=== PATIENT | female | born 1980 | race Caucasian/White ===

== ENCOUNTER 2018-08-03 17:54 | Emergency (ER) | payer MEDICARE, SELFPAY ==
[2018-08-03 17:56] VITALS: BP 149/80; PULSE 107; TEMP 36.8; O2SAT 98; BMI 19.5
[2018-08-03 18:11] LABS: Bedside Glucose 77 mg/dL (70-110)
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
[2018-08-03 20:05] LABS: Absolute Lymphocyte Count 3.09 X10^3/ul (0.83-4.51); Absolute Neutrophil Count 4.1 X10^3/uL (2.0-7.7); Basophil# 0.04 X10^3/uL; Basophil% 0.5 % (0-1); Eosinophil# 0.14 X10^3/uL; Eosinophils% 1.7 % (0-5); Hematocrit 45.9 % (37-47); Hemoglobin 15.7 g/dl (12.0-15.0); Lymphocyte # 3.09 X10^3/ul (4.0); Lymphocyte % 38.3 % (19-41); Mean Corp Hgb Conc 34.2 g/gl (32-36); Mean Corpuscular Hgb 32.8 pg (27.0-32.0); Mean Corpuscular Volume 95.8 fL (81-99); Mean Platelet Vol. 9.2 fl (6.2-12.0); Monocyte# 0.73 X10^3/uL; Monocyte% 9.1 % (0-10); Neutrophil # 4.06 X10^3/uL (2.7-7.7); Neutrophil % 50.4 % (47-70); Platelet Count 282 K/mm3 (150-450); RBC Distribution Width CV 12.5 % (11.6-14.6); RBC Distribution Width SD 43.6 fl (35.1-43.9); Red Blood Count 4.79 M/mm3 (4.2-5.4); White Blood Count 8.1 K/mm3 (4.4-11.0)
[2018-08-03 20:06] LABS: POSITIVE COUNT NO; POSITIVE DIFFERENTIAL NO; POSITIVE MORPHOLOGY NO
[2018-08-03 20:23] LABS: BUN 12 mg/dL (7-18); Creatinine, Serum 1.16 mg/dL (0.55-1.02); Estimated Creatinine Clearance 54.83 ml/min; Glucose 70 mg/dL (74-106)
[2018-08-03 20:24] LABS: ALB/GLOB Ratio 1.1 RATIO (0.9-2.4); AST(SGOT) 25 U/L (15-37); Alanine Aminotransfer ALT/SGPT 26 U/L (13-56); Albumin, Serum 4.6 g/dL (3.2-5.0); Alkaline Phosphatase 111 U/L (45-117); Anion Gap 7 (5-15); BUN/Creat Ratio 10.3 RATIO (10-20); Calcium,Total 9.6 mg/dL (8.5-10.1); Chloride 102 mmol/L (98-107); EST Glomerular Filtration Rate 56 mL/min (>60); Est Glom Filt Rate - Afr Amer 68 mL/min (>60); Globulin 4.2 g/dL (2.2-4.2); Potassium 3.9 mmol/L (3.5-5.1); Protein, Total 8.8 g/dL (6.4-8.2); Sodium Level 138 mmol/L (136-145)
[2018-08-03 20:33] VITALS: PULSE 78; RESP 16; O2SAT 98
--- NOTE | 2018-08-03 20:46 | ED.RN ---
FROM BEGINNING OF INTERACTION PATIENT WAS REFUSING CARE AND BEING VERY ARGUMENTATIVE. PATIENT MADE AWARE MULTIPLE TIMES THAT SHE HAS THE CHOICE TO BE TREATED OR NOT. PATIENT SENT FROM [facility] TO GET MEDICALLY CLEARED. CONFIRMED THIS WITH ACCOUNT COLLECTOR FROM [facility]. PATIENT WILL NOT SIGN OUT AMA DUE TO HAVING NO PLACE TO GO. PATIENT CONTINUES TO BE VERY ARGUMENTATIVE USING PROFANITIES. BUT AGREED TO GET LABS AND SCAN DONE. WHEN PATIENT RETURNED CONTINUED TO ARGUE. WHILE GIVING DISCHARGE INSTRUCTIONS PATIENT RIPPED IV OUT, BLOOD PRESSURE CUFF, AND HEART MONITOR. PATIENT YELLING PROFANITIES SHE LEFT.
== END 2018-08-03 21:07 | disposition home or self-care (01) ==
PROVIDERS: Emergency Provider Emergency Medicine
DX: G40.909 Epilepsy, unspecified, not intractable, without status epilepticus (principal); F31.9 Bipolar disorder, unspecified
CPT/HCPCS: 70450; 80053; 82962; 85025; 99285

== ENCOUNTER 2018-08-06 18:50 | Emergency (ER) | payer MEDICARE, SELFPAY ==
[2018-08-06 18:51] VITALS: PULSE 106; RESP 20; TEMP 36.4; O2SAT 98; BMI 17.4
[2018-08-06 19:11] LABS: Bedside Glucose 88 mg/dL (70-110)
--- NOTE | 2018-08-06 19:26 | ED.VISSUMM ---
- ER Visit Summary Date of Service: 08/06/18 Chief Complaint: Agitation History of Present Illness: The patient is a 38 F who presents with agitation that began today. Patient was seen here 3 days ago with similar complaints. Patient had lab work drawn at that time which was all normal. Patient was brought in by police because patient was not eating or drinking for the past 9 days. Patient denies any suicidal or homicidal ideations. Patient states she has been having seizures which are normal for her. Patient is currently on Lamictal for her seizures. Patient states she tries to eat but every time she tries to eat she has nausea and vomiting. Physical Examination: Vital signs are stable. Patient is afebrile. Patient is in no acute distress. Patient is agitated on exam. Patient denies any suicidal or homicidal ideations. Patient does not want to be seen here in the emergency department or treated. Patient was agreeable to physical exam. Oral mucosa was pink and moist. Neck was supple. There is no JVD noted. Heart was regular rate and rhythm. Lungs are clear and equal bilaterally. Abdomen is soft and nontender. Cranial nerves II through XII are intact. There are no focal motor or sensory deficits noted. The remaining physical exam is within normal limits. Test Results: BG T was obtained and was normal. Emergency Department Course and Treatment: Patient was refusing any further treatment here in the emergency department. Patient states she wants to be discharged and wants to go home. Since the patient is not suicidal or homicidal. Patient is alert and oriented to person place and time. Patient is able to refuse treatment. Patient was allowed to be discharged. Patient was instructed to follow-up with her primary care physician or return to the emergency department if worse in any way. Patient understood and was agreeable with the plan. All questions were answered. Disposition: Discharge home Impression: 1. Agitation 2. Seizure disorder This note was generated with [employer] dictation software. It may contain incorrect words, spelling, and punctuation that were not noted in review of the chart prior to signing ED Disposition - Plan for ED Patient: Disposition: Home or Assisted Living Chief Complaint: Mental Health Diagnosis: Agitation, Seizure disorder Instructions: ED Seizure Recurrent Referrals: Care Physician,No Primary [Primary Care Provider] -
--- NOTE | 2018-08-06 19:31 | ED.DCSUM_ITS ---
- ER Visit Summary Date of Service: 08/06/18 Chief Complaint: Agitation History of Present Illness: The patient is a 38 F who presents with agitation that began today. Patient was seen here 3 days ago with similar complaints. Patient had lab work drawn at that time which was all normal. Patient was broug ht in by police because patient was not eating or drinking for the past 9 days. Patient denies any suicidal or homicidal ideations. Patient states she has been having seizures which are normal for her. Patient is currently on Lamictal for her seizures. Patient states she tries to eat but every time she tries to eat she has nausea and vomiting. Physical Examination: Vital signs are stable. Patient is afebrile. Patient is in no acute distress. Patient is agitated on exam. Patient denies any suicidal or homicidal ideations. Patient does not want to be seen here in the emergency department or treated. Patient was agreeable to physical exam. Oral mucosa was pink and moist. Neck was supple. There is no JVD noted. Heart was regular rate and rhythm. Lungs are clear and equal bilaterally. Abdomen is soft and nontender. Cranial nerves II through XII are intact. There are no focal motor or sensory deficits noted. The remaining physical exam is within normal limits. Test Results: BG T was obtained and was normal. Emergency Department Course and Treatment: Patient was refusing any further t reatment here in the emergency department. Patient states she wants to be discharged and wants to go home. Since the patient is not suicidal or homicidal. Patient is alert and oriented to person place and time. Patient is able to refuse treatment. Patient was allowed to be discharged. Patient was instructed to follow-up with her primary care physician or return to the emergency department if worse in any way. Patient understood and was agreeable with the plan. All questions were answered. Disposition: Discharge home Impression: 1. Agitation 2. Seizure disorder This note was generated with [employer] dictation software. It may contain incorrect words, spelling, and punctuation that were not noted in review of the chart prior to signing ED Disposition - Plan for ED Patient: Disposition: Home or Assisted Living Chief Complaint: Mental Health Diagnosis: Agitation, Seizure disorder Instructions: ED Seizure Recurrent Referrals: Care Physician,No Primary [Primary Care Provider] -
== END 2018-08-06 19:38 | disposition home or self-care (01) ==
PROVIDERS: Emergency Provider Emergency Medicine
DX: R45.1 Restlessness and agitation (principal); G40.909 Epilepsy, unspecified, not intractable, without status epilepticus; R11.2 Nausea with vomiting, unspecified; F41.9 Anxiety disorder, unspecified; Z72.0 Tobacco use
CPT/HCPCS: 82962; 99284

== ENCOUNTER 2019-02-21 19:35 | Emergency (ER) | payer MEDICARE, SELFPAY ==
[2019-02-21 19:35] VITALS: BP 135/76; PULSE 103; RESP 14; TEMP 36.7; O2SAT 99; BMI 17.2
--- NOTE | 2019-02-21 19:51 | RAD_ITS ---
STUDY: X-RAY CHEST REASON FOR EXAM: Female, 38 years old. Left chest pain TECHNIQUE: AP portable COMPARISON: None. FINDINGS: The lungs are clear and expanded. Tiny nodular opacity in the left upper lobe possibly representing granulomatous process. There is no demonstrated pleural abnormality. Normal size heart. Normal mediastinum and kailyn. Normal visualized pulmonary arteries. Normal visualized aortic arch and descending thoracic aorta. Normal visualized thoracic spine. Normal visualized ribs, clavicles, and shoulders. There is no demonstrated abnormality of the visualized soft tissue structures of the upper abdomen. RAD/Chest 1 View (Portable) IMPRESSION: No acute cardiopulmonary pathology. Tiny nodular density in left upper lobe possibly granulomatous process. Would recommend correlation with prior studies or follow-up imaging for further evaluation. Electronically Signed: Keagan Anne MD at 20:15 EDT , Service support ,
[2019-02-21] MEDS: proMETHazine 25 MG/ML Syringe 6.25 MG IV (20:03)
[2019-02-21] MEDS: LORazepam 2 MG/ML Syringe 1 MG IV (20:03)
[2019-02-21] MEDS: 0.9% Normal Saline 1,000 ML 1000 ML IV (20:04)
--- NOTE | 2019-02-21 20:18 | ED.RN ---
PT STATED SHE HAS A SEIZURE DISORDER AND SHE HAD A SEIZURE LAST NIGHT. AWARE AND DID NOT ORDER SEIZURE PRECAUTIONS AT THIS TIME. PT HAS NO FURTHER NEEDS, WILL CONTINUE TO MONITOR.
[2019-02-21 20:52] LABS: Absolute Lymphocyte Count 2.24 X10^3/ul (0.83-4.51); Absolute Neutrophil Count 3.9 X10^3/uL (2.0-7.7); Basophil# 0.04 X10^3/uL; Basophil% 0.6 % (0-1); Eosinophil# 0.11 X10^3/uL; Eosinophils% 1.6 % (0-5); Hematocrit 39.9 % (37-47); Hemoglobin 13.8 g/dl (12.0-15.0); Lymphocyte # 2.24 X10^3/ul (4.0); Lymphocyte % 32.7 % (19-41); Mean Corp Hgb Conc 34.6 g/gl (32-36); Mean Corpuscular Hgb 32.3 pg (27.0-32.0); Mean Corpuscular Volume 93.4 fL (81-99); Mean Platelet Vol. 9.1 fl (6.2-12.0); Monocyte# 0.57 X10^3/uL; Monocyte% 8.3 % (0-10); Neutrophil # 3.87 X10^3/uL (2.7-7.7); Neutrophil % 56.7 % (47-70); Platelet Count 311 K/mm3 (150-450); RBC Distribution Width CV 12.7 % (11.6-14.6); RBC Distribution Width SD 42.6 fl (35.1-43.9); Red Blood Count 4.27 M/mm3 (4.2-5.4); White Blood Count 6.8 K/mm3 (4.4-11.0)
[2019-02-21 20:58] LABS: POSITIVE COUNT NO; POSITIVE DIFFERENTIAL NO; POSITIVE MORPHOLOGY NO
[2019-02-21 21:03] LABS: Anion Gap 7 (5-15); BUN 6 mg/dL (7-18); BUN/Creat Ratio 7.9 RATIO (10-20); Calcium,Total 8.9 mg/dL (8.5-10.1); Chloride 108 mmol/L (98-107); Creatinine, Serum 0.76 mg/dL (0.55-1.02); EST Glomerular Filtration Rate 91 mL/min (>60); Est Glom Filt Rate - Afr Amer 111 mL/min (>60); Estimated Creatinine Clearance 73.28 ml/min; Glucose 77 mg/dL (74-106); Potassium 4.2 mmol/L (3.5-5.1); Sodium Level 139 mmol/L (136-145)
--- NOTE | 2019-02-21 21:10 | ED.VISSUMM ---
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 She reports that she had pain in her left axilla that began approximately 2 weeks ago. She describes an aching pain that she thought she pulled something. However, she reports that 4 days ago she began having pain in her left breast. Says sharp pains tended to worsen out of 10 currently. Is worsened by movement relieved by rest. She states that she taken Tylenol and Advil without relief. She reports that she had a mammogram approximately 4 years ago. She did not palpate a mass here. Patient also reports that she has been vomiting due to the pain. This began 3 days ago. She vomiting multiple times per day. No blood or emesis. Physical Examination: Vitals: Stable. Afebrile. General: Well-nourished and well-developed. Head: Normocephalic atraumatic. Neck: Supple, no lymphadenopathy. No JVD. Nontender. Cardiovascular: Regular rate and rhythm. No murmurs. Respiratory: No respiratory distress. Clear to auscultation bilaterally. Left breast: Moderate tenderness palpation over the lateral surface of her breast. I cannot appreciate any masses or nodes. There is no erythema or soft tissue swelling to the breast. There is no erythema or mass in the axilla. There is no evidence of abscess. There are no palpable nodes. Abdominal: Soft, nontender, nondistended, normal bowel sounds. No guarding, rebound, or peritoneal signs. Back: Nontender. Extremities: Nontender, no edema. Skin: Normal color, no rash. Neurologic: Alert and oriented ?3. Cranial nerves II through XII are intact. Normal strength and sensation. Psych: Normal affect. Test Results: CBC is normal. Chem-7 shows a chloride of 108 and BUN of 6. Clinical Impression(s) from Imaging Studies Chest X-Ray 02/21/19 19:51 IMPRESSION: No acute cardiopulmonary pathology. Tiny nodular density in left upper lobe possibly granulomatous process. Would recommend correlation with prior studies or follow-up imaging for further evaluation. Electronically Signed: Keagan Anne MD at 20:15 EDT , Service support , Emergency Department Course and Treatment: Patient has multiple allergies. She was given a dose of Ativan and Zofran IV. She was given Tylenol p.o. I do not think that the treating her with opiate-based medications is warranted. However, the patient was very upset that she would not be treated with these medications. Treatment Plan: Patient will be discharged with Phenergan for her nausea. Instructed to use Tylenol and/or ibuprofen for pain. Follow-up Dr. Sherry Barber as soon as possible. Follow-up with the [facility] in 1-2 days if not improving. Disposition: To home in improved and stable condition. Impression: 1. Left breast pain, uncertain cause. This note was generated with [employer] dictation software. It may contain incorrect words, spelling, and punctuation that were not noted in review of the chart prior to signing ED Disposition - Plan for ED Patient: Disposition: Home or Assisted Living Instructions: Breast Self-Exam (BSE), ED Nodule Solitary Pulmonary Prescriptions: proMETHazine suppository [Phenergan Suppository] 25 mg RECTAL Q6H PRN PRN #6 suppos. PRN Reason: Nausea proMETHazine tablet [Phenergan] 25 mg PO Q6H PRN PRN #10 tablet PRN Reason: Nausea Naproxen [Naprosyn] 500 mg PO BID #14 tablet Referrals: Esther Samano MD [STAFF PHYSICIAN] - [facility] [NON-STAFF] - 1 Week
--- NOTE | 2019-02-21 21:13 | ED.DCSUM_ITS ---
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 She reports that she had pain in her left axilla that began approximately 2 weeks ago. She describes an aching pain that she thought she pulled something. However, she reports that 4 days ago she began having pain in her left breast. Says sharp pains tended to worsen out of 10 currently. Is worsened by movement relieved by rest. She states that she taken Tylenol and Advil without relief. She reports that she had a mammogram approximately 4 years ago. She did not palpate a mass here. Patient also reports that she has been vomiting due to the pain. This began 3 days ago. She vomiting multiple times per day. No blood or emesis. Physical Examination: Vitals: Stable. Afebrile. General: Well-nourished and well-developed. Head: Normocephalic atraumatic. Neck: Supple, no lymphadenopathy. No JVD. Nontender. Cardiovascular: Regular rate and rhythm. No murmurs. Respiratory: No respiratory distress. Clear to auscultation bilaterally. Left breast: Moderate tenderness palpation over the lateral surface of her breast. I cannot appreciate any masses or nodes. There is no erythema or soft tissue swelling to the breast. There is no erythema or mass in the axilla. There is no evidence of abscess. There are no palpable nodes. Abdominal: Soft, nontender, nondistended, normal bowel sounds. No guarding, rebound, or peritoneal signs. Back: Nontender. Extremities: Nontender, no edema. Skin: Normal color, no rash. Neurologic: Alert and oriented ?3. Cranial nerves II through XII are intact. Normal strength and sensation. Psych: Normal affect. Test Results: CBC is normal. Chem-7 shows a chloride of 108 and BUN of 6. Clinical Impression(s) from Imaging Studies Chest X-Ray 02/21/19 19:51 IMPRESSION: No acute cardiopulmonary pathology. Tiny nodular density in left upper lobe possibly granulomatous process. Would recommend correlation with prior studies or follow-up imaging for further evaluation. Electronically Signed: Keagan Anne MD at 20:15 EDT , Service support , Emergency Department Course and Treatment: Patient has multiple allergies. She was given a dose of Ativan and Zofran IV. She was given Tylenol p.o. I do not think that the treating her with opiate-based medications is warranted. However, the patient was very upset that she would not be treated with these medications. Treatment Plan: Patient will be discharged with Phenergan for her nausea. Instructed to use Tylenol and/or ibuprofen for pain. Follow-up Dr. Sherry Barber as soon as possible. Follow-up with the [facility] in 1-2 days if not improving. Disposition: To home in improved and stable condition. Impression: 1. Left breast pain, uncertain cause. This note was generated with [employer] dictation software. It may contain incorrect words, spelling, and punctuation that were not noted in review of the chart prior to signing ED Disposition - Plan for ED Patient: Disposition: Home or Assisted Living Instructions: Breast Self-Exam (BSE), ED Nodule Solitary Pulmonary Prescriptions: proMETHazine suppository [Phenergan Suppository] 25 mg RECTAL Q6H PRN PRN #6 suppos. PRN Reason: Nausea proMETHazine tablet [Phenergan] 25 mg PO Q6H PRN PRN #10 tablet PRN Reason: Nausea Naproxen [Naprosyn] 500 mg PO BID #14 tablet Referrals: Esther Samano MD [STAFF PHYSICIAN] - [facility] [NON-STAFF] - 1 Week
[2019-02-21 21:47] VITALS: PULSE 74; RESP 18
== END 2019-02-21 21:48 | disposition home or self-care (01) ==
LOC: ED 20:26
PROVIDERS: Emergency Provider Emergency Medicine
DX: N64.4 Mastodynia (principal)
CPT/HCPCS: 71045; 80048; 85025; 96361; 96374; 96375; 99285; J7030; A4216

== ENCOUNTER → 2019-03-09 08:58 | Outpatient (CLI) | payer MEDICARE, SELFPAY ==
[2019-02-21 19:35] VITALS: BMI 17.2
--- NOTE | 2019-03-09 09:03 | US_ITS ---
STUDY: ULTRASOUND BREAST - LEFT REASON FOR EXAM: Female, 38 years old. Pain and swelling along the lateral aspect of the left breast. TECHNIQUE: Axial and longitudinal images of the LEFT breast were performed with a high resolution ultrasound transducer. COMPARISON: None. FINDINGS: LEFT Breast: The lateral half of the left breast was examined by ultrasound. There is homogeneous fibroglandular tissue. No solid or cystic mass lesion is seen. US/Breast Limited Unilateral IMPRESSION: Unremarkable sonographic examination of the lateral aspect of the left breast. ASSESSMENT CATEGORY: BIRADS Category 1: Negative. A letter regarding these results will be sent to the patient by the facility within 30 days. Electronically Signed: Fazal Osorio, at 10:59 EDT , Service support ,
--- NOTE | 2019-03-09 09:03 | BI_ITS ---
MAMMOGRAPHY - BILATERAL DIAGNOSTIC REASON FOR EXAM: Female, 38 years old. Left breast lumps and pain for 2 weeks. PERTINENT HISTORY: Non-contributory. TECHNIQUE: Digital bilateral breast scottie (3D mammographic acquisition) in the CC and MLO projections. 2-D mediolateral oblique (MLO) and craniocaudad (CC) views of both breasts were obtained. CAD: Full Field Digital Mammography with Computer Added Detection was performed. COMPARISON: No comparison mammograms available at this time. If any prior films become available, an addendum to this report can be generated. FINDINGS: Breast Composition: There are scattered areas of fibroglandular density. There are no dominant masses or suspicious calcifications. No other significant abnormalities are identified. BI/DIAG MAMM W/CAD, BILAT IMPRESSION: Negative diagnostic mammogram. With the patient's history of left breast lumps and pain, correlation with ultrasound of the left breast is recommended. ASSESSMENT CATEGORY: BIRADS Category 0: Incomplete. Need additional imaging evaluation. A letter regarding these results will be sent to the patient by the facility within 30 days. Approximately 10% of breast cancers are not detected by mammography. A normal mammogram should not delay biopsy of a clinically suspicious abnormality. Electronically Signed: Fazal Osorio, at 12:44 EDT , Service support ,
== END ==
PROVIDERS: Family Provider Nurse Practitioner Family; PCP Nurse Practitioner Family
DX: N64.89 Other specified disorders of breast (principal)
CPT/HCPCS: 76642; 77062; 77066; G0279

== ENCOUNTER 2019-03-09 18:42 | Emergency (ER) | payer MEDICARE, SELFPAY ==
[2019-03-09 18:44] VITALS: BP 121/78; PULSE 87; RESP 17; TEMP 36.7; O2SAT 97; BMI 18.6
[2019-03-09 19:42] VITALS: BP 103/78; PULSE 75; RESP 16; O2SAT 99
[2019-03-09] MEDS: oxyCODONE 5 MG Tablet PO (19:44)
[2019-03-09] MEDS: proMETHazine 25 MG Tablet PO (19:44)
--- NOTE | 2019-03-09 21:03 | ED.VISSUMM ---
- ER Visit Summary Date of Service: 03/09/19 Chief Complaint: Left breast pain and swelling History of Present Illness: The patient is a 38 F with a 3-week history of left breast pain. She is been seen in the ED as well as by her PCP. She had an ultrasound and a mammogram done earlier today. Patient presents with worsened pain and nausea. She has prescriptions for naproxen and Phenergan but states she is just about out of both. Physical Examination: Vital signs unremarkable. Patient sitting upright in bed no acute distress. Heart is regular rate and rhythm. Lung sounds are clear. She has reproducible tenderness left upper outer breast and into the axilla. No masses or skin changes are noted. Abdomen is soft and nontender. Test Results: I was able to review the ultrasound and mammogram reports from earlier today. Both are unremarkable. Emergency Department Course and Treatment: Patient was given 1 tab of oxycodone and Phenergan here. On repeat evaluation she is resting more comfortably. I advised her I would not write her narcotics for home with normal ultrasound and mammogram. I offered chest x-ray to ensure her chest wall is normal and she declines stating that she is scheduled for a chest CT next week. She is given a prescription for naproxen and Phenergan. Treatment Plan: [] Disposition: Discharge Impression: Left breast pain This note was generated with [employer] dictation software. It may contain incorrect words, spelling, and punctuation that were not noted in review of the chart prior to signing ED Disposition - Plan for ED Patient: Disposition: Home or Assisted Living Instructions: ED Strain Chest Wall Prescriptions: proMETHazine tablet [Phenergan] 25 mg PO Q6H PRN PRN #10 tablet PRN Reason: Nausea Naproxen [Naprosyn] 500 mg PO BID PRN PRN #20 tablet PRN Reason: Pain Referrals: Arianna Glass NP-C [Primary Care Provider] - 3-5 Days
[2019-03-09] MEDS: proMETHazine 12.5 MG Suppos. RECTAL (21:15)
[2019-03-09 21:16] VITALS: BP 110/78; PULSE 80; RESP 16; O2SAT 99
== END 2019-03-09 21:16 | disposition home or self-care (01) ==
PROVIDERS: Emergency Provider Emergency Medicine; Family Provider Nurse Practitioner Family; PCP Nurse Practitioner Family
DX: N64.4 Mastodynia (principal); Z72.0 Tobacco use; R11.0 Nausea
CPT/HCPCS: 76642; 77062; 77066; 99283; G0279

== ENCOUNTER → 2019-03-16 15:09 | Outpatient (CLI) | payer MEDICARE, SELFPAY ==
[2019-02-21 19:35] VITALS: BMI 17.2
[2019-03-09 18:44] VITALS: BMI 18.6
--- NOTE | 2019-03-16 15:13 | CT_ITS ---
STUDY: CT CHEST WITH CONTRAST REASON FOR EXAM: Female, 38 years old. Nodule RADIATION DOSAGE (If Supplied By Facility): DLP = ( 160.38 ) mGycm TECHNIQUE: Transaxial imaging was performed following intravenous administration of 100 ml of Isovue 300 contrast material. Coronal and sagittal reformatted images were created. Individualized dose optimization techniques were used for this CT. COMPARISON: X-ray chest February 21, 2019 FINDINGS: There are no pulmonary infiltrates or pleural effusions. There is a tiny left upper lobe granuloma. Several small pleural-based nodular opacities and groundglass are present in the bilateral lungs posteriorly. There is no consolidation. There is no pneumothorax. The heart and pericardium are within normal limits. There is no thoracic lymphadenopathy. There is no evidence of thoracic aortic aneurysm. Images through the upper abdomen demonstrate no significant abnormality. There are no destructive osseous lesions. CT/Chest WITH Contrast IMPRESSION: Tiny left upper lobe granuloma. Several small pleural-based nodular opacities and groundglass opacities in the bilateral lungs posteriorly, likely due to inflammatory process. Electronically Signed: Keagan Baez, at 16:32 EDT Tel , Service support ,
== END ==
PROVIDERS: Family Provider Nurse Practitioner Family; PCP Nurse Practitioner Family
DX: R91.1 Solitary pulmonary nodule (principal)
CPT/HCPCS: 71260; Q9967

== ENCOUNTER 2019-05-03 16:29 | Emergency (ER) | payer MEDICARE, SELFPAY ==
[2019-04-25 08:49] VITALS: BMI 17.6
[2019-05-03 16:29] VITALS: BP 120/72; PULSE 82; RESP 16; TEMP 36.4; O2SAT 98; BMI 18.8
--- NOTE | 2019-05-03 16:52 | CT_ITS ---
STUDY: CT BRAIN WITHOUT CONTRAST REASON FOR EXAM: Female, 38 years old. Seizure RADIATION DOSAGE (If Supplied By Facility): DLP = ( 908.82 ) mGycm TECHNIQUE: Transaxial CT imaging of the brain was performed without administration of intravenous contrast material. Individualized dose optimization techniques were used for this CT. COMPARISON: CT head August 03, 2018 FINDINGS: There is no acute bleed or infarct. There are normal white matter tracts. The ventricles are normal in configuration. There is no hydrocephalus. The visualized paranasal sinuses are clear. The mastoid air cells are well aerated. There is no skull fracture. CT/Brain/Head without Contrast IMPRESSION: No acute intracranial abnormality. Electronically Signed: Keagan Baez, at 17:50 EDT Tel , Service support ,
[2019-05-03] MEDS: proMETHazine 25 MG/ML Syringe 6.25 MG IV ×2 (17:09→18:18)
[2019-05-03] MEDS: 0.9% Normal Saline 1,000 ML 1000 ML IV (17:09)
[2019-05-03] MEDS: lamoTRIgine 100 MG Tablet 200 MG PO (17:14)
[2019-05-03] MEDS: clonazePAM 1 MG Tablet PO (17:14)
[2019-05-03 17:20] LABS: Absolute Lymphocyte Count 1.71 X10^3/ul (0.83-4.51); Absolute Neutrophil Count 8.2 X10^3/uL (2.0-7.7); Basophil# 0.05 X10^3/uL; Basophil% 0.5 % (0-1); Eosinophil# 0.03 X10^3/uL; Eosinophils% 0.3 % (0-5); Hematocrit 44.1 % (37-47); Hemoglobin 15.7 g/dl (12.0-15.0); Lymphocyte # 1.71 X10^3/ul (4.0); Lymphocyte % 15.9 % (19-41); Mean Corp Hgb Conc 35.6 g/gl (32-36); Mean Corpuscular Hgb 32.8 pg (27.0-32.0); Mean Corpuscular Volume 92.1 fL (81-99); Mean Platelet Vol. 9.2 fl (6.2-12.0); Monocyte# 0.73 X10^3/uL; Monocyte% 6.8 % (0-10); Neutrophil # 8.22 X10^3/uL (2.7-7.7); Neutrophil % 76.4 % (47-70); Platelet Count 301 K/mm3 (150-450); RBC Distribution Width SD 43.6 fl (35.1-43.9); Red Blood Count 4.79 M/mm3 (4.2-5.4); White Blood Count 10.8 K/mm3 (4.4-11.0)
[2019-05-03 17:25] LABS: POSITIVE COUNT NO; POSITIVE DIFFERENTIAL NO; POSITIVE MORPHOLOGY NO
[2019-05-03 17:34] LABS: ALB/GLOB Ratio 1.2 RATIO (0.9-2.4); AST(SGOT) 24 U/L (15-37); Alanine Aminotransfer ALT/SGPT 22 U/L (13-56); Albumin, Serum 4.5 g/dL (3.2-5.0); Alkaline Phosphatase 95 U/L (45-117); Anion Gap 7 (5-15); BUN 7 mg/dL (7-18); BUN/Creat Ratio 7.3 RATIO (10-20); Calcium,Total 9.4 mg/dL (8.5-10.1); Chloride 106 mmol/L (98-107); Creatinine, Serum 0.96 mg/dL (0.55-1.02); EST Glomerular Filtration Rate 70 mL/min (>60); Est Glom Filt Rate - Afr Amer 85 mL/min (>60); Estimated Creatinine Clearance 63.81 ml/min; Globulin 3.9 g/dL (2.2-4.2); Glucose 75 mg/dL (74-106); Potassium 3.7 mmol/L (3.5-5.1); Protein, Total 8.4 g/dL (6.4-8.2); Sodium Level 135 mmol/L (136-145)
[2019-05-03 17:57] LABS: Bacteria 0 SEEN /hpf (None Seen); Mucous, Urine 0 SEEN /hpf (<or=2+); Red Blood Cells-Urine 0 SEEN /hpf (0-5)
[2019-05-03 18:02] LABS: Color, Urine Yellow (Yellow); Glucose, Dipstick Normal (Normal); Ketone-Dipstick 5 mg/dl (Negative); Leukocyte Esterase-Dipstick Negative /ul (Negative); Nitrite-Dipstick Negative (Negative); Occult Blood-Urine 10 /ul (Negative); Protein-Dipstick Negative (Negative); Specific Gravity, Urine 1.015 (1.002-1.030); Urine Bilirubin Dipstick Negative (Negative); Urine Clarity Clear (Clear); Urine Urobilinogen Normal (Normal)
[2019-05-03 18:09] LABS: Squamous Epithelial Cells - UA 0-5 SEEN /hpf (5-10); White Blood Cells 0-5 SEEN /hpf (0-5)
[2019-05-03 18:11] LABS: Amphetamine Urine VISTA NEGATIVE (<1000 ng/mL); Barbiturate Urine VISTA NEGATIVE (< 200 ng/mL); Benzodiazepine Urine VISTA NEGATIVE (< 200 ng/mL); Cocaine Urine VISTA NEGATIVE (< 300 ng/mL); Ecstacy Urine VISTA NEGATIVE (< 500 ng/mL); Methadone Urine VISTA NEGATIVE (< 300 ng/mL); PCP Urine VISTA NEGATIVE (< 25 ng/mL); THC Urine VISTA POSITIVE (< 50 ng/mL); Vista UDS pH Range 5
[2019-05-03] MEDS: 0.9% Normal Saline 1,000 ML 150 ML IV (18:18)
[2019-05-03 18:20] VITALS: BP 116/84; PULSE 75; RESP 20; O2SAT 97
--- NOTE | 2019-05-03 18:55 | ED.DCSUM_ITS ---
- ER Visit Summary Date of Service: 05/03/19 Chief Complaint: Seizures History of Present Illness: The patient is a 38 F who took a taxi to the emergency department. She states that she was found by her neighbor apparently after having seizures. She states that after that she decided to come to the hospital. She has had several seizures recently she states because she has not taken her medicine for a couple days. She has not taken her medicine for the past couple days because of his significant nausea vomiting. She states this is been ongoing for a couple weeks. She uses recreational marijuana frequently. She has never been told about cyclic vomiting syndrome. She sees [facility] for her epilepsy. She states that she has a bruised head and right periorbital region as well as bruises on her extremities. She also bit her lip. Physical Examination: Afebrile vital signs are stable Gen: Well-nourished well-developed Head: Normocephalic atraumatic Eyes: Perrl EOMI ENT: TMs clear no rhinorrhea moist mucous membranes Neck: Supple no lymphadenopathy no JVD nontender CVS: Regular rate rhythm no murmurs normal S1-S2 Respiratory: No distress clear to auscultation bilaterally chest nontender Abdomen: Soft nontender nondistended normal bowel sounds no masses Back: Nontender Extremity: Nontender no edema Skin: Normal color no rash Neuro: alert orientated ?3 CN II-XII intact normal strength sensation normal gait Psych: Normal affect normal mood Test Results: CBC CMP urinalysis normal. Urine drugs of abuse showed THC. CT the brain negative for evidence of trauma Emergency Department Course and Treatment: She received 2 L of IV fluids as well as 2 doses of Phenergan. She is been able to keep down oral clonazepam and Lamictal. The seizures are most likely due to not taking her medications. I wonder if this patient has cyclic vomiting syndrome given her frequent marijuana use. She will discuss this with her doctors. Impression: 1. Epileptic seizures 2. Nausea vomiting 3. THC use This note was generated with [employer] dictation software. It may contain incorrect words, spelling, and punctuation that were not noted in review of the chart prior to signing ED Disposition - Plan for ED Patient: Disposition: Home or Assisted Living Instructions: SEIZURE, Recurrent [Adult], When Your Child Has Cyclic Vomiting Syndrome ([facility]) Prescriptions: proMETHazine tablet [Phenergan] 25 mg PO Q6H PRN PRN #20 tab PRN Reason: Nausea Prescription Printed Referrals: Arianna Glass, SWIMMING COACH-C [Primary Care Provider] - As soon as possible
[2019-05-03] MEDS: 0.9% Normal Saline 1,000 ML 999 ML IV (19:02)
[2019-05-03 19:56] VITALS: BP 110/74; PULSE 74; RESP 18; O2SAT 98
== END 2019-05-03 20:01 | disposition home or self-care (01) ==
PROVIDERS: Emergency Provider Emergency Medicine; Family Provider Nurse Practitioner Family; PCP Nurse Practitioner Family
DX: G40.909 Epilepsy, unspecified, not intractable, without status epilepticus (principal); R11.2 Nausea with vomiting, unspecified; F12.90 Cannabis use, unspecified, uncomplicated; F32.9 Major depressive disorder, single episode, unspecified; Z72.0 Tobacco use
CPT/HCPCS: 70450; 80053; 80307; 81001; 85025; 96361; 96374; 96376; 99285; J7030

== ENCOUNTER 2019-05-15 19:54 | Emergency (ER) | payer MEDICARE, SELFPAY ==
[2019-05-15 19:55] VITALS: BP 130/105; PULSE 107; RESP 20; TEMP 36.8; O2SAT 97; BMI 16.7
[2019-05-15 20:43] VITALS: PULSE 72; RESP 13; O2SAT 100
[2019-05-15 22:03] LABS: Absolute Lymphocyte Count 2.44 X10^3/uL (0.83-4.51); Absolute Neutrophil Count 2.5 X10^3/uL (2.0-7.7); Basophil# 0.05 X10^3/uL; Basophil% 0.9 % (0-1); Eosinophil# 0.14 X10^3/uL; Eosinophils% 2.5 % (0-5); Hematocrit 40.7 % (37-47); Hemoglobin 14.5 g/dL (12.0-15.0); Lymphocyte # 2.44 X10^3/ul (4.0); Lymphocyte % 42.8 % (19-41); Mean Corp Hgb Conc 35.6 g/dL (32-36); Mean Corpuscular Hgb 33.1 pg (27.0-32.0); Mean Corpuscular Volume 92.9 fL (81-99); Mean Platelet Vol. 9.3 fl (6.2-12.0); Monocyte# 0.54 X10^3/uL; Monocyte% 9.5 % (0-10); NRBC Flagged by Analyzer 0 % (0-5); Neutrophil # 2.51 X10^3/uL (2.7-7.7); Neutrophil % 43.9 % (47-70); Platelet Count 204 K/mm3 (150-450); RBC Distribution Width CV 12.5 % (11.6-14.6); RBC Distribution Width SD 42.6 fl (35.1-43.9); Red Blood Count 4.38 M/mm3 (4.2-5.4); White Blood Count 5.7 K/mm3 (4.4-11.0)
[2019-05-15] MEDS: 0.9% Normal Saline 1,000 ML 150 ML IV (22:07)
[2019-05-15] MEDS: proMETHazine 25 MG/ML Syringe 6.25 MG IV (22:08)
[2019-05-15] MEDS: LORazepam 2 MG/ML Syringe 0.5 MG IV (22:08)
[2019-05-15 22:09] VITALS: BP 116/78; PULSE 67; RESP 14; O2SAT 100
[2019-05-15 22:35] LABS: Anion Gap 5 (5-15); BUN 14 mg/dL (7-18); BUN/Creat Ratio 13.5 RATIO (10-20); Calcium,Total 9.5 mg/dL (8.5-10.1); Chloride 106 mmol/L (98-107); Creatinine, Serum 1.04 mg/dL (0.55-1.02); EST Glomerular Filtration Rate 63 mL/min (>60); Est Glom Filt Rate - Afr Amer 77 mL/min (>60); Estimated Creatinine Clearance 52.06 ml/min; Glucose 81 mg/dL (74-106); Potassium 4.5 mmol/L (3.5-5.1); Sodium Level 137 mmol/L (136-145)
[2019-05-15] MEDS: Morphine 4 MG/ML Syringe IV (22:38)
[2019-05-15 22:48] LABS: CPK Total, Creatine Kinase 113 U/L (26-192)
--- NOTE | 2019-05-15 23:22 | ED.DCSUM_ITS ---
History of Present Illness Chief Complaint: Seizure Detail of Chief Complaint: Seizures Informant: Patient Onset: - - 10 days Narrative: Patient presents with history of epilepsy currently on Lamictal. She has allergies to Keppra and Depakote. Patient states that she lost to close friend approximately month ago. She has had a lot of anxiety and panic attacks since that time. She states when she gets anxious like this she develops nausea and vomiting. She has not been able to keep her Phenergan down at home and therefore cannot keep down her seizure medication. She states that she believes she had 6 seizures yesterday and at least for today. She complains of bruising and soreness to her extremities from falling on the floor. She is a small bite wound to the inner right lip. Patient states that she spoke with a nurse practitioner for her neurologist at [facility] and they wanted her admitted up there in their observation unit. Patient cannot drive secondary to her history of seizures so she came here to be transferred. - Past Medical History (1) History of cholecystectomy Status: Resolved (2) History of hysterectomy Status: Resolved (3) Cervical cancer Status: Chronic (4) Epilepsy Status: Chronic (5) Hypertension Status: Chronic Past Medical History - Allergies and Home Meds Allergies/Adverse Reactions: Allergies amoxicillin Allergy (Verified 05/03/19 16:32) Hives codeine Allergy (Verified 05/03/19 16:32) Hives divalproex sodium [From Depakote] Allergy (Verified 05/03/19 16:32) Hives iodine Allergy (Verified 05/03/19 16:32) Hives ketorolac [From Toradol] Allergy (Verified 05/03/19 16:32) Hives levetiracetam [From Keppra] Allergy (Verified 05/03/19 16:32) Hives metoclopramide [From Reglan] Allergy (Verified 05/03/19 16:32) Hives ondansetron [From Zofran] Allergy (Verified 05/03/19 16:32) Hives tramadol Allergy (Verified 05/03/19 16:32) Angioedema TAPE Adverse Reaction (Uncoded 05/03/19 16:32) Rash Primary Care Physician: Arianna Glass, IRON-C [Primary Care Provider] - Doctors: Dr. Adams, neurology at [facility]. Prior records reviewed: Yes Past Medical History: - - Reviewed Surgical History: hysterectomy Smoking Status: Current every day smoker Drugs: Marijuana Review of Systems General: Denies: Chills, Fever Cardiovascular: Denies: Chest pain Respiratory: Denies: Dyspnea, Cough Gastrointestinal: Reports: Nausea, Vomiting Musculoskeletal: Reports: Myalgias, Arthralgias Psych: Reports: Anxiety Physical Exam Vital Signs/Narrative: Vital Signs Temp Pulse Resp BP Pulse Ox 05/15/19 22:09 67 14 116/78 100 05/15/19 20:43 72 13 100 05/15/19 19:55 98.3 F 107 H 20 H 130/105 H 97 Inital Vital Signs reviewed: Yes General: Well nourished, Well developed Head: Normocephalic Eyes: Perrl, EOMI ENT: Moist mucous membranes, - - Small bite wound to the inner upper lip on the right. Cardiovascular: Regular rate, Regular rhythm Respiratory: No distress, CTA bilaterally Abdomen: Soft, Nontender Extremities: - - Tenderness to palpation around the left iliac crest and left greater trochanter. Small areas of ecchymosis are noted. Neurological: Alert, Oriented x3 Psychological: - - Anxious Diagnostic/Tx/Re-eval Laboratory Results 05/15/19 05/15/19 05/15/19 21:55 21:55 21:55 WBC 5.7 RBC 4.38 Hgb 14.5 Hct 40.7 MCV 92.9 MCH 33.1 H MCHC 35.6 RDW Std Deviation 42.6 RDW Coeff of José Miguel 12.5 Plt Count 204 MPV 9.3 Immature Gran % (Auto) 0.400 Neut % (Auto) 43.9 L Lymph % (Auto) 42.8 H Hardee % (Auto) 9.5 Eos % (Auto) 2.5 Baso % (Auto) 0.9 Absolute Neuts (auto) 2.5 Absolute Lymphs (auto) 2.44 Absolute Nucleated RBC 0.00 Nucleated RBC % 0 Sodium 137 Potassium 4.5 Chloride 106 Carbon Dioxide 26.0 Anion Gap 5 BUN 14 Creatinine 1.04 H Estim Creat Clear Calc 52.06 Est GFR (MDRD) Af Amer 77 Est GFR (MDRD) Non-Af 63 BUN/Creatinine Ratio 13.5 Glucose 81 Calcium 9.5 Total Creatine Kinase 113 - Medical Decision Making Patient was given IV fluids along with Phenergan and Ativan. She was given a dose of morphine for pain. Patient has had no seizure activity here. We contacted the [facility] transfer line shortly after I evaluated the patient, but they had not been advised the patient would be needing admission or had arranged a bed for her. At this time we will speak with the transfer line. ED Disposition - Plan for ED Patient: Disposition: [facility] - Main Diagnosis: Seizures, Anxiety Referrals: Arianna Glass, SIDE GUIDER-C [Primary Care Provider] -
[2019-05-16 00:09] VITALS: BP 113/82; PULSE 64; RESP 19; O2SAT 100
[2019-05-16] MEDS: proMETHazine 25 MG/ML Syringe 6.25 MG IV (00:26)
[2019-05-16] MEDS: Morphine 2 MG/ML Syringe IV (00:26)
[2019-05-16 00:30] VITALS: BP 113/82; PULSE 71; RESP 17; O2SAT 90
--- NOTE | 2019-05-16 01:42 | ED.RN ---
THIS NURSE CALLED THE [facility] TO CHECK ON A BED PER THE PT REQUEST. THIS NURSE INFORMED THAT THE CC HAS AN EXTREMELY HIGH CENSUS AND THEY DO NOT HAVE A BED AVAILABLE AT THIS TIME. UNSURE WHEN THEY WILL HAVE A BED. PT NOTIFIED OF THE SAME INFORMATION. PT BECOMING INCREASINGLY UPSET. PT STATES YOU ARE LYING. MY DOCTOR SAID THERE IS A BED. MY DOCTOR SAID YOU ARE LYING. I DON'T TRUST YOU. THIS NURSE INFORMED THE PT THAT IF SHE GETS HER DOCTOR ON THE PHONE I AM MORE THAN HAPPY TO TALK TO HER DOCTOR ABOUT THE SAME INFORMATION. PT STATES I'M GOING TO CALL MY INSURANCE COMPANY AND HAVE THEM TRANSFER ME. PT AGAIN INFORMED THAT CC SAID THEY HAVE NO BEDS AVAILABLE AT THIS TIME
[2019-05-16 02:01] VITALS: BP 99/72; PULSE 65; RESP 14; O2SAT 100
[2019-05-16] MEDS: 0.9% Normal Saline 1,000 ML 150 ML IV (02:06)
--- NOTE | 2019-05-16 02:57 | ED.RN ---
DR ELIZABETH IN TO SPEAK WITH THE PT. PT LEAVING AMA. PT REFUSING TO SIGN AMA PAPERWORK. PT STATES I RECORDED EVERYTHING YOU GUYS SAID. I AM GOING TO TRENA THE SHIT OUT OF THIS PLACE. I HATE THIS HOSPITAL. FUCK YOU I HOPE YOU BITCHES GO TO HEL. PT PULLED OUT HER IV. PT REFUSED TO ALLOW STAFF TO PUT A DRESSING ON THE BLEEDING IV SITE. PT WALKED OUT OF THE DEPARTMENT CONTINUING TO YELL AT THE STAFF
--- NOTE | 2019-05-16 02:58 | ED.RN ---
AFTER THIS PT LEFT OUR FACILITY, CALLED [facility], SPOKE TO DEBORAH TO ADVISE HER THAT WE ARE NO LONGER REQUESTING TRANSFER.
== END 2019-05-16 03:04 | disposition left against medical advice (07) ==
PROVIDERS: Emergency Provider Emergency Medicine; Family Provider Nurse Practitioner Family; PCP Nurse Practitioner Family
DX: G40.909 Epilepsy, unspecified, not intractable, without status epilepticus (principal); F41.9 Anxiety disorder, unspecified; I10 Essential (primary) hypertension; F17.200 Nicotine dependence, unspecified, uncomplicated; Z85.41 Personal history of malignant neoplasm of cervix uteri; Z88.8 Allergy status to other drugs, medicaments and biological substances; Z90.49 Acquired absence of other specified parts of digestive tract; Z90.710 Acquired absence of both cervix and uterus
CPT/HCPCS: 80048; 82542; 82550; 85025; 96361; 96374; 96375; 96376; 99285; J7030; A4216

== ENCOUNTER 2019-05-20 21:25 | Emergency (ER) | payer MEDICARE, SELFPAY ==
[2019-05-20 21:26] VITALS: BP 111/90; PULSE 75; RESP 16; TEMP 36.4; O2SAT 99; BMI 17.4
[2019-05-20 21:30] VITALS: BP 120/98; PULSE 77; RESP 16; O2SAT 99
--- NOTE | 2019-05-20 22:15 | ED.VIS.GEN ---
History of Present Illness Chief Complaint: Seizure Informant: Patient Narrative: Patient stated for the last month she has had more frequent seizures. She is on Lamictal but does not feel like it is working. She sees neurology at [facility]. She has an outpatient appointment tomorrow. She was seen in our emergency department twice this month. She had a recent CT of her head that was negative. She had lab work 5 days ago that was positive for marijuana otherwise normal lab work. Patient stated that she had 6 episodes today where she thinks she had seizures. She did not bite her tongue or urinate herself. She has no injuries from this. She signed out AGAINST MEDICAL ADVICE 5 days ago because [facility] did not have a bed quick enough for her. She denies any other symptoms. She held down her Lamictal today. She is been nauseous. She took Phenergan. Denies any other symptoms. Current severity is without seizure. - Past Medical History (1) Breast pain, left Status: Acute (2) Cervical cancer Status: Chronic (3) Epilepsy Status: Chronic (4) Hypertension Status: Chronic (5) Nicotine dependence Status: Chronic (6) Solitary pulmonary nodule Status: Chronic (7) History of cholecystectomy Status: Resolved (8) History of hysterectomy Status: Resolved Past Medical History - Allergies and Home Meds Allergies/Adverse Reactions: Allergies amoxicillin Allergy (Verified 05/20/19 21:26) Hives codeine Allergy (Verified 05/20/19 21:26) Hives divalproex sodium [From Depakote] Allergy (Verified 05/20/19 21:26) Hives iodine Allergy (Verified 05/20/19 21:26) Hives ketorolac [From Toradol] Allergy (Verified 05/20/19 21:26) Hives levetiracetam [From Keppra] Allergy (Verified 05/20/19 21:26) Hives metoclopramide [From Reglan] Allergy (Verified 05/20/19 21:26) Hives ondansetron [From Zofran] Allergy (Verified 05/20/19 21:26) Hives tramadol Allergy (Verified 05/20/19 21:26) Angioedema TAPE Adverse Reaction (Uncoded 05/20/19 21:26) Rash Primary Care Physician: Arianna Glass NP-C [Primary Care Provider] - Prior records reviewed: Yes Past Medical History: - - see prob list. Surgical History: hysterectomy Lives: Alone Smoking Status: Current every day smoker Alcohol: None Drugs: None Review of Systems General: Denies: Chills, Fever, Sweats Eyes: Denies: Visual changes - bilaterally, Diplopia ENT: Denies: Rhinorrhea, Sore throat Cardiovascular: Denies: Chest pain, Palpitations Respiratory: Denies: Dyspnea, Cough, Dyspnea on exertion Gastrointestinal: Reports: Nausea, Vomiting. Denies: Abdominal pain, Diarrhea, Melena, Hematochezia Genitourinary: Denies: Dysuria, Hematuria, Frequency Musculoskeletal: Denies: Back pain, Extremity Pain Skin: Denies: Rash, Wounds Neurological: Denies: Headache, Weakness, Numbness Physical Exam Vital Signs/Narrative: Vital Signs Temp Pulse Resp BP Pulse Ox 05/20/19 21:30 77 16 120/98 H 99 05/20/19 21:26 97.6 F L 75 16 111/90 H 99 General: Well nourished, Well developed, No Acute Distress Head: Normocephalic, Atraumatic Eyes: Perrl, EOMI ENT: Moist mucous membranes, No rhinorrhea Neck: Supple, Nontender Cardiovascular: Regular rate, Regular rhythm, No murmurs Respiratory: No distress, CTA bilaterally, Chest nontender Abdomen: Soft, Nontender, Nondistended, Normal bowel sounds Back: Nontender, Normal Inspection Extremities: Nontender, No edema Skin: Normal color, No rash Neurological: Alert, Oriented x3, Cranial nerves II-XII grossly intact, Normal Strength, Normal Sensation Psychological: Normal affect, Normal Mood Diagnostic/Tx/Re-eval - Medical Decision Making Screening lab work obtained. Patient given IV fluids. Resting comfortably. Lab work normal. Discussed with [facility] and will be admitted to their neurology unit. ED Disposition - Plan for ED Patient: Disposition: Home or Assisted Living Diagnosis: Epilepsy Referrals: Arianna Glass NP-C [Primary Care Provider] -
[2019-05-20 22:41] LABS: Absolute Lymphocyte Count 2.54 X10^3/uL (0.83-4.51); Absolute Neutrophil Count 5.4 X10^3/uL (2.0-7.7); Basophil# 0.06 X10^3/uL; Basophil% 0.7 % (0-1); Eosinophil# 0.21 X10^3/uL; Eosinophils% 2.4 % (0-5); Hematocrit 40.2 % (37-47); Hemoglobin 14.4 g/dL (12.0-15.0); Lymphocyte # 2.54 X10^3/ul (4.0); Lymphocyte % 28.6 % (19-41); Mean Corp Hgb Conc 35.8 g/dL (32-36); Mean Corpuscular Hgb 32.8 pg (27.0-32.0); Mean Corpuscular Volume 91.6 fL (81-99); Mean Platelet Vol. 9.1 fl (6.2-12.0); Monocyte# 0.67 X10^3/uL; Monocyte% 7.5 % (0-10); NRBC Flagged by Analyzer 0 % (0-5); Neutrophil # 5.38 X10^3/uL (2.7-7.7); Neutrophil % 60.6 % (47-70); Platelet Count 208 K/mm3 (150-450); RBC Distribution Width CV 12.6 % (11.6-14.6); RBC Distribution Width SD 41.9 fl (35.1-43.9); Red Blood Count 4.39 M/mm3 (4.2-5.4); White Blood Count 8.9 K/mm3 (4.4-11.0)
[2019-05-20 22:57] LABS: Anion Gap 4 (5-15); BUN 11 mg/dL (7-18); BUN/Creat Ratio 13.4 RATIO (10-20); Calcium,Total 8.9 mg/dL (8.5-10.1); Chloride 105 mmol/L (98-107); Creatinine, Serum 0.82 mg/dL (0.55-1.02); EST Glomerular Filtration Rate 83 mL/min (>60); Est Glom Filt Rate - Afr Amer 101 mL/min (>60); Estimated Creatinine Clearance 69.17 ml/min; Glucose 75 mg/dL (74-106); Potassium 3.6 mmol/L (3.5-5.1); Sodium Level 136 mmol/L (136-145)
[2019-05-20 23:26] VITALS: BP 112/82; PULSE 68; RESP 12; O2SAT 99
[2019-05-20 23:39] VITALS: BP 112/82; PULSE 67; RESP 11; TEMP 36.4; O2SAT 98
== END 2019-05-21 00:22 | disposition short-term general hospital (02) ==
PROVIDERS: Emergency Provider Emergency Medicine; Family Provider Nurse Practitioner Family; PCP Nurse Practitioner Family
DX: G40.909 Epilepsy, unspecified, not intractable, without status epilepticus (principal); R91.1 Solitary pulmonary nodule; I10 Essential (primary) hypertension; Z85.41 Personal history of malignant neoplasm of cervix uteri; F17.200 Nicotine dependence, unspecified, uncomplicated; Z90.49 Acquired absence of other specified parts of digestive tract; Z90.710 Acquired absence of both cervix and uterus; Z88.8 Allergy status to other drugs, medicaments and biological substances
CPT/HCPCS: 80048; 85025; 99285; J7030; J7040

== ENCOUNTER 2019-06-17 09:13 | Emergency (ER) | payer MEDICARE, SELFPAY ==
[2019-06-17 09:14] VITALS: BP 117/73; PULSE 103; RESP 17; TEMP 36.8; O2SAT 98; BMI 16.7
--- NOTE | 2019-06-17 09:55 | CT_ITS ---
STUDY: CT ABDOMEN AND PELVIS WITHOUT CONTRAST REASON FOR EXAM: Female, 39 years old. Right upper quadrant pain. Nausea. RADIATION DOSAGE (If Supplied By Facility): CTDIvol = ( 6.04 ) mGy, DLP = ( 255.17 ) mGycm TECHNIQUE: Transaxial images were obtained from the dome of the diaphragm to the symphysis pubis without oral contrast, and without intravenous contrast. Sagittal and coronal images were reconstructed. Individualized dose optimization techniques were used for this CT. COMPARISON: None. FINDINGS: The visualized lung bases are unremarkable. The visualized portions of the heart are within normal limits. There is hepatomegaly with diffuse hepatic enlargement. There are surgical clips in the gallbladder fossa consistent with a prior cholecystectomy. Normal spleen. Normal pancreas. Normal bilateral adrenal glands. There are 3 stones of the right kidney measuring 0.1- 0.3 cm. There are 2 stones of the left kidney measuring 0.2 and 0.3 cm. There is no hydronephrosis. Normal visualized stomach. Normal small intestine. Normal colon. The appendix is visualized and appears normal. There is atherosclerotic calcification of the abdominal aorta, without a demonstrated aneurysm. Normal inferior vena cava. Normal retroperitoneum. Normal urinary bladder. There is absence of the uterus consistent with a prior hysterectomy. There is no free fluid in the abdomen or pelvis. Normal abdominal wall. Normal osseous structures. CT/Abdomen/Pelvis without Cont IMPRESSION: Bilateral renal stones. No hydronephrosis. Hepatomegaly. Prior cholecystectomy. Electronically Signed: Edi Rodríguez MD at 11:07 EDT , Service support ,
--- NOTE | 2019-06-17 09:57 | ED.DCSUM_ITS ---
History of Present Illness <Ismael Castillo - Last Filed: 06/17/19 12:54> Informant: Patient Onset: Weeks Narrative: Patient presents to the ED with right upper quadrant pain that is been ongoing for the last couple weeks. She states that over the last few days pain is gotten worse. She does have a history of epilepsy and had a seizure a few days ago and thinks she may have injured her ribs. She also reports associated nausea with no vomiting. She is also concerned she may have a kidney stone. She states that she has had some dysuria and feeling of incomplete bladder emptying. She denies any fever, chills, changes in bowel movements. She does have a history of cholecystectomy. <Mariola Machadoily - Last Filed: 06/17/19 13:18> Chief Complaint: Abd Pain Past Medical History <Ismael Castillo - Last Filed: 06/17/19 12:54> Surgical History: hysterectomy Smoking Status: Current some day smoker <HangtramaineEsther - Last Filed: 06/17/19 13:18> - Allergies and Home Meds Allergies/Adverse Reactions: Allergies amoxicillin Allergy (Verified 06/17/19 09:14) Hives divalproex sodium [From Depakote] Allergy (Verified 06/17/19 09:14) Hives levetiracetam [From Keppra] Allergy (Verified 06/17/19 09:14) Hives metoclopramide [From Reglan] Allergy (Verified 06/17/19 09:14) Hives ondansetron [From Zofran] Allergy (Verified 06/17/19 09:14) Hives tramadol Allergy (Verified 06/17/19 09:14) Angioedema TAPE Adverse Reaction (Uncoded 06/17/19 11:40) Rash paper tape Primary Care Physician: Arianna Glass NP-C [Primary Care Provider] - Review of Systems General: Denies: Chills, Fever, Sweats Eyes: Denies: Visual changes - bilaterally, Diplopia ENT: Denies: Rhinorrhea, Sore throat Cardiovascular: Denies: Chest pain, Palpitations Respiratory: Denies: Dyspnea, Cough, Dyspnea on exertion Gastrointestinal: Reports: Abdominal pain, Nausea Genitourinary: Reports: Dysuria, - - urinary urgency Musculoskeletal: Denies: Back pain, Extremity Pain Skin: Denies: Rash, Wounds Neurological: Denies: Headache, Weakness, Numbness <Esther Machado - Last Filed: 06/17/19 13:18> Physical Exam Vital Signs/Narrative: Vital Signs Temp Pulse Resp BP Pulse Ox 06/17/19 12:18 105/63 06/17/19 10:34 103/76 06/17/19 09:14 98.2 F 103 H 17 117/73 98 <JonathanIsmael - Last Filed: 06/17/19 12:54> Vital Signs/Narrative: Vital Signs Temp Pulse Resp BP Pulse Ox 06/17/19 09:14 98.2 F 103 H 17 117/73 98 General: Well nourished, Well developed, No Acute Distress Head: Normocephalic, Atraumatic Eyes: Perrl, EOMI ENT: Moist mucous membranes, No rhinorrhea Neck: Supple, Nontender Cardiovascular: Regular rate, Regular rhythm, No murmurs Respiratory: No distress, CTA bilaterally, Chest nontender Abdomen: Soft, Nondistended, Normal bowel sounds, Tender - RUQ. Negative for: Guarding, Rebound tenderness Back: Nontender, Normal Inspection Extremities: Nontender, No edema Skin: Normal color, No rash Neurological: Alert, Oriented x3, Cranial nerves II-XII grossly intact, Normal Strength, Normal Sensation Psychological: Normal affect, Normal Mood <Esther Machado - Last Filed: 06/17/19 13:18> Diagnostic/Tx/Re-eval - Medical Decision Making Right upper quadrant and flank pain. Patient evaluated with our physician facilities assistant. Patient complaining of this pain for the last several weeks with increasing intensity last several days. She states she has a seizure history and is unsure with 1 of her seizures or if she may felt and injured that area. She has had a prior cholecystectomy hysterectomy. Vital signs are stable afebrile. HEENT exam unremarkable. Lungs are clear. Heart regular rhythm no murmur. Abdomen soft she does have tenderness in the right upper quadrant also along the right lower lateral rib cage. There is no ecchymosis or bruising. No signs of trauma. No bony deformity. The right lower quadrant is completely unremarkable. The abdomen is nondistended. She has normal bowel sounds. She is moving all 4 extremities. Back she has mild tenderness along her right lower lateral rib cage. Otherwise back nontender. Work-up was basically negative. She has mild elevation of her liver enzymes. CAT scan of the abdomen without contrast shows no acute abnormality. Impression: Acute right flank pain uncertain etiology Tylenol and Motrin for pain. This may be secondary to a rib contusion or soft tissue injury. Follow-up if not improving. <Ismael Castillo - Last Filed: 06/17/19 12:54> - Medical Decision Making Patient presents to the ED with worsening right upper quadrant pain. Upon arrival, she appears well and nontoxic. She was some palpation of the right upper quadrant with no guarding or rigidity. She was given IV fluids, morphine, and Zofran for initial symptomatic relief. CBC, CMP, and lipase are only remarkable for mildly elevated liver enzymes. Urinalysis is unremarkable. CT abdomen/pelvis without contrast shows no acute findings. Patient was also given Naprosyn and Lidoderm patch for further analgesia. It was discussed with her that her symptoms could be due to her injury following seizure, however her CT shows no evidence of fracture. At this time, it is unclear what the etiology of her symptoms are. She is instructed to follow-up with her PCP. She was educated on signs/symptoms to return to the ED. She is provided discharge instructions. She is agreeable to plan. Impression: Right upper quadrant pain unclear etiology. Nausea Disposition: Home stable <Esther Machado - Last Filed: 06/17/19 13:18> ED Disposition <Ismael Castillo - Last Filed: 06/17/19 12:54> <Esther Machado - Last Filed: 06/17/19 13:18> - Plan for ED Patient: Diagnosis: Abdominal pain Instructions: ABDOMINAL PAIN, Unknown Cause, (Female) Referrals: Arianna Glass NP-C [Primary Care Provider] -
[2019-06-17 10:06] LABS: Absolute Lymphocyte Count 1.68 X10^3/uL (0.83-4.51); Absolute Neutrophil Count 5.2 X10^3/uL (2.0-7.7); Basophil# 0.06 X10^3/uL; Basophil% 0.8 % (0-1); Eosinophil# 0.07 X10^3/uL; Eosinophils% 0.9 % (0-5); Hematocrit 41.7 % (37-47); Hemoglobin 14.8 g/dL (12.0-15.0); Lymphocyte # 1.68 X10^3/ul (4.0); Lymphocyte % 22.3 % (19-41); Mean Corp Hgb Conc 35.5 g/dL (32-36); Mean Corpuscular Hgb 33.6 pg (27.0-32.0); Mean Corpuscular Volume 94.6 fL (81-99); Mean Platelet Vol. 8.7 fl (6.2-12.0); Monocyte# 0.56 X10^3/uL; Monocyte% 7.4 % (0-10); NRBC Flagged by Analyzer 0 % (0-5); Neutrophil # 5.15 X10^3/uL (2.7-7.7); Neutrophil % 68.5 % (47-70); Platelet Count 271 K/mm3 (150-450); RBC Distribution Width CV 13.2 % (11.6-14.6); RBC Distribution Width SD 45.9 fl (35.1-43.9); Red Blood Count 4.41 M/mm3 (4.2-5.4); White Blood Count 7.5 K/mm3 (4.4-11.0)
[2019-06-17 10:17] LABS: ALB/GLOB Ratio 1.1 RATIO (0.9-2.4); AST(SGOT) 112 U/L (15-37); Alanine Aminotransfer ALT/SGPT 118 U/L (13-56); Albumin, Serum 4.1 g/dL (3.2-5.0); Alkaline Phosphatase 215 U/L (45-117); Anion Gap 8 (5-15); BUN 7 mg/dL (7-18); BUN/Creat Ratio 7.8 RATIO (10-20); Calcium,Total 9.3 mg/dL (8.5-10.1); Chloride 103 mmol/L (98-107); Creatinine, Serum 0.89 mg/dL (0.55-1.02); EST Glomerular Filtration Rate 75 mL/min (>60); Est Glom Filt Rate - Afr Amer 91 mL/min (>60); Estimated Creatinine Clearance 60.25 ml/min; Globulin 3.9 g/dL (2.2-4.2); Glucose 84 mg/dL (74-106); Lipase 84 U/L (73-393); Potassium 3.7 mmol/L (3.5-5.1); Sodium Level 137 mmol/L (136-145)
[2019-06-17] MEDS: 0.9% Normal Saline 1,000 ML 999 ML IV (10:30)
[2019-06-17] MEDS: proMETHazine 25 MG/ML Syringe 6.25 MG IV (10:30)
[2019-06-17] MEDS: Morphine 4 MG/ML Syringe IV (10:31)
[2019-06-17 10:34] VITALS: BP 103/76
[2019-06-17 11:31] LABS: Mucous, Urine 0 SEEN /hpf (<or=2+); Red Blood Cells-Urine 0 SEEN /hpf (0-5)
[2019-06-17 11:33] LABS: Color, Urine Yellow (Yellow); Glucose, Dipstick Normal (Normal); Ketone-Dipstick 5 mg/dl (Negative); Leukocyte Esterase-Dipstick 25 /ul (Negative); Nitrite-Dipstick Negative (Negative); Occult Blood-Urine Negative /ul (Negative); Protein-Dipstick Negative (Negative); Urine Bilirubin Dipstick Negative (Negative); Urine Clarity Clear (Clear); Urine Urobilinogen 1 mg/dl (Normal); Urine pH 6.5 (5.0 - 8.0)
[2019-06-17 11:36] LABS: Internal QC Validated? YES +Cl - CLEAR BKGD; Pregnancy, Urine Negative Negative
[2019-06-17 11:43] LABS: Bacteria RARE /hpf (None Seen); Squamous Epithelial Cells - UA 0-5 SEEN /hpf (5-10); White Blood Cells 0-5 SEEN /hpf (0-5)
[2019-06-17] MEDS: Naproxen 500 MG Tablet PO (11:44)
[2019-06-17] MEDS: Lidocaine 5% Patch 1 PATCH TOPICAL (12:16)
[2019-06-17 12:18] VITALS: BP 105/63
== END 2019-06-17 13:29 | disposition home or self-care (01) ==
PROVIDERS: Emergency Provider Physician Assistant; Family Provider Nurse Practitioner Family; PCP Nurse Practitioner Family
DX: R10.11 Right upper quadrant pain (principal); R11.0 Nausea; Z90.710 Acquired absence of both cervix and uterus; Z90.49 Acquired absence of other specified parts of digestive tract; Z88.8 Allergy status to other drugs, medicaments and biological substances; F17.200 Nicotine dependence, unspecified, uncomplicated
CPT/HCPCS: 74176; 80053; 81001; 81025; 83690; 85025; 96361; 96374; 96375; 99285; J7030; A4216

== ENCOUNTER 2019-06-27 20:26 | Emergency (ER) | payer MEDICARE, SELFPAY ==
[2019-06-27 20:28] VITALS: BP 114/71; PULSE 78; RESP 20; TEMP 37.1; O2SAT 98; BMI 16.8
--- NOTE | 2019-06-27 21:02 | CT_ITS ---
HISTORY: SEIZUREHX:SEIZURES-TAKES MEDS,CERVICAL CANCER TECHNIQUE: Multiple axial images were obtained of the brain without intravenous contrast. A radiation dose optimization technique was used for this scan. COMPARISON: None FINDINGS: # of images incl. paperwork: 224 Visualized portions of the paranasal sinuses and mastoid air cells are free of disease. Brain volume is normal. Rollins-white differentiation is preserved. No hydrocephalus. No acute ischemia. No acute intracranial hemorrhage. CT/Brain/Head without Contrast IMPRESSION: Normal. ASPECT 10. Individualized dose optimization techniques were used for this CT. at 2222 Reported and signed by: Rigoberto Peres MD Electronically Signed: Rigoberto Peres MD at 22:21 EDT Tel , Service support ,
--- NOTE | 2019-06-27 21:03 | RAD_ITS ---
HISTORY: fall, pain, pt threatened to punch me if I repeated the patella view. EXAM: Left Knee COMPARISON: None FINDINGS: # of images incl. paperwork: 4 The joint spaces are well-maintained. No fracture or subluxation. The patellofemoral joint has a normal appearance. Very small left joint knee effusion is seen. RAD/Knee 4 or More Views IMPRESSION: Small left knee joint effusion. at 2226 Reported and signed by: Rigoberto Peres MD Electronically Signed: Rigoberto Peres MD at 22:25 EDT Tel , Service support ,
[2019-06-27 21:41] LABS: Absolute Lymphocyte Count 2.44 X10^3/uL (0.83-4.51); Absolute Neutrophil Count 4.8 X10^3/uL (2.0-7.7); Basophil# 0.05 X10^3/uL; Basophil% 0.6 % (0-1); Eosinophil# 0.15 X10^3/uL; Eosinophils% 1.8 % (0-5); Hematocrit 40.1 % (37-47); Hemoglobin 14.1 g/dL (12.0-15.0); Lymphocyte # 2.44 X10^3/ul (4.0); Lymphocyte % 29.1 % (19-41); Mean Corp Hgb Conc 35.2 g/dL (32-36); Mean Corpuscular Volume 96.6 fL (81-99); Mean Platelet Vol. 8.9 fl (6.2-12.0); Monocyte# 0.93 X10^3/uL; Monocyte% 11.1 % (0-10); NRBC Flagged by Analyzer 0 % (0-5); Neutrophil # 4.81 X10^3/uL (2.7-7.7); Neutrophil % 57.3 % (47-70); Platelet Count 333 K/mm3 (150-450); RBC Distribution Width CV 12.7 % (11.6-14.6); RBC Distribution Width SD 45.3 fl (35.1-43.9); Red Blood Count 4.15 M/mm3 (4.2-5.4); White Blood Count 8.4 K/mm3 (4.4-11.0)
--- NOTE | 2019-06-27 21:49 | ED.VIS.GEN ---
History of Present Illness Chief Complaint: Head Injury Narrative: Patient presenting for evaluation due to multiple complaints. Patient states that she has a underlying seizure history. She reports to me that she has been having increasing seizure events recently, and has had as many as 5 today. Patient states that she has not had any recent titrations in her antiepileptic medications, and she takes Klonopin and Lamictal. Patient states that due to her seizures she has suffered multiple head injuries today. She also reports that she has bruising pretty much all over her body. Patient states that about a week ago she was seen at this facility and was told that she had a white blood cell count of 60 and likely had cancer, and she reports that she signed out AGAINST MEDICAL ADVICE due to this. Patient states that she was at urgent care today and was having knee pain secondary to her frequent seizures and was diagnosed as having a patellar fracture, and states that they put her in a knee immobilizer but would not give her crutches because crutches were too dangerous for people with seizures. Patient's pain is moderate and continuous and diffuse. She denies recent infection. Review of systems otherwise negative Past Medical History - Allergies and Home Meds Allergies/Adverse Reactions: Allergies amoxicillin Allergy (Verified 06/17/19 09:14) Hives divalproex sodium [From Depakote] Allergy (Verified 06/17/19 09:14) Hives levetiracetam [From Keppra] Allergy (Verified 06/17/19 09:14) Hives metoclopramide [From Reglan] Allergy (Verified 06/17/19 09:14) Hives ondansetron [From Zofran] Allergy (Verified 06/17/19 09:14) Hives tramadol Allergy (Verified 06/17/19 09:14) Angioedema TAPE Adverse Reaction (Uncoded 06/17/19 11:40) Rash paper tape Primary Care Physician: Arianna Glass NP-C [Primary Care Provider] - Past Medical History: - - Seizures Surgical History: hysterectomy Smoking Status: Current every day smoker Review of Systems All systems negative except as indicated General: Denies: Chills, Fever Eyes: Denies: Visual changes - bilaterally Cardiovascular: Denies: Chest pain, Palpitations Respiratory: Denies: Dyspnea Gastrointestinal: Denies: Nausea, Vomiting Musculoskeletal: Reports: Myalgias, Arthralgias Neurological: Reports: Headache, - - Seizures. Denies: Weakness, Parasthesia Physical Exam Vital Signs/Narrative: Vital Signs Temp Pulse Resp BP Pulse Ox 06/27/19 20:28 98.7 F 78 20 H 114/71 98 Inital Vital Signs reviewed: Yes General: Well nourished, Well developed, No Acute Distress Head: Normocephalic, Atraumatic Eyes: Perrl, EOMI ENT: Moist mucous membranes, No rhinorrhea Neck: Supple, Nontender Cardiovascular: Regular rate, Regular rhythm, No murmurs Respiratory: No distress, CTA bilaterally, Chest nontender Abdomen: Soft, Nontender, Nondistended, Normal bowel sounds Back: Nontender, Normal Inspection Extremities: - - Multiple bruises noted on multiple locations of the patient's upper extremities bilaterally. Left leg is in a knee immobilizer. Skin: Normal color, No rash Neurological: Alert, Oriented x3, Cranial nerves II-XII grossly intact, Normal Strength, Normal Sensation Psychological: - - Patient seems somewhat hyper stimulated, but does not appear to be responding to any sort of internal stimuli, not suicidal or homicidal or hallucinating Diagnostic/Tx/Re-eval - Medical Decision Making Patient presented secondary to multiple complaints. Broad work-up was obtained as her symptoms were extremely broad. Knee x-ray by my personal interpretation as well as radiology shows no evidence of fracture. CT brain was negative. CBC and CMP were found to be unremarkable. Patient was unable to provide a urine test for me. I went back and reevaluated the patient, she really seems to perseverate over the fact that she had abnormal lab tests at the [facility] which we do not have access to that she has to follow-up with a self propelled mining machine operator tomorrow because of them. I reviewed her records on her cell phone, and actually she seems to have evidence that she has a Klebsiella urinary tract infection. Patient has no evidence of significant leukocytosis or liver failure. I do not believe that she requires further observation or admission. Patient already has a prescription for Macrobid at home she was recommended to take them. She was given a dose of Toradol in the emergency department and will be discharged with a course of the same. ED Disposition - Plan for ED Patient: Disposition: Home or Assisted Living Diagnosis: UTI (urinary tract infection) Instructions: Urinary Tract Infections in Women Referrals: Arianna Glass, END WORKER-C [Primary Care Provider] - As Needed
[2019-06-27 21:56] LABS: AST(SGOT) 25 U/L (15-37); Alanine Aminotransfer ALT/SGPT 27 U/L (13-56); Albumin, Serum 3.8 g/dL (3.2-5.0); Alkaline Phosphatase 110 U/L (45-117); Anion Gap 3 (5-15); BUN 14 mg/dL (7-18); BUN/Creat Ratio 12.6 RATIO (10-20); Chloride 110 mmol/L (98-107); Creatinine, Serum 1.11 mg/dL (0.55-1.02); EST Glomerular Filtration Rate 59 mL/min (>60); Est Glom Filt Rate - Afr Amer 71 mL/min (>60); Globulin 3.8 g/dL (2.2-4.2); Glucose 83 mg/dL (74-106); Potassium 4.1 mmol/L (3.5-5.1); Protein, Total 7.6 g/dL (6.4-8.2); Sodium Level 143 mmol/L (136-145)
[2019-06-27 22:05] LABS: Alcohol, Blood (Medical)-Serum < 3.0 mg/dL
--- NOTE | 2019-06-27 22:23 | ED.RN ---
PT REQUESTING PAIN MEDICATION. DR. MORA AWARE, NO NEW ORDERS AT THIS TIME. WILL CONTINUE TO MONITOR.
[2019-06-27] MEDS: Ketorolac 15 MG/ML Vial IV (23:35)
[2019-06-27 23:46] VITALS: BP 99/80; PULSE 74; RESP 16; O2SAT 100
--- NOTE | 2019-06-27 23:48 | ED.RN ---
REVIEWED D/C INSTRUCTIONS, FOLLOW UP CARE, AND S/S THAT WOULD WARRANT A RETURN TO THE ED WITH PT. PT VERBALIZED AN UNDERSTANDING AND DENIES FURTHER QUESTIONS FOR THIS RN. PT SKIN P/W/D, RESP EVEN AND UNLABORED, PT A&O X 3, NO DISTRESS NOTED. PT ASSISTED OUT OF ED IN WHEELCHAIR TO WAITING ROOM TO WAIT FOR CAB.
== END 2019-06-27 23:49 | disposition home or self-care (01) ==
PROVIDERS: Emergency Provider Emergency Medicine; Family Provider Nurse Practitioner Family; PCP Nurse Practitioner Family
DX: N39.0 Urinary tract infection, site not specified (principal); G40.909 Epilepsy, unspecified, not intractable, without status epilepticus; F17.200 Nicotine dependence, unspecified, uncomplicated; Z88.8 Allergy status to other drugs, medicaments and biological substances; Z90.710 Acquired absence of both cervix and uterus
CPT/HCPCS: 70450; 73564; 80053; 80320; 85025; 96374; 99284; A4216; G0480

== ENCOUNTER 2019-07-30 10:10 | Emergency (ER) | payer MEDICARE, SELFPAY ==
[2019-07-30 10:11] VITALS: BP 110/88; PULSE 99; RESP 18; TEMP 36.6; O2SAT 97; BMI 15.3
--- NOTE | 2019-07-30 10:25 | ED.DCSUM_ITS ---
- ER Visit Summary Date of Service: 07/30/19 Chief Complaint: Nausea vomiting and diarrhea History of Present Illness: The patient is a 39 F history of seizure disorder for which she is on Lamictal and Klonopin medications area patient states for the last month she has had intermittent episodes of nausea, vomiting diarrhea. Lower abdominal pelvic pain has been worked up both at the [facility] and the [facility]. She had upper endoscopy a week or so ago and has had no specific diagnosis. CAT scan done here about 2 to 3 weeks ago showed renal stones and a prior cholecystectomy but no acute abnormality. She has had a cholecystectomy and a hysterectomy. She denies fevers. She states she is lost about 35 pounds going from 125 to about 89 pounds in the last 1 to 2 months. They do not have a cause at this time. She also states today she had 2 seizures. She has a known history of seizure disorder and states she has been unable to keep her medications down due to the nausea and vomiting and diarrhea. Physical Examination: Middle-aged female no acute distress vital signs are stable afebrile. HEENT exam unremarkable. She does look thin and cachectic. Pupils are reactive light. Moist wheeze members. Neck nontender. No lymphadenopathy. Lungs clear to auscultation bilaterally. Heart regular rhythm no murmur rate about 95. Chest were nontender. Abdomen soft. Nondistended normal bowel sounds no peritoneal signs. Both the right upper right lower quadrant unremarkable. No signs of obstruction. No hernia or mass. Extremities moves all 4. Neurovascular intact. Back nontender. Neurologically she is awake and alert with no focal motor deficits. Bilateral inspector casing strength. Bilateral dorsi plantar flexion. Bilateral fingertip to nose within normal limits. Normal speech. Test Results: CBC shows normal. White count 6. Hemoglobin 15. Electrolytes unremarkable normal creatinine and gap. Emergency Department Course and Treatment: Clinically the patient looks like she is at weight loss but otherwise does not look significantly ill. She will be treated with IV fluids and IV Zofran. Screening labs obtained. Treatment Plan: Repeat exam she is doing well at 12:20 PM. Positive p.o. intake. Repeat exam is benign. She will follow-up as an outpatient for weight loss and chronic abdominal pain. Disposition: Discharge Impression: Acute nausea, vomiting diarrhea of uncertain etiology Chronic abdominal pelvic pain uncertain etiology Recent weight loss of 35 pounds of uncertain etiology This note was generated with Gil dictation software. It may contain incorrect words, spelling, and punctuation that were not noted in review of the chart prior to signing ED Disposition - Plan for ED Patient: Referrals: Arianna Glass, CIGAR BANDER HAND-C [Primary Care Provider] -
[2019-07-30] MEDS: 0.9% Normal Saline 1,000 ML 1000 ML IV (10:41)
[2019-07-30] MEDS: proMETHazine 25 MG/ML Syringe 12.5 MG IV (10:41)
[2019-07-30 10:43] LABS: Absolute Lymphocyte Count 1.92 X10^3/uL (0.83-4.51); Absolute Neutrophil Count 3.9 X10^3/uL (2.0-7.7); Basophil# 0.07 X10^3/uL; Eosinophil# 0.19 X10^3/uL; Eosinophils% 2.8 % (0-5); Hematocrit 42.7 % (37-47); Hemoglobin 15.5 g/dL (12.0-15.0); Lymphocyte # 1.92 X10^3/ul (4.0); Lymphocyte % 28.6 % (19-41); Mean Corp Hgb Conc 36.3 g/dL (32-36); Mean Corpuscular Hgb 33.4 pg (27.0-32.0); Mean Platelet Vol. 8.8 fl (6.2-12.0); Monocyte% 8.9 % (0-10); NRBC Flagged by Analyzer 0 % (0-5); Neutrophil # 3.92 X10^3/uL (2.7-7.7); Neutrophil % 58.4 % (47-70); Platelet Count 280 K/mm3 (150-450); RBC Distribution Width CV 12.1 % (11.6-14.6); RBC Distribution Width SD 41.3 fl (35.1-43.9); Red Blood Count 4.64 M/mm3 (4.2-5.4); White Blood Count 6.7 K/mm3 (4.4-11.0)
[2019-07-30 10:54] LABS: Anion Gap 8 (5-15); BUN 4 mg/dL (7-18); BUN/Creat Ratio 4.8 RATIO (10-20); Chloride 100 mmol/L (98-107); Creatinine, Serum 0.83 mg/dL (0.55-1.02); EST Glomerular Filtration Rate 83 mL/min (>60); Est Glom Filt Rate - Afr Amer 100 mL/min (>60); Estimated Creatinine Clearance 59.54 ml/min; Glucose 102 mg/dL (74-106); Potassium 3.4 mmol/L (3.5-5.1); Sodium Level 134 mmol/L (136-145)
[2019-07-30 12:30] VITALS: BP 112/64; PULSE 65; RESP 14; O2SAT 108
--- NOTE | 2019-07-30 12:37 | DCINST.ED_ITS ---
ED Disposition - Plan for ED Patient: Disposition: Home or Assisted Living Instructions: ABDOMINAL PAIN, Unknown Cause, (Female) Prescriptions: proMETHazine tablet [Phenergan tablet] 25 mg PO Q4H PRN PRN #20 tab PRN Reason: Nausea Prescription Printed Referrals: Arianna Glass, SOFTWARE SECURITY CONSULTANT-C [Primary Care Provider] - As soon as possible Additional Instructions: As needed for nausea. Plenty of fluids and rest. Follow-up with your doctor for further evaluation of your weight loss.
== END 2019-07-30 12:57 | disposition home or self-care (01) ==
PROVIDERS: Emergency Provider Emergency Medicine; Family Provider Nurse Practitioner Family; PCP Nurse Practitioner Family
DX: R11.2 Nausea with vomiting, unspecified (principal); R19.7 Diarrhea, unspecified; R10.2 Pelvic and perineal pain; G89.29 Other chronic pain; R63.4 Abnormal weight loss; G40.909 Epilepsy, unspecified, not intractable, without status epilepticus; Z90.49 Acquired absence of other specified parts of digestive tract; Z72.0 Tobacco use
CPT/HCPCS: 80048; 85025; 96361; 96374; 96375; 99283; J7030; A4216; J2405

== ENCOUNTER 2019-10-23 20:02 | Emergency (ER) | payer MEDICARE, SELFPAY ==
[2019-09-21 09:56] VITALS: BMI 15.3
[2019-10-23 20:05] VITALS: BP 131/87; PULSE 95; RESP 19; TEMP 36.9; O2SAT 98; BMI 20.7
--- NOTE | 2019-10-23 20:12 | ED.VIS.INJ ---
History of Present Illness Chief Complaint: Head Injury Detail of Chief Complaint: Patient had seizure walking back from restroom to chair Informant: Patient Onset: Today Mechanism/Context: Blunt Injury, Fall Quality of Pain: Dull Location: Occiput Current Severity: Mild Maximum Severity: Moderate Worsened by: Nothing Relieved by: Nothing Associated Symptoms: Loss of consciousness, Amnesia. Negative for: Parasthesias, Weakness, Loss of function, Inability to ambulate Length of loss of consciousness: Loss of conscious secondary to generalized tonic-clonic seizure Narrative: 39-year-old DNR comfort care only who presents with generalized tonic-clonic seizure. Witnessed by boyfriend. She states she was watching TV with her boyfriend. She got up to go to the restroom. On her way back she had a seizure. She was told she has seizure by her boyfriend. She presents because of bleeding and pain back of her head. She denies double vision, blurred vision loss of vision. Denies trouble with speech or swallowing. Denies neck pain. She denies paresthesia, anesthesia medics present. Denies cardiac respiratory symptoms. Denies nausea or vomiting. She denies pain swelling or trauma to her upper or lower extremities. She states she is compliant with her medications. This is her eighth seizure in the last 2 years. Tetanus Immunization: <5 years Prior similar symptoms: Yes Recent Illness/Hospitalization: Yes - Past Medical History (1) Unintentional weight loss Status: Acute (2) Cervical cancer Status: Chronic (3) Epilepsy Status: Chronic (4) Hypertension Status: Chronic (5) Nicotine dependence Status: Chronic (6) Solitary pulmonary nodule Status: Chronic (7) History of cholecystectomy Status: Resolved (8) History of hysterectomy Status: Resolved Past Medical History - Allergies and Home Meds Allergies/Adverse Reactions: Allergies amoxicillin Allergy (Verified 10/23/19 20:03) Hives divalproex sodium [From Depakote] Allergy (Verified 10/23/19 20:03) Hives levetiracetam [From Keppra] Allergy (Verified 10/23/19 20:03) Hives metoclopramide [From Reglan] Allergy (Verified 10/23/19 20:03) Hives ondansetron [From Zofran] Allergy (Verified 10/23/19 20:03) Hives tramadol Allergy (Verified 10/23/19 20:03) Angioedema TAPE Adverse Reaction (Uncoded 10/23/19 20:03) Rash paper tape Primary Care Physician: NOT,DEFINED [Primary Care Provider] - Prior records reviewed: Yes Surgical History: hysterectomy Lives: Alone Smoking Status: Current every day smoker Alcohol: Rare Drugs: None Review of Systems General: Denies: Chills, Fever, Malaise Eyes: Denies: Visual changes - bilaterally, Blurred Vision - bilaterally ENT: Denies: Bilateral ear pain, Rhinorrhea Cardiovascular: Denies: Chest pain, Palpitations Respiratory: Denies: Dyspnea, Cough, Dyspnea on exertion Gastrointestinal: Denies: Abdominal pain, Nausea, Vomiting, Diarrhea, Melena, Hematochezia Musculoskeletal: Denies: Myalgias, Arthralgias, Neck pain, Back pain, Swelling, Extremity Pain, -, - Skin: Reports: Wounds. Denies: Rash Neurological: Reports: Headache. Denies: Weakness, Parasthesia, Numbness Hematologic: Denies: Easy bruising, Easy bleeding Physical Exam Vital Signs/Narrative: Vital Signs Temp Pulse Resp BP Pulse Ox 10/23/19 20:05 98.4 F 95 19 H 131/87 H 98 Inital Vital Signs reviewed: Yes General: Well nourished, Well developed Head: Normocephalic, Trauma, Tenderness, - - All gaping laceration occiput that is bleeding. Resembles more of a puncture hole then linear laceration. Eyes: Perrl, EOMI, - - No subconjunctival hemorrhage.. Negative for: Pale conjunctiva, Scleral icterus ENT: TM's clear, No hemotympanum or drainage, No trauma. Negative for: Hemotympanum, Otorrhea, Nasal trauma, Nasal septal hematoma Neck: Nontender, Full ROM. Negative for: Spinal Tenderness, Paraspinal Tenderness Cardiovascular: Regular rate, Regular rhythm, No murmurs, Normal S1, Normal S2 Respiratory: No distress, CTA bilaterally, Chest nontender Back: Nontender. Negative for: CVA Tenderness - Right, CVA Tenderness - Left Extremeties: There is no evidence of trauma to the upper or lower extremities. There is no neurovascular findings. Skin: Normal color, No rash Neurological: Alert, Oriented x3, Cranial nerves II-XII grossly intact, Normal Strength, Normal Sensation, Normal DTR Diagnostic/Tx/Re-eval - Medical Decision Making With recurrent generalized tonic-clonic seizure. Sustained head trauma which was repaired. Since patient is DNR comfort care only imaging was not obtained. Unable to obtain anticonvulsant levels. Laceration No standard instances Length: 0.2 in Depth: Sub Q Prep: Shure-Clens Number of Sutures/[place]: 1 - Staple was placed bleeding stopped. ED Disposition - Plan for ED Patient: Disposition: Home or Assisted Living Diagnosis: Recurrent seizures, Laceration of scalp Instructions: SEIZURE, Recurrent [Adult], LACERATION, Scalp Referrals: NOT,DEFINED [Primary Care Provider] - Doctor,Your [STAFF PHYSICIAN] - 1-2 Weeks Additional Instructions: Kleber may be removed in 1 week.
[2019-10-23 20:45] VITALS: BP 122/67; PULSE 59; RESP 16; O2SAT 98
[2019-10-23] MEDS: proMETHazine 25 MG Tablet 12.5 MG PO (20:45)
== END 2019-10-23 20:46 | disposition home or self-care (01) ==
LOC: ED 20:29
PROVIDERS: Emergency Provider Emergency Medicine
DX: S01.01XA Laceration without foreign body of scalp, initial encounter (principal); G40.409 Other generalized epilepsy and epileptic syndromes, not intractable, without status epilepticus; I10 Essential (primary) hypertension; F17.200 Nicotine dependence, unspecified, uncomplicated; Z85.41 Personal history of malignant neoplasm of cervix uteri; Z79.899 Other long term (current) drug therapy; Z66 Do not resuscitate; W26.9XXA Contact with unspecified sharp object(s), initial encounter; Y93.89 Activity, other specified; Y92.009 Unspecified place in unspecified non-institutional (private) residence as the place of occurrence of the external cause; Y99.8 Other external cause status
CPT/HCPCS: 12001; 99284; A4216

== ENCOUNTER 2019-11-21 11:09 | Emergency (ER) | payer MEDICARE, SELFPAY ==
[2019-11-21 11:09] VITALS: BP 122/76; PULSE 92; RESP 16; TEMP 36.8; O2SAT 98; BMI 17.7
--- NOTE | 2019-11-21 11:34 | RAD_ITS ---
STUDY: X-RAY CHEST REASON FOR EXAM: Female, 39 years old. COUGH TECHNIQUE: PA and lateral views of the chest. COMPARISON: Comparison is made with prior study dated February 21, 2019. FINDINGS: EKG electrode are seen. Hyperinflation. Scattered calcified granulomas. There is no demonstrated pleural abnormality. Normal size heart. Normal mediastinum and kailyn. Normal visualized pulmonary arteries. Normal visualized aortic arch and descending thoracic aorta. There is demineralization of the osseous structures. Loss of height of a mid dorsal vertebrae. Normal visualized ribs, clavicles, and shoulders. There is no demonstrated abnormality of the visualized soft tissue structures of the upper abdomen. RAD/Chest PA and Lateral IMPRESSION: Hyperinflation. The lungs are clear. Electronically Signed: Fazal Osorio, at 12:32 EST , Service support ,
[2019-11-21 11:45] VITALS: O2SAT 99
--- NOTE | 2019-11-21 11:45 | ED.VISSUMM ---
- ER Visit Summary Date of Service: 11/21/19 Chief Complaint: Cough History of Present Illness: The patient is a [address] Ibarra. She reports that she has a cough began 1 week ago. Is nonproductive. She had a fever to 103 degrees. She was seen at [facility] 2 days ago and put on placed on an albuterol MDI, prednisone, Zithromax, Tessalon Perles. She reports that she feels as though she is getting dehydrated and has a poor appetite. She is had nausea. No vomiting. She has had multiple episodes of diarrhea, but reports she has not had any since yesterday. Physical Examination: Vitals: Stable. Afebrile. General: Well-nourished and well-developed. Head: Normocephalic atraumatic. Neck: Supple, no lymphadenopathy. No JVD. Nontender. Cardiovascular: Regular rate and rhythm. No murmurs. Respiratory: No respiratory distress. Clear to auscultation bilaterally. Abdominal: Soft, nontender, nondistended, normal bowel sounds. No guarding, rebound, or peritoneal signs. Back: Nontender. Extremities: Nontender, no edema. Skin: Normal color, no rash. Neurologic: Alert and oriented ?3. Cranial nerves II through XII are intact. Normal strength and sensation. Psych: Normal affect. Test Results: Chest x-ray shows no acute disease. Influenza is negative. CBC shows a hemoglobin of 15.5. Chem-7 is normal. Emergency Department Course and Treatment: Patient had an IV placed. She was evaluated normal saline. She given Toradol IV. She is resting comfortably. Treatment Plan: Patient be discharged with Zofran. Instructed to push fluids. Follow-up with her primary care physician 1 week if not improving. Return to the emergency department for any worsening symptoms. Disposition: To home in improved and stable condition. Impression: 1. URI. This note was generated with [employer] dictation software. It may contain incorrect words, spelling, and punctuation that were not noted in review of the chart prior to signing ED Disposition - Plan for ED Patient: Disposition: Home or Assisted Living Instructions: URI, Viral, No Abx (Adult) Prescriptions: proMETHazine suppository [Phenergan Suppository] 25 mg RECTAL Q6H PRN PRN #6 suppos. PRN Reason: Nausea Prescription Printed proMETHazine tablet [Phenergan] 25 mg PO Q6H PRN PRN #10 tab PRN Reason: Nausea Prescription Printed Referrals: Robb Jeffries PLATING TECHNICIAN-C [Primary Care Provider] - 3-5 Days if not improving
[2019-11-21 11:56] VITALS: BP 122/76; PULSE 92; RESP 16; TEMP 36.8; O2SAT 98
[2019-11-21] MEDS: 0.9% Normal Saline 1,000 ML 999 ML IV (12:05)
[2019-11-21 12:12] VITALS: BP 92/76; PULSE 77; RESP 15; TEMP 36.7; O2SAT 100
[2019-11-21 12:17] LABS: Absolute Lymphocyte Count 2.56 X10^3/uL (0.83-4.51); Absolute Neutrophil Count 4.3 X10^3/uL (2.0-7.7); Basophil# 0.06 X10^3/uL; Basophil% 0.7 % (0-1); Hematocrit 44.7 % (37-47); Hemoglobin 15.5 g/dL (12.0-15.0); Lymphocyte # 2.56 X10^3/ul (4.0); Lymphocyte % 31.7 % (19-41); Mean Corp Hgb Conc 34.7 g/dL (32-36); Mean Corpuscular Hgb 32.5 pg (27.0-32.0); Mean Corpuscular Volume 93.7 fL (81-99); Mean Platelet Vol. 9.2 fl (6.2-12.0); Monocyte# 0.77 X10^3/uL; Monocyte% 9.5 % (0-10); NRBC Flagged by Analyzer 0 % (0-5); Neutrophil # 4.26 X10^3/uL (2.7-7.7); Neutrophil % 52.9 % (47-70); Platelet Count 345 K/mm3 (150-450); RBC Distribution Width CV 12.1 % (11.6-14.6); RBC Distribution Width SD 42.2 fl (35.1-43.9); Red Blood Count 4.77 M/mm3 (4.2-5.4); White Blood Count 8.1 K/mm3 (4.4-11.0)
[2019-11-21 12:23] LABS: Anion Gap 6 (5-15); BUN 14 mg/dL (7-18); BUN/Creat Ratio 13.7 RATIO (10-20); Calcium,Total 9.5 mg/dL (8.5-10.1); Chloride 105 mmol/L (98-107); Creatinine, Serum 1.02 mg/dL (0.55-1.02); EST Glomerular Filtration Rate 65 mL/min (>60); Est Glom Filt Rate - Afr Amer 78 mL/min (>60); Estimated Creatinine Clearance 56.03 ml/min; Glucose 79 mg/dL (74-106); Potassium 3.5 mmol/L (3.5-5.1); Sodium Level 136 mmol/L (136-145)
[2019-11-21] MEDS: Ketorolac 15 MG/ML Vial IV (12:34)
[2019-11-21 13:31] VITALS: BP 104/68; PULSE 82; RESP 17; TEMP 36.1; O2SAT 100
== END 2019-11-21 13:33 | disposition home or self-care (01) ==
PROVIDERS: Emergency Provider Emergency Medicine; PCP Nurse Practitioner Primary Care
DX: J06.9 Acute upper respiratory infection, unspecified (principal); F17.210 Nicotine dependence, cigarettes, uncomplicated
CPT/HCPCS: 71046; 80048; 85025; 87804; 96361; 96374; 99284; J7030; A4216

== ENCOUNTER 2021-01-04 09:13 | Emergency (ER) | payer MEDICARE, MEDICAID, SELFPAY ==
[2021-01-04 09:13] VITALS: BP 136/94; PULSE 91; RESP 16; TEMP 36.4; BMI 21.4
--- NOTE | 2021-01-04 09:40 | ED.DCSUM_ITS ---
History of Present Illness Chief Complaint: Back Informant: Patient Narrative: 40-year-old female presenting with right flank pain radiating to the right inguinal area for the last few days. Patient initially thought it was musculoskeletal and she has been using ice and heat as well as Tylenol and ibuprofen. This is not getting better. She does have history of kidney stones but denies dysuria or hematuria. She not had fever or chills. She has mild associated nausea. - Past Medical History (1) Epilepsy Status: Chronic (2) Hypertension Status: Chronic Past Medical History - Allergies and Home Meds Allergies/Adverse Reactions: Allergies amoxicillin Allergy (Verified 01/04/21 09:13) Hives divalproex sodium [From Depakote] Allergy (Verified 01/04/21 09:13) Hives levetiracetam [From Keppra] Allergy (Verified 01/04/21 09:13) Hives metoclopramide [From Reglan] Allergy (Verified 01/04/21 09:13) Hives ondansetron [From Zofran] Allergy (Verified 01/04/21 09:13) Hives tramadol Allergy (Verified 01/04/21 09:13) Angioedema TAPE Adverse Reaction (Uncoded 01/04/21 09:13) Rash paper tape Primary Care Physician: Robb Jeffries SHIFT PRODUCTION ASSOCIATE, SHIFT PRODUCTION ASSOCIATE-C [Primary Care Provider] - Past Medical History: - - Reviewed in problem list Surgical History: noncontributory, hysterectomy Lives: Alone Smoking Status: Current every day smoker Alcohol: None Drugs: None Review of Systems General: Denies: Chills, Fever, Sweats Eyes: Reports: Visual changes - left ENT: Denies: Rhinorrhea, Sore throat Cardiovascular: Denies: Chest pain, Palpitations Respiratory: Denies: Dyspnea, Cough Gastrointestinal: Reports: Abdominal pain, Nausea. Denies: Vomiting, Diarrhea Genitourinary: Denies: Dysuria, Hematuria Musculoskeletal: Denies: Myalgias, Arthralgias Skin: Denies: Rash, Abscess Neurological: Denies: Headache, Weakness, Parasthesia Physical Exam Vital Signs/Narrative: Vital Signs Temp Pulse Resp BP 01/04/21 09:13 97.5 F L 91 16 136/94 H Inital Vital Signs reviewed: Yes General: Well nourished, No Acute Distress Head: Normocephalic Eyes: Perrl, EOMI ENT: Moist mucous membranes, No rhinorrhea Cardiovascular: Regular rate, Regular rhythm Respiratory: No distress, CTA bilaterally Abdomen: Soft, Nondistended, Tender - Is to palpation right lower abdomen and right flank Back: CVA tenderness. Negative for: Spinal tenderness Extremities: Nontender, No edema Skin: Normal color, No rash Neurological: Alert, Oriented x3, Cranial nerves II-XII grossly intact Psychological: Normal affect, Normal Mood Diagnostic/Tx/Re-eval Clinical Impression(s) from Imaging Studies Abdomen/Pelvis CT 01/04/21 10:19 IMPRESSION: 1. Hepatomegaly. 2. Persistent bilateral small nonobstructing renal stones without evidence of hydronephrosis. 3. No focal acute inflammatory process. 4. Status post cholecystectomy. Electronically Signed: Andrew Martinez MD at 10:58 EST Tel , Service support , Laboratory Data 01/04/21 01/04/21 01/04/21 09:56 09:56 09:58 WBC 7.3 RBC 4.50 Hgb 14.9 Hct 43.9 MCV 97.6 MCH 33.1 H MCHC 33.9 RDW Std Deviation 42.4 RDW Coeff of José Miguel 11.7 Plt Count 247 MPV 8.4 Immature Gran % (Auto) 0.300 Neut % (Auto) 63.2 Lymph % (Auto) 27.2 Gonzales % (Auto) 7.3 Eos % (Auto) 1.2 Baso % (Auto) 0.8 Absolute Neuts (auto) 4.6 Absolute Lymphs (auto) 1.98 Nucleated RBC % 0 Sodium 139 Potassium 3.9 Chloride 105 Carbon Dioxide 27.0 Anion Gap 7 BUN 11 Creatinine 0.90 Estim Creat Clear Calc 73.19 Est GFR (MDRD) Af Amer 90 Est GFR (MDRD) Non-Af 75 BUN/Creatinine Ratio 12.3 Glucose 88 Calcium 8.9 Urine Color Yellow Urine Clarity Clear Urine pH 6.0 Ur Specific [place] 1.015 Urine Protein Negative Urine Glucose (UA) Normal Urine Ketones Negative Urine Occult Blood Negative Urine Nitrite Negative Urine Bilirubin Negative Urine Urobilinogen Normal Ur Leukocyte Esterase Negative Urine RBC 0 SEEN Urine WBC 0 SEEN Ur Squamous Epith Cells 0 SEEN Urine Bacteria 0 SEEN Urine Mucus 0 SEEN - Medical Decision Making 40-year-old female presenting with right flank pain with right CVA tenderness. She states is been going on for a couple of days. She denied any urinary complaints. Her blood work was unremarkable. Urinalysis negative for infection or blood. Patient had CT of the abdomen pelvis without contrast which showed nonobstructing stones. It is unclear what the etiology of her pain is its possible that it is musculoskeletal however she could have also passed a kidney stone. She will be given pain medication and nausea medicine for home she is given return precautions. Patient safe for discharge. Impression: 1. Right flank pain ED Disposition - Plan for ED Patient: Disposition: Home or Assisted Living Instructions: ED Flank Pain, Uncertain Cause Prescriptions: Hydrocodone Bitart/Apap 5-325 [[place] 5MG-325MG] 1 tab PO Q6H PRN PRN 3 Days #12 tab PRN Reason: Pain Prescription Printed Promethazine HCl 12.5 mg PO Q8H PRN PRN #14 tab PRN Reason: Nausea Prescription Printed Referrals: Robb Jeffries SHIFT PRODUCTION ASSOCIATE, SHIFT PRODUCTION ASSOCIATE-C [Primary Care Provider] -
[2021-01-04] MEDS: proMETHazine 25 MG/ML Syringe 12.5 MG IV (09:57)
[2021-01-04] MEDS: Ketorolac 15 MG/ML Vial IV (10:00)
[2021-01-04 10:06] LABS: Bacteria 0 SEEN /hpf (None Seen); Mucous, Urine 0 SEEN /hpf (<or=2+); Red Blood Cells-Urine 0 SEEN /hpf (0-5); Squamous Epithelial Cells - UA 0 SEEN /hpf (5-10); White Blood Cells 0 SEEN /hpf (0-5)
[2021-01-04 10:11] LABS: Absolute Lymphocyte Count 1.98 X10^3/uL (0.83-4.51); Absolute Neutrophil Count 4.6 X10^3/uL (2.0-7.7); Basophil# 0.06 X10^3/uL; Basophil% 0.8 % (0-1); Eosinophil# 0.09 X10^3/uL; Eosinophils% 1.2 % (0-5); Hematocrit 43.9 % (37-47); Hemoglobin 14.9 g/dL (12.0-15.0); Lymphocyte # 1.98 X10^3/ul (4.0); Lymphocyte % 27.2 % (19-41); Mean Corp Hgb Conc 33.9 g/dL (32-36); Mean Corpuscular Hgb 33.1 pg (27.0-32.0); Mean Corpuscular Volume 97.6 fL (81-99); Mean Platelet Vol. 8.4 fl (6.2-12.0); Monocyte# 0.53 X10^3/uL; Monocyte% 7.3 % (0-10); NRBC Flagged by Analyzer 0 % (0-5); Neutrophil # 4.61 X10^3/uL (2.7-7.7); Neutrophil % 63.2 % (47-70); Platelet Count 247 K/mm3 (150-450); RBC Distribution Width CV 11.7 % (11.6-14.6); RBC Distribution Width SD 42.4 fl (35.1-43.9); White Blood Count 7.3 K/mm3 (4.4-11.0)
[2021-01-04 10:11] LABS: Color, Urine Yellow (Yellow); Glucose, Dipstick Normal (Normal); Ketone-Dipstick Negative (Negative); Leukocyte Esterase-Dipstick Negative /ul (Negative); Nitrite-Dipstick Negative (Negative); Occult Blood-Urine Negative /ul (Negative); Protein-Dipstick Negative (Negative); Specific Gravity, Urine 1.015 (1.002-1.030); Urine Bilirubin Dipstick Negative (Negative); Urine Clarity Clear (Clear); Urine Urobilinogen Normal (Normal)
--- NOTE | 2021-01-04 10:19 | CT_ITS ---
STUDY: CT ABDOMEN AND PELVIS WITHOUT CONTRAST REASON FOR EXAM: Female, 40 years old. Right flank pain RADIATION DOSAGE (If Supplied By Facility): CTDIvol = ( 6.04 ) mGy, DLP = ( 250.64 ) mGycm TECHNIQUE: Transaxial images were obtained from the dome of the diaphragm to the symphysis pubis without oral contrast, and without intravenous contrast. Sagittal and coronal images were reconstructed. Individualized dose optimization techniques were used for this CT. COMPARISON: 06/17/2019 FINDINGS: The visualized lung bases are unremarkable. The visualized portions of the heart are within normal limits. There is hepatomegaly with diffuse hepatic enlargement. There are surgical clips in the gallbladder fossa consistent with a prior cholecystectomy. Normal spleen. Normal pancreas. Normal bilateral adrenal glands. Multiple small lateral nonobstructing renal stones, the largest in the lower pole of the right kidney measuring about 3 mm are again seen. No evidence of hydronephrosis. Normal visualized stomach. Normal small intestine. Fecal retention. No evidence of acute diverticulitis. The appendix is visualized and appears normal. There is mild atherosclerotic calcification of the abdominal aorta, without a demonstrated aneurysm. Normal inferior vena cava. Normal retroperitoneum. Normal urinary bladder. There is absence of the uterus consistent with a prior hysterectomy. Normal abdominal wall. Normal osseous structures. CT/Abdomen/Pelvis without Cont IMPRESSION: 1. Hepatomegaly. 2. Persistent bilateral small nonobstructing renal stones without evidence of hydronephrosis. 3. No focal acute inflammatory process. 4. Status post cholecystectomy. Electronically Signed: Andrew Martinez MD at 10:58 EST Tel , Service support ,
[2021-01-04 10:20] LABS: Anion Gap 7 (5-15); BUN 11 mg/dL (7-18); BUN/Creat Ratio 12.3 RATIO (10-20); Calcium,Total 8.9 mg/dL (8.5-10.1); Chloride 105 mmol/L (98-107); EST Glomerular Filtration Rate 75 mL/min (>60); Est Glom Filt Rate - Afr Amer 90 mL/min (>60); Estimated Creatinine Clearance 73.19 ml/min; Glucose 88 mg/dL (74-106); Potassium 3.9 mmol/L (3.5-5.1); Sodium Level 139 mmol/L (136-145)
[2021-01-04] MEDS: Morphine 4 MG/ML Syringe IV (11:27)
[2021-01-04 11:29] VITALS: BP 103/70; PULSE 70; RESP 16; O2SAT 100
== END 2021-01-04 11:42 | disposition home or self-care (01) ==
PROVIDERS: Emergency Provider Student in an Organized Health Care Education/Training Program; PCP Nurse Practitioner Primary Care
DX: R10.9 Unspecified abdominal pain (principal); R16.0 Hepatomegaly, not elsewhere classified; I10 Essential (primary) hypertension; G40.909 Epilepsy, unspecified, not intractable, without status epilepticus; F17.200 Nicotine dependence, unspecified, uncomplicated; Z87.442 Personal history of urinary calculi; Z88.5 Allergy status to narcotic agent; Z88.8 Allergy status to other drugs, medicaments and biological substances; Z90.49 Acquired absence of other specified parts of digestive tract; Z90.710 Acquired absence of both cervix and uterus
CPT/HCPCS: 74176; 80048; 81001; 85025; 96374; 96375; 99282; A4216

== ENCOUNTER 2021-01-12 17:50 | Emergency (ER) | payer MEDICARE, MEDICAID, SELFPAY ==
[2021-01-12 17:54] VITALS: BP 116/90; PULSE 85; RESP 16; TEMP 36.6; O2SAT 97; BMI 18.6
--- NOTE | 2021-01-12 18:21 | ED.VIS.GEN ---
History of Present Illness Chief Complaint: Flank Pain Informant: Patient Narrative: Patient is a 40-year-old female with a past medical history of epilepsy, kidney stones who presents to the emergency department for abdominal pain. She has been nauseous and vomiting with this. She was seen in the ED 1 week ago and treated for kidney stone although they did not appreciate any obstructing stone at that time. She was on Flomax but states that she had multiple seizures being on this medication. She called her neurologist who told her to stop this medication. Since yesterday she has been having 8 out of 10 abdominal pain. Mostly on the right side of the upper and lower quadrant. She does not know aggravating or relieving factors. No urinary symptoms with this. She states that she has had decreased urinary output. She has also been mildly constipated. She said she had a low-grade fever of 100 degrees yesterday. She has a history of cholecystectomy as well as hysterectomy. Past Medical History - Allergies and Home Meds Allergies/Adverse Reactions: Allergies amoxicillin Allergy (Verified 01/12/21 17:54) Hives divalproex sodium [From Depakote] Allergy (Verified 01/12/21 17:54) Hives levetiracetam [From Keppra] Allergy (Verified 01/12/21 17:54) Hives metoclopramide [From Reglan] Allergy (Verified 01/12/21 17:54) Hives ondansetron [From Zofran] Allergy (Verified 01/12/21 17:54) Hives tramadol Allergy (Verified 01/12/21 17:54) Angioedema TAPE Adverse Reaction (Uncoded 01/12/21 17:54) Rash paper tape Primary Care Physician: Robb Jeffries SECURITY AGENT, SECURITY AGENT-C [Primary Care Provider] - 2 Days Prior records reviewed: Yes Surgical History: noncontributory, hysterectomy Smoking Status: Current every day smoker Review of Systems All systems negative except as indicated General: Denies: Chills, Fever, Sweats Eyes: Denies: Visual changes - bilaterally, Diplopia ENT: Denies: Rhinorrhea, Sore throat Cardiovascular: Denies: Chest pain, Palpitations Respiratory: Denies: Dyspnea, Cough, Dyspnea on exertion Gastrointestinal: Reports: Abdominal pain, Nausea, Vomiting. Denies: Diarrhea, Melena, Hematochezia Genitourinary: Denies: Dysuria, Hematuria, Frequency Musculoskeletal: Denies: Back pain, Extremity Pain Skin: Denies: Rash, Wounds Neurological: Denies: Headache, Weakness, Numbness Physical Exam Vital Signs/Narrative: Vital Signs Temp Pulse Resp BP Pulse Ox 01/12/21 17:54 97.8 F 85 16 116/90 H 97 Inital Vital Signs reviewed: Yes General: Well nourished, Well developed, No Acute Distress Head: Normocephalic, Atraumatic Eyes: Perrl, EOMI ENT: Moist mucous membranes, No rhinorrhea Neck: Supple, Nontender Cardiovascular: Regular rate, Regular rhythm, No murmurs Respiratory: No distress, CTA bilaterally, Chest nontender Abdomen: Soft, Nondistended, Normal bowel sounds, Tender - Mostly in the right upper quadrant. Mild in the right lower quadrant. No rebound or guarding. Back: Nontender, Normal Inspection Extremities: Nontender, No edema Skin: Normal color, No rash Neurological: Alert, Oriented x3, Cranial nerves II-XII grossly intact, Normal Strength, Normal Sensation Psychological: Normal affect, Normal Mood Diagnostic/Tx/Re-eval - Medical Decision Making Patient presents to the ED for right-sided abdominal pain. She was treated for kidney stone last week. Upon arrival to the emergency department vital signs within normal limits. She does have tenderness in the right upper quadrant of her abdomen. She has mild CVA tenderness on the right but states that this is significantly improved from last week. Will check basic lab work along with urinalysis. She did just have a CT scan of her abdomen/pelvis last week. Treat symptomatically at this time with Phenergan and Toradol. Patient still having significant pain so she was given a dose of morphine. Will obtain a repeat CT, this time with IV contrast. Her lab work did not reveal any significant acute abnormality. No evidence of infection on urinalysis. She does not have a high white count. Liver enzymes within normal limits. Lipase very mildly high. CT imaging did return without any acute intra-abdominal pathology noted. I do feel she is stable for discharge at this time. Will trial a course of Bentyl for home treatment. She does have a GI doctor she seen previously and will follow up with them. She is also requesting Phenergan which she will be given a prescription for. Return precautions are reviewed with her including worsening pain, developing fever/chills, inability keep down fluids. She understands and is agreeable this plan. All questions answered. ED Disposition - Plan for ED Patient: Disposition: Home or Assisted Living Diagnosis: Abdominal pain, Nausea & vomiting Instructions: ED Abdominal Pain Unkn Cause Fem, ED Vomiting (Adult) Prescriptions: Dicyclomine HCl [Bentyl] 20 mg PO TIDAC #20 cap Transmission Status: Received by [facility] proMETHazine tablet [Phenergan tablet] 25 mg PO Q8H PRN PRN #12 tab PRN Reason: Nausea/Vomiting Transmission Status: Received by [facility] Referrals: Robb Jeffries SECURITY AGENT, SECURITY AGENT-C [Primary Care Provider] - 2 Days
[2021-01-12] MEDS: proMETHazine 25 MG/ML Syringe 12.5 MG IV (18:43)
[2021-01-12] MEDS: Ketorolac 15 MG/ML Vial IV (18:44)
[2021-01-12 18:45] LABS: Absolute Lymphocyte Count 2.19 X10^3/uL (0.83-4.51); Absolute Neutrophil Count 4.1 X10^3/uL (2.0-7.7); Basophil# 0.04 X10^3/uL; Basophil% 0.6 % (0-1); Eosinophil# 0.09 X10^3/uL; Eosinophils% 1.3 % (0-5); Hematocrit 41.4 % (37-47); Hemoglobin 14.6 g/dL (12.0-15.0); Lymphocyte # 2.19 X10^3/ul (4.0); Lymphocyte % 30.8 % (19-41); Mean Corp Hgb Conc 35.3 g/dL (32-36); Mean Corpuscular Hgb 33.6 pg (27.0-32.0); Mean Corpuscular Volume 95.4 fL (81-99); Mean Platelet Vol. 8.3 fl (6.2-12.0); Monocyte# 0.66 X10^3/uL; Monocyte% 9.3 % (0-10); NRBC Flagged by Analyzer 0 % (0-5); Neutrophil # 4.09 X10^3/uL (2.7-7.7); Neutrophil % 57.6 % (47-70); Platelet Count 262 K/mm3 (150-450); RBC Distribution Width CV 11.9 % (11.6-14.6); RBC Distribution Width SD 41.3 fl (35.1-43.9); Red Blood Count 4.34 M/mm3 (4.2-5.4); White Blood Count 7.1 K/mm3 (4.4-11.0)
[2021-01-12 18:47] VITALS: BP 120/71; PULSE 80; RESP 16; TEMP 36.8; O2SAT 97
[2021-01-12 18:51] LABS: Mucous, Urine 0 SEEN /hpf (<or=2+); Red Blood Cells-Urine 0 SEEN /hpf (0-5)
[2021-01-12 18:52] LABS: Color, Urine Yellow (Yellow); Glucose, Dipstick Normal (Normal); Ketone-Dipstick 50 mg/dl (Negative); Leukocyte Esterase-Dipstick Negative /ul (Negative); Nitrite-Dipstick Negative (Negative); Occult Blood-Urine 10 /ul (Negative); Protein-Dipstick 15 mg/dl (Negative); Urine Bilirubin Dipstick Negative (Negative); Urine Clarity Clear (Clear); Urine Urobilinogen Normal (Normal)
[2021-01-12 18:59] LABS: Bacteria RARE /hpf (None Seen); Squamous Epithelial Cells - UA 0-5 SEEN /hpf (5-10); White Blood Cells 0-5 SEEN /hpf (0-5)
[2021-01-12 19:01] LABS: ALB/GLOB Ratio 1.1 RATIO (0.9-2.4); AST(SGOT) 34 U/L (15-37); Alanine Aminotransfer ALT/SGPT 35 U/L (13-56); Albumin, Serum 3.8 g/dL (3.2-5.0); Alkaline Phosphatase 83 U/L (45-117); Anion Gap 6 (5-15); BUN 14 mg/dL (7-18); BUN/Creat Ratio 15.3 RATIO (10-20); Calcium,Total 9.1 mg/dL (8.5-10.1); Chloride 106 mmol/L (98-107); Creatinine, Serum 0.91 mg/dL (0.55-1.02); EST Glomerular Filtration Rate 73 mL/min (>60); Est Glom Filt Rate - Afr Amer 88 mL/min (>60); Estimated Creatinine Clearance 65.37 ml/min; Globulin 3.6 g/dL (2.2-4.2); Glucose 78 mg/dL (74-106); Lipase 405 U/L (73-393); Potassium 3.5 mmol/L (3.5-5.1); Protein, Total 7.4 g/dL (6.4-8.2); Sodium Level 140 mmol/L (136-145)
[2021-01-12 19:22] VITALS: BP 118/88; PULSE 65; RESP 17; TEMP 36.7; O2SAT 100
--- NOTE | 2021-01-12 19:33 | CT_ITS ---
STUDY: CT ABDOMEN AND PELVIS WITH CONTRAST REASON FOR EXAM: Female, 40 years old. Right sided abd pain -- Eval appy RADIATION DOSAGE (If Supplied By Facility): CTDIvol = ( 10.73 ) mGy, DLP = ( 226.96 ) mGycm TECHNIQUE: Transaxial images were obtained from the dome of the diaphragm to the symphysis pubis without oral contrast. IV 100mL Isovue-300 was administered. Sagittal and coronal images were reconstructed. Individualized dose optimization techniques were used for this CT. COMPARISON: 01/04/2021 FINDINGS: The visualized lung bases are unremarkable. The visualized portions of the heart are within normal limits. Normal liver. There are surgical clips in the gallbladder fossa consistent with a prior cholecystectomy. Normal spleen. Normal pancreas. Normal bilateral adrenal glands. Normal right kidney. Normal left kidney. Normal visualized stomach. Normal small intestine. Normal colon. The appendix is visualized and appears normal. Normal abdominal aorta. Normal inferior vena cava. Normal retroperitoneum. Normal urinary bladder. Normal abdominal wall. Normal osseous structures. CT/Abdomen/Pelvis W IV Cont ONLY IMPRESSION: Normal enhanced CT of the abdomen and pelvis. Electronically Signed: Jasvir Camacho MD at 20:21 EDT Tel , Service support ,
[2021-01-12 19:43] VITALS: PULSE 64; RESP 17; O2SAT 98
[2021-01-12] MEDS: Morphine 4 MG/ML Syringe IV (19:43)
== END 2021-01-12 20:57 | disposition home or self-care (01) ==
PROVIDERS: Emergency Provider Emergency Medicine; PCP Nurse Practitioner Primary Care
DX: R11.2 Nausea with vomiting, unspecified (principal); R10.9 Unspecified abdominal pain; Z87.442 Personal history of urinary calculi; F17.200 Nicotine dependence, unspecified, uncomplicated; Z88.5 Allergy status to narcotic agent; Z88.8 Allergy status to other drugs, medicaments and biological substances; Z90.710 Acquired absence of both cervix and uterus; Z90.49 Acquired absence of other specified parts of digestive tract
CPT/HCPCS: 74177; 80053; 81001; 83690; 85025; 96374; 96375; 99285; J7030; Q9967; A4216

== ENCOUNTER 2021-02-14 12:10 | Emergency (ER) | payer MEDICARE, MEDICAID, SELFPAY ==
[2021-02-14 12:12] VITALS: BP 129/89; PULSE 86; RESP 15; TEMP 37.4; O2SAT 97; BMI 17.9
--- NOTE | 2021-02-14 12:19 | VDLE_ITS ---
Reason For Study: pain Procedure LEFT This is a venous duplex using B-mode, color GSV is normal. flow and spectral Doppler. CFV is compressible, spontaneous, phasic, Exam performed portable in ED. competent, and demonstrates normal The exam was abbreviated due to the COVID 19 augmentation. protocol. FV is compressible, spontaneous, phasic, The exam was diagnostic. competent and demonstrates normal A preliminary report was called and/or faxed augmentation. to Dr. Garcia. POP V is compressible, spontaneous, phasic, competent and demonstrates normal augmentation. T/P Trunk is compressible. PTV is compressible. LT PerV is compressible. VL/Venous Duplex US, Unilateral Interpretation Summary There is no evidence of left lower extremity deep vein thrombosis. Left great s aphenous vein appears patent and compressible segmentally. COVID-19 protocol utilized Ordering Physician: Demetri Garcia Performed By: Darrion Jernigan RVT
[2021-02-14] MEDS: HYDROcodone Bitartrate/Apap 5/325 Tablet PO (13:07)
[2021-02-14 13:56] VITALS: BP 97/68; PULSE 54; RESP 13; O2SAT 97
--- NOTE | 2021-02-14 14:02 | ED.VISSUMM ---
- ER Visit Summary Date of Service: 02/14/21 Chief Complaint: Left leg pain History of Present Illness: The patient is a [address] Ibarra. She reports that 5 days ago she stood up from the couch and had abrupt onset of left calf pain./Throbbing, burning pain Zeta 10 worst and 6 out of 10 currently. Is worsened by walking relieved by rest. She is not taking anything for pain. She denies any injury. No fall, MVA, or change in activity. She reports this is similar to when she had a DVT in the past. Review of systems: General: No fever, chills, cold sweats. Cardiovascular: No chest pain, palpitations. Respiratory: No cough, shortness of breath, dyspnea on exertion. Gastrointestinal: No abdominal pain, nausea, vomiting, diarrhea, melena, or hematochezia. Genitourinary: No dysuria, frequency, hematuria. Skin: No rash. Neuro: No headache, numbness, weakness. Physical Examination: Vitals: Stable. Afebrile. General: Well-nourished and well-developed. Head: Normocephalic atraumatic. Neck: Supple, no lymphadenopathy. No JVD. Nontender. Cardiovascular: Regular rate and rhythm. No murmurs. Respiratory: No respiratory distress. Clear to auscultation bilaterally. Abdominal: Soft, nontender, nondistended, normal bowel sounds. No guarding, rebound, or peritoneal signs. Back: Nontender. Extremities: To the medial side of her left calf there is an approximately 4 x 3 cm contusion that is moderately tender to palpation. She is neurovascular intact distal to this. She has normal sensation light touch. She has 2+ dorsalis pedis pulse.. Skin: Normal color, no rash. Neurologic: Alert and oriented ?3. Cranial nerves II through XII are intact. Normal strength and sensation. Psych: Normal affect. Test Results: Left lower extremity Doppler is negative. Emergency Department Course and Treatment: Patient was given [place] p.o. here. Treatment Plan: The source of the contusion is unclear. Patient may have had a small spider vein that ruptured. She could have also had a small tear in the muscle. Regardless I think that conservative management is in her best interest. She will be instructed to ice the area. Use Tylenol and/or ibuprofen for pain. Follow-up with her primary care physician 1 week if not improving. Return to the emergency department for any worsening symptoms. Disposition: To home in improved and stable condition. Impression: 1. Left calf contusion. This note was generated with [employer] dictation software. It may contain incorrect words, spelling, and punctuation that were not noted in review of the chart prior to signing ED Disposition - Plan for ED Patient: Instructions: ED Contusion, Lower Extremity Referrals: Robb Jeffries CRACKER AND COOKIE MACHINE OPERATOR, CRACKER AND COOKIE MACHINE OPERATOR-C [Primary Care Provider] - 1 Week if not improving
[2021-02-14 14:29] VITALS: BP 99/66; RESP 17
== END 2021-02-14 14:31 | disposition home or self-care (01) ==
LOC: ED 12:39
PROVIDERS: Emergency Provider Emergency Medicine; PCP Nurse Practitioner Primary Care
DX: S80.12XA Contusion of left lower leg, initial encounter (principal); X50.9XXA Other and unspecified overexertion or strenuous movements or postures, initial encounter; Y93.9 Activity, unspecified; Y92.89 Other specified places as the place of occurrence of the external cause; Y99.9 Unspecified external cause status; Z86.718 Personal history of other venous thrombosis and embolism
CPT/HCPCS: 93971; 99284

== ENCOUNTER 2021-04-27 10:02 | Emergency (ER) | payer MEDICARE, MEDICAID, SELFPAY ==
[2021-04-27 10:03] VITALS: BP 128/90; PULSE 88; RESP 16; TEMP 36.6; O2SAT 98; BMI 22.1
--- NOTE | 2021-04-27 10:25 | EX.ED.DYSGE1 ---
HPI History of Present Illness Chief Complaint: Lower Extremity Injury Informant: patient Narrative Narrative: 40-year-old female presents the emergency room with a left ankle injury. She states that she was coming down the stairs and a board gave out and came up and hit her in the ankle. She states it has been very painful for her. She has been icing it. She reports having had 3 seizures since the injury. She feels very anxious. [facility] Medical History (Updated 04/27/21 @ 10:[address] Carroll Negron DO) Breast pain, left Cervical cancer Epilepsy Hypertension Nicotine dependence Solitary pulmonary nodule Home Medications clonazepam 1 mg PO TID 06/27/19 [History Last Taken 11/21/19] lamotrigine 200 mg PO BID 07/30/19 [History Last Taken 11/21/19] albuterol sulfate 1 puff INHALATION Q6H PRN 11/21/19 [History Last Taken Unknown] lamotrigine 400 mg PO QHS 04/27/21 [History Last Taken Unknown] zolpidem 10 mg PO QHS 04/27/21 [History Last Taken Unknown] Allergy/AdvReac Type Severity Reaction Status Date / Time amoxicillin Allergy Hives Verified 04/27/21 10:04 divalproex sodium Allergy Hives Verified 04/27/21 10:04 [From Depakote] levetiracetam [From Keppra] Allergy Hives Verified 04/27/21 10:04 metoclopramide [From Reglan] Allergy Hives Verified 04/27/21 10:04 ondansetron [From Zofran] Allergy Hives Verified 04/27/21 10:04 tramadol Allergy Angioedema Verified 04/27/21 10:04 TAPE AdvReac Rash Uncoded 04/27/21 10:04 Surgical History History of cholecystectomy History of hysterectomy Social History (Updated 04/27/21 @ 10:[address] Carroll Negron DO) Smoking Status: Current every day smoker tobacco type: cigarettes substance use type: does not use ROS ROS ED Constitutional Constitutional ED: Denies chills or weight loss Eyes Eyes: Denies change in vision or diplopia ENT ENT ED: Denies ear pain, rhinorrhea or sore throat Cardiovascular Cardiovascular: Denies chest pain, orthopnea, palpitations or racing heartbeat Respiratory/Chest Respiratory/Chest: Denies cough, dyspnea or orthopnea Gastrointestinal Gastrointestinal: Denies abdominal pain, diarrhea, nausea or vomiting Genitourinary Genitourinary ED: Denies dysuria, hematuria or urinary frequency Musculoskeletal Musculoskeletal: Reports other Details: Left ankle pain ; Denies arthralgias or myalgias Integumentary Denies abscess or rash Neurologic Neurologic: Denies headache(s) or weakness Psychiatric Psychiatric: Denies anxiety, depression, suicidal ideation or suicidal thoughts Endocrine Endocrinology: Denies polydipsia, polyphagia or polyuria Allergic/Immunologic Allergic/Immunologic ED: Denies mouth swelling, tongue swelling or urticaria EXAM Physical Exam Const Vital Signs: 04/27/21 10:03 Temperature 97.8 F Temperature Source Temporal Pulse Rate 88 Respiratory Rate 16 Blood Pressure 128/90 H Blood Pressure Mean 102 Pulse Ox 98 Oxygen Delivery Method Room Air Positive well nourished and well developed General Appearance ED: well developed HEENT Reports normocephalic, head/scalp atraumatic and moist mucous membranes Eyes PERRL and EOMs intact bilaterally Neck no lymphadenopathy, supple and no JVD Resp normal respiratory effort and clear to auscultation bilaterally Cardio regular rate, regular rhythm and no murmurs GI normal to inspection, nondistended, normoactive bowel sounds and non-tender Palpation: soft Back/Spine no CVA tenderness and normal ROM Extremity Extremity Narrative: Patient reports tenderness to palpation over the medial malleolus of the left foot. There is no obvious deformity. Painful range of motion. General Extremety ED: Negative for edema General Extremity: Negative for edema Neuro oriented x3 and CN's II-XII intact bilaterally Sensorium / Orientation: alert Motor Exam: strength 5/5 throughout Psych mental status grossly normal Mood & Affect: Negative for depressed or tearful Skin no rashes or lesions noted and no wounds MDM MDM MDM Narrative Medical decision making narrative: My interpretation of the plain films of the left ankle is no acute fracture. Glenn wrap continue Motrin and ice. Patient received a dose of Toradol. Follow-up 10 to 14 days if not improved Discharge Plan Triage Chief Complaint: Lower Extremity Injury ED Provider: Carroll Negron Dx/Rx/DC Orders Clinical Impression: Contusion of ankle, left Instructions: ED Foot Contusion Prescriptions: No Action clonazepam 1 MG tablet 1 mg PO TID RF: 0 lamotrigine 200 MG tablet 200 mg PO BID RF: 0 albuterol sulfate 8.5 GM HFA aerosol inhaler 1 puff inhalation Q6H PRN (Reason: Wheezing) RF: 0 lamotrigine 200 mg tablet extended release 24hr 400 mg PO QHS RF: 0 zolpidem 10 mg tablet 10 mg PO QHS RF: 0 Primary Care Provider: Robb Jeffries NP Referrals: Robb Jeffries NP, ASSIGNMENT DESK ASSISTANT-C [Primary Care Provider] - 10-14 Days if not better Disposition Disposition: Home, Self Care
--- NOTE | 2021-04-27 10:42 | RAD_ITS ---
STUDY: X-RAY - LEFT ANKLE REASON FOR EXAM: Female, 40 years old. Injury due to a fall. TECHNIQUE: 3 view(s) of the ankle. COMPARISON: None. FINDINGS: Normal visualized distal tibia and fibula. Normal medial and lateral malleoli. Normal tibiotalar articulation and ankle mortise. Normal visualized talus and calcaneus. The visualized subtalar, talonavicular, calcaneocuboid and tarsal articulations are normal. The soft tissue structures are unremarkable. RAD/Ankle min 3 Views IMPRESSION: Normal x-ray examination of the ankle. Electronically Signed: Fazal Osorio MD at 10:58 EDT , Service support ,
[2021-04-27] MEDS: Ketorolac 60 MG/2 ML Vial IM (10:57)
[2021-04-27 11:22] VITALS: BP 111/95; PULSE 75; RESP 16; O2SAT 100
== END 2021-04-27 11:23 | disposition home or self-care (01) ==
LOC: ED 11:11
PROVIDERS: Emergency Provider Emergency Medicine; PCP Nurse Practitioner Primary Care
DX: S90.02XA Contusion of left ankle, initial encounter (principal); W22.8XXA Striking against or struck by other objects, initial encounter; Y92.89 Other specified places as the place of occurrence of the external cause; Y99.9 Unspecified external cause status; F17.210 Nicotine dependence, cigarettes, uncomplicated; I10 Essential (primary) hypertension; G40.909 Epilepsy, unspecified, not intractable, without status epilepticus; Z79.899 Other long term (current) drug therapy; Z90.49 Acquired absence of other specified parts of digestive tract; Z90.710 Acquired absence of both cervix and uterus; Z85.41 Personal history of malignant neoplasm of cervix uteri
CPT/HCPCS: 73610; 99282

== ENCOUNTER 2021-04-29 10:07 | Emergency (ER) | payer MEDICARE, MEDICAID, SELFPAY ==
[2021-04-29 10:08] VITALS: BP 123/95; PULSE 79; RESP 16; TEMP 36.2; O2SAT 98; BMI 17.4
--- NOTE | 2021-04-29 10:22 | EDS_ITS ---
HPI History of Present Illness Chief Complaint: Nausea/Vomiting Detail of Chief Complaint: Vomiting for 4 days Informant: patient Narrative Narrative: Patient presents to the emergency department complaint of vomiting that started initially 4 days ago. Patient states initially she had a headache. Patient states that she had some seizures 3 days ago and fell and injured her left foot so she was seen in the emergency department 3 days ago and they took care of her foot but really did not attend to her nausea and vomiting. Patient states that she has been vomiting throughout the night and is thrown up about 6 or 7 times per day. She complains of some upper abdominal discomfort. Patient's had prior cholecystectomy as well as hysterectomy. She denies any diarrhea and her last bowel movement was 4 5 days ago which is not unusual for her. She denies urinary symptoms. Patient denies headache currently. She denies Covid exposures. She is not had Covid and she has not been immunized against Covid. Patient tells me she had fever at home over the last 2 days and this morning was up to 102. Prior similar symptoms: No PFSH PFSH Medical History (Updated 04/29/21 @ 14:[address] Servando Singer, ) Breast pain, left Cervical cancer Epilepsy Hypertension Nicotine dependence Solitary pulmonary nodule Home Medications clonazepam 1 mg PO TID 06/27/19 [History Last Taken 11/21/19] lamotrigine 200 mg PO BID 07/30/19 [History Last Taken 11/21/19] albuterol sulfate 1 puff INHALATION Q6H PRN 11/21/19 [History Last Taken Unknown] lamotrigine 400 mg PO QHS 04/27/21 [History Last Taken Unknown] zolpidem 10 mg PO QHS 04/27/21 [History Last Taken Unknown] lansoprazole [Prevacid] 30 mg PO DAILY 28 Days #28 cap 04/29/21 [Rx Last Taken Unknown] lorazepam [Ativan] 1 mg PO PRN PRN 04/29/21 [History Last Taken Unknown] promethazine 25 mg TX Q6H PRN #12 ea 04/29/21 [Rx Last Taken Unknown] Allergy/AdvReac Type Severity Reaction Status Date / Time amoxicillin Allergy Hives Verified 04/29/21 10:07 divalproex sodium Allergy Hives Verified 04/29/21 10:07 [From Depakote] levetiracetam [From Keppra] Allergy Hives Verified 04/29/21 10:07 metoclopramide [From Reglan] Allergy Hives Verified 04/29/21 10:07 ondansetron [From Zofran] Allergy Hives Verified 04/29/21 10:07 tramadol Allergy Angioedema Verified 04/29/21 10:07 TAPE AdvReac Rash Uncoded 04/29/21 10:07 Surgical History History of cholecystectomy History of hysterectomy Social History (Updated 04/27/21 @ 10:[address] Carroll Negron, DO) Smoking Status: Current every day smoker tobacco type: cigarettes substance use type: does not use ROS ROS ED Constitutional Constitutional ED: Reports systems reviewed and no addt'l complaints, except as documented and fever(s); Denies body ache(s), change in weight or chills Eyes Eyes: Denies acute decrease in peripheral vision, change in vision, double vision or loss of vision ENT ENT ED: Reports none; Denies ear pain, lip swelling, loss taste/smell, neck pain, otalgia or sore throat Cardiovascular Cardiovascular: Reports none; Denies abdominal pain, chest pain with activity, leg edema, lightheadedness, palpitations, rapid heart rate or syncope Respiratory/Chest Respiratory/Chest: Reports none; Denies change in mental status, dry cough, dyspnea, hemoptysis, shortness of breath at rest or shortness of breath with exertion Gastrointestinal Gastrointestinal: Reports none, abdominal pain, nausea and vomiting; Denies change in stool character, diarrhea, hematemesis, hematochezia, melena or rectal bleeding Genitourinary Genitourinary ED: Reports none; Denies abdominal discomfort, anuria, dysuria, genital pain or polyuria Musculoskeletal Musculoskeletal: Reports none; Denies arthralgias, back pain, difficulty walking, extremity pain, muscle weakness or myalgias Integumentary Reports none; Denies abscess or rash Neurologic Neurologic: Reports none; Denies abnormal gait, confusion, focal weakness, frequent falls, headache(s), loss of vision, numbness, paresthesias, radicular pain, vertigo or weakness Psychiatric Psychiatric: Reports systems reviewed and no addt'l complaints, except as documented and none; Denies behavioral changes, confusion, difficulty concentrating, hallucinations, suicidal ideation, tactile hallucinations or visual hallucinations Endocrine Endocrinology: Denies none, cold intolerance, excessive sweating, fatigue or heat intolerance Hematologic/Lymphatic Hematologic/Lymphatic: Reports none; Denies anemia, easy bleeding or easy bruising Allergic/Immunologic Allergic/Immunologic ED: Denies as per HPI, none, lip swelling, mouth swelling, throat swelling, tongue swelling or hives EXAM Physical Exam Const Vital Signs: 04/29/21 10:08 04/29/21 13:48 Temperature 97.2 F L Temperature Source Temporal Pulse Rate 79 59 L Respiratory Rate 16 16 Blood Pressure 123/95 H 103/66 Blood Pressure Mean 104 78 Pulse Ox 98 98 Oxygen Delivery Method Room Air Room Air Positive well nourished and well developed General Appearance ED: well developed and NAD HEENT Reports TM's clear and moist mucous membranes normocephalic and atraumatic; Negative for trauma or tenderness Tympanic Membrane ED: Yes TM's clear Eyes PERRL and EOMs intact bilaterally General Eye ED: Negative for pale conjunctiva or scleral icterus Neck no lymphadenopathy, supple and no JVD General: Negative for tenderness Chest Wall inspection of chest normal and palpation of chest normal Chest: Negative for tenderness Resp normal respiratory effort and clear to auscultation bilaterally Effort and Inspection: Negative for respiratory distress or pain with movement Auscultation: Negative for rhonchi, wheezes or diminished lung sounds Cardio regular rate, regular rhythm, S1 normal heart sound, S2 normal heart sound and no murmurs Peripheral Pulses: pulses 2+ throughout GI normal to inspection, nondistended, normoactive bowel sounds, soft to palpation, non-tender, non-distended and no masses GI Narrative: Patient has some mild epigastric tenderness on palpation. There is no rebound, rigidity, or peritoneal signs. Palpation: tender epigastric Back/Spine no CVA tenderness and no thoracic nor lumbar tenderness Extremity normal to inspection General Extremety ED: Negative for edema General Extremity: Negative for edema Neuro oriented x3, CN's II-XII intact bilaterally, no sensory deficits noted and gait normal Sensorium / Orientation: awake, alert, oriented to person, oriented to place and oriented to time Motor Exam: strength 5/5 throughout and strength abnormal Psych mental status grossly normal Skin no rashes or lesions noted and no wounds MDM MDM MDM Narrative Medical decision making narrative: Patient's work-up unremarkable in the emergency department. This point etiology of her vomiting is unclear. Suspect possible viral etiology. She will be given Phenergan suppositories for home. Patient advised to follow-up with her primary care physician within next 3 to 5 days. Patient to return if persistent vomiting, dehydration, or condition should worsen anyway. Lab Data Attestation: I reviewed the patient's lab results. Labs: Laboratory Results - last 24 hr 04/29/21 04/29/21 04/29/21 11:11 11:11 12:15 WBC 6.5 RBC 4.52 Hgb 15.0 Hct 43.0 MCV 95.1 MCH 33.2 H MCHC 34.9 RDW Std Deviation 42.5 RDW Coeff of José Miguel 12.2 Plt Count 279 MPV 9.0 Immature Gran % (Auto) 0.200 Neut % (Auto) 53.9 Lymph % (Auto) 34.9 [place] % (Auto) 9.3 Eos % (Auto) 0.9 Baso % (Auto) 0.8 Absolute Neuts (auto) 3.5 Absolute Lymphs (auto) 2.28 Nucleated RBC % 0 Sodium 139 Potassium 3.4 L Chloride 107 Carbon Dioxide 27.0 Anion Gap 5 BUN 8 Creatinine 0.88 Estim Creat Clear Calc 62.81 Est GFR (MDRD) Af Amer 92 Est GFR (MDRD) Non-Af 76 BUN/Creatinine Ratio 9.1 L Glucose 80 Calcium 9.1 Total Bilirubin 0.60 AST 25 ALT 23 Alkaline Phosphatase 87 Total Protein 7.2 Albumin 3.9 Globulin 3.3 Albumin/Globulin Ratio 1.2 Lipase 95 Urine Color Yellow Urine Clarity Clear Urine pH 7.0 Ur Specific [place] 1.010 Urine Protein 30 H Urine Glucose (UA) Normal Urine Ketones 50 H Urine Occult Blood Negative Urine Nitrite Negative Urine Bilirubin Negative Urine Urobilinogen 1 H Ur Leukocyte Esterase 25 H Urine RBC 0 SEEN Urine WBC 0-5 SEEN Ur Squamous Epith Cells 0-5 SEEN Urine Bacteria 0 SEEN Urine Mucus 0 SEEN Radiography Diagnostic Testing: Radiology Impression Abdomen/Pelvis CT 04/29/21 13:52 IMPRESSION: Tiny bilateral nonobstructive intrarenal calculi. 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 Electronically Signed: Fazal Osorio MD at 14:28 EDT , Service support , Discharge Plan Triage Chief Complaint: Nausea/Vomiting ED Provider: Servando Singer Dx/Rx/DC Orders Clinical Impression: Vomiting, Abdominal pain Instructions: Abdominal Pain, ED Vomiting (Adult) Prescriptions: New promethazine 25 mg suppository 25 mg [place] Q6H PRN (Reason: nausea and vomiting) Qty: 12 RF: 0 lansoprazole [Prevacid] 30 mg capsule,delayed release(DR/EC) 30 mg PO DAILY 28 Days Qty: 28 RF: 0 No Action clonazepam 1 MG tablet 1 mg PO TID RF: 0 lamotrigine 200 MG tablet 200 mg PO BID RF: 0 albuterol sulfate 8.5 GM HFA aerosol inhaler 1 puff inhalation Q6H PRN (Reason: Wheezing) RF: 0 lamotrigine 200 mg tablet extended release 24hr 400 mg PO QHS RF: 0 zolpidem 10 mg tablet 10 mg PO QHS RF: 0 lorazepam [Ativan] 1 mg tablet 1 mg PO PRN PRN (Reason: Seizure Activity) RF: 0 Primary Care Provider: Robb Jeffries NP Referrals: Robb Jeffries NP, DENTAL EQUIPMENT INSTALLER AND SERVICER-C [Primary Care Provider] - 3-5 Days Disposition Disposition: Home, Self Care
[2021-04-29] MEDS: 0.9% Normal Saline 1,000 ML 1000 ML IV (11:07)
[2021-04-29] MEDS: proMETHazine 25 MG/ML Syringe 12.5 MG IM ×2 (11:10→13:27)
[2021-04-29] MEDS: Morphine 4 MG/ML Syringe IV ×2 (11:22→14:05)
[2021-04-29 11:30] LABS: Absolute Lymphocyte Count 2.28 X10^3/uL (0.83-4.51); Absolute Neutrophil Count 3.5 X10^3/uL (2.0-7.7); Basophil# 0.05 X10^3/uL; Basophil% 0.8 % (0-1); Eosinophil# 0.06 X10^3/uL; Eosinophils% 0.9 % (0-5); Lymphocyte # 2.28 X10^3/ul (0.83-4.51); Lymphocyte % 34.9 % (19-41); Mean Corp Hgb Conc 34.9 g/dL (32-36); Mean Corpuscular Hgb 33.2 pg (27.0-32.0); Mean Corpuscular Volume 95.1 fL (81-99); Monocyte# 0.61 X10^3/uL; Monocyte% 9.3 % (0-10); NRBC Flagged by Analyzer 0 % (0-5); Neutrophil # 3.52 X10^3/uL (2.7-7.7); Neutrophil % 53.9 % (47-70); Platelet Count 279 K/mm3 (150-450); RBC Distribution Width CV 12.2 % (11.6-14.6); RBC Distribution Width SD 42.5 fl (35.1-43.9); Red Blood Count 4.52 M/mm3 (4.2-5.4); White Blood Count 6.5 K/mm3 (4.4-11.0)
[2021-04-29 11:45] LABS: ALB/GLOB Ratio 1.2 RATIO (0.9-2.4); AST(SGOT) 25 U/L (15-37); Alanine Aminotransfer ALT/SGPT 23 U/L (13-56); Albumin, Serum 3.9 g/dL (3.2-5.0); Alkaline Phosphatase 87 U/L (45-117); Anion Gap 5 (5-15); BUN 8 mg/dL (7-18); BUN/Creat Ratio 9.1 RATIO (10-20); Calcium,Total 9.1 mg/dL (8.5-10.1); Chloride 107 mmol/L (98-107); Creatinine, Serum 0.88 mg/dL (0.55-1.02); EST Glomerular Filtration Rate 76 mL/min (>60); Est Glom Filt Rate - Afr Amer 92 mL/min (>60); Estimated Creatinine Clearance 62.81 ml/min; Globulin 3.3 g/dL (2.2-4.2); Glucose 80 mg/dL (74-106); Lipase 95 U/L (73-393); Potassium 3.4 mmol/L (3.5-5.1); Protein, Total 7.2 g/dL (6.4-8.2); Sodium Level 139 mmol/L (136-145)
[2021-04-29 12:25] LABS: Bacteria 0 SEEN /hpf (None Seen); Mucous, Urine 0 SEEN /hpf (<or=2+); Red Blood Cells-Urine 0 SEEN /hpf (0-5)
[2021-04-29] MEDS: Mag Hydrox/Al Hydrox/Simeth 30 ML UDC PO (12:28)
[2021-04-29 12:32] LABS: Color, Urine Yellow (Yellow); Glucose, Dipstick Normal (Normal); Ketone-Dipstick 50 mg/dl (Negative); Leukocyte Esterase-Dipstick 25 /ul (Negative); Nitrite-Dipstick Negative (Negative); Occult Blood-Urine Negative /ul (Negative); Protein-Dipstick 30 mg/dl (Negative); Urine Bilirubin Dipstick Negative (Negative); Urine Clarity Clear (Clear); Urine Urobilinogen 1 mg/dl (Normal)
[2021-04-29 12:41] LABS: Squamous Epithelial Cells - UA 0-5 SEEN /hpf (5-10); White Blood Cells 0-5 SEEN /hpf (0-5)
[2021-04-29 13:48] VITALS: BP 103/66; PULSE 59; RESP 16; O2SAT 98
--- NOTE | 2021-04-29 13:52 | CT_ITS ---
STUDY: CT ABDOMEN AND PELVIS WITHOUT CONTRAST REASON FOR EXAM: Female, 40 years old. Right flank pain. History of cervical cancer. RADIATION DOSAGE (If Supplied By Facility): CTDIvol = ( 6.04 ) mGy, DLP = ( 274.82 ) mGycm TECHNIQUE: Transaxial images were obtained from the dome of the diaphragm to the symphysis pubis without oral contrast, and without intravenous contrast. Sagittal and coronal images were reconstructed. Individualized dose optimization techniques were used for this CT. COMPARISON: Comparison is made with prior study dated 01/12/2021. FINDINGS: The visualized lung bases are unremarkable. The visualized portions of the heart are within normal limits. Normal liver. There are surgical clips in the gallbladder fossa consistent with a prior cholecystectomy. Normal spleen. Normal pancreas. Normal bilateral adrenal glands. 2 mm calculus in the posterior mid pole calyx of the right kidney. Hyperdense papilla suggestive of medullary sponge kidneys. Tiny nonobstructive left intrarenal calculi. Normal visualized stomach. Normal small intestine. Normal colon. The appendix is visualized and appears normal. There is scattered atherosclerotic calcification of the abdominal aorta, without a demonstrated aneurysm. Normal inferior vena cava. Normal retroperitoneum. Normal urinary bladder. Normal abdominal wall. Normal osseous structures. CT/Abdomen/Pelvis without Cont IMPRESSION: Tiny bilateral nonobstructive intrarenal calculi. 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 Electronically Signed: Fazal Osorio MD at 14:28 EDT , Service support ,
[2021-04-29 14:58] VITALS: RESP 18
--- NOTE | 2021-04-29 17:03 | ED.RN ---
pt called to ed after being d/c stating that her insurance will not cover her phenergan suppositories that was prescribed by dr alonso, due to needing authorization. dr alonso ordered the suppositories because pt reports not being able to keep down phenergan tablets due to her vomiting. pt reported that she has not been able to keep her seizure medication down as well. 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 caden social media marketing analyst informed of pt's problem, it is being referred to case management to attempt prior authorization.
--- NOTE | 2021-04-29 18:22 | ED.RN ---
a call from pt's insurance came to the ed for pre authorization on her phenergan suppository prescribtion, pt was approved. pt called and informed. call reference number was [id number] call ended approximately around [id number].
== END 2021-04-29 14:59 | disposition home or self-care (01) ==
PROVIDERS: Emergency Provider Emergency Medicine; PCP Nurse Practitioner Primary Care
DX: R11.2 Nausea with vomiting, unspecified (principal); R10.9 Unspecified abdominal pain; F17.210 Nicotine dependence, cigarettes, uncomplicated; I10 Essential (primary) hypertension; Z90.49 Acquired absence of other specified parts of digestive tract; G40.909 Epilepsy, unspecified, not intractable, without status epilepticus; Z79.899 Other long term (current) drug therapy; Z85.41 Personal history of malignant neoplasm of cervix uteri
CPT/HCPCS: 74176; 80053; 81001; 83690; 85025; 87426; 99283; J7030; A4216

== ENCOUNTER 2021-04-30 01:17 | Inpatient (IN) | payer MEDICARE, MEDICAID, SELFPAY ==
[2021-04-29 10:08] VITALS: BMI 17.4
[2021-04-30] VITALS (12 sets, daily range): BP systolic 93–127; BP diastolic 54–92; PULSE 82–107; RESP 16–20; TEMP 36.3–38.3; O2SAT 92–100; BMI 18.5; BMI 17.9
[2021-04-30] MEDS: proMETHazine 25 MG/ML Syringe 12.5 MG IM (01:48)
[2021-04-30] MEDS: Ketorolac 15 MG/ML Vial IV (01:49)
--- NOTE | 2021-04-30 02:06 | ED.RN ---
After multiple attempts to obtain IV, unsuccessful but blood work was obtained. aware. Toradol given IM per .
[2021-04-30 02:08] LABS: Absolute Lymphocyte Count 0.43 X10^3/uL (0.83-4.51); Absolute Neutrophil Count 9.4 X10^3/uL (2.0-7.7); Basophil# 0.02 X10^3/uL; Basophil% 0.2 % (0-1); Hematocrit 49.4 % (37-47); Hemoglobin 16.6 g/dL (12.0-15.0); Lymphocyte # 0.43 X10^3/ul (0.83-4.51); Lymphocyte % 4.2 % (19-41); Mean Corp Hgb Conc 33.6 g/dL (32-36); Mean Corpuscular Hgb 32.9 pg (27.0-32.0); Mean Corpuscular Volume 97.8 fL (81-99); Mean Platelet Vol. 9.1 fl (6.2-12.0); Monocyte% 4.8 % (0-10); NRBC Flagged by Analyzer 0 % (0-5); Neutrophil # 9.35 X10^3/uL (2.7-7.7); Neutrophil % 90.5 % (47-70); POSITIVE DIFFERENTIAL YES; Platelet Count 256 K/mm3 (150-450); RBC Distribution Width CV 12.2 % (11.6-14.6); RBC Distribution Width SD 44.3 fl (35.1-43.9); Red Blood Count 5.05 M/mm3 (4.2-5.4); White Blood Count 10.3 K/mm3 (4.4-11.0)
[2021-04-30 02:09] LABS: Differential Indicated SCAN CRITERIA MET
[2021-04-30 02:14] LABS: Bacteria 0 SEEN /hpf (None Seen); Mucous, Urine 0 SEEN /hpf (<or=2+); Red Blood Cells-Urine 0 SEEN /hpf (0-5); Squamous Epithelial Cells - UA 0 SEEN /hpf (5-10)
[2021-04-30 02:15] LABS: Color, Urine Amber (Yellow); Glucose, Dipstick Normal (Normal); Ketone-Dipstick 50 mg/dl (Negative); Leukocyte Esterase-Dipstick 25 /ul (Negative); Nitrite-Dipstick Negative (Negative); Occult Blood-Urine Negative /ul (Negative); Protein-Dipstick 30 mg/dl (Negative); Urine Clarity Sl. Cloudy (Clear); Urine Urobilinogen 1 mg/dl (Normal)
[2021-04-30 02:16] LABS: Urine Bilirubin Dipstick 1 mg/dL (Negative)
[2021-04-30 02:21] LABS: White Blood Cells 0-5 SEEN /hpf (0-5)
[2021-04-30 02:28] LABS: ALB/GLOB Ratio 1.2 RATIO (0.9-2.4); AST(SGOT) 63 U/L (15-37); Alanine Aminotransfer ALT/SGPT 32 U/L (13-56); Albumin, Serum 3.8 g/dL (3.2-5.0); Alkaline Phosphatase 79 U/L (45-117); Anion Gap 8 (5-15); BUN 10 mg/dL (7-18); BUN/Creat Ratio 11.5 RATIO (10-20); Calcium,Total 8.4 mg/dL (8.5-10.1); Chloride 107 mmol/L (98-107); Creatinine, Serum 0.87 mg/dL (0.55-1.02); EST Glomerular Filtration Rate 77 mL/min (>60); Est Glom Filt Rate - Afr Amer 94 mL/min (>60); Estimated Creatinine Clearance 67.68 ml/min; Globulin 3.1 g/dL (2.2-4.2); Glucose 159 mg/dL (74-106); Lipase 1003 U/L (73-393); Potassium 3.6 mmol/L (3.5-5.1); Protein, Total 6.9 g/dL (6.4-8.2); Sodium Level 136 mmol/L (136-145)
[2021-04-30] MEDS: 0.9% Normal Saline 1,000 ML 1000 ML IV (03:04)
--- NOTE | 2021-04-30 03:08 | PCM.HP.STD ---
HPI - General General Date of Admission: 04/30/21 Date of Service: 04/30/21 Chief Complaint: Abdominal pain HPI Narrative The patient is a 40 y/o F w/ PMHx: HTN, Seizure disorder, Tobcaco use, Hx cervical cancer who presents to the [facility] ED on 04/30/21 with history of ongoing abdominal pain, upper and epigastric region with pain now shifted to her lower abdomen with history of prior pancreatitis which at that time was related to her gallbladder now s/p cholecystectomy with associated nausea and emesis. She noted the pain started the prior Tuesday and has worsened since. She notes it is near constant with bursts of sharp pain that drop her to her knees, rated 10/10. Work-up in the ED included T 97.8, heart 82, BP 108/90, respiratory rate 20, 100% room air, see to WBC 10.3, hemoglobin 16.6, platelet 256 with left shift with mild lymphopenia, CMP with glucose 159, AST/ALT 63/32, lipase 1003, urinalysis with specific gravity 1.020, protein 30, ketone 50, negative nitrite, 25 leukocyte esterase, 0 urine WBCs, 0 urine bacteria. Recent ED presentation 04/29/2021 CT abdomen and pelvis with 2 tiny bilateral nonobstructive intrarenal calculi with findings suggestive of bilateral medullary sponge kidneys otherwise no acute intra-abdominal findings. In the ED patient administered morphine and zofran. [facility] Medical History (Updated 04/30/21 @ 03:[address] Noa Streeter MD) Breast pain, left Cervical cancer Epilepsy Hypertension Nicotine dependence Solitary pulmonary nodule Home Medications clonazepam 1 mg PO TID 06/27/19 [History Last Taken 11/21/19] lamotrigine 200 mg PO BID 07/30/19 [History Last Taken 11/21/19] albuterol sulfate 1 puff INHALATION Q6H PRN 11/21/19 [History Last Taken Unknown] lamotrigine 400 mg PO QHS 04/27/21 [History Last Taken Unknown] zolpidem 10 mg PO QHS 04/27/21 [History Last Taken Unknown] lansoprazole [Prevacid] 30 mg PO DAILY 28 Days #28 cap 04/29/21 [Rx Last Taken Unknown] lorazepam [Ativan] 1 mg PO PRN PRN 04/29/21 [History Last Taken Unknown] promethazine 25 mg [place] Q6H PRN #12 ea 04/29/21 [Rx Last Taken Unknown] promethazine MO 04/30/21 [History Last Taken Unknown] Allergy/AdvReac Type Severity Reaction Status Date / Time amoxicillin Allergy Hives Verified 04/29/21 10:07 divalproex sodium Allergy Hives Verified 04/29/21 10:07 [From Depakote] levetiracetam [From Keppra] Allergy Hives Verified 04/29/21 10:07 metoclopramide [From Reglan] Allergy Hives Verified 04/29/21 10:07 ondansetron [From Zofran] Allergy Hives Verified 04/29/21 10:07 tramadol Allergy Angioedema Verified 04/29/21 10:07 TAPE AdvReac Rash Uncoded 04/29/21 10:07 adopted Surgical History (Updated 04/30/21 @ 03:[address] Noa Streeter MD) History of cholecystectomy History of hysterectomy History of tonsillectomy and adenoidectomy Social History (Updated 04/30/21 @ 03:[address] Noa Streeter MD) household members: none Smoking Status: Current every day smoker tobacco type: cigarettes Smoking packs per day: 0.25 Smoking cigarettes per day: 5.0 Years smoked: 30 Smoking pack-years: 7.50 alcohol intake: never substance use type: other details: Had used medical marijuana prior, has not used for some time now. ROS ROS Narrative Admission Review of Systems: CONSTITUTIONAL: No weight loss, fever, chills, + weakness or fatigue. HEENT: Eyes: No visual loss, blurred vision, double vision or yellow sclerae. Ears, Nose, Throat: No hearing loss, sneezing, congestion, runny nose or sore throat. SKIN: No rash or itching, lesions, wounds. CARDIOVASCULAR: No chest pain, chest pressure or chest discomfort, palpitations, edema, orthopnea, syncopal events. RESPIRATORY: No shortness of breath, cough or sputum, wheezing, hemoptysis. GASTROINTESTINAL: + anorexia, nausea, vomiting, abdominal pain, no diarrhea, melena, BRBPR. GENITOURINARY: No dysuria, frequency, urgency or retention. NEUROLOGICAL: + Seizure disorder history, no headache, dizziness, syncope, paralysis, ataxia, numbness or tingling in the extremities, focal weakness, change in bowel or bladder control. MUSCULOSKELETAL: + muscle, back pain, joint pain or stiffness. HEMATOLOGIC: No anemia, bleeding or bruising. LYMPHATICS: No enlarged nodes. No history of splenectomy. PSYCHIATRIC: No history of depression or anxiety. ENDOCRINOLOGIC: No reports of sweating, cold or heat intolerance. No polyuria or polydipsia. ALLERGIES: No history of asthma, hives, eczema or rhinitis. Vital Signs Vital Signs Vital Signs: 04/30/21 01:18 04/30/21 01:21 Temperature 97.8 F Temperature Source Temporal Pulse Rate 82 Respiratory Rate 20 H Blood Pressure 108/90 H Blood Pressure Mean 96 Pulse Ox 100 Oxygen Delivery Method Room Air Weight Weight: 107 lb 12.897 oz Body Mass Index (BMI) 18.5 Physical Exam Narrative Physical Examination: General: Awake, alert, oriented x 3 and cooperative, seated upright in the ED bed, fatigued, notes ongoing abdominal discomfort. Skin: Normal color, normal turgor, no icterus, no cyanosis. HEENT: AT/NC, EOMI, PERRLA, dry MM, no carotid bruits or JVD noted. Lungs: Mildly diminished breath sounds, greater bases, moderate effort, no rales, ronchi or wheezing. Heart: Regular rate and rhythm; no gallop, rub audible. Abdomen: Soft, generalized discomfort with palpation including the epigastric region, ND, mildly hyperactive BS, difficult to assess HSM secondary to discomfort with palpation. Extremities: No cyanosis, clubbing, or edema. Neurological: Patient awake, alert, oriented as noted, cognitive function intact; pupils equally reactive to light and accommodation, cranial nerves II-XII grossly normal, moving all 4 extremities, no focal deficits, strength moderately to severely global decrease secondary to acute presentation. Psychiatric: Affect appears fatigued, uncomfortable, no acute evidence of depressive or anxiety feelings. Results Lab / Micro Data Result Diagrams: 04/30/21 02:00 04/30/21 02:00 Labs: Laboratory Results - last 24 hr 04/30/21 04/30/21 04/30/21 02:00 02:00 02:10 WBC 10.3 RBC 5.05 Hgb 16.6 H Hct 49.4 H MCV 97.8 MCH 32.9 H MCHC 33.6 RDW Std Deviation 44.3 H RDW Coeff of José Miguel 12.2 Plt Count 256 MPV 9.1 Immature Gran % (Auto) 0.300 Neut % (Auto) 90.5 H Lymph % (Auto) 4.2 L [place] % (Auto) 4.8 Eos % (Auto) 0.0 Baso % (Auto) 0.2 Absolute Neuts (auto) 9.4 H Absolute Lymphs (auto) 0.43 L Nucleated RBC % 0 Sodium 136 Potassium 3.6 Chloride 107 Carbon Dioxide 21.0 Anion Gap 8 BUN 10 Creatinine 0.87 Estim Creat Clear Calc 67.68 Est GFR (MDRD) Af Amer 94 Est GFR (MDRD) Non-Af 77 BUN/Creatinine Ratio 11.5 Glucose 159 H Calcium 8.4 L Total Bilirubin 1.00 AST 63 H ALT 32 Alkaline Phosphatase 79 Total Protein 6.9 Albumin 3.8 Globulin 3.1 Albumin/Globulin Ratio 1.2 Lipase 1003 H Urine Color Haley Urine Clarity Sl. Cloudy Urine pH 6.0 Ur Specific [place] 1.020 Urine Protein 30 H Urine Glucose (UA) Normal Urine Ketones 50 H Urine Occult Blood Negative Urine Nitrite Negative Urine Bilirubin 1 H Urine Urobilinogen 1 H Ur Leukocyte Esterase 25 H Urine RBC 0 SEEN Urine WBC 0-5 SEEN Ur Squamous Epith Cells 0 SEEN Urine Bacteria 0 SEEN Urine Mucus 0 SEEN Assessment & Plan Assessment/Plan (1) Acute pancreatitis: QUALIFIERS: Pancreatitis type: unspecified pancreatitis type Acute pancreatitis complication: unspecified Qualified Code(s): K85.90 - Acute pancreatitis without necrosis or infection, unspecified PLAN: The patient is a 40 y/o F w/ PMHx: HTN, Seizure disorder, Tobcaco use, Hx cervical cancer who presents to the [facility] ED on 04/30/21 with history of ongoing abdominal pain, upper and epigastric region with pain now shifted to her lower abdomen with history of prior pancreatitis which at that time was related to her gallbladder now s/p cholecystectomy with associated nausea and emesis. 1. Acute pancreatitis w/ abdominal pain, nausea: Will admit to [facility], maintain on IVFs, NPO, PPI, IV/po pain control, trend lipase, CMP. Patient s/p prior cholecystectomy. Will obtain FLP, further assess for EtOH consumption risk as etiology for pancreatitis with requested UDS and EtOH level to be thorough although patient does deny and as noted #2 pending HgBA1c. 2. Hyperglycemia: Admission glucose 159, will obtain HgbA1c. 3. Seizure disorder: We will continue patient home lamotrigine as well as clonazepam regimen. Pending lamotrigine level. 4. Tobacco Abuse: Encouraged cessation, inpatient consultation per RT, NR if desired. 5. History of Cervical Cancer: s/p Hysterectomy, remission. 6. DVT prophylaxis: Low risk, encourage ambulation. Charges/Coding Visit Charges Inpatient E&M: 46271 Init Hosp L2
[2021-04-30] MEDS: Morphine 4 MG/ML Syringe IV ×7 (03:10→22:08)
--- NOTE | 2021-04-30 03:43 | EX.ED.DYSGE1 ---
HPI History of Present Illness Chief Complaint: Complaint Detail of Chief Complaint: Lower abdominal pain Informant: patient Onset/Context/Timing Onset: Yesterday Location: Lower abdomen Current Severity: Severe Worsened by: Nothing Relieved by: Nothing Associated Symptoms Associated Symptoms: Nausea Narrative Narrative: Patient presents for lower abdominal pain. She was seen overnight yesterday in the emergency department. She had a pretty unremarkable work-up including a CT scan. She was discharged home on Pepcid and Phenergan suppositories for upper abdominal pain and nausea. She said throughout the day today, the pain migrated to her lower abdomen. It continues to be severe. It is associated with nausea. No other associated symptoms. Her medications aren't helping. She said she never had this before. She does have a history of a total hysterectomy. She denies any MANA[employer] symptoms. She had some kidney stones on her CT, but nothing outside of the kidneys. She is not having hematuria. She has a remote history of cholecystitis. She believes that was associated with gallstone pancreatitis. She denies any alcohol use. She has a history of seizures and is compliant with her medications. Prior similar symptoms: No Recent Illness/Hospitalization: Yes (Was in the emergency department yesterday, please see the note.) [facility] Medical History Breast pain, left Cervical cancer Epilepsy Hypertension Nicotine dependence Solitary pulmonary nodule Home Medications clonazepam 1 mg PO TID 06/27/19 [History Last Taken 11/21/19] lamotrigine 200 mg PO BID 07/30/19 [History Last Taken 11/21/19] albuterol sulfate 1 puff INHALATION Q6H PRN 11/21/19 [History Last Taken Unknown] lamotrigine 400 mg PO QHS 04/27/21 [History Last Taken Unknown] zolpidem 10 mg PO QHS 04/27/21 [History Last Taken Unknown] lansoprazole [Prevacid] 30 mg PO DAILY 28 Days #28 cap 04/29/21 [Rx Last Taken Unknown] lorazepam [Ativan] 1 mg PO PRN PRN 04/29/21 [History Last Taken Unknown] promethazine 25 mg [place] Q6H PRN #12 ea 04/29/21 [Rx Last Taken Unknown] promethazine [place] 04/30/21 [History Last Taken Unknown] Allergy/AdvReac Type Severity Reaction Status Date / Time amoxicillin Allergy Hives Verified 04/29/21 10:07 divalproex sodium Allergy Hives Verified 04/29/21 10:07 [From Depakote] levetiracetam [From Keppra] Allergy Hives Verified 04/29/21 10:07 metoclopramide [From Reglan] Allergy Hives Verified 04/29/21 10:07 ondansetron [From Zofran] Allergy Hives Verified 04/29/21 10:07 tramadol Allergy Angioedema Verified 04/29/21 10:07 TAPE AdvReac Rash Uncoded 04/29/21 10:07 Surgical History History of cholecystectomy History of hysterectomy History of tonsillectomy and adenoidectomy Social History household members: none Smoking Status: Current every day smoker tobacco type: cigarettes Smoking packs per day: 0.25 Smoking cigarettes per day: 5.0 Years smoked: 30 Smoking pack-years: 7.50 alcohol intake: never substance use type: other details: Had used medical marijuana prior, has not used for some time now. ROS ROS ED Constitutional Constitutional ED: Denies chills or fever(s) Eyes Eyes: Denies change in vision ENT ENT ED: Denies ear pain Cardiovascular Cardiovascular: Denies chest pain Respiratory/Chest Respiratory/Chest: Denies dyspnea Gastrointestinal Gastrointestinal: Reports abdominal pain and nausea; Denies constipation, diarrhea or vomiting Genitourinary Genitourinary ED: Denies dysuria, hematuria or urinary frequency Musculoskeletal Musculoskeletal: Denies arthralgias, back pain or myalgias Integumentary Denies rash Neurologic Neurologic: Denies headache(s) Psychiatric Psychiatric: Denies depression Endocrine Endocrinology: Denies polyuria Allergic/Immunologic Allergic/Immunologic ED: Denies urticaria EXAM Physical Exam Const Vital Signs: 04/30/21 01:18 04/30/21 01:21 04/30/21 03:14 Temperature 97.8 F 97.4 F L Temperature Source Temporal Temporal Pulse Rate 82 83 Respiratory Rate 20 H 18 Blood Pressure 108/90 H 123/92 H Blood Pressure Mean 96 102 Pulse Ox 100 98 Oxygen Delivery Method Room Air 04/30/21 03:21 Temperature 97.4 F L Temperature Source Temporal Pulse Rate 83 Respiratory Rate 16 Blood Pressure 123/92 H Blood Pressure Mean 102 Pulse Ox 98 Oxygen Delivery Method Room Air Positive well nourished and well developed General Appearance ED: well developed HEENT Negative for trauma or tenderness Eyes EOMs intact bilaterally Neck supple Resp normal respiratory effort and clear to auscultation bilaterally Cardio regular rate and regular rhythm GI non-distended Palpation: tender; Negative for guarding or rebound tenderness present Back/Spine no CVA tenderness Neuro oriented x3 Sensorium / Orientation: alert Psych Mood & Affect: depressed Skin no rashes or lesions noted MDM MDM MDM Narrative Medical decision making narrative: Patient had a change in the location of her pain and her outpatient treatment was not working. I repeated her labs. Her lipase has increased to 1000. It was normal yesterday. Otherwise her work-up was all fairly unremarkable. She was treated with pain medicine and nausea medicine. We'll contact the hospitalist to admit. Lab Data Attestation: I reviewed the patient's lab results. Labs: Laboratory Results - last 24 hr 04/30/21 04/30/21 04/30/21 02:00 02:00 02:10 WBC 10.3 RBC 5.05 Hgb 16.6 H Hct 49.4 H MCV 97.8 MCH 32.9 H MCHC 33.6 RDW Std Deviation 44.3 H RDW Coeff of José Miguel 12.2 Plt Count 256 MPV 9.1 Immature Gran % (Auto) 0.300 Neut % (Auto) 90.5 H Lymph % (Auto) 4.2 L [place] % (Auto) 4.8 Eos % (Auto) 0.0 Baso % (Auto) 0.2 Absolute Neuts (auto) 9.4 H Absolute Lymphs (auto) 0.43 L Nucleated RBC % 0 Sodium 136 Potassium 3.6 Chloride 107 Carbon Dioxide 21.0 Anion Gap 8 BUN 10 Creatinine 0.87 Estim Creat Clear Calc 67.68 Est GFR (MDRD) Af Amer 94 Est GFR (MDRD) Non-Af 77 BUN/Creatinine Ratio 11.5 Glucose 159 H Calcium 8.4 L Total Bilirubin 1.00 AST 63 H ALT 32 Alkaline Phosphatase 79 Total Protein 6.9 Albumin 3.8 Globulin 3.1 Albumin/Globulin Ratio 1.2 Lipase 1003 H Urine Color Haley Urine Clarity Sl. Cloudy Urine pH 6.0 Ur Specific [place] 1.020 Urine Protein 30 H Urine Glucose (UA) Normal Urine Ketones 50 H Urine Occult Blood Negative Urine Nitrite Negative Urine Bilirubin 1 H Urine Urobilinogen 1 H Ur Leukocyte Esterase 25 H Urine RBC 0 SEEN Urine WBC 0-5 SEEN Ur Squamous Epith Cells 0 SEEN Urine Bacteria 0 SEEN Urine Mucus 0 SEEN Ur Drug Screen Comment 04/30/21 02:10 WBC RBC Hgb Hct MCV MCH MCHC RDW Std Deviation RDW Coeff of José Miguel Plt Count MPV Immature Gran % (Auto) Neut % (Auto) Lymph % (Auto) [place] % (Auto) Eos % (Auto) Baso % (Auto) Absolute Neuts (auto) Absolute Lymphs (auto) Nucleated RBC % Sodium Potassium Chloride Carbon Dioxide Anion Gap BUN Creatinine Estim Creat Clear Calc Est GFR (MDRD) Af Amer Est GFR (MDRD) Non-Af BUN/Creatinine Ratio Glucose Calcium Total Bilirubin AST ALT Alkaline Phosphatase Total Protein Albumin Globulin Albumin/Globulin Ratio Lipase Urine Color Urine Clarity Urine pH Ur Specific [place] Urine Protein Urine Glucose (UA) Urine Ketones Urine Occult Blood Urine Nitrite Urine Bilirubin Urine Urobilinogen Ur Leukocyte Esterase Urine RBC Urine WBC Ur Squamous Epith Cells Urine Bacteria Urine Mucus Ur Drug Screen Comment Discharge Plan Triage Chief Complaint: Complaint ED Provider: Carroll Olson Dx/Rx/DC Orders Clinical Impression: Acute pancreatitis Primary Care Provider: Robb Jeffries NP
[2021-04-30 04:10] LABS: Amphetamine Urine VISTA NEGATIVE (<1000 ng/mL); Barbiturate Urine VISTA NEGATIVE (< 200 ng/mL); Benzodiazepine Urine VISTA POSITIVE (< 200 ng/mL); Cocaine Urine VISTA NEGATIVE (< 300 ng/mL); Ecstacy Urine VISTA NEGATIVE (< 500 ng/mL); Methadone Urine VISTA NEGATIVE (< 300 ng/mL); PCP Urine VISTA NEGATIVE (< 25 ng/mL); THC Urine VISTA POSITIVE (< 50 ng/mL); Vista UDS pH Range 5
[2021-04-30] MEDS: proCHLORPERazine 10 MG/2 ML Vial 5 MG IV ×5 (04:26→21:47)
[2021-04-30] MEDS: 0.9% Normal Saline 1,000 ML 150 ML IV ×3 (04:26→18:19)
[2021-04-30] MEDS: clonazePAM 1 MG Tablet PO ×3 (05:40→21:08)
[2021-04-30 06:58] LABS: Absolute Lymphocyte Count 0.45 X10^3/uL (0.83-4.51); Absolute Neutrophil Count 6.6 X10^3/uL (2.0-7.7); Basophil# 0.01 X10^3/uL; Basophil% 0.1 % (0-1); Differential Indicated SCAN CRITERIA MET; Hemoglobin 16.6 g/dL (12.0-15.0); Lymphocyte # 0.45 X10^3/ul (0.83-4.51); Lymphocyte % 6.1 % (19-41); Mean Corp Hgb Conc 33.9 g/dL (32-36); Mean Corpuscular Hgb 33.2 pg (27.0-32.0); Mean Platelet Vol. 9.1 fl (6.2-12.0); Monocyte% 4.1 % (0-10); NRBC Flagged by Analyzer 0 % (0-5); Neutrophil # 6.62 X10^3/uL (2.7-7.7); Neutrophil % 89.6 % (47-70); POSITIVE DIFFERENTIAL YES; POSITIVE MORPHOLOGY YES; Platelet Count 196 K/mm3 (150-450); RBC Distribution Width CV 12.2 % (11.6-14.6); RBC Distribution Width SD 44.7 fl (35.1-43.9); White Blood Count 7.4 K/mm3 (4.4-11.0)
[2021-04-30 07:16] LABS: Differential Comment SCANNED
[2021-04-30 07:21] LABS: ALB/GLOB Ratio 0.9 RATIO (0.9-2.4); AST(SGOT) 75 U/L (15-37); Alanine Aminotransfer ALT/SGPT 39 U/L (13-56); Albumin, Serum 2.8 g/dL (3.2-5.0); Alkaline Phosphatase 70 U/L (45-117); Anion Gap 6 (5-15); BUN 11 mg/dL (7-18); Calcium,Total 7.6 mg/dL (8.5-10.1); Chloride 111 mmol/L (98-107); Cholesterol 116 mg/dL (200); Creatinine, Serum 0.73 mg/dL (0.55-1.02); EST Glomerular Filtration Rate 94 mL/min (>60); Est Glom Filt Rate - Afr Amer 114 mL/min (>60); Estimated Creatinine Clearance 77.86 ml/min; Globulin 3.1 g/dL (2.2-4.2); Glucose 127 mg/dL (74-106); High Density Lipoprotein 57 mg/dL; Lipase 1121 U/L (73-393); Potassium 3.9 mmol/L (3.5-5.1); Protein, Total 5.9 g/dL (6.4-8.2); Sodium Level 135 mmol/L (136-145); Triglycerides 50 mg/dL; Very Low Density Lipoprotein 10 mg/dL (5-40)
[2021-04-30] MEDS: 0.9% Saline Lock 10 ML Syringe IV ×6 (08:21→19:02)
[2021-04-30 09:04] LABS: Hemoglobin A1c 4.7 % (3.8-5.6)
[2021-04-30] MEDS: lamoTRIgine 100 MG Tablet 200 MG PO ×2 (09:22→15:30)
--- NOTE | 2021-04-30 10:45 | CASEMGMT ---
FREDDY KENNY Assessment: Face to Face with pt for initial transition planning/care coordination assessment. FREDDY KENNY introduced self and role at [facility], pt voices understanding and consents to assessment. Pt lying in bed, very drowsy, pt did not open eyes throughout assessment. Care providers, pharmacy, and demographics verified/updated. Admitting Dx: acute pancreatitis PCP:Robb Leggett [facility] in [place] Specialists: Pt denies having any specialists. Preferred Pharmacy: [facility] Insurance: My Care [facility] Prescription Benefit: yes LW/HPOA: Pt nazia having LW/DPOA. LNOK: Pt has no contacts listed and denies wanting any listed. Living Arrangements: Pt lives in a ground level apt alone with 1 step to enter. Pt states she is I in ADL's. Transportation: Pt uses insurance for transportation. Denies concerns with transportation. DME/HHC/SNF: Pt denies having any DME in the home. No previous hx of HHC or SNF stays. Pt denies any alcohol or drug use. Pt states no concerns with going home at time of dc. Pt states no further concerns/needs. CM to follow. Advised pt to ask CM if any further question/concerns/needs arise, voices understanding. Pt Goal: Home Plan: Home
--- NOTE | 2021-04-30 12:07 | PN.HOSP_ITS ---
Subjective Subjective Complain of abdominal pain all over mainly epigastric and umbilical region. Had cholecystectomy done in prior pancreatitis episode. Denies chronic alcohol use or substance use. She is on lamotrigine, and clonazepam as antiepileptic medication. Objective Data Objective Data Vital Signs: Vital Signs Temp Pulse Resp BP Pulse Ox 101.0 F H 96 18 105/78 95 04/30/21 09:18 04/30/21 09:20 04/30/21 09:18 04/30/21 09:18 04/30/21 09:18 Oxygen Delivery Method Room Air Weight: 104 lb 0.931 oz Body Mass Index (BMI) 17.9 Intake & Output: Intake and Output for Last 24 Hours 04/28/21 04/29/21 04/30/21 23:59 23:59 23:59 Intake Total 2109 Balance 2109 Lab / Micro Data Result Diagrams: 04/30/21 06:46 04/30/21 06:46 Labs: Laboratory Results - last 24 hr 04/30/21 04/30/21 04/30/21 02:00 02:00 02:10 WBC 10.3 RBC 5.05 Hgb 16.6 H Hct 49.4 H MCV 97.8 MCH 32.9 H MCHC 33.6 RDW Std Deviation 44.3 H RDW Coeff of José Miguel 12.2 Plt Count 256 MPV 9.1 Immature Gran % (Auto) 0.300 Neut % (Auto) 90.5 H Lymph % (Auto) 4.2 L [place] % (Auto) 4.8 Eos % (Auto) 0.0 Baso % (Auto) 0.2 Absolute Neuts (auto) 9.4 H Absolute Lymphs (auto) 0.43 L Nucleated RBC % 0 Differential Comment Sodium 136 Potassium 3.6 Chloride 107 Carbon Dioxide 21.0 Anion Gap 8 BUN 10 Creatinine 0.87 Estim Creat Clear Calc 67.68 Est GFR (MDRD) Af Amer 94 Est GFR (MDRD) Non-Af 77 BUN/Creatinine Ratio 11.5 Glucose 159 H Hemoglobin A1c Calcium 8.4 L Total Bilirubin 1.00 AST 63 H ALT 32 Alkaline Phosphatase 79 Total Protein 6.9 Albumin 3.8 Globulin 3.1 Albumin/Globulin Ratio 1.2 Triglycerides Cholesterol LDL Cholesterol VLDL Cholesterol HDL Cholesterol Lipase 1003 H Urine Color Haley Urine Clarity Sl. Cloudy Urine pH 6.0 Ur Specific [place] 1.020 Urine Protein 30 H Urine Glucose (UA) Normal Urine Ketones 50 H Urine Occult Blood Negative Urine Nitrite Negative Urine Bilirubin 1 H Urine Urobilinogen 1 H Ur Leukocyte Esterase 25 H Urine RBC 0 SEEN Urine WBC 0-5 SEEN Ur Squamous Epith Cells 0 SEEN Urine Bacteria 0 SEEN Urine Mucus 0 SEEN Urine Opiates Screen Urine Methadone Screen Ur Barbiturates Screen Ur Phencyclidine Scrn Ur Amphetamines Screen U Methamphetamin-MDMA U Benzodiazepines Scrn Urine Cocaine Screen U Cannabinoids Screen Ur Drug Screen Comment Ethyl Alcohol 04/30/21 04/30/21 04/30/21 02:10 03:25 06:46 WBC 7.4 RBC 5.00 Hgb 16.6 H Hct 49.0 H MCV 98.0 MCH 33.2 H MCHC 33.9 RDW Std Deviation 44.7 H RDW Coeff of José Miguel 12.2 Plt Count 196 MPV 9.1 Immature Gran % (Auto) 0.100 Neut % (Auto) 89.6 H Lymph % (Auto) 6.1 L [place] % (Auto) 4.1 Eos % (Auto) 0.0 Baso % (Auto) 0.1 Absolute Neuts (auto) 6.6 Absolute Lymphs (auto) 0.45 L Nucleated RBC % 0 Differential Comment SCANNED Sodium Potassium Chloride Carbon Dioxide Anion Gap BUN Creatinine Estim Creat Clear Calc Est GFR (MDRD) Af Amer Est GFR (MDRD) Non-Af BUN/Creatinine Ratio Glucose Hemoglobin A1c Calcium Total Bilirubin AST ALT Alkaline Phosphatase Total Protein Albumin Globulin Albumin/Globulin Ratio Triglycerides Cholesterol LDL Cholesterol VLDL Cholesterol HDL Cholesterol Lipase Urine Color Urine Clarity Urine pH Ur Specific [place] Urine Protein Urine Glucose (UA) Urine Ketones Urine Occult Blood Urine Nitrite Urine Bilirubin Urine Urobilinogen Ur Leukocyte Esterase Urine RBC Urine WBC Ur Squamous Epith Cells Urine Bacteria Urine Mucus Urine Opiates Screen POSITIVE H Urine Methadone Screen NEGATIVE Ur Barbiturates Screen NEGATIVE Ur Phencyclidine Scrn NEGATIVE Ur Amphetamines Screen NEGATIVE U Methamphetamin-MDMA NEGATIVE U Benzodiazepines Scrn POSITIVE H Urine Cocaine Screen NEGATIVE U Cannabinoids Screen POSITIVE H Ur Drug Screen Comment Ethyl Alcohol 3.0 04/30/21 04/30/21 06:46 06:46 WBC RBC Hgb Hct MCV MCH MCHC RDW Std Deviation RDW Coeff of José Miguel Plt Count MPV Immature Gran % (Auto) Neut % (Auto) Lymph % (Auto) [place] % (Auto) Eos % (Auto) Baso % (Auto) Absolute Neuts (auto) Absolute Lymphs (auto) Nucleated RBC % Differential Comment Sodium 135 L Potassium 3.9 Chloride 111 H Carbon Dioxide 18.0 L Anion Gap 6 BUN 11 Creatinine 0.73 Estim Creat Clear Calc 77.86 Est GFR (MDRD) Af Amer 114 Est GFR (MDRD) Non-Af 94 BUN/Creatinine Ratio 15.0 Glucose 127 H Hemoglobin A1c 4.7 Calcium 7.6 L Total Bilirubin 1.10 H AST 75 H ALT 39 Alkaline Phosphatase 70 Total Protein 5.9 L Albumin 2.8 L Globulin 3.1 Albumin/Globulin Ratio 0.9 Triglycerides 50 Cholesterol 116 LDL Cholesterol 49 VLDL Cholesterol 10 HDL Cholesterol 57 Lipase 1121 H Urine Color Urine Clarity Urine pH Ur Specific [place] Urine Protein Urine Glucose (UA) Urine Ketones Urine Occult Blood Urine Nitrite Urine Bilirubin Urine Urobilinogen Ur Leukocyte Esterase Urine RBC Urine WBC Ur Squamous Epith Cells Urine Bacteria Urine Mucus Urine Opiates Screen Urine Methadone Screen Ur Barbiturates Screen Ur Phencyclidine Scrn Ur Amphetamines Screen U Methamphetamin-MDMA U Benzodiazepines Scrn Urine Cocaine Screen U Cannabinoids Screen Ur Drug Screen Comment Ethyl Alcohol Physical Exam Narrative Physical exam General: Alert, Oriented x3, Cooperative, low BMI HEENT: Atraumatic, PERRLA, EOMI, Normocephalic Oral: No Gingival or Mucosal Lesions/ Ulcerations Neck: Supple, No JVD, Negative Carotid Bruits Lungs: Air entry diminished in bilateral lung bases. No crepitation/rhonchi Cardiovascular: Regular rate, Regular Rhythm, Normal S1, Normal S2, No murmurs Abdomen: Bowel Sounds Present, tenderness and guarding present over abdomen. No rigidity. : No renal angle tenderness. No suprapubic tenderness. Extremities: No edema, Capillary Refill Less than 3 Seconds Skin: No rashes, No breakdown Musculoskeletal: No Tenderness to Palpation of Joints or Extremities. Low muscle bulk in extremities Neurological: Cranial nerves II-XII grossly intact, Deep Tendon Reflexes 2+/4 and Symmetrical, Neuro grossly intact Psych/Mental Status: Normal Affect, Appropriate. Assessment & Plan Assessment/Plan (1) Acute pancreatitis: QUALIFIERS: Pancreatitis type: unspecified pancreatitis type Acute pancreatitis complication: unspecified Qualified Code(s): K85.90 - Acute pancreatitis without necrosis or infection, unspecified (2) Epilepsy: (3) Hypertension: PLAN: This 40-year-old female with history of recurrent pancreatitis came with severe abdominal pain mainly epigastric region along with high lipase consistent with acute pancreatitis. 1. Acute pancreatitis: On conservative management with IV fluid pain control. Patient had cholecystectomy before. U tox positive of cannabinoids, opioids and benzodiazepines. She denies substance use or alcohol use 2. Epilepsy disorder: Did not had recent epileptic episode. Exact type and classification unclear. Patient is on lamotrigine and clonazepam. 3. Other comorbidities include chronic tobacco use history of cervical cancer status post hysterectomy in remission.
[2021-04-30] MEDS: lamoTRIgine 100 MG Tablet 400 MG PO (21:08)
[2021-04-30] MEDS: Zolpidem Tartrate 5 MG Tablet PO (21:16)
[2021-04-30] MEDS: proMETHazine 25 MG/ML Syringe 6.25 MG IM (23:26)
[2021-05-01] VITALS (8 sets, daily range): BP systolic 95–107; BP diastolic 56–70; PULSE 93–115; RESP 16–18; TEMP 37.3–38.1; O2SAT 88–93
[2021-05-01] MEDS: Morphine 4 MG/ML Syringe IV ×3 (01:10→07:12)
[2021-05-01] MEDS: proCHLORPERazine 10 MG/2 ML Vial 5 MG IV ×4 (01:48→19:40)
[2021-05-01] MEDS: 0.9% Normal Saline 1,000 ML 150 ML IV ×4 (01:48→21:19)
[2021-05-01] MEDS: lamoTRIgine 100 MG Tablet 200 MG PO ×2 (06:13→14:08)
[2021-05-01] MEDS: clonazePAM 1 MG Tablet PO ×3 (06:13→19:49)
[2021-05-01 07:40] LABS: Absolute Lymphocyte Count 0.86 X10^3/uL (0.83-4.51); Absolute Neutrophil Count 8.9 X10^3/uL (2.0-7.7); Basophil# 0.03 X10^3/uL; Basophil% 0.3 % (0-1); Eosinophil# 0.03 X10^3/uL; Eosinophils% 0.3 % (0-5); Hemoglobin 13.2 g/dL (12.0-15.0); Lymphocyte # 0.86 X10^3/ul (0.83-4.51); Lymphocyte % 8.4 % (19-41); Mean Corpuscular Hgb 32.8 pg (27.0-32.0); Mean Corpuscular Volume 99.5 fL (81-99); Monocyte# 0.43 X10^3/uL; Monocyte% 4.2 % (0-10); NRBC Flagged by Analyzer 0 % (0-5); Neutrophil # 8.85 X10^3/uL (2.7-7.7); Neutrophil % 86.4 % (47-70); Platelet Count 167 K/mm3 (150-450); RBC Distribution Width CV 12.5 % (11.6-14.6); RBC Distribution Width SD 46.2 fl (35.1-43.9); Red Blood Count 4.02 M/mm3 (4.2-5.4); White Blood Count 10.2 K/mm3 (4.4-11.0)
[2021-05-01 08:12] LABS: ALB/GLOB Ratio 1.2 RATIO (0.9-2.4); AST(SGOT) 54 U/L (15-37); Alanine Aminotransfer ALT/SGPT 55 U/L (13-56); Albumin, Serum 2.3 g/dL (3.2-5.0); Alkaline Phosphatase 81 U/L (45-117); Anion Gap 7 (5-15); BUN 13 mg/dL (7-18); BUN/Creat Ratio 17.8 RATIO (10-20); Calcium,Total 7.4 mg/dL (8.5-10.1); Chloride 109 mmol/L (98-107); Creatinine, Serum 0.73 mg/dL (0.55-1.02); EST Glomerular Filtration Rate 94 mL/min (>60); Est Glom Filt Rate - Afr Amer 114 mL/min (>60); Estimated Creatinine Clearance 84.79 ml/min; Glucose 79 mg/dL (74-106); Magnesium 1.7 mg/dL (1.6-2.6); Protein, Total 4.3 g/dL (6.4-8.2); Sodium Level 138 mmol/L (136-145)
[2021-05-01 08:15] LABS: Lipase 346 U/L (73-393)
--- NOTE | 2021-05-01 08:46 | RAD_ITS ---
STUDY: X-RAY CHEST REASON FOR EXAM: Female, 40 years old. abdominal pain TECHNIQUE: AP COMPARISON: 11/21/2019 chest x-ray, CT 04/29/2021 FINDINGS: Lungs are underexpanded with groundglass and reticular opacities at the bilateral lung bases, new. No pneumothorax. Normal size heart. Normal mediastinum and kailyn. Normal visualized pulmonary arteries. Normal visualized aortic arch and descending thoracic aorta. Normal visualized thoracic spine. Normal visualized ribs, clavicles, and shoulders. Gaseous distention of small bowel partially visualized. Cholecystectomy clips are present. RAD/Chest 1 View (Portable) IMPRESSION: Unfavorable change. Bibasilar atelectasis or infiltrates and possible small effusions. Electronically Signed: Kang Rodriguez MD ([place]) at 9:34 EDT , Service support ,
--- NOTE | 2021-05-01 08:47 | PN.HOSP_ITS ---
Subjective Subjective Worsening abdominal pain, abdominal distention. Upset with nurse today and requested another nurse. Objective Data Objective Data Vital Signs: Vital Signs Temp Pulse Resp BP Pulse Ox 38.1 C H 102 H 18 107/70 88 05/01/21 08:00 05/01/21 08:00 05/01/21 08:00 05/01/21 08:00 05/01/21 08:00 Oxygen Delivery Method Room Air Weight: 51.4 kg Body Mass Index (BMI) 17.9 Intake & Output: Intake and Output for Last 24 Hours 04/29/21 04/30/21 05/01/21 23:59 23:59 23:59 Intake Total 3420 / 3620 2327.5 / 2327.5 Output Total 0 / 400 650 / 650 Balance 3420 / 3220 1677.5 / 1677.5 Lab / Micro Data Result Diagrams: 05/01/21 07:26 05/01/21 07:26 Labs: Laboratory Results - last 24 hr 04/30/21 05/01/21 05/01/21 06:46 07:26 07:26 WBC 10.2 RBC 4.02 L Hgb 13.2 Hct 40.0 MCV 99.5 H MCH 32.8 H MCHC 33.0 RDW Std Deviation 46.2 H RDW Coeff of José Miguel 12.5 Plt Count 167 MPV 9.0 Immature Gran % (Auto) 0.400 Neut % (Auto) 86.4 H Lymph % (Auto) 8.4 L [place] % (Auto) 4.2 Eos % (Auto) 0.3 Baso % (Auto) 0.3 Absolute Neuts (auto) 8.9 H Absolute Lymphs (auto) 0.86 Nucleated RBC % 0 Sodium 138 Potassium 4.0 Chloride 109 H Carbon Dioxide 22.0 Anion Gap 7 BUN 13 Creatinine 0.73 Estim Creat Clear Calc 84.79 Est GFR (MDRD) Af Amer 114 Est GFR (MDRD) Non-Af 94 BUN/Creatinine Ratio 17.8 Glucose 79 Hemoglobin A1c 4.7 Calcium 7.4 L Magnesium 1.7 Total Bilirubin 0.80 AST 54 H ALT 55 Alkaline Phosphatase 81 Total Protein 4.3 L Albumin 2.3 L Globulin 2.0 L Albumin/Globulin Ratio 1.2 Lipase 05/01/21 07:26 WBC RBC Hgb Hct MCV MCH MCHC RDW Std Deviation RDW Coeff of José Miguel Plt Count MPV Immature Gran % (Auto) Neut % (Auto) Lymph % (Auto) [place] % (Auto) Eos % (Auto) Baso % (Auto) Absolute Neuts (auto) Absolute Lymphs (auto) Nucleated RBC % Sodium Potassium Chloride Carbon Dioxide Anion Gap BUN Creatinine Estim Creat Clear Calc Est GFR (MDRD) Af Amer Est GFR (MDRD) Non-Af BUN/Creatinine Ratio Glucose Hemoglobin A1c Calcium Magnesium Total Bilirubin AST ALT Alkaline Phosphatase Total Protein Albumin Globulin Albumin/Globulin Ratio Lipase 346 Physical Exam Const alert and no apparent distress HEENT Head and Scalp: normocephalic Resp normal respiratory effort and clear to auscultation bilaterally Cardio regular rate, regular rhythm, S1 normal heart sound and S2 normal heart sound GI GI Narrative: diffusely tender with palpation. high pitched bowel sounds. distended. Extremity normal to inspection Assessment & Plan Assessment/Plan (1) Abdominal pain: QUALIFIERS: Abdominal location: generalized Qualified Code(s): R10.84 - Generalized abdominal pain PLAN: 1. Abdominal pain * Patient did have elevated lipase of it that is since resolved. Unclear if this is actually pancreatitis as CAT scan did not show any evidence of any pancreatic inflammation. Patient's lipase is now normalized. Patient does have some abdominal distention and some high-pitched bowel sounds so I am concerned about a ileus or small bowel obstruction. We will check an abdominal x-ray. * Patient seen that the morphine makes her sick. I told her that we would browning sition her over to something else, in this case will be hydromorphone, but I did inform her that the be low threshold for discontinue the medication. We do not find any etiology for her abdominal pain. I told her I am concerned just because her drug screen was also positive for other agents though patient states that she has a medical marijuana card she does take benzodiazepines as outpatient. Patient may have received narcotics before the drug screen was performed. * check test 2. Seizure disorder * On lamotrigine * Lamotrigine level pending DW patient with RN and Nursing Sign Hanger Charges/Coding Visit Charges Inpatient E&M: 22961 Subs Hosp L2
--- NOTE | 2021-05-01 08:49 | RAD_ITS ---
STUDY: X-RAY - ABDOMEN/PELVIS REASON FOR EXAM: Female, 40 years old. abdominal pain TECHNIQUE: Single AP view of the abdomen / pelvis. COMPARISON: None. FINDINGS: Excluded lung bases. Diffuse gaseous distention of small bowel and colon. There is no demonstrated free abdominal air. The visualized liver, spleen and kidneys (largely obscured by bowel contents) are grossly normal in size and morphology. Normal soft tissue structures. Normal visualized osseous structures. RAD/Abdomen Single View (Portable) IMPRESSION: Diffuse ileus. Electronically Signed: Kang Rodriguez MD ([place]) at 9:35 EDT , Service support ,
--- NOTE | 2021-05-01 09:11 | NURSING ---
pt to x ray
[2021-05-01] MEDS: HYDROmorphone 0.5 MG/0.5 ML SYRINGE IV ×5 (09:48→23:09)
--- NOTE | 2021-05-01 09:56 | NURSING ---
pt requesting pain medication, pt falling asleep while giving pain medications. pt sats 86% on ra. tried to place o2 2l on pt. pt refused. encouraged i.s. pt sats 90% on ra after i.s.
--- NOTE | 2021-05-01 10:17 | NURSING ---
offered to ambulate in halls with pt. pt refused.
--- NOTE | 2021-05-01 11:26 | CASEMGMT ---
FREDDY KENNY was notified that pt needed preauth for phenergan supposities prescribed by the ER on 04.29.21. FREDDY KENNY called [facility] and spoke with Robb pharmacist. He states pt has picked up the med and it has been billed to the insurance with $0 copay for pt. States nothing else is needed for this. There had been rejections but it now has ran through the insurance.
--- NOTE | 2021-05-01 16:30 | CASEMGMT ---
Social Work Note GABI reviewed chart. Pt denying any Substance Abuse Use or ETOH use. SW reviewed pt's Tox screen, pt did test position for Opiates, Benzodiazepines, and cannabinoids. SW in to speak with pt. SW introduced self and role at [facility]. Pt is alert and orientated. Pt states she hopes to be discharged home tomorrow. SW informed pt that it will depend on the hospitalist when pt is able to be discharged. Pt states that she lives alone, has little to no support at home. Pt states she has no family or friends. GABI asked pt about the person from [facility] visiting pt yesterday and asked what services pt has through [facility]. Pt states she has no services through [facility], states that that person was a friend of her's that is currently watching her dog for her while pt is at [facility]. GABI asked pt about any Mental Health Hx or Substance Abuse/Use. Pt denied any Mental Health and Substance Abuse Hx. Pt does state she does have a medical Marijuana card but hasn't smoked Marijuana in about a month as she hasn't been able to afford it. Pt denied additional needs or concerns at this time. Kaur Mcdonald MANAGER [employer], [employer]
[2021-05-01] MEDS: lamoTRIgine 100 MG Tablet 400 MG PO (19:50)
[2021-05-01] MEDS: Zolpidem Tartrate 5 MG Tablet PO (21:19)
[2021-05-02] VITALS (9 sets, daily range): BP systolic 97–129; BP diastolic 61–85; PULSE 96–116; RESP 18–60; TEMP 37–37.8; O2SAT 90–94
[2021-05-02] MEDS: 0.9% Normal Saline 1,000 ML 150 ML IV ×3 (04:36→19:45)
[2021-05-02] MEDS: proCHLORPERazine 10 MG/2 ML Vial 5 MG IV ×4 (04:41→21:10)
[2021-05-02] MEDS: clonazePAM 1 MG Tablet PO ×3 (06:35→22:41)
[2021-05-02 07:43] LABS: Absolute Lymphocyte Count 0.43 X10^3/uL (0.83-4.51); Absolute Neutrophil Count 9.1 X10^3/uL (2.0-7.7); Basophil# 0.02 X10^3/uL; Basophil% 0.2 % (0-1); Eosinophil# 0.01 X10^3/uL; Eosinophils% 0.1 % (0-5); Hematocrit 36.7 % (37-47); Hemoglobin 12.3 g/dL (12.0-15.0); Lymphocyte # 0.43 X10^3/ul (0.83-4.51); Lymphocyte % 4.3 % (19-41); Mean Corp Hgb Conc 33.5 g/dL (32-36); Mean Corpuscular Hgb 32.8 pg (27.0-32.0); Mean Corpuscular Volume 97.9 fL (81-99); Mean Platelet Vol. 9.1 fl (6.2-12.0); Monocyte# 0.48 X10^3/uL; Monocyte% 4.8 % (0-10); NRBC Flagged by Analyzer 0 % (0-5); Neutrophil # 9.05 X10^3/uL (2.7-7.7); Neutrophil % 89.9 % (47-70); POSITIVE DIFFERENTIAL YES; POSITIVE MORPHOLOGY YES; Platelet Count 176 K/mm3 (150-450); RBC Distribution Width CV 12.4 % (11.6-14.6); RBC Distribution Width SD 44.9 fl (35.1-43.9); Red Blood Count 3.75 M/mm3 (4.2-5.4); White Blood Count 10.1 K/mm3 (4.4-11.0)
[2021-05-02 07:47] LABS: Differential Indicated SCAN CRITERIA MET
[2021-05-02 09:36] LABS: ALB/GLOB Ratio 0.7 RATIO (0.9-2.4); AST(SGOT) 36 U/L (15-37); Alanine Aminotransfer ALT/SGPT 34 U/L (13-56); Albumin, Serum 2.1 g/dL (3.2-5.0); Alkaline Phosphatase 89 U/L (45-117); Anion Gap 10 (5-15); BUN 8 mg/dL (7-18); Calcium,Total 7.8 mg/dL (8.5-10.1); Chloride 108 mmol/L (98-107); Creatinine, Serum 0.67 mg/dL (0.55-1.02); EST Glomerular Filtration Rate 105 mL/min (>60); Est Glom Filt Rate - Afr Amer 127 mL/min (>60); Estimated Creatinine Clearance 96.33 ml/min; Globulin 3.2 g/dL (2.2-4.2); Glucose 74 mg/dL (74-106); Magnesium 1.7 mg/dL (1.6-2.6); Potassium 3.4 mmol/L (3.5-5.1); Protein, Total 5.3 g/dL (6.4-8.2); Sodium Level 138 mmol/L (136-145)
--- NOTE | 2021-05-02 10:01 | NURSING ---
Denies any needs.
[2021-05-02] MEDS: 0.9% Saline Lock 10 ML Syringe IV ×3 (12:26→16:48)
[2021-05-02] MEDS: HYDROmorphone 0.5 MG/0.5 ML SYRINGE IV ×3 (13:01→21:10)
--- NOTE | 2021-05-02 13:17 | PN.HOSP_ITS ---
Subjective Subjective States that her abdomen is feeling better and is passing gas. After I seen her she had apparently vomited. Fever and cough today. Objective Data Objective Data Vital Signs: Vital Signs Temp Pulse Resp BP Pulse Ox 37.2 C 110 H 60 H 111/78 94 05/02/21 09:50 05/02/21 09:58 05/02/21 09:50 05/02/21 09:50 05/02/21 09:50 Oxygen Flow Rate (L/min) 4 Oxygen Delivery Method Nasal Cannula Weight: 53.6 kg Body Mass Index (BMI) 17.9 Intake & Output: Intake and Output for Last 24 Hours 04/30/21 05/01/21 05/02/21 23:59 23:59 23:59 Intake Total 3420 / 3620 4665.0 / 4665.0 2210 / 2210 Output Total 0 / 400 650 / 650 850 / 850 Balance 3420 / 3220 4015.0 / 4015.0 1360 / 1360 Lab / Micro Data Result Diagrams: 05/02/21 06:39 05/02/21 09:08 Labs: Laboratory Results - last 24 hr 05/02/21 05/02/21 05/02/21 06:39 06:39 09:08 WBC 10.1 RBC 3.75 L Hgb 12.3 Hct 36.7 L MCV 97.9 MCH 32.8 H MCHC 33.5 RDW Std Deviation 44.9 H RDW Coeff of José Miguel 12.4 Plt Count 176 MPV 9.1 Immature Gran % (Auto) 0.700 Neut % (Auto) 89.9 H Lymph % (Auto) 4.3 L [place] % (Auto) 4.8 Eos % (Auto) 0.1 Baso % (Auto) 0.2 Absolute Neuts (auto) 9.1 H Absolute Lymphs (auto) 0.43 L Nucleated RBC % 0 Sodium Cancelled 138 Potassium Cancelled 3.4 L Chloride Cancelled 108 H Carbon Dioxide Cancelled 20.0 L Anion Gap Cancelled 10 BUN Cancelled 8 Creatinine Cancelled 0.67 Estim Creat Clear Calc Cancelled 96.33 Est GFR (MDRD) Af Amer Cancelled 127 Est GFR (MDRD) Non-Af Cancelled 105 BUN/Creatinine Ratio Cancelled 12.0 Glucose Cancelled 74 Calcium Cancelled 7.8 L Magnesium Cancelled 1.7 Total Bilirubin Cancelled 0.70 AST Cancelled 36 ALT Cancelled 34 Alkaline Phosphatase Cancelled 89 Total Protein Cancelled 5.3 L Albumin Cancelled 2.1 L Globulin Cancelled 3.2 Albumin/Globulin Ratio Cancelled 0.7 L Physical Exam Const alert Constitutional Narrative: slightly groggy Resp normal respiratory effort, no use of accessory muscles and clear to auscultation bilaterally Cardio regular rate, regular rhythm, S1 normal heart sound and S2 normal heart sound GI non-tender GI Narrative: slightly distended. diminished BS Extremity normal to inspection Skin no rashes or lesions noted Assessment & Plan Assessment/Plan (1) Ileus: PLAN: 1. Ileus * ongoing * supportive mgmt for now * encourage ambulation 2. seizure d/o * lamotrigine level pending 3. Fever * rapid COVID negative. PCR pending. Pt did not receive the COVID-19 vaccine. encourage her to get it after discharge. * UA negative * encourage IS 4. VTE prophylaxis: add LMWH Charges/Coding Visit Charges Inpatient E&M: 98870 Subs Hosp L2
[2021-05-02] MEDS: lamoTRIgine 100 MG Tablet 200 MG PO (14:32)
[2021-05-02] MEDS: guaiFENesin 10 ML UDC (200MG/10ML) 20 ML PO (20:42)
[2021-05-02] MEDS: Albuterol 2.5 MG/3 ML VIAL.NEB. INHALATION (21:03)
--- NOTE | 2021-05-02 22:22 | CT_ITS ---
We are attempting to reach an attending provider to discuss findings. An addendum with communication details will be sent when the communication is complete. HISTORY: Dyspnea, fever TECHNIQUE: Helically acquired images were obtained of the chest following 75mL Isovue-370 IV contrast as per pulmonary angiogram protocol with 3D reconstructions. A radiation dose optimization technique was used for this scan. COMPARISON: CT abdomen pelvis April 29, 2021 FINDINGS: # of images incl. paperwork: [id number] THYROID IMAGED PORTION: Unremarkable. PULMONARY ARTERIES: No pulmonary embolism. No gross arterial enlargement. AORTA/AORTIC ARCH: No ectasia. No dissection. HEART/PERICARDIUM: No cardiomegaly. No significant pericardial fluid. ADENOPATHY: No suspicious mediastinal or hilar adenopathy by size criteria. LUNG PARENCHYMA: Moderate bilateral pleural effusions with compressive atelectasis of the left lower lobe and posterior segments of the right lower lobe. Mild diffuse smooth septal thickening. PNEUMOTHORAX: None. UPPER ABDOMEN IMAGED PORTION: Large volume free fluid and small volume scattered free air noted within the upper abdomen. MUSCULOSKELETAL: No acute osseous finding. CT/CTA Chest W/WO Contrast IMPRESSION: 1. Free fluid and free air in the abdomen. Correlate for history of recent surgery. Otherwise would be concerned for bowel perforation and CT of the abdomen pelvis would be recommended along with surgical consultation. 2. Moderate bilateral pleural effusions with complete atelectasis of the left lower lobe and multisegmental atelectasis of the posterior right lower lobe. 3. Diffuse mild interstitial edema. 4. No pulmonary embolism Individualized dose optimization techniques were used for this CT. at 0205 Reported and signed by: Grant Ortega MD Electronically Signed: Grant Ortega MD at 2:04 EDT Tel , Service support ,
[2021-05-02] MEDS: lamoTRIgine 100 MG Tablet 400 MG PO (22:41)
[2021-05-03] MEDS: Furosemide 40 MG/4 ML Vial IV (00:54)
[2021-05-03] MEDS: 0.9% Saline Lock 10 ML Syringe IV ×2 (00:55→07:43)
[2021-05-03 01:57] VITALS: PULSE 110; RESP 24
[2021-05-03] MEDS: Albuterol 2.5 MG/3 ML VIAL.NEB. INHALATION ×2 (01:57→07:20)
--- NOTE | 2021-05-03 02:28 | CT_ITS ---
STUDY: CT ABDOMEN AND PELVIS WITHOUT CONTRAST REASON FOR EXAM: Female, 40 years old. Bowel perforation RADIATION DOSAGE (If Supplied By Facility): CTDIvol = ( 6.04 ) mGy, DLP = ( 323.17 ) mGycm TECHNIQUE: Transaxial images were obtained from the dome of the diaphragm to the symphysis pubis without oral contrast, and without intravenous contrast. Sagittal and coronal images were reconstructed. Individualized dose optimization techniques were used for this CT. COMPARISON: 04/29/2021 FINDINGS: Large bilateral pleural effusions with bibasilar atelectasis. The visualized portions of the heart are within normal limits. Moderate amount of ascites. Small amount of pneumoperitoneum worrisome for bowel perforation. Normal liver. There are surgical clips in the gallbladder fossa consistent with a prior cholecystectomy. Normal spleen. Normal pancreas. Normal bilateral adrenal glands. Normal right kidney. Normal left kidney. Normal visualized stomach. Normal small intestine. Normal colon. There is non-visualization of the appendix. Normal abdominal aorta. Normal inferior vena cava. Normal retroperitoneum. Normal urinary bladder. Normal abdominal wall. Normal osseous structures. CT/Abdomen/Pel W ORAL Cont Only IMPRESSION: 1. Moderate amount of ascites and a small amount of pneumoperitoneum worrisome for bowel perforation at the site of perforation is not clearly identified. 2. Large bilateral pleural effusions with bibasilar atelectasis. N.B. : The above Results were Read Back by Jasvir Camacho MD to Viki Romeo RN, and understanding confirmed on 05/03/2021 07:48:41 (ET). Electronically Signed: Jasvir Camacho MD at 7:49 EDT Tel , Service support ,
--- NOTE | 2021-05-03 02:35 | PCM.HOSP.N ---
Hospitalist Note Patient with ongoing low grade T and increased oxygenation requirements with unremarkable respiratory work-up prior. CT chest obtained with noted free fluid and free air in the abdomen, moderate bilateral pleural effusions with complete atelectasis of the left lower lobe and multisegmental atelectasis the posterior right lower lobe with diffuse mild interstitial edema. Patient made n.p.o., IV fluids discontinued given overload, Lasix 40 mg IV x1 administered, given patient had allergies noted Flagyl and cefepime started, CT of the abdomen with oral contrast only ordered and Dr. Mazariegos consulted with case reviewed. Will d/c lovenox also for OR transition potential.
[2021-05-03 02:55] VITALS: BP 113/73; PULSE 118; RESP 20; TEMP 36.9; O2SAT 92
--- NOTE | 2021-05-03 02:56 | NURSING ---
This RN went back into patients room after receiving new orders from MD. This RN explained to patient that she needed to go back down to CT and new orders IV ATB. Patient was not cooperating for this RN to get VS. Patient then proceeded to tell this RN that she didn't want the CT scan or the ATB. This RN attempted to explain why these new orders were obtained. Patient stated she did not care and just wanted to go to sleep. This RN walked out of her room, texted Dr. Streeter. Dr. Streeter now seeing patient at bedside.
--- NOTE | 2021-05-03 03:03 | NURSING ---
Dr. Streeter came out of patients room and explained to this RN that she spoke with the patient. MD stated that patient is agreeable to the ATB's now and patient wanted to wait for the CT until the morning so she could sleep. This RN spoke with CT and explained the situation. Per MD if patient refuses oral contrast sent patient anyways to CT. CT okay with this and is agreeable. This RN will attempt oral contrast. Patient refusing assessment at this time. Will attempt to hang ATB.
--- NOTE | 2021-05-03 03:34 | NURSING ---
This RN went into patients room to hang ATB's, patient refused to let this RN start ATB infusions. This RN then asked if she could fix the oxygen so it could flow into the patients nose, the patient said yes. Patient allowed RN to fix 02 canula. RN texted MD of patient refusing ATB's. Will attempt ATB and starting oral contrast at 6am with morning meds.
[2021-05-03] MEDS: HYDROmorphone 0.5 MG/0.5 ML SYRINGE IV ×2 (03:51→07:43)
[2021-05-03] MEDS: metroNIDAZOLE 500 MG/100 ML BAG 100 MG IV (03:53)
--- NOTE | 2021-05-03 05:16 | NURSING ---
Patient assisted to the BSC, patient unable to void, patient assisted back into bed and bladder scanned. Bladder scanned for greater than 750mls. This RN staighted cathed for 1000mls of clear pale yellow urine. During this time patient started drinking the oral contrast for the CT scan, CT called and notified.
[2021-05-03] MEDS: clonazePAM 1 MG Tablet PO (05:37)
[2021-05-03 06:11] LABS: Absolute Lymphocyte Count 0.39 X10^3/uL (0.83-4.51); Basophil# 0.05 X10^3/uL; Basophil% 0.6 % (0-1); Eosinophil# 0.06 X10^3/uL; Eosinophils% 0.7 % (0-5); Hematocrit 40.8 % (37-47); Hemoglobin 14.3 g/dL (12.0-15.0); Lymphocyte # 0.39 X10^3/ul (0.83-4.51); Lymphocyte % 4.3 % (19-41); Mean Corpuscular Hgb 33.3 pg (27.0-32.0); Mean Corpuscular Volume 94.9 fL (81-99); Mean Platelet Vol. 10.4 fl (6.2-12.0); Monocyte# 0.58 X10^3/uL; Monocyte% 6.4 % (0-10); NRBC Flagged by Analyzer 0 % (0-5); Neutrophil # 7.97 X10^3/uL (2.7-7.7); Neutrophil % 87.6 % (47-70); POSITIVE COUNT YES; POSITIVE DIFFERENTIAL YES; Platelet Count 112 K/mm3 (150-450); RBC Distribution Width CV 12.2 % (11.6-14.6); RBC Distribution Width SD 42.7 fl (35.1-43.9); White Blood Count 9.1 K/mm3 (4.4-11.0)
[2021-05-03 06:18] LABS: Differential Indicated SCAN CRITERIA MET
--- NOTE | 2021-05-03 06:30 | EKG12_ITS ---
Test Reason : PRE-OP Blood Pressure : / mmHG Vent. Rate : 113 BPM Atrial Rate : 113 BPM P-R Int : 126 ms QRS Dur : 086 ms QT Int : 324 ms P-R-T Axes : 031 017 024 degrees QTc Int : [address] & T wave abnormality, consider anterior ischemia Abnormal ECG No previous ECGs available Confirmed by TRISTA KING, TELMA ([id number]), writer editor CHAD DOUGLASS ([id number]) on 05/12/2021 7:53:19 AM Referred By: GRETTA Confirmed By:TELMA WESTON MD
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
[2021-05-03] MEDS: proCHLORPERazine 10 MG/2 ML Vial 5 MG IV (06:58)
[2021-05-03 07:20] VITALS: PULSE 112; RESP 28; O2SAT 96
--- NOTE | 2021-05-03 07:44 | NURSING ---
Sheryl from Dr. Mazariegos to place NG tube. MANI
[2021-05-03 07:47] LABS: ALB/GLOB Ratio 0.5 RATIO (0.9-2.4); AST(SGOT) 33 U/L (15-37); Alanine Aminotransfer ALT/SGPT 31 U/L (13-56); Albumin, Serum 2.1 g/dL (3.2-5.0); Alkaline Phosphatase 99 U/L (45-117); Anion Gap 13 (5-15); BUN 5 mg/dL (7-18); BUN/Creat Ratio 8.4 RATIO (10-20); Calcium,Total 7.9 mg/dL (8.5-10.1); Chloride 98 mmol/L (98-107); EST Glomerular Filtration Rate 120 mL/min (>60); Est Glom Filt Rate - Afr Amer 145 mL/min (>60); Globulin 3.9 g/dL (2.2-4.2); Glucose 89 mg/dL (74-106); Lipase 82 U/L (73-393); Sodium Level 131 mmol/L (136-145)
--- NOTE | 2021-05-03 07:47 | NURSING ---
Patient back from CT scan. Requesting pain medication for Abdominal pain. Explained order for NG tube placement and Patient said NO.
[2021-05-03 08:00] VITALS: BP 96/58; PULSE 112; RESP 20; TEMP 37.5; O2SAT 96
[2021-05-03 09:21] VITALS: PULSE 111
--- NOTE | 2021-05-03 09:23 | NURSING ---
Addendum entered by Fede Maki 05/03/21 09:24: Dr. Blake Lindsay receiving surgeon Original Note: pt being transferred to [facility] ER - RN-RN report [phone]
--- NOTE | 2021-05-03 10:35 | DS.PCM_ITS ---
Providers Date of Admission: 04/30/21 Primary Care Physician: EDWIGE Vega Consultations 05/03/21 02:28 Consult: General Surgery Routine Consulting Provider: Tamika Mazariegos Reason for Consult: Bowel perforation EMERGENT Consult: Yes MD Notified: Yes Date Notified: 05/03/21 Time Notified: 02:30 Method of Notification: called Reason For Visit: ACUTE PANCREATITIS Diagnosis Discharge Diagnosis (1) Ileus: Status: Acute Code(s): K56.7 - Ileus, unspecified Medications at Discharge Home Medications clonazepam 1 mg PO TID 06/27/19 lamotrigine 200 mg PO BID 07/30/19 albuterol sulfate 1 puff INHALATION Q6H PRN 11/21/19 lamotrigine 400 mg PO QHS 04/27/21 zolpidem 10 mg PO QHS 04/27/21 lansoprazole [Prevacid] 30 mg PO DAILY 28 Days #28 cap 04/29/21 lorazepam [Ativan] 1 mg PO PRN PRN 04/29/21 promethazine 25 mg [place] Q6H PRN #12 ea 04/29/21 Hospital Course Procedures None Summary of Care Provided Minutes Spent on Discharge: 35 Hospital Course: 40-year-old female presents with abdominal pain. Initial CAT scan of her abdomen pelvis was negative on April 29. Lipase was elevated though not initially on but did develop on the first where he went 1003 and then subsequently up to 1121. Patient did receive fluids. Subsequent lipase on the second was down to 346. Patient was still complaining of abdominal pain abd ominal distention and she did have an abdominal x-ray that showed an ileus. Patient was made n.p.o. and observed. The following day patient was feeling better but was short of breath. She was checked for COVID-19 and that was negative. Oxygen requirement still went up the patient underwent a CT angiogram of the chest that showed free fluid and free air in the abdomen. Did have moderate bilateral pleural effusions with complete atelectasis of the lateral ectasis of the posterior right lower lobe. Mild interstitial edema. No pulmonary embolism. Patient was started on antibiotics and general surgery was consulted with Dr. Mazariegos. CT of the abdomen pelvis showed moderate amount of ascites and small amount of pneumoperitoneum worrisome for bowel perforation. Sided perforation was not clearly identified. Dr. Mazariegos recommended transfer to tertiary facility. I reached out to [facility] and spoke with Dr. Lindsay and explained the case. He said that he would see the patient and requested patient be directed to the emergency room but wanted Dr. Mazariegos to speak with him. Notify Dr. Mazariegos of the request and provide the number for [facility]. Patient was discharged in stable condition. Patient was made aware of the indication for transfer prior to initiating the transfer. After the free air was found, patient was made n.p.o. again. Physical Exam Const alert Constitutional Narrative: Slightly groggy General Appearance: cooperative HEENT normocephalic Resp normal respiratory effort, no use of accessory muscles and clear to auscultation bilaterally Cardio regular rate, regular rhythm, S1 normal heart sound and S2 normal heart sound GI normal to inspection, nondistended, normoactive bowel sounds, soft to palpation, non-tender and non-distended Extremity normal to inspection Weight / BMI Weight Weight: 50.576 kg Body Mass Index (BMI) 17.9 ABG / Lab / Microbiology Data Result Diagrams: 05/03/21 05:55 05/03/21 07:00 Laboratory: Laboratory Results - last 24 hr 05/02/21 05/03/21 05/03/21 10:30 05:55 05:55 WBC 9.1 RBC 4.30 Hgb 14.3 Hct 40.8 MCV 94.9 MCH 33.3 H MCHC 35.0 RDW Std Deviation 42.7 RDW Coeff of José Miguel 12.2 Plt Count 112 L MPV 10.4 Immature Gran % (Auto) 0.400 Neut % (Auto) 87.6 H Lymph % (Auto) 4.3 L Iroquois % (Auto) 6.4 Eos % (Auto) 0.7 Baso % (Auto) 0.6 Absolute Neuts (auto) 8.0 H Absolute Lymphs (auto) 0.39 L Nucleated RBC % 0 Sodium Cancelled Potassium Cancelled Chloride Cancelled Carbon Dioxide Cancelled Anion Gap Cancelled BUN Cancelled Creatinine Cancelled Estim Creat Clear Calc Cancelled Est GFR (MDRD) Af Amer Cancelled Est GFR (MDRD) Non-Af Cancelled BUN/Creatinine Ratio Cancelled Glucose Cancelled Calcium Cancelled Total Bilirubin Cancelled AST Cancelled ALT Cancelled Alkaline Phosphatase Cancelled Total Protein Cancelled Albumin Cancelled Globulin Cancelled Albumin/Globulin Ratio Cancelled Lipase COVID-19 (HEATHER) Not Detected 05/03/21 07:00 WBC RBC Hgb Hct MCV MCH MCHC RDW Std Deviation RDW Coeff of José Miguel Plt Count MPV Immature Gran % (Auto) Neut % (Auto) Lymph % (Auto) Iroquois % (Auto) Eos % (Auto) Baso % (Auto) Absolute Neuts (auto) Absolute Lymphs (auto) Nucleated RBC % Sodium 131 L Potassium 3.0 L Chloride 98 Carbon Dioxide 20.0 L Anion Gap 13 BUN 5 L Creatinine 0.60 Estim Creat Clear Calc 101.50 Est GFR (MDRD) Af Amer 145 Est GFR (MDRD) Non-Af 120 BUN/Creatinine Ratio 8.4 L Glucose 89 Calcium 7.9 L Total Bilirubin 0.50 AST 33 ALT 31 Alkaline Phosphatase 99 Total Protein 6.0 L Albumin 2.1 L Globulin 3.9 Albumin/Globulin Ratio 0.5 L Lipase 82 COVID-19 (HEATHER) Radiography Diagnostic Testing: Radiology Impression Chest CTA 05/02/21 22:22 IMPRESSION: 1. Free fluid and free air in the abdomen. Correlate for history of recent surgery. Otherwise would be concerned for bowel perforation and CT of the abdomen pelvis would be recommended along with surgical consultation. 2. Moderate bilateral pleural effusions with complete atelectasis of the left lower lobe and multisegmental atelectasis of the posterior right lower lobe. 3. Diffuse mild interstitial edema. 4. No pulmonary embolism Individualized dose optimization techniques were used for this CT. at 0205 Reported and signed by: Grant Ortega MD Electronically Signed: Grant Ortega MD at 2:04 EDT Tel , Service support , ADDENDUM: 05/03/21 0230 IMPRESSION: 1. Free fluid and free air in the abdomen. Correlate for history of recent surgery. Otherwise would be concerned for bowel perforation and CT of the abdomen pelvis would be recommended along with surgical consultation. 2. Moderate bilateral pleural effusions with complete atelectasis of the left lower lobe and multisegmental atelectasis of the posterior right lower lobe. 3. Diffuse mild interstitial edema. 4. No pulmonary embolism Individualized dose optimization techniques were used for this CT. at 0205 Reported and signed by: Grant Ortega MD N.B. : The above Results were Read Back by Grant Ortega MD to Noa Streeter MD, and understanding confirmed on 05/03/2021 02:23:56 (ET). Electronically Signed: Grant Ortega MD at 2:04 EDT Tel , Service support , Abdomen CT 05/03/21 02:28 IMPRESSION: 1. Moderate amount of ascites and a small amount of pneumoperitoneum worrisome for bowel perforation at the site of perforation is not clearly identified. 2. Large bilateral pleural effusions with bibasilar atelectasis. N.B. : The above Results were Read Back by Jasvir Camacho MD to Viki Romeo RN, and understanding confirmed on 05/03/2021 07:48:41 (ET). Electronically Signed: Jasvir Camacho MD at 7:49 EDT Tel , Service support , ADDENDUM: 05/03/21 0756 IMPRESSION: 1. Moderate amount of ascites and a small amount of pneumoperitoneum worrisome for bowel perforation at the site of perforation is not clearly identified. 2. Large bilateral pleural effusions with bibasilar atelectasis. N.B. : The above Results were Read Back by Jasvir Camacho MD to Viki Romeo RN, and understanding confirmed on 05/03/2021 07:48:41 (ET). Electronically Signed: Jasvir Camacho MD at 7:49 EDT Tel , Service support , Meaningful Use Info Meaningful Use Diagnoses (Choose all that apply): None applicable Discharge Plan Admission Admit Date/Time: 04/30/21 03:19 Attending Provider: Eugenio Goode Primary Care Provider: Robb Jeffries NP Consulting Providers: Tamika Mazariegos Discharge Orders/Prescriptions Prescriptions: No Action clonazepam 1 MG tablet 1 mg PO TID RF: 0 lamotrigine 200 MG tablet 200 mg PO BID RF: 0 albuterol sulfate 8.5 GM HFA aerosol inhaler 1 puff inhalation Q6H PRN (Reason: Wheezing) RF: 0 lamotrigine 200 mg tablet extended release 24hr 400 mg PO QHS RF: 0 zolpidem 10 mg tablet 10 mg PO QHS RF: 0 lorazepam [Ativan] 1 mg tablet 1 mg PO PRN PRN (Reason: Seizure Activity) RF: 0 promethazine 25 mg suppository 25 mg IL Q6H PRN (Reason: nausea and vomiting) Qty: 12 RF: 0 lansoprazole [Prevacid] 30 mg capsule,delayed release(DR/EC) 30 mg PO DAILY 28 Days Qty: 28 RF: 0 Referrals / Follow Up: Robb Jeffries NP, [employer] [Primary Care Provider] - Disposition Disposition (needs filled in before D/C Order can be placed): Transfer to Another Type HCF Charges/Coding Visit Charges Inpatient E&M: 24551 Disch Hosp
[2021-05-05 07:47] LABS: Lamotrigine (Lamictal) Level < 1.0 ug/mL (2.0-20.0)
== END 2021-05-03 09:30 | disposition other institution (70) | DRG 439 ==
LOC: ED 02:18 → MS3 05:15
PROVIDERS: Internal Medicine; Admitting Provider Family Medicine; Emergency Provider Emergency Medicine; PCP Nurse Practitioner Primary Care
DX: K85.10 Biliary acute pancreatitis without necrosis or infection (principal); K56.7 Ileus, unspecified; J90 Pleural effusion, not elsewhere classified; J98.11 Atelectasis; R18.8 Other ascites; C53.9 Malignant neoplasm of cervix uteri, unspecified; G40.909 Epilepsy, unspecified, not intractable, without status epilepticus; I10 Essential (primary) hypertension; D72.810 Lymphocytopenia; F17.210 Nicotine dependence, cigarettes, uncomplicated; Z90.49 Acquired absence of other specified parts of digestive tract; Z87.442 Personal history of urinary calculi; Z87.820 Personal history of traumatic brain injury
CPT/HCPCS: 36415; 71045; 71275; 73610; 74018; 74176; 80053; 80061; 80307; 81001; 82077; 82542; 83036; 83690; 83735; 85025; 87426; 87635; 93005; 94640; 94667; 94668; 96372; 99282; 99283; 99285; 99406; J7030; P9612; Q9967; U0005; A4216; J0696; J1940; U0003

== ENCOUNTER 2021-05-15 15:25 | Emergency (ER) | payer MEDICARE, MEDICAID, SELFPAY ==
[2021-04-30 04:16] VITALS: BMI 17.9
[2021-05-15 15:26] VITALS: BP 102/60; PULSE 96; RESP 16; TEMP 36.6; O2SAT 95; BMI 16.6
--- NOTE | 2021-05-15 15:34 | EDS_ITS ---
HPI History of Present Illness Chief Complaint: Wound Check Informant: patient and EMS Narrative Narrative: 40-year-old female previously admitted at the beginning this month and transferred to [facility] where she underwent laparotomy for bowel perforation presents today at a concern for abdominal pain and wound infection. She tells me she has developed lower abdominal pain on both sides of her abdomen as well as pain at the top of her incision and that her umbilicus is hurting her. She notes fever up to 103 last night. She notes a cough. She had thoracentesis for pleural effusions while she was in the hospital. Patient states that she had a video conference with her surgeon Dr. Lindsay who recommended that she come to their emergency room for evaluation but because she has epilepsy she does not drive and she has no way of getting there. So she called the ambulance and had her bring her to the [facility] Medical History Breast pain, left Cervical cancer Epilepsy Hypertension Nicotine dependence Smoker Solitary pulmonary nodule Home Medications clonazepam 1 mg PO TID 06/27/19 [History Last Taken 04/26/21] lamotrigine 200 mg PO BID 07/30/19 [History Last Taken 04/26/21] albuterol sulfate 1 puff INHALATION Q6H PRN 11/21/19 [History Last Taken Unknown] lamotrigine 400 mg PO QHS 04/27/21 [History Last Taken 04/26/21] zolpidem 10 mg PO QHS 04/27/21 [History Last Taken 04/26/21] lansoprazole [Prevacid] 30 mg PO DAILY 28 Days #28 cap 04/29/21 [Rx Last Taken 04/26/21] lorazepam [Ativan] 1 mg PO PRN PRN 04/29/21 [History Last Taken Unknown] promethazine 25 mg [place] Q6H PRN #12 ea 04/29/21 [Rx Last Taken Unknown] Allergy/AdvReac Type Severity Reaction Status Date / Time amoxicillin Allergy Hives Verified 05/15/21 15:25 divalproex sodium Allergy Hives Verified 05/15/21 15:25 [From Depakote] levetiracetam [From Keppra] Allergy Hives Verified 05/15/21 15:25 metoclopramide [From Reglan] Allergy Hives Verified 05/15/21 15:25 ondansetron [From Zofran] Allergy Hives Verified 05/15/21 15:25 tramadol Allergy Angioedema Verified 05/15/21 15:25 TAPE AdvReac Rash Uncoded 05/15/21 15:25 Surgical History History of cholecystectomy History of hysterectomy History of tonsillectomy and adenoidectomy Social History household members: none Smoking Status: Current every day smoker tobacco type: cigarettes alcohol intake: never substance use type: other details: Had used medical marijuana prior, has not used for some time now. ROS ROS ED Constitutional Constitutional ED: Reports chills and fever(s); Denies weight loss Eyes Eyes: Denies change in vision or diplopia ENT ENT ED: Denies ear pain, rhinorrhea or sore throat Cardiovascular Cardiovascular: Denies chest pain, orthopnea, palpitations or racing heartbeat Respiratory/Chest Respiratory/Chest: Denies cough, dyspnea or orthopnea Gastrointestinal Gastrointestinal: Reports abdominal pain; Denies diarrhea, nausea or vomiting Genitourinary Genitourinary ED: Denies dysuria, hematuria or urinary frequency Musculoskeletal Musculoskeletal: Denies arthralgias or myalgias Integumentary Denies abscess or rash Neurologic Neurologic: Denies headache(s) or weakness Psychiatric Psychiatric: Denies anxiety, depression, suicidal ideation or suicidal thoughts Endocrine Endocrinology: Denies polydipsia, polyphagia or polyuria Allergic/Immunologic Allergic/Immunologic ED: Denies mouth swelling, tongue swelling or urticaria EXAM Physical Exam Const Vital Signs: 05/15/21 15:26 Temperature 97.8 F Temperature Source Oral Pulse Rate 96 Respiratory Rate 16 Blood Pressure 102/60 Blood Pressure Mean 74 Pulse Ox 95 Oxygen Delivery Method Room Air Positive well nourished and well developed General Appearance ED: well developed HEENT Reports normocephalic, head/scalp atraumatic and moist mucous membranes Eyes PERRL and EOMs intact bilaterally Neck no lymphadenopathy, supple and no JVD Resp normal respiratory effort and clear to auscultation bilaterally Cardio regular rate, regular rhythm and no murmurs GI GI Narrative: There is a healing laparotomy incision with eun present. There is a minor amount of erythema along each staple where it enters the skin. No obvious cellulitic changes. No purulence from the wound. Tender at the proximal end of the wound. The lower abdomen is to also tender to palpation Palpation: soft Back/Spine no CVA tenderness and normal ROM Extremity normal to inspection General Extremety ED: Negative for edema General Extremity: Negative for edema Neuro oriented x3 and CN's II-XII intact bilaterally Sensorium / Orientation: alert Motor Exam: strength 5/5 throughout Psych mental status grossly normal Mood & Affect: Negative for depressed or tearful Skin no rashes or lesions noted and no wounds Discharge Plan Triage Chief Complaint: Wound Check ED Provider: Carroll Negron Dx/Rx/DC Orders Prescriptions: No Action clonazepam 1 MG tablet 1 mg PO TID RF: 0 lamotrigine 200 MG tablet 200 mg PO BID RF: 0 albuterol sulfate 8.5 GM HFA aerosol inhaler 1 puff inhalation Q6H PRN (Reason: Wheezing) RF: 0 lamotrigine 200 mg tablet extended release 24hr 400 mg PO QHS RF: 0 zolpidem 10 mg tablet 10 mg PO QHS RF: 0 lorazepam [Ativan] 1 mg tablet 1 mg PO PRN PRN (Reason: Seizure Activity) RF: 0 promethazine 25 mg suppository 25 mg UT Q6H PRN (Reason: nausea and vomiting) Qty: 12 RF: 0 lansoprazole [Prevacid] 30 mg capsule,delayed release(DR/EC) 30 mg PO DAILY 28 Days Qty: 28 RF: 0 Primary Care Provider: Robb Jeffries NP
--- NOTE | 2021-05-15 15:59 | RAD_ITS ---
INDICATION: cough EXAMINATION/TECHNIQUE: X-RAY - XR Chest 1 View COMPARISON: 05/01/2021. FINDINGS: Nearly resolved left lower lobe opacities. The cardiomediastinal silhouette is unremarkable. No pleural effusion or pneumothorax. No acute osseous abnormalities. RAD/Chest 1 View (Portable) IMPRESSION: Nearly resolved left lower lobe opacities which could represent atelectasis versus infection. Electronically Signed: Carter Woodson MD at 16:18 EDT Tel , Service support ,
[2021-05-15 16:12] LABS: Absolute Lymphocyte Count 0.92 X10^3/uL (0.83-4.51); Basophil# 0.05 X10^3/uL; Basophil% 0.5 % (0-1); Eosinophil# 0.09 X10^3/uL; Eosinophils% 0.9 % (0-5); Hematocrit 38.9 % (37-47); Hemoglobin 12.8 g/dL (12.0-15.0); Lymphocyte # 0.92 X10^3/ul (0.83-4.51); Lymphocyte % 8.8 % (19-41); Mean Corp Hgb Conc 32.9 g/dL (32-36); Mean Corpuscular Hgb 32.7 pg (27.0-32.0); Mean Corpuscular Volume 99.5 fL (81-99); Mean Platelet Vol. 8.6 fl (6.2-12.0); Monocyte# 0.43 X10^3/uL; Monocyte% 4.1 % (0-10); NRBC Flagged by Analyzer 0 % (0-5); Neutrophil # 8.95 X10^3/uL (2.7-7.7); Neutrophil % 85.2 % (47-70); Platelet Count 582 K/mm3 (150-450); RBC Distribution Width CV 13.2 % (11.6-14.6); RBC Distribution Width SD 48.7 fl (35.1-43.9); Red Blood Count 3.91 M/mm3 (4.2-5.4); White Blood Count 10.5 K/mm3 (4.4-11.0)
[2021-05-15 16:26] VITALS: BP 104/84; PULSE 78; RESP 16; TEMP 36.9; O2SAT 96
[2021-05-15 16:38] LABS: ALB/GLOB Ratio 0.4 RATIO (0.9-2.4); AST(SGOT) 30 U/L (15-37); Alanine Aminotransfer ALT/SGPT 25 U/L (13-56); Albumin, Serum 2.5 g/dL (3.2-5.0); Alkaline Phosphatase 144 U/L (45-117); Anion Gap 9 (5-15); BUN 11 mg/dL (7-18); BUN/Creat Ratio 13.5 RATIO (10-20); Calcium,Total 8.9 mg/dL (8.5-10.1); Chloride 98 mmol/L (98-107); Creatinine, Serum 0.81 mg/dL (0.55-1.02); EST Glomerular Filtration Rate 83 mL/min (>60); Est Glom Filt Rate - Afr Amer 101 mL/min (>60); Estimated Creatinine Clearance 65.41 ml/min; Globulin 5.9 g/dL (2.2-4.2); Glucose 62 mg/dL (74-106); Lipase 248 U/L (73-393); Potassium 4.2 mmol/L (3.5-5.1); Protein, Total 8.4 g/dL (6.4-8.2); Sodium Level 135 mmol/L (136-145)
[2021-05-15 16:52] LABS: Lactic Acid 1.4 mmol/L (0.4-1.9)
--- NOTE | 2021-05-15 17:35 | CT_ITS ---
STUDY: CT ABDOMEN AND PELVIS WITH CONTRAST REASON FOR EXAM: Female, 40 years old. abdominal pain -- IV PO Contrast RADIATION DOSAGE (If Supplied By Facility): CTDIvol = ( 12.74 ) mGy, DLP = ( 282.76 ) mGycm TECHNIQUE: Transaxial images were obtained from the dome of the diaphragm to the symphysis pubis with oral contrast. Oral and amp; IV Gastrografin and amp; 75mL Isovue-300 was administered. Sagittal and coronal images were reconstructed. Individualized dose optimization techniques were used for this CT. COMPARISON: CT of abdomen and pelvis dated May 03, 2021 FINDINGS: Status post intra-abdominal surgery with appearance of an encapsulated fluid and air pocket in the midline of the upper abdomen adjacent and slightly inferior to the left lobe of the liver measuring 5.71 x 5.50 cm. In the immediate postoperative period this would be considered a seroma, but if several days have passed this would represent an abscess. A few foci of free air are seen in the anterior aspect of the abdomen. A second encapsulated peripherally enhancing fluid pocket is present in the prerectal region of the lower pelvis measuring 6.65 x 1.69 cm. Normal small and large bowel. No demonstrated bowel leakage or extravasation of contrast outside of the bowel lumen. The appendix has been recently removed. A small left pleural effusion is present. Focal atelectasis is seen in the right lung base. Normal liver. There are surgical clips in the gallbladder fossa consistent with a prior cholecystectomy. Normal spleen. Normal pancreas. Normal bilateral adrenal glands. Normal right kidney. Normal left kidney. Normal abdominal aorta. Normal inferior vena cava. Normal retroperitoneum. Normal urinary bladder. Normal abdominal wall. Normal osseous structures. CT/Abdomen/Pelvis WITH Contrast IMPRESSION: 1. Status post intra-abdominal surgery with appearance of an encapsulated fluid and air pocket in the midline of the upper abdomen adjacent and slightly inferior to the left lobe of the liver measuring 5.71 x 5.50 cm. In the immediate postoperative period this would be considered a seroma, but if several days have passed this would represent an abscess. 2. A few foci of free air are seen in the anterior aspect of the abdomen. 3. A second encapsulated peripherally enhancing fluid pocket is present in the prerectal region of the lower pelvis measuring 6.65 x 1.69 cm. 4. Normal small and large bowel. No demonstrated bowel leakage or extravasation of contrast outside of the bowel lumen. The appendix has been recently removed. Electronically Signed: Cecil Mc MD at 18:51 EDT , Service support ,
[2021-05-15] MEDS: Ketorolac 30 MG/ML Syringe IV (18:00)
[2021-05-15 18:02] VITALS: BP 112/83; PULSE 88; RESP 18; O2SAT 96
[2021-05-15 18:16] LABS: Bacteria 0 SEEN /hpf (None Seen); Mucous, Urine 0 SEEN /hpf (<or=2+); Red Blood Cells-Urine 0 SEEN /hpf (0-5); White Blood Cells 0 SEEN /hpf (0-5)
[2021-05-15 18:30] LABS: Color, Urine Yellow (Yellow); Glucose, Dipstick Normal (Normal); Ketone-Dipstick 50 mg/dl (Negative); Leukocyte Esterase-Dipstick Negative /ul (Negative); Nitrite-Dipstick Negative (Negative); Occult Blood-Urine 10 /ul (Negative); Protein-Dipstick 15 mg/dl (Negative); Urine Bilirubin Dipstick Negative (Negative); Urine Clarity Sl. Cloudy (Clear); Urine Urobilinogen Normal (Normal)
[2021-05-15 18:49] LABS: Squamous Epithelial Cells - UA 0-5 SEEN /hpf (5-10)
[2021-05-15] MEDS: Morphine 4 MG/ML Syringe IV ×2 (19:11→20:31)
[2021-05-15] MEDS: Ciprofloxacin 400 MG/200 ML BAG 200 MG IV (19:28)
[2021-05-15 19:31] VITALS: BP 100/64; PULSE 86; RESP 16; TEMP 36.9; O2SAT 98
[2021-05-15 20:06] VITALS: BP 92/66; PULSE 77; RESP 15; O2SAT 97
[2021-05-15] MEDS: metroNIDAZOLE 500 MG/100 ML BAG 100 MG IV (20:30)
--- NOTE | 2021-05-15 20:48 | ED.RN ---
called [phone] for report to [facility] but no answer and no voicemail set uo. I tried again two more times and same thing. Called the Er directly at [phone] and got the same thing. Called back the ER number to let them know I cannot get through for report. Rings x 7 and then goes busy. Will try again in a few minutes
== END 2021-05-15 21:32 | disposition short-term general hospital (02) ==
PROVIDERS: Emergency Provider Emergency Medicine; PCP Nurse Practitioner Primary Care
DX: Z48.00 Encounter for change or removal of nonsurgical wound dressing (principal); F17.210 Nicotine dependence, cigarettes, uncomplicated; I10 Essential (primary) hypertension; Z85.41 Personal history of malignant neoplasm of cervix uteri; Z79.899 Other long term (current) drug therapy
CPT/HCPCS: 71045; 74177; 80053; 81001; 83605; 83690; 85025; 87040; 87426; 99285; J7050; Q9967; A4216; J0744

== ENCOUNTER 2021-05-27 15:20 | Emergency (ER) | payer MEDICARE, MEDICAID, SELFPAY ==
[2021-05-27 15:21] VITALS: BP 114/82; PULSE 79; RESP 14; TEMP 36.8; O2SAT 95; BMI 16.5
--- NOTE | 2021-05-27 15:38 | CT_ITS ---
EXAM: CT ABDOMEN AND PELVIS WITH INTRAVENOUS CONTRAST : 1980 CLINICAL INDICATION: abdominal pain -- IV PO Contrast TECHNIQUE: Helically acquired images were obtained of the abdomen and pelvis with intravenous contrast. This CT exam was performed using one or more of the following dose reduction techniques: automated exposure control, adjustment of the mA and/or kV according to patient size, and/or use of iterative reconstruction technique. This report was created using [employer] report generation technology. CONTRAST: Oral Tamp; IV Gastrografin Tamp; 100mL Isovue-300 COMPARISON: 05/15/2021 FINDINGS: LOWER THORAX: Unremarkable. Lung bases are clear. No cardiomegaly. No significant pericardial effusion. ABDOMEN: LIVER: Unremarkable. Homogeneous. No focal mass. GALLBLADDER AND BILE DUCTS: Unremarkable. No calcified gallstones. No gallbladder distention or wall edema. No intra- or extrahepatic biliary ductal dilation. PANCREAS: Unremarkable. No focal cystic or solid mass. SPLEEN: Unremarkable. Normal size without focal cystic or solid mass. ADRENALS: Unremarkable. No nodules. KIDNEYS AND URETERS: Unremarkable. Normal renal size and position. No hydronephrosis. STOMACH AND BOWEL: There are mildly dilated fluid-filled loops of small bowel. There are more normal caliber bowel loops seen within the pelvis and this may represent a developing obstruction. No focal inflammatory change. PELVIS: APPENDIX: No evidence of acute appendicitis. BLADDER: Unremarkable. REPRODUCTIVE: Unremarkable as visualized. No mass. ABDOMEN and PELVIS: INTRAPERITONEAL SPACE: Unremarkable. No ascites or other fluid collection. No free air. BONES/JOINTS: Unremarkable. No suspicious lytic or blastic abnormality. SOFT TISSUES: Unremarkable. No discrete abdominal or pelvic wall hernia. VASCULATURE: Unremarkable. Abdominal aorta is non-dilated. LYMPH NODES: Unremarkable. No enlarged lymph nodes. TUBES, LINES AND DEVICES: Pigtail drainage catheter has been placed into a gas and fluid collection in the upper abdomen. This is totally resolved a trace 8 mm fluid collection persisting. CT/Abdomen/Pelvis WITH Contrast IMPRESSION: 1. Placement of pigtail drainage catheter in a upper abdominal abscess which is essentially totally resolved. 2. Dilated fluid-filled loops of small bowel. There are more normal caliber bowel loops seen within the pelvis and this may represent a developing bowel obstruction. Individualized dose optimization techniques were used for this CT. at 1829 Reported and signed by: Rolando Bearden MD Electronically Signed: Rolando Bearden MD at 18:28 EDT Tel , Service support ,
--- NOTE | 2021-05-27 15:40 | EDS_ITS ---
HPI HPI - GI History of Present Illness Chief Complaint: Abd Pain Narrative Narrative: 40-year-old female with history of ruptured appendicitis on 02 May. Patient returned to [place] ED after being transferred to [facility] for having a postoperative pain. At this point she was returned back to [facility]. Apparently she developed postoperative abscess and had a drain placed. She was in the hospital until the . Patient has been home a few days and is complaining of worsening pain. She complains of drainage out of her surgical drain which is purulent. She has increasing pain. She denies fever. She states that she had talked to the nursing at [facility] and was told to come to the ER however she has been waiting for a couple of days. She was unable to obtain a ride to [facility]. [facility] Medical History (Updated 05/27/21 @ 16:09 by Tien Reddy) Cervical cancer Epilepsy Nicotine dependence Smoker Solitary pulmonary nodule Home Medications clonazepam 1 mg PO TID 06/27/19 [History Last Taken 04/26/21] lamotrigine 200 mg PO BID 07/30/19 [History Last Taken 04/26/21] albuterol sulfate 1 puff INHALATION Q6H PRN 11/21/19 [History Last Taken Unknown] lamotrigine 200 mg PO QHS 04/27/21 [History Last Taken 04/26/21] zolpidem 10 mg PO QHS 04/27/21 [History Last Taken 04/26/21] lorazepam [Ativan] 1 mg PO PRN PRN 04/29/21 [History Last Taken Unknown] cephalexin 500 mg PO BID 05/27/21 [History Last Taken Unknown] metronidazole 500 mg PO BID 05/27/21 [History Last Taken Unknown] ondansetron HCl 4 mg PO Q8H PRN PRN 05/27/21 [History Last Taken Unknown] Allergy/AdvReac Type Severity Reaction Status Date / Time amoxicillin Allergy Hives Verified 05/27/21 15:25 divalproex sodium Allergy Hives Verified 05/27/21 15:25 [From Depakote] levetiracetam [From Keppra] Allergy Hives Verified 05/27/21 15:25 metoclopramide [From Reglan] Allergy Hives Verified 05/27/21 15:25 ondansetron [From Zofran] Allergy Hives Verified 05/27/21 15:25 tramadol Allergy Angioedema Verified 05/27/21 15:25 TAPE AdvReac Rash Uncoded 05/27/21 15:25 Surgical History History of appendectomy History of cholecystectomy History of hysterectomy History of tonsillectomy and adenoidectomy Social History household members: none Smoking Status: Current every day smoker tobacco type: cigarettes alcohol intake: never substance use type: other details: Had used medical marijuana prior, has not used for some time now. ROS ROS ED Constitutional Constitutional ED: Reports chills; Denies fever(s) ENT ENT ED: Denies rhinorrhea or sore throat Cardiovascular Cardiovascular: Denies chest pain or palpitations Respiratory/Chest Respiratory/Chest: Denies cough, dyspnea or sputum Gastrointestinal Gastrointestinal: Reports abdominal pain, nausea and vomiting Genitourinary Genitourinary ED: Denies dysuria or hematuria Musculoskeletal Musculoskeletal: Denies arthralgias, back pain, myalgias or neck pain Integumentary Denies abscess or rash Neurologic Neurologic: Denies headache(s) or paresthesias Psychiatric Psychiatric: Denies anxiety or depression EXAM Physical Exam Const Vital Signs: 05/27/21 15:21 05/27/21 16:08 05/27/21 18:23 Temperature 98.2 F 98.3 F 98.2 F Temperature Source Temporal Temporal Temporal Pulse Rate 79 75 71 Respiratory Rate 14 15 15 Blood Pressure 114/82 H 97/72 100/74 Blood Pressure Mean 92 80 82 Pulse Ox 95 98 97 Oxygen Delivery Method Room Air Room Air Room Air 05/27/21 19:53 Temperature 98.5 F Temperature Source Temporal Pulse Rate 59 L Respiratory Rate 18 Blood Pressure 98/72 Blood Pressure Mean 80 Pulse Ox Oxygen Delivery Method Positive cachectic General Appearance ED: cachectic and NAD Nutritional Appearance: cachectic HEENT Reports moist mucous membranes normocephalic and atraumatic Eyes PERRL and EOMs intact bilaterally General Eye ED: Negative for pale conjunctiva or scleral icterus Resp normal respiratory effort and clear to auscultation bilaterally Cardio regular rate, regular rhythm and no murmurs GI GI Narrative: There is a drain coming from the mid abdomen with purulent drainage in the tubing. Abdomen is tenderness to palpation around this. There is no cellulitic change of the abdomen. Extremity full ROM General Extremety ED: Negative for edema General Extremity: Negative for edema Neuro Sensorium / Orientation: alert and oriented to person Psych mental status grossly normal and thought process normal Skin General Skin Exam: Negative for jaundice Lesions: no lesions Rashes: no rashes MDM MDM MDM Narrative Medical decision making narrative: Patient presenting with abdominal pain and is status post appendectomy which was ruptured. Patient also had development of an abscess in her abdomen which has a surgical drain in it. Patient states she has been calling the nurses line for 3 days and has not gone to the ED. She states that she cannot get to [place] because she does not have transport. Patient's vital signs are stable and she is afebrile. On examination she has diffuse generalized tenderness. CBC shows a white blood cell count of 5.9, hemoglobin 13.6, hematocrit 42.6, platelets of 75. LFTs are normal with exception of a mildly elevated alk phos at 122. Lipase normal. Renal function and electrolytes are normal. Urinalysis negative for infection. CT of the abdomen and pelvis with p.o. and IV contrast shows near resolution of the previous abscess with a drain in place. There is purulent drainage in the drain. Patient's CT was read as possible early developing obstruction. I discussed this with Dr. Villareal at [facility] who is on-call for surgery. She did accept ED to ED transfer. Patient counseled on findings and required multiple doses of pain medication. She did get morphine and 2 doses of fentanyl. She was given Zofran x2. Patient will be signed out to incoming ED physician for monitoring until transfer. Impression: 1. Abdominal pain 2. Developing bowel obstruction 3. History of perforated appendicitis 4. History of abdominal abscess Lab Data Attestation: I reviewed the patient's lab results. Labs: Laboratory Results - last 24 hr 05/27/21 05/27/21 05/27/21 15:59 15:59 20:00 WBC 5.9 RBC 4.35 Hgb 13.6 Hct 42.6 MCV 97.9 MCH 31.3 MCHC 31.9 L RDW Std Deviation 46.1 H RDW Coeff of José Miguel 12.9 Plt Count 675 H MPV 8.0 Immature Gran % (Auto) 0.500 Neut % (Auto) 59.1 Lymph % (Auto) 26.8 [place] % (Auto) 9.2 Eos % (Auto) 3.4 Baso % (Auto) 1.0 Absolute Neuts (auto) 3.5 Absolute Lymphs (auto) 1.57 Nucleated RBC % 0 Sodium 137 Potassium 3.8 Chloride 103 Carbon Dioxide 27.0 Anion Gap 7 BUN 9 Creatinine 0.85 Estim Creat Clear Calc 62.05 Est GFR (MDRD) Af Amer 96 Est GFR (MDRD) Non-Af 79 BUN/Creatinine Ratio 10.6 Glucose 87 Calcium 8.8 Total Bilirubin 0.20 AST 28 ALT 21 Alkaline Phosphatase 122 H Total Protein 7.9 Albumin 3.0 L Globulin 4.9 H Albumin/Globulin Ratio 0.6 L Lipase 250 Urine Color Yellow Urine Clarity Clear Urine pH 7.0 Ur Specific [place] 1.005 Urine Protein Negative Urine Glucose (UA) Normal Urine Ketones Negative Urine Occult Blood 250 H Urine Nitrite Negative Urine Bilirubin Negative Urine Urobilinogen Normal Ur Leukocyte Esterase Negative Urine RBC 10-25 SEEN Urine WBC 0 SEEN Ur Squamous Epith Cells 0-5 SEEN Urine Bacteria 0 SEEN Urine Mucus 0 SEEN Radiography Diagnostic Testing: Radiology Impression Abdomen/Pelvis CT 05/27/21 15:38 IMPRESSION: 1. Placement of pigtail drainage catheter in a upper abdominal abscess which is essentially totally resolved. 2. Dilated fluid-filled loops of small bowel. There are more normal caliber bowel loops seen within the pelvis and this may represent a developing bowel obstruction. Individualized dose optimization techniques were used for this CT. at 1829 Reported and signed by: Rolando Bearden MD Electronically Signed: Rolando Bearden MD at 18:28 EDT Tel , Service support , Discharge Plan Triage Chief Complaint: Abd Pain ED Provider: Marco Cyr Dx/Rx/DC Orders Prescriptions: No Action clonazepam 1 MG tablet 1 mg PO TID RF: 0 lamotrigine 200 MG tablet 200 mg PO BID RF: 0 albuterol sulfate 8.5 GM HFA aerosol inhaler 1 puff inhalation Q6H PRN (Reason: Wheezing) RF: 0 lamotrigine 200 mg tablet extended release 24hr 200 mg PO QHS RF: 0 zolpidem 10 mg tablet 10 mg PO QHS RF: 0 lorazepam [Ativan] 1 mg tablet 1 mg PO PRN PRN (Reason: Seizure Activity) RF: 0 ondansetron HCl 4 mg tablet 4 mg PO Q8H PRN PRN (Reason: Nausea) RF: 0 metronidazole 500 mg tablet 500 mg PO BID RF: 0 cephalexin 500 mg capsule 500 mg PO BID RF: 0 Primary Care Provider: Robb Jeffreis NP
[2021-05-27] MEDS: Ondansetron 4 MG/2 ML Vial IV ×2 (16:05→21:56)
[2021-05-27] MEDS: Morphine 4 MG/ML Syringe IV (16:05)
[2021-05-27 16:06] LABS: Absolute Lymphocyte Count 1.57 X10^3/uL (0.83-4.51); Absolute Neutrophil Count 3.5 X10^3/uL (2.0-7.7); Basophil# 0.06 X10^3/uL; Eosinophils% 3.4 % (0-5); Hematocrit 42.6 % (37-47); Hemoglobin 13.6 g/dL (12.0-15.0); Lymphocyte # 1.57 X10^3/ul (0.83-4.51); Lymphocyte % 26.8 % (19-41); Mean Corp Hgb Conc 31.9 g/dL (32-36); Mean Corpuscular Hgb 31.3 pg (27.0-32.0); Mean Corpuscular Volume 97.9 fL (81-99); Monocyte# 0.54 X10^3/uL; Monocyte% 9.2 % (0-10); NRBC Flagged by Analyzer 0 % (0-5); Neutrophil # 3.46 X10^3/uL (2.7-7.7); Neutrophil % 59.1 % (47-70); Platelet Count 675 K/mm3 (150-450); RBC Distribution Width CV 12.9 % (11.6-14.6); RBC Distribution Width SD 46.1 fl (35.1-43.9); Red Blood Count 4.35 M/mm3 (4.2-5.4); White Blood Count 5.9 K/mm3 (4.4-11.0)
[2021-05-27] MEDS: 0.9% Normal Saline 1,000 ML 999 ML IV ×2 (16:06→20:04)
[2021-05-27 16:08] VITALS: BP 97/72; PULSE 75; RESP 15; TEMP 36.8; O2SAT 98
[2021-05-27 16:23] LABS: ALB/GLOB Ratio 0.6 RATIO (0.9-2.4); AST(SGOT) 28 U/L (15-37); Alanine Aminotransfer ALT/SGPT 21 U/L (13-56); Alkaline Phosphatase 122 U/L (45-117); Anion Gap 7 (5-15); BUN 9 mg/dL (7-18); BUN/Creat Ratio 10.6 RATIO (10-20); Calcium,Total 8.8 mg/dL (8.5-10.1); Chloride 103 mmol/L (98-107); Creatinine, Serum 0.85 mg/dL (0.55-1.02); EST Glomerular Filtration Rate 79 mL/min (>60); Est Glom Filt Rate - Afr Amer 96 mL/min (>60); Estimated Creatinine Clearance 62.05 ml/min; Globulin 4.9 g/dL (2.2-4.2); Glucose 87 mg/dL (74-106); Lipase 250 U/L (73-393); Potassium 3.8 mmol/L (3.5-5.1); Protein, Total 7.9 g/dL (6.4-8.2); Sodium Level 137 mmol/L (136-145)
[2021-05-27] MEDS: fentaNYL 100 MCG/2 ML Ampul 50 MCG IV ×3 (18:15→21:56)
[2021-05-27 18:23] VITALS: BP 100/74; PULSE 71; RESP 15; TEMP 36.8; O2SAT 97
--- NOTE | 2021-05-27 19:23 | ED.RN ---
CALLED FOR TRANSPORT TO [facility] ER, ETA OF 2 - 3 HRS, OUTSOURCE IF POSSIBLE
[2021-05-27 19:53] VITALS: BP 98/72; PULSE 59; RESP 18; TEMP 36.9
[2021-05-27 20:07] LABS: Bacteria 0 SEEN /hpf (None Seen); Mucous, Urine 0 SEEN /hpf (<or=2+); White Blood Cells 0 SEEN /hpf (0-5)
[2021-05-27 20:09] LABS: Color, Urine Yellow (Yellow); Glucose, Dipstick Normal (Normal); Ketone-Dipstick Negative (Negative); Leukocyte Esterase-Dipstick Negative /ul (Negative); Nitrite-Dipstick Negative (Negative); Occult Blood-Urine 250 /ul (Negative); Protein-Dipstick Negative (Negative); Specific Gravity, Urine 1.005 (1.002-1.030); Urine Bilirubin Dipstick Negative (Negative); Urine Clarity Clear (Clear); Urine Urobilinogen Normal (Normal)
[2021-05-27 20:19] LABS: Red Blood Cells-Urine 10-25 SEEN /hpf (0-5)
[2021-05-27 20:20] LABS: Squamous Epithelial Cells - UA 0-5 SEEN /hpf (5-10)
[2021-05-27 22:09] VITALS: BP 98/67; PULSE 61; RESP 15; TEMP 36.9; O2SAT 97
[2021-05-27 22:11] VITALS: BP 96/65; PULSE 61; RESP 15; O2SAT 97
== END 2021-05-27 22:13 | disposition short-term general hospital (02) ==
LOC: ED 15:41
PROVIDERS: Emergency Provider Student in an Organized Health Care Education/Training Program; PCP Nurse Practitioner Primary Care
DX: K56.609 Unspecified intestinal obstruction, unspecified as to partial versus complete obstruction (principal); G40.909 Epilepsy, unspecified, not intractable, without status epilepticus; Z87.2 Personal history of diseases of the skin and subcutaneous tissue; Z87.19 Personal history of other diseases of the digestive system; Z85.41 Personal history of malignant neoplasm of cervix uteri; Z90.49 Acquired absence of other specified parts of digestive tract; Z79.899 Other long term (current) drug therapy; F17.210 Nicotine dependence, cigarettes, uncomplicated
CPT/HCPCS: 74177; 80053; 81001; 83690; 85025; 96361; 96374; 96375; 96376; 99285; J7030; Q9967; A4216; J2405

== ENCOUNTER 2021-06-05 11:16 | Emergency (ER) | payer MEDICARE, MEDICAID, SELFPAY ==
[2021-06-05 11:17] VITALS: BP 106/87; PULSE 129; RESP 15; TEMP 36.4; O2SAT 98; BMI 15.2
[2021-06-05 11:20] VITALS: BP 106/87; PULSE 129; RESP 15; TEMP 36.4; O2SAT 98
--- NOTE | 2021-06-05 11:34 | ED.VIS.GI ---
HPI HPI - GI History of Present Illness Chief Complaint: Nausea/Vomiting Informant: patient Narrative Narrative: This patient comes in with abdominal pain nausea vomiting unable to tolerate anything p.o. This she has had a complex course from appendicitis. She reports that she had a appendicitis with perforation about 1 month ago. She had surgery. She went home. She then developed some postoperative abscesses that required drainage. She ended up having repeat surgery and drains placed. She then sounds like she went home and came back in with nausea vomiting and bowel obstructions. They did not do surgery again. She just left the hospital 3 days ago. She was tolerating some water at that time. However, since going home she cannot keep anything down. She has abdominal pain across the lower abdomen which she has had for a while but it is coming up a little bit higher to the left. Her urination is decreased in volume. She cannot tolerate even fluids. Denies fevers. No opening of incisions. She has no drains in at this time. She denies chest pain or breathing. No congestion. All her surgeries and visits have been up at [facility]. [facility] Medical History Cervical cancer Epilepsy Nicotine dependence Smoker Solitary pulmonary nodule Home Medications clonazepam 1 mg PO TID 06/27/19 [History Last Taken 04/26/21] lamotrigine 200 mg PO BID 07/30/19 [History Last Taken 04/26/21] albuterol sulfate 1 puff INHALATION Q6H PRN 11/21/19 [History Last Taken Unknown] lamotrigine 200 mg PO QHS 04/27/21 [History Last Taken 04/26/21] zolpidem 10 mg PO QHS 04/27/21 [History Last Taken 04/26/21] lorazepam [Ativan] 1 mg PO PRN PRN 04/29/21 [History Last Taken Unknown] Allergy/AdvReac Type Severity Reaction Status Date / Time amoxicillin Allergy Hives Verified 06/05/21 11:20 divalproex sodium Allergy Hives Verified 06/05/21 11:20 [From Depakote] levetiracetam [From Keppra] Allergy Hives Verified 06/05/21 11:20 metoclopramide [From Reglan] Allergy Hives Verified 06/05/21 11:20 ondansetron [From Zofran] Allergy Hives Verified 06/05/21 11:20 tramadol Allergy Angioedema Verified 06/05/21 11:20 TAPE AdvReac Rash Uncoded 06/05/21 11:20 Surgical History History of appendectomy History of cholecystectomy History of hysterectomy History of tonsillectomy and adenoidectomy Social History household members: none Smoking Status: Current every day smoker tobacco type: cigarettes alcohol intake: never substance use type: other details: Had used medical marijuana prior, has not used for some time now. ROS ROS ED Constitutional Constitutional ED: Reports weight loss; Denies chills, fever(s), subjective or sweats ENT ENT ED: Denies rhinorrhea or sore throat Cardiovascular Cardiovascular: Denies chest pain Respiratory/Chest Respiratory/Chest: Denies cough, dyspnea or sputum Gastrointestinal Gastrointestinal: Reports abdominal pain, nausea, vomiting and other Details: Patient has not had a bowel movement for a while but she also has not eaten. ; Denies diarrhea or melena Genitourinary Genitourinary ED: Reports other Details: No dysuria or hematuria. Volume is significantly down. Musculoskeletal Musculoskeletal: Denies back pain Integumentary Denies rash Neurologic Neurologic: Denies headache(s) or paresthesias Hematologic/Lymphatic Hematologic/Lymphatic: Denies easy bleeding or easy bruising Allergic/Immunologic Allergic/Immunologic ED: Denies mouth swelling or urticaria EXAM Physical Exam Const Vital Signs: 06/05/21 11:17 06/05/21 11:20 06/05/21 12:41 Temperature 97.6 F L 97.6 F L 98.1 F Temperature Source Oral Oral Oral Pulse Rate 129 H 129 H 112 H Respiratory Rate 15 15 22 H Blood Pressure 106/87 H 106/87 H 98/71 Blood Pressure Mean 93 93 80 Pulse Ox 98 98 95 Oxygen Delivery Method Room Air Room Air Room Air Patient looks thin, ill. She is awake and alert. She has significant protein/muscle loss. Her mucous membranes are dry. She is tachycardic. Positive cachectic General Appearance ED: cachectic Nutritional Appearance: cachectic HEENT Reports dry mucous membranes HEENT Narrative: Muscle wasting. Mouth ED: Yes dry mucous membranes Mouth: dry mucous membranes Eyes EOMs intact bilaterally Resp normal respiratory effort and clear to auscultation bilaterally Cardio regular rhythm; Negative for regular rate Rate: tachycardic GI non-distended GI Narrative: Incisions look well-healed. Abdomen is not distended. Bowel sounds are quiet but still present. She has some mild tenderness but nothing significant. She has no guarding or rebound. Palpation: soft Back/Spine no CVA tenderness Extremity full ROM Neuro Sensorium / Orientation: alert and oriented to person Psych mental status grossly normal Skin Lesions: no lesions Rashes: no rashes MDM MDM MDM Narrative Medical decision making narrative: Patient's recheck. Her blood pressure is just a little bit down but not markedly. Her heart rate is down she looks better. However she still has nausea. Her blood work shows normal white count. Hemoglobin is 14 at the higher end. Labs show a doubling of her BUN but her creatinine is still normal at 0.95. With a normal creatinine we have ordered a CT scan of the abdomen. Her potassium and sodium are both a little bit low. LFTs are similar to prior. Lipase is negative. Patient's lactate is pending. This patient has had a complex course for the last month. She has been out of the hospital for a few days and really cannot eat or drink. She will need to come back in the hospital. Since all her surgery and care has been at [facility] that is the best spot for her for continuity of care. I have called the [facility] transfer line. I have given them all the information. They are going to call back so I can speak to Dr. Lindsay who did the surgery or the covering physician. I discussed the case with Dr. Lindsay who knows this patient quite well. The patient actually was not discharged Tuesday. She left AMA as she has done on several other visits. She evidently did not have an appendicitis but she had a bowel perforation of uncertain origin but did have pneumoperitoneum. I do not have her CAT scan results back yet. Plan will be to transfer her up to [facility] with Dr. Lindsay excepting. Lab Data Attestation: I reviewed the patient's lab results. Labs: Laboratory Results - last 24 hr 06/05/21 06/05/21 12:20 12:20 WBC 9.0 RBC 4.56 Hgb 14.6 Hct 41.3 MCV 90.6 MCH 32.0 MCHC 35.4 RDW Std Deviation 41.7 RDW Coeff of José Miguel 12.6 Plt Count 475 H MPV 9.4 Immature Gran % (Auto) 0.300 Neut % (Auto) 69.0 Lymph % (Auto) 20.0 [place] % (Auto) 8.9 Eos % (Auto) 1.2 Baso % (Auto) 0.6 Absolute Neuts (auto) 6.2 Absolute Lymphs (auto) 1.81 Nucleated RBC % 0 Sodium 128 L Potassium 3.2 L Chloride 84 L Carbon Dioxide 31.0 Anion Gap 13 BUN 18 Creatinine 0.95 Estim Creat Clear Calc 50.46 Est GFR (MDRD) Af Amer 84 Est GFR (MDRD) Non-Af 70 BUN/Creatinine Ratio 18.9 Glucose 92 Calcium 9.4 Total Bilirubin 1.00 AST 29 ALT 22 Alkaline Phosphatase 201 H Total Protein 8.6 H Albumin 3.8 Globulin 4.8 H Albumin/Globulin Ratio 0.8 L Lipase 203 Discharge Plan Triage Chief Complaint: Nausea/Vomiting ED Provider: Ceasar Hollis Dx/Rx/DC Orders Clinical Impression: Abdominal pain, Intractable nausea and vomiting Prescriptions: No Action clonazepam 1 MG tablet 1 mg PO TID RF: 0 lamotrigine 200 MG tablet 200 mg PO BID RF: 0 albuterol sulfate 8.5 GM HFA aerosol inhaler 1 puff inhalation Q6H PRN (Reason: Wheezing) RF: 0 lamotrigine 200 mg tablet extended release 24hr 200 mg PO QHS RF: 0 zolpidem 10 mg tablet 10 mg PO QHS RF: 0 lorazepam [Ativan] 1 mg tablet 1 mg PO PRN PRN (Reason: Seizure Activity) RF: 0 Primary Care Provider: oRbb Jeffries NP Referrals: Robb Jeffries NP, [employer]AREER AND TECH[employer]UC[employer]ER[employer] [Primary Care Provider] - Disposition Disposition: Acute Care Hospital Discharge Location: [facility]
[2021-06-05] MEDS: 0.9% Normal Saline 1,000 ML 1000 ML IV (12:32)
[2021-06-05 12:33] LABS: Absolute Lymphocyte Count 1.81 X10^3/uL (0.83-4.51); Absolute Neutrophil Count 6.2 X10^3/uL (2.0-7.7); Basophil# 0.05 X10^3/uL; Basophil% 0.6 % (0-1); Eosinophil# 0.11 X10^3/uL; Eosinophils% 1.2 % (0-5); Hematocrit 41.3 % (37-47); Hemoglobin 14.6 g/dL (12.0-15.0); Lymphocyte # 1.81 X10^3/ul (0.83-4.51); Mean Corp Hgb Conc 35.4 g/dL (32-36); Mean Corpuscular Volume 90.6 fL (81-99); Mean Platelet Vol. 9.4 fl (6.2-12.0); Monocyte% 8.9 % (0-10); NRBC Flagged by Analyzer 0 % (0-5); Neutrophil # 6.23 X10^3/uL (2.7-7.7); Platelet Count 475 K/mm3 (150-450); RBC Distribution Width CV 12.6 % (11.6-14.6); RBC Distribution Width SD 41.7 fl (35.1-43.9); Red Blood Count 4.56 M/mm3 (4.2-5.4)
[2021-06-05] MEDS: Morphine 2 MG/ML Syringe IV ×2 (12:35→14:05)
[2021-06-05 12:41] VITALS: BP 98/71; PULSE 112; RESP 22; TEMP 36.7; O2SAT 95
[2021-06-05] MEDS: proMETHazine 25 MG/ML Syringe 12.5 MG IM (12:41)
--- NOTE | 2021-06-05 12:46 | CT_ITS ---
EXAM: CT ABDOMEN AND PELVIS WITH INTRAVENOUS CONTRAST : 1980 CLINICAL INDICATION: abd pain -- Hold until we know patient's creatinine. TECHNIQUE: Helically acquired images were obtained of the abdomen and pelvis with intravenous contrast. This CT exam was performed using one or more of the following dose reduction techniques: automated exposure control, adjustment of the mA and/or kV according to patient size, and/or use of iterative reconstruction technique. This report was created using [employer] report generation technology. CONTRAST: IV 75ML ISOVUE 300 COMPARISON: 05/27/2021 FINDINGS: LOWER THORAX: Unremarkable. Lung bases are clear. No cardiomegaly. No significant pericardial effusion. ABDOMEN: LIVER: Unremarkable. Homogeneous. No focal mass. GALLBLADDER AND BILE DUCTS: There are surgical clips from a cholecystectomy. No intra- or extrahepatic biliary ductal dilation. PANCREAS: Unremarkable. No focal cystic or solid mass. SPLEEN: Unremarkable. Normal size without focal cystic or solid mass. ADRENALS: Unremarkable. No nodules. KIDNEYS AND URETERS: Unremarkable. Normal renal size and position. No hydronephrosis. STOMACH AND BOWEL: There are dilated fluid-filled loops of small bowel proximally with normal caliber bowel loops distally compatible with a mechanical obstruction. Transition point is not well-visualized. No focal inflammatory change. PELVIS: APPENDIX: No evidence of acute appendicitis. BLADDER: Unremarkable. REPRODUCTIVE: Unremarkable as visualized. No mass. ABDOMEN and PELVIS: INTRAPERITONEAL SPACE: Unremarkable. No ascites or other fluid collection. No free air. BONES/JOINTS: Unremarkable. No suspicious lytic or blastic abnormality. SOFT TISSUES: Unremarkable. No discrete abdominal or pelvic wall hernia. VASCULATURE: Unremarkable. Abdominal aorta is non-dilated. LYMPH NODES: Unremarkable. No enlarged lymph nodes. CT/Abdomen/Pelvis W IV Cont ONLY IMPRESSION: Dilated fluid-filled loops of small bowel proximally with normal caliber bowel loops distally compatible with a mechanical obstruction. Transition point is not well-visualized. Individualized dose optimization techniques were used for this CT. at 1506 Reported and signed by: Rolando Bearden MD Electronically Signed: Rolando Bearden MD at 15:05 EDT Tel , Service support ,
[2021-06-05 12:49] LABS: ALB/GLOB Ratio 0.8 RATIO (0.9-2.4); AST(SGOT) 29 U/L (15-37); Alanine Aminotransfer ALT/SGPT 22 U/L (13-56); Albumin, Serum 3.8 g/dL (3.2-5.0); Alkaline Phosphatase 201 U/L (45-117); Anion Gap 13 (5-15); BUN 18 mg/dL (7-18); BUN/Creat Ratio 18.9 RATIO (10-20); Calcium,Total 9.4 mg/dL (8.5-10.1); Chloride 84 mmol/L (98-107); Creatinine, Serum 0.95 mg/dL (0.55-1.02); EST Glomerular Filtration Rate 70 mL/min (>60); Est Glom Filt Rate - Afr Amer 84 mL/min (>60); Estimated Creatinine Clearance 50.46 ml/min; Globulin 4.8 g/dL (2.2-4.2); Glucose 92 mg/dL (74-106); Lipase 203 U/L (73-393); Potassium 3.2 mmol/L (3.5-5.1); Protein, Total 8.6 g/dL (6.4-8.2); Sodium Level 128 mmol/L (136-145)
[2021-06-05 14:46] VITALS: BP 104/79; PULSE 99; RESP 18; O2SAT 97
== END 2021-06-05 15:37 | disposition short-term general hospital (02) ==
PROVIDERS: Emergency Provider Emergency Medicine; PCP Nurse Practitioner Primary Care
DX: R11.2 Nausea with vomiting, unspecified (principal); R10.9 Unspecified abdominal pain; F17.210 Nicotine dependence, cigarettes, uncomplicated; G40.909 Epilepsy, unspecified, not intractable, without status epilepticus; Z90.49 Acquired absence of other specified parts of digestive tract; Z90.710 Acquired absence of both cervix and uterus; Z85.41 Personal history of malignant neoplasm of cervix uteri; Z79.899 Other long term (current) drug therapy
CPT/HCPCS: 74177; 80053; 83690; 85025; 96361; 96372; 96374; 96375; 96376; 99283; J7030; Q9967

== ENCOUNTER 2021-07-13 12:49 | Emergency (ER) | payer MEDICARE, MEDICAID, SELFPAY ==
[2021-07-13 12:51] VITALS: BP 106/95; PULSE 102; RESP 18; TEMP 36.4; O2SAT 97; BMI 17.2
--- NOTE | 2021-07-13 13:00 | RAD_ITS ---
STUDY: X-RAY CHEST REASON FOR EXAM: Female, 41 years old. CONSTIPATION TECHNIQUE: Single AP portable view of the chest. COMPARISON: Comparison is made with prior study dated 05/15/2021. FINDINGS: Hyperinflation. The lungs are clear. There is no demonstrated pleural abnormality. Normal size heart. Normal mediastinum and kailyn. There is prominence of the pulmonary hilar arteries without peripheral pulmonary vascular congestion, suggesting pulmonary hypertension. Normal visualized aortic arch and descending thoracic aorta. Normal visualized thoracic spine. Normal visualized ribs, clavicles, and shoulders. There is evidence of prior cholecystectomy. RAD/Chest 1 View IMPRESSION: Hyperinflation. The lungs are clear. Electronically Signed: Fazal Osorio MD at 14:47 EDT , Service support ,
[2021-07-13 13:26] LABS: Absolute Lymphocyte Count 1.98 X10^3/uL (0.83-4.51); Absolute Neutrophil Count 2.9 X10^3/uL (2.0-7.7); Basophil# 0.06 X10^3/uL; Basophil% 1.1 % (0-1); Eosinophil# 0.14 X10^3/uL; Eosinophils% 2.6 % (0-5); Hematocrit 46.5 % (37-47); Hemoglobin 15.5 g/dL (12.0-15.0); Lymphocyte # 1.98 X10^3/ul (0.83-4.51); Lymphocyte % 36.1 % (19-41); Mean Corp Hgb Conc 33.3 g/dL (32-36); Mean Corpuscular Hgb 31.1 pg (27.0-32.0); Mean Corpuscular Volume 93.2 fL (81-99); Mean Platelet Vol. 9.5 fl (6.2-12.0); Monocyte# 0.42 X10^3/uL; Monocyte% 7.7 % (0-10); NRBC Flagged by Analyzer 0 % (0-5); Neutrophil # 2.88 X10^3/uL (2.7-7.7); Neutrophil % 52.3 % (47-70); POSITIVE COUNT YES; Platelet Count 285 K/mm3 (150-450); RBC Distribution Width CV 13.2 % (11.6-14.6); RBC Distribution Width SD 45.5 fl (35.1-43.9); Red Blood Count 4.99 M/mm3 (4.2-5.4); White Blood Count 5.5 K/mm3 (4.4-11.0)
[2021-07-13 13:38] LABS: Internal QC Validated? YES +Cl - CLEAR BKGD; Pregnancy, Serum, hCG Quali. NEGATIVE Negative
[2021-07-13 13:48] LABS: Anion Gap 7 (5-15); BUN 12 mg/dL (7-18); BUN/Creat Ratio 15.8 RATIO (10-20); Calcium,Total 9.7 mg/dL (8.5-10.1); Chloride 102 mmol/L (98-107); Creatinine, Serum 0.76 mg/dL (0.55-1.02); EST Glomerular Filtration Rate 90 mL/min (>60); Est Glom Filt Rate - Afr Amer 109 mL/min (>60); Estimated Creatinine Clearance 71.16 ml/min; Glucose 80 mg/dL (74-106); Potassium 4.8 mmol/L (3.5-5.1); Sodium Level 135 mmol/L (136-145)
[2021-07-13 13:50] LABS: Differential Indicated SCAN CRITERIA MET
[2021-07-13 15:22] LABS: Bacteria 0 SEEN /hpf (None Seen); Mucous, Urine 0 SEEN /hpf (<or=2+); Red Blood Cells-Urine 0 SEEN /hpf (0-5); Squamous Epithelial Cells - UA 0 SEEN /hpf (5-10); White Blood Cells 0 SEEN /hpf (0-5)
--- NOTE | 2021-07-13 15:24 | CT_ITS ---
STUDY: CT ABDOMEN AND PELVIS WITH CONTRAST REASON FOR EXAM: Female, 41 years old. Abdominal pain. RADIATION DOSAGE (If Supplied By Facility): CTDIvol = ( 20.49 ) mGy, DLP = ( 220.92 ) mGycm TECHNIQUE: Transaxial images were obtained from the dome of the diaphragm to the symphysis pubis without oral contrast. IV 100mL Isovue-370 was administered. Sagittal and coronal images were reconstructed. Individualized dose optimization techniques were used for this CT. COMPARISON: 06/05/2021. FINDINGS: The visualized lung bases are unremarkable. The visualized portions of the heart are within normal limits. The liver is large but otherwise unremarkable. There are surgical clips in the gallbladder fossa consistent with a prior cholecystectomy. Normal spleen. Normal pancreas. Normal bilateral adrenal glands. Normal right kidney. Normal left kidney. Normal visualized stomach. There is scattered loops of distended fluid-filled small bowel. There is no evidence of transition point. Air and feces is seen throughout the colon without mass or obstruction There is non-visualization of the appendix. Normal abdominal aorta. Normal inferior vena cava. Normal retroperitoneum. Normal urinary bladder. Unremarkable vaginal cuff. No pelvic lymphadenopathy. No free air or free fluid is seen within the cavity. Midline abdominal surgical scar Normal osseous structures. CT/Abdomen/Pelvis W IV Cont ONLY IMPRESSION: 1. Mild hepatomegaly without mass. 2. Decrease in small bowel distention when compared with study of June 05. Mildly distended small bowel loops remain. 3. No other major interval change. Electronically Signed: Phu Bach DO at 16:55 EDT Tel [phone], Service support ,
--- NOTE | 2021-07-13 15:26 | EDS_ITS ---
HPI HPI - GI History of Present Illness Chief Complaint: Abd Pain Informant: patient Narrative Narrative: Increasing abdominal distention pain nausea vomiting for the past 5 days. Status post laparotomy x2 over the last couple months. Reported ruptured appendicitis May 02 surgery done at [facility] by Dr. Lindsay. Subsequent multiple abscesses in the abdomen with an epigastric drain tube. She states later developed bowel obstruction at the end of April NG tube for 2 weeks, no improvement therefore additional laparotomy performed on June 07. She was discharged June 17. She did not go to rehab. She was doing well up to 5 days ago. No bowel movement since 4 days ago when she use MiraLAX. She states no flatus for a week. She contacted surgery office Tuesday was told to go the ED however she waited out over the weekend. She had Phenergan suppositories for which she has been using last dose this morning in order to take her seizure medications. She states this feels similar to her obstructions. Reported occasional subjective fevers and a smoker's cough. Total hysterectomy in the past. Cholecystectomy in the past. Prior similar symptoms: Yes PFSH PFSH Medical History Cervical cancer Epilepsy Nicotine dependence Smoker Solitary pulmonary nodule Home Medications clonazepam 1 mg PO TID 06/27/19 [History Last Taken 04/26/21] lamotrigine 200 mg PO BID 07/30/19 [History Last Taken 04/26/21] albuterol sulfate 1 puff INHALATION Q6H PRN 11/21/19 [History Last Taken Unknown] lamotrigine 200 mg PO QHS 04/27/21 [History Last Taken 04/26/21] zolpidem 10 mg PO QHS 04/27/21 [History Last Taken 04/26/21] lorazepam [Ativan] 1 mg PO PRN PRN 04/29/21 [History Last Taken Unknown] Allergy/AdvReac Type Severity Reaction Status Date / Time amoxicillin Allergy Hives Verified 07/13/21 12:54 divalproex sodium Allergy Hives Verified 07/13/21 12:54 [From Depakote] levetiracetam [From Keppra] Allergy Hives Verified 07/13/21 12:54 metoclopramide [From Reglan] Allergy Hives Verified 07/13/21 12:54 ondansetron [From Zofran] Allergy Hives Verified 07/13/21 12:54 tramadol Allergy Angioedema Verified 07/13/21 12:54 TAPE AdvReac Rash Uncoded 07/13/21 12:54 Surgical History History of appendectomy History of cholecystectomy History of hysterectomy History of tonsillectomy and adenoidectomy Social History household members: none Smoking Status: Current every day smoker tobacco type: cigarettes alcohol intake: never substance use type: other details: Had used medical marijuana prior, has not used for some time now. ROS ROS ED Constitutional Constitutional ED: Reports fever(s); Denies chills or sweats Eyes Eyes: Denies change in vision ENT ENT ED: Denies dysphagia or sore throat Cardiovascular Cardiovascular: Denies chest pain, leg edema, palpitations or racing heartbeat Respiratory/Chest Respiratory/Chest: Reports cough; Denies dyspnea or dyspnea on exertion Gastrointestinal Gastrointestinal: Reports abdominal pain, nausea and vomiting; Denies diarrhea Genitourinary Genitourinary ED: Denies dysuria, hematuria or urinary frequency Musculoskeletal Musculoskeletal: Denies back pain, extremity pain or neck pain Integumentary Denies rash or wounds Neurologic Neurologic: Denies headache(s), paresthesias or weakness EXAM Physical Exam Const Vital Signs: 07/13/21 12:51 07/13/21 16:24 07/13/21 18:01 Temperature 97.6 F L Temperature Source Temporal Pulse Rate 102 H 67 72 Respiratory Rate 18 14 Blood Pressure 106/95 H 119/68 114/82 H Blood Pressure Mean 98 85 92 Pulse Ox 97 100 100 Oxygen Delivery Method Room Air Room Air 07/13/21 18:14 07/13/21 19:11 Temperature Temperature Source Pulse Rate Respiratory Rate Blood Pressure 114/82 H 114/82 H Blood Pressure Mean 92 92 Pulse Ox Oxygen Delivery Method Positive well nourished and well developed General Appearance ED: well developed and NAD HEENT Reports moist mucous membranes normocephalic and atraumatic Eyes PERRL, EOMs intact bilaterally and conjunctivae normal General Eye ED: Yes normal appearance of both eyes Neck no lymphadenopathy and supple General: Negative for tenderness Chest Wall Chest: Negative for tenderness Resp normal respiratory effort and normal air movement Effort and Inspection: symmetric chest movement; Negative for respiratory distress Cardio regular rate, regular rhythm and no murmurs Peripheral Pulses: pulses 2+ throughout GI normal to inspection, nondistended, normoactive bowel sounds GI Narrative: Lower abdominal distention, unable to auscultate bowel sounds. No guarding or rebound. Midline surgical scar. Palpation: Negative for guarding or rebound tenderness present Back/Spine no CVA tenderness and no thoracic nor lumbar tenderness Extremity normal to inspection General Extremety ED: Negative for edema or tenderness General Extremity: Negative for edema Neuro oriented x3 and no sensory deficits noted Sensorium / Orientation: awake and alert Skin no rashes or lesions noted and no wounds MDM MDM MDM Narrative Medical decision making narrative: Patient history recurrent similar symptoms concerning for bowel obstruction. Laboratory studies were normal. Given IV fluids morphine Phenergan IM due to her allergies to Reglan and Zofran. CT scan notes air-fluid levels small bowels however decreased from her last CT from June 05. Reviewing from last scan significant distention and obstruction concerns however she was transferred up to [facility] at that time. With her history concerning for redevelopment of small bowel obstruction and that im proving obstruction. Also reviewing records, from her last transfer there was discussion from ED doctor with her surgeon Dr. Lindsay, reporting it was not a perforated appendicitis, discussed more perforated bowel. Review of records also noted her complications were found here on multiple visits with the abscess and obstructions where she was transferred up to the facility for management. With patient specialist be in [facility] I spoke with transfer line, trauma surgeon there Dr. Amezquita) discussed patient's history, she will be excepted through the emergency department for surgery to see. I spoke with the ED physician Dr. Coffey and updated. NG tube will be placed. She will be kept n.p.o., IV fluids. Lab Data Attestation: I reviewed the patient's lab results. Labs: Laboratory Results - last 24 hr 07/13/21 07/13/21 07/13/21 13:20 13:20 13:20 WBC 5.5 RBC 4.99 Hgb 15.5 H Hct 46.5 MCV 93.2 MCH 31.1 MCHC 33.3 RDW Std Deviation 45.5 H RDW Coeff of José Miguel 13.2 Plt Count 285 MPV 9.5 Immature Gran % (Auto) 0.200 Neut % (Auto) 52.3 Lymph % (Auto) 36.1 [place] % (Auto) 7.7 Eos % (Auto) 2.6 Baso % (Auto) 1.1 H Absolute Neuts (auto) 2.9 Absolute Lymphs (auto) 1.98 Nucleated RBC % 0 Sodium 135 L Potassium 4.8 Chloride 102 Carbon Dioxide 26.0 Anion Gap 7 BUN 12 Creatinine 0.76 Estim Creat Clear Calc 71.16 Est GFR (MDRD) Af Amer 109 Est GFR (MDRD) Non-Af 90 BUN/Creatinine Ratio 15.8 Glucose 80 Calcium 9.7 Total Bilirubin Direct Bilirubin AST ALT Alkaline Phosphatase Total Protein Albumin Globulin Lipase Serum , Qual NEGATIVE Urine Color Urine Clarity Urine pH Ur Specific Young Harris Urine Protein Urine Glucose (UA) Urine Ketones Urine Occult Blood Urine Nitrite Urine Bilirubin Urine Urobilinogen Ur Leukocyte Esterase Urine RBC Urine WBC Ur Squamous Epith Cells Urine Bacteria Urine Mucus 07/13/21 07/13/21 13:20 15:15 WBC RBC Hgb Hct MCV MCH MCHC RDW Std Deviation RDW Coeff of José Miguel Plt Count MPV Immature Gran % (Auto) Neut % (Auto) Lymph % (Auto) [place] % (Auto) Eos % (Auto) Baso % (Auto) Absolute Neuts (auto) Absolute Lymphs (auto) Nucleated RBC % Sodium Potassium Chloride Carbon Dioxide Anion Gap BUN Creatinine Estim Creat Clear Calc Est GFR (MDRD) Af Amer Est GFR (MDRD) Non-Af BUN/Creatinine Ratio Glucose Calcium Total Bilirubin 0.40 Direct Bilirubin 0.10 AST 19 ALT 24 Alkaline Phosphatase 100 Total Protein 9.0 H Albumin 4.4 Globulin 4.6 H Lipase 159 Serum , Qual Urine Color Yellow Urine Clarity Clear Urine pH 7.0 Ur Specific Young Harris 1.010 Urine Protein Negative Urine Glucose (UA) Normal Urine Ketones Negative Urine Occult Blood Negative Urine Nitrite Negative Urine Bilirubin Negative Urine Urobilinogen Normal Ur Leukocyte Esterase Negative Urine RBC 0 SEEN Urine WBC 0 SEEN Ur Squamous Epith Cells 0 SEEN Urine Bacteria 0 SEEN Urine Mucus 0 SEEN Radiography Diagnostic Testing: Radiology Impression Abdomen/Pelvis CT 07/13/21 15:24 IMPRESSION: 1. Mild hepatomegaly without mass. 2. Decrease in small bowel distention when compared with study of June 05. Mildly distended small bowel loops remain. 3. No other major interval change. Electronically Signed: Phu Bach DO at 16:55 EDT Tel [phone], Service support , KUB X-Ray 07/13/21 19:10 IMPRESSION: 1. NG tube as described. 2. Nonspecific bowel gas pattern without obvious obstruction. 3. Contrast within the renal collecting system and urinary bladder secondary to prior CT. Electronically Signed: Phu Bach DO at 20:20 EDT Tel [phone], Service support , Discharge Plan Triage Chief Complaint: Abd Pain ED Provider: Praveen Prather Dx/Rx/DC Orders Clinical Impression: Small bowel obstruction, Abdominal pain Prescriptions: No Action clonazepam 1 MG tablet 1 mg PO TID RF: 0 lamotrigine 200 MG tablet 200 mg PO BID RF: 0 albuterol sulfate 8.5 GM HFA aerosol inhaler 1 puff inhalation Q6H PRN (Reason: Wheezing) RF: 0 lamotrigine 200 mg tablet extended release 24hr 200 mg PO QHS RF: 0 zolpidem 10 mg tablet 10 mg PO QHS RF: 0 lorazepam [Ativan] 1 mg tablet 1 mg PO PRN PRN (Reason: Seizure Activity) RF: 0 Primary Care Provider: Robb Jeffries NP Referrals: Robb Jeffries NP, EMBROIDERY MACHINE OPERATOR-C [Primary Care Provider] - Disposition Disposition: Transfer to Another Type HCF Discharge Location: [facility] Discharge Date/Time: 07/13/21 19:39
[2021-07-13 15:28] LABS: Color, Urine Yellow (Yellow); Glucose, Dipstick Normal (Normal); Ketone-Dipstick Negative (Negative); Leukocyte Esterase-Dipstick Negative /ul (Negative); Nitrite-Dipstick Negative (Negative); Occult Blood-Urine Negative /ul (Negative); Protein-Dipstick Negative (Negative); Urine Bilirubin Dipstick Negative (Negative); Urine Clarity Clear (Clear); Urine Urobilinogen Normal (Normal)
[2021-07-13 16:00] LABS: AST(SGOT) 19 U/L (15-37); Alanine Aminotransfer ALT/SGPT 24 U/L (13-56); Albumin, Serum 4.4 g/dL (3.2-5.0); Alkaline Phosphatase 100 U/L (45-117); Globulin 4.6 g/dL (2.2-4.2); Lipase 159 U/L (73-393)
[2021-07-13] MEDS: 0.9% Normal Saline 1,000 ML 1000 ML IV (16:18)
[2021-07-13] MEDS: Morphine 4 MG/ML Syringe IV ×2 (16:21→17:45)
[2021-07-13] MEDS: proMETHazine 25 MG/ML Syringe 12.5 MG IM (16:22)
[2021-07-13 16:24] VITALS: BP 119/68; PULSE 67; RESP 14; O2SAT 100
[2021-07-13 18:01] VITALS: BP 114/82; PULSE 72; O2SAT 100
[2021-07-13] MEDS: Lidocaine 4% 5 ML Ampul 2 ML INHALATION (18:09)
[2021-07-13] MEDS: Oxymetazoline 0.05% 1 SPRAY SPRAY.BTL 2 SPRAY NASAL (18:12)
[2021-07-13 18:14] VITALS: BP 114/82
[2021-07-13] MEDS: 0.9% Normal Saline 1,000 ML 100 ML IV (19:05)
[2021-07-13] MEDS: fentaNYL 100 MCG/2 ML Ampul 50 MCG IV (19:05)
--- NOTE | 2021-07-13 19:10 | RAD_ITS ---
STUDY: X-RAY - ABDOMEN/PELVIS REASON FOR EXAM: Female, 41 years old. NG tube verification. TECHNIQUE: Single AP view of the abdomen / pelvis. COMPARISON: 05/01/2021. FINDINGS: Normal visualized lung bases. There is enteric tube with its tip overlying the gastric air bubble. There is an unremarkable bowel gas pattern. There is no demonstrated free abdominal air. The visualized liver, spleen and kidneys are grossly normal in size and morphology. Contrast is seen within the renal collecting system and ureter secondary to a contrast CT performed earlier the same day. Contrast is seen in the urinary bladder. Normal visualized osseous structures. RAD/Abdomen Single View (Portable) IMPRESSION: 1. NG tube as described. 2. Nonspecific bowel gas pattern without obvious obstruction. 3. Contrast within the renal collecting system and urinary bladder secondary to prior CT. Electronically Signed: Phu Bach DO at 20:20 EDT Tel [phone], Service support ,
[2021-07-13 19:11] VITALS: BP 114/82
== END 2021-07-13 19:39 | disposition other institution (70) ==
PROVIDERS: Emergency Provider Emergency Medicine; PCP Nurse Practitioner Primary Care
DX: K56.609 Unspecified intestinal obstruction, unspecified as to partial versus complete obstruction (principal); R10.9 Unspecified abdominal pain; F17.210 Nicotine dependence, cigarettes, uncomplicated; Z88.8 Allergy status to other drugs, medicaments and biological substances; Z79.899 Other long term (current) drug therapy; G40.909 Epilepsy, unspecified, not intractable, without status epilepticus
CPT/HCPCS: 71045; 74018; 74177; 80048; 80076; 81001; 83690; 84703; 85025; 87426; 94640; 99285; J7030; Q9967; A4216

== ENCOUNTER 2021-07-24 12:14 | Emergency (ER) | payer MEDICARE, MEDICAID, SELFPAY ==
[2021-07-24 12:23] VITALS: BP 126/94; PULSE 96; RESP 14; TEMP 36.7; O2SAT 99; BMI 16.7
[2021-07-24 14:39] LABS: Absolute Neutrophil Count 4.2 X10^3/uL (2.0-7.7); Basophil# 0.07 X10^3/uL; Eosinophil# 0.12 X10^3/uL; Eosinophils% 1.7 % (0-5); Hematocrit 45.1 % (37-47); Lymphocyte % 33.4 % (19-41); Mean Corp Hgb Conc 33.3 g/dL (32-36); Mean Corpuscular Hgb 30.7 pg (27.0-32.0); Mean Corpuscular Volume 92.4 fL (81-99); Mean Platelet Vol. 8.3 fl (6.2-12.0); Monocyte# 0.41 X10^3/uL; Monocyte% 5.7 % (0-10); NRBC Flagged by Analyzer 0 % (0-5); Neutrophil # 4.17 X10^3/uL (2.7-7.7); Neutrophil % 57.9 % (47-70); Platelet Count 406 K/mm3 (150-450); RBC Distribution Width CV 12.8 % (11.6-14.6); RBC Distribution Width SD 43.7 fl (35.1-43.9); Red Blood Count 4.88 M/mm3 (4.2-5.4); White Blood Count 7.2 K/mm3 (4.4-11.0)
[2021-07-24 14:52] LABS: Anion Gap 4 (5-15); BUN 7 mg/dL (7-18); BUN/Creat Ratio 8.4 RATIO (10-20); Calcium,Total 9.6 mg/dL (8.5-10.1); Chloride 104 mmol/L (98-107); Creatinine, Serum 0.83 mg/dL (0.55-1.02); EST Glomerular Filtration Rate 81 mL/min (>60); Est Glom Filt Rate - Afr Amer 98 mL/min (>60); Estimated Creatinine Clearance 63.78 ml/min; Glucose 76 mg/dL (74-106); Potassium 4.4 mmol/L (3.5-5.1); Sodium Level 135 mmol/L (136-145)
--- NOTE | 2021-07-24 15:03 | EDS_ITS ---
HPI HPI - GI History of Present Illness Chief Complaint: Abd Pain Detail of Chief Complaint: Abdominal pain, nausea, constipation and no flatus Abdominal Pain/Flank Pain Onset: Weeks Context: Gradual Onset Timing: Continuous and Waxes and wanes Quality: Aching and Cramping Location: LLQ (Worse left lower quadrant. The pain is generalized, however.) Current Severity: Mild Maximum Severity: Moderate Worsened by: Food Relieved by: Nothing Nausea/Vomiting/Emesis GI Symptom: Positive for Nausea; Negative for Vomiting Onset: Weeks Severity: Moderate Diarrhea/Melena/Hematochezia GI Symptom: Negative for Diarrhea, Melena and Hematochezia Associated Symptoms Associated Symptoms: Negative for Dysuria, Frequency, Hematuria and Urgency LMP: Status post hysterectomy Narrative Narrative: Patient is a 41-year-old woman who had a ruptured appendix and was transferred from [facility] to [facility]. The surgeon was Dr. Jose Guadalupe Lindsay. She underwent surgery. Surgery was complicated by bowel obstruction. She had a recent admission and discharge from [facility]. She was in the hospital for 1 week. She states the physician covering for Dr. Lindsay made her nervous and she did not understand him. She did not realize that meeting liquids met discharge versus surgery. She presents because of abdominal pain, distention, nausea and no bowel movement for 3 weeks and no flatus for the past several days. She denies fever, chills night sweats. She denies dysuria, frequency, urgency or hematuria. She denies cardiac or respiratory symptoms. Prior similar symptoms: Yes Recent Illness/Hospitalization: Yes PFSH [facility] Medical History Abdominal abscess Bowel obstruction Cervical cancer Epilepsy Hx of sepsis Nicotine dependence Smoker Solitary pulmonary nodule Home Medications clonazepam 1 mg PO TID 06/27/19 [History Last Taken 04/26/21] lamotrigine 200 mg PO BID 07/30/19 [History Last Taken 04/26/21] albuterol sulfate 1 puff INHALATION Q6H PRN 11/21/19 [History Last Taken Unknown] lamotrigine 200 mg PO QHS 04/27/21 [History Last Taken 04/26/21] zolpidem 10 mg PO QHS 04/27/21 [History Last Taken 04/26/21] lorazepam [Ativan] 1 mg PO PRN PRN 04/29/21 [History Last Taken Unknown] dicyclomine 20 mg PO TIDAC #20 capsule 07/24/21 [Rx Last Taken Unknown] ondansetron 4 mg PO Q8H PRN PRN #10 tab 07/24/21 [Rx Last Taken Unknown] promethazine 12.5 mg PO Q6H PRN 07/24/21 [History Last Taken Unknown] promethazine 25 mg AR Q6H PRN 07/24/21 [History Last Taken Unknown] Allergy/AdvReac Type Severity Reaction Status Date / Time amoxicillin Allergy Hives Verified 07/24/21 12:23 divalproex sodium Allergy Hives Verified 07/24/21 12:23 [From Depakote] levetiracetam [From Keppra] Allergy Hives Verified 07/24/21 12:23 metoclopramide [From Reglan] Allergy Hives Verified 07/24/21 12:23 tramadol Allergy Angioedema Verified 07/24/21 12:23 TAPE AdvReac Rash Uncoded 07/24/21 12:23 Surgical History History of appendectomy History of cholecystectomy History of hysterectomy History of tonsillectomy and adenoidectomy Social History (Updated 07/24/21 @ 15:[address] Julian Anderson MD) household members: none Smoking Status: Current every day smoker tobacco type: cigarettes alcohol intake: never substance use type: amphetamines and other details: Had used medical marijuana prior, has not used for some time now. ROS ROS ED Constitutional Constitutional ED: Reports weight loss; Denies chills, fever(s), subjective or sweats ENT ENT ED: Denies ear pain, rhinorrhea or sore throat Cardiovascular Cardiovascular: Denies chest pain, palpitations or racing heartbeat Respiratory/Chest Respiratory/Chest: Denies cough, dyspnea or dyspnea on exertion Gastrointestinal Gastrointestinal: Reports abdominal pain, constipation and nausea; Denies diarrhea, melena or vomiting Genitourinary Genitourinary ED: Denies dysuria, hematuria or urinary frequency Musculoskeletal Musculoskeletal: Denies arthralgias, back pain, myalgias or neck pain Integumentary Denies Abrasions or rash Neurologic Neurologic: Reports weakness; Denies headache(s) or paresthesias Psychiatric Psychiatric: Reports depression Hematologic/Lymphatic Hematologic/Lymphatic: Denies easy bleeding or easy bruising EXAM Physical Exam Const Vital Signs: 07/24/21 12:23 07/24/21 15:09 07/24/21 16:10 Temperature 98.1 F Temperature Source Temporal Pulse Rate 96 75 66 Respiratory Rate 14 16 18 Blood Pressure 126/94 H 105/79 105/74 Blood Pressure Mean 104 87 84 Pulse Ox 99 98 97 Oxygen Delivery Method Room Air Room Air Room Air Positive well nourished and well developed General Appearance ED: well developed and other Patient appears uncomfortable. ; Negative for pallor HEENT Reports TM's clear and dry mucous membranes normocephalic and atraumatic Tympanic Membrane ED: Yes TM's clear Mouth ED: Yes dry mucous membranes Mouth: dry mucous membranes Eyes PERRL and EOMs intact bilaterally General Eye ED: Negative for pale conjunctiva or scleral icterus Neck no lymphadenopathy, supple and no JVD Resp normal respiratory effort and clear to auscultation bilaterally Cardio regular rate, regular rhythm, S1 normal heart sound, S2 normal heart sound and no murmurs GI non-distended and no masses; Negative for non-tender Auscultation: hypoactive bowel sounds; Negative for normoactive bowel sounds Palpation: soft, tender other (Diffuse greatest left lower quadrant) and guarding LLQ; Negative for rigid, hepatomegaly, splenomegaly or rebound tenderness present Back/Spine no CVA tenderness Cervical Spine: Negative for cervical spine tenderness Thoracic Spine / Upper Back: Negative for thoracic spinal tenderness Lumbar Spine / Lower Back: Negative for lumbar spinal tenderness Extremity full ROM General Extremety ED: Negative for edema or tenderness General Extremity: Negative for edema Neuro CN's II-XII intact bilaterally and moves all extremities Sensorium / Orientation: alert, oriented to person, oriented to place and oriented to time Psych mental status grossly normal and thought process normal Skin no wounds General Skin Exam: Negative for jaundice or pallor Lesions: no lesions Rashes: no rashes MDM MDM MDM Narrative Medical decision making narrative: Concern patient has a partial small bowel obstruction. Imaging was obtained as well as appropriate blood work. She was given a liter of normal saline. She was treated with antiemetic and pain medicine. Lab Data Attestation: I reviewed the patient's lab results. Lab results narrative: Studies are all normal. Labs: Laboratory Results - last 24 hr 07/24/21 07/24/21 07/24/21 14:30 14:30 14:30 WBC 7.2 RBC 4.88 Hgb 15.0 Hct 45.1 MCV 92.4 MCH 30.7 MCHC 33.3 RDW Std Deviation 43.7 RDW Coeff of José Miguel 12.8 Plt Count 406 MPV 8.3 Immature Gran % (Auto) 0.300 Neut % (Auto) 57.9 Lymph % (Auto) 33.4 [place] % (Auto) 5.7 Eos % (Auto) 1.7 Baso % (Auto) 1.0 Absolute Neuts (auto) 4.2 Absolute Lymphs (auto) 2.40 Nucleated RBC % 0 Sodium 135 L Potassium 4.4 Chloride 104 Carbon Dioxide 27.0 Anion Gap 4 L BUN 7 Creatinine 0.83 Estim Creat Clear Calc 63.78 Est GFR (MDRD) Af Amer 98 Est GFR (MDRD) Non-Af 81 BUN/Creatinine Ratio 8.4 L Glucose 76 Lactic Acid 0.9 Calcium 9.6 Radiography Diagnostic Testing: Radiology Impression Acute Abdomen Series 07/24/21 15:15 IMPRESSION: Moderate amount of fecal material is seen in the colon. Electronically Signed: Fazal Osorio MD at 15:35 EDT , Service support , Three-view abdominal series reveals normal cardiac silhouette and size, lung parenchyma, mediastinum and osseous structures. Patient has nonspecific gas pattern on the abdominal portion with no evidence of ileus or air-fluid levels to suggest obstruction. I was informed at 1659 that the pain medicine she was administered has not been helpful. Discharge Plan Triage Chief Complaint: Abd Pain ED Provider: Julian Anderson Dx/Rx/DC Orders Clinical Impression: Obstipation Instructions: ED Constipation (Adult) Prescriptions: New ondansetron [ondansetron] 4 MG tablet 4 mg PO Q8H PRN PRN (Reason: Nausea) Qty: 10 RF: 0 dicyclomine 10 MG capsule 20 mg PO TIDAC Qty: 20 RF: 0 No Action clonazepam 1 MG tablet 1 mg PO TID RF: 0 lamotrigine 200 MG tablet 200 mg PO BID RF: 0 albuterol sulfate 8.5 GM HFA aerosol inhaler 1 puff inhalation Q6H PRN (Reason: Wheezing) RF: 0 lamotrigine 200 mg tablet extended release 24hr 200 mg PO QHS RF: 0 zolpidem 10 mg tablet 10 mg PO QHS RF: 0 lorazepam [Ativan] 1 mg tablet 1 mg PO PRN PRN (Reason: Seizure Activity) RF: 0 promethazine 25 mg suppository 25 mg AR Q6H PRN (Reason: Nausea) RF: 0 promethazine 12.5 mg tablet 12.5 mg PO Q6H PRN (Reason: Nausea) RF: 0 Primary Care Provider: Robb Jeffries NP Referrals: Robb Jeffries CRIME INVESTIGATOR SPECIAL AGENT, CRIME INVESTIGATOR SPECIAL AGENT-C [Primary Care Provider] - 3-5 Days if not improving Disposition Disposition: Home, Self Care
[2021-07-24] MEDS: Morphine 4 MG/ML Syringe IV (15:07)
[2021-07-24] MEDS: 0.9% Normal Saline 1,000 ML 125 ML IV (15:08)
[2021-07-24] MEDS: Ondansetron 4 MG/2 ML Vial IV (15:08)
[2021-07-24 15:09] VITALS: BP 105/79; PULSE 75; RESP 16; O2SAT 98
--- NOTE | 2021-07-24 15:15 | RAD_ITS ---
STUDY: X-RAY - ACUTE ABDOMINAL SERIES REASON FOR EXAM: Female, 41 years old. Pain TECHNIQUE: Single view of the chest. Supine, and erect view(s) of the abdomen were obtained. COMPARISON: Comparison is made with prior study 07/13/2021. FINDINGS: The lungs are clear and expanded. Normal size heart. Normal mediastinum and kailyn. Normal visualized pulmonary arteries. Normal visualized aortic arch and descending thoracic aorta. There is a moderate amount of colonic fecal material. Surgical clips are seen in the right upper quadrant in keeping with prior cholecystectomy. Normal visualized osseous structures. RAD/Acute Abdomen Inc Chest IMPRESSION: Moderate amount of fecal material is seen in the colon. Electronically Signed: Fazal Osorio MD at 15:35 EDT , Service support ,
[2021-07-24 15:24] LABS: Lactic Acid 0.9 mmol/L (0.4-1.9)
[2021-07-24 16:10] VITALS: BP 105/74; PULSE 66; RESP 18; O2SAT 97
[2021-07-24 17:16] VITALS: BP 125/87; PULSE 78; RESP 16; O2SAT 98
== END 2021-07-24 17:18 | disposition home or self-care (01) ==
PROVIDERS: Emergency Provider Emergency Medicine; PCP Nurse Practitioner Primary Care
DX: K59.00 Constipation, unspecified (principal); F17.210 Nicotine dependence, cigarettes, uncomplicated; G40.909 Epilepsy, unspecified, not intractable, without status epilepticus; Z79.899 Other long term (current) drug therapy; Z85.41 Personal history of malignant neoplasm of cervix uteri
CPT/HCPCS: 74022; 80048; 83605; 85025; 96361; 96374; 96375; 99285; J7030; A4216; J2405

== ENCOUNTER 2021-11-23 08:51 | Emergency (ER) | payer MEDICARE, MEDICAID, SELFPAY ==
[2021-11-23 08:52] VITALS: BP 126/93; PULSE 93; RESP 18; TEMP 36.6; O2SAT 97; BMI 18.8
--- NOTE | 2021-11-23 09:50 | CT_ITS ---
STUDY: CT ABDOMEN AND PELVIS WITH CONTRAST REASON FOR EXAM: Female, 41 years old. Abdominal pain -- IV PO Contrast. History of cervical carcinoma with prior hysterectomy. History of prior small bowel obstruction and surgery. RADIATION DOSAGE (If Supplied By Facility): CTDIvol = ( 5.92 ) mGy, DLP = ( 256.38 ) mGycm TECHNIQUE: Transaxial images were obtained from the dome of the diaphragm to the symphysis pubis with oral contrast. Oral and amp; IV Gastrografin and amp; 100mL Isovue-300 was administered. Sagittal and coronal images were reconstructed. Individualized dose optimization techniques were used for this CT. COMPARISON: Comparison is made with prior study dated 07/13/2021. FINDINGS: The visualized lung bases are unremarkable. The visualized portions of the heart are within normal limits. Normal liver. There are surgical clips in the gallbladder fossa consistent with a prior cholecystectomy. Normal spleen. Normal pancreas. Normal bilateral adrenal glands. Normal right kidney. Normal left kidney. Normal visualized stomach. Normal small intestine. Normal colon. The patient is status post appendectomy. Normal abdominal aorta. Normal inferior vena cava. Normal retroperitoneum. Normal urinary bladder. There is absence of the uterus consistent with a prior hysterectomy. Normal abdominal wall. Normal osseous structures. CT/Abdomen/Pelvis WITH Contrast IMPRESSION: Normal enhanced CT of the abdomen and pelvis. Electronically Signed: Fazal Osorio MD at 13:12 EST , Service support ,
--- NOTE | 2021-11-23 09:52 | EDS_ITS ---
HPI History of Present Illness Chief Complaint: Abd Pain Informant: patient Narrative Narrative: 41-year-old female presenting to the emergency room with abdominal pain. Patient states that she spoke with her surgeon Dr. Lindsay from [facility] last week who wanted her to go to emergency room. At that time she described a bulge in her lower abdomen with bruising of the skin. She states that she went to [facility] where they did a CAT scan and said that her bladder was distended and that there was a kidney stone. She did a virtual urology visit and has an appointment tomorrow for ultrasound and cystoscopy. Patient states that her abdomen continues to hurt and she is having vomiting. Today she had some bright red blood per rectum with bowel movement. She notes that there is a bulge near her incision when she coughs and that she has some periumbilical pain related to it. [facility] Medical History (Updated 11/23/21 @ 13:[address] Carroll Negron, DO) Abdominal abscess Bowel obstruction Cervical cancer Epilepsy Hx of sepsis Nicotine dependence Smoker Solitary pulmonary nodule Home Medications clonazepam 1 mg PO TID 06/27/19 [History Last Taken 04/26/21] lamotrigine 200 mg PO BID 07/30/19 [History Last Taken 04/26/21] albuterol sulfate 1 puff INHALATION Q6H PRN 11/21/19 [History Last Taken Unknown] lamotrigine 200 mg PO QHS 04/27/21 [History Last Taken 04/26/21] zolpidem 10 mg PO QHS 04/27/21 [History Last Taken 04/26/21] lorazepam [Ativan] 1 mg PO PRN PRN 04/29/21 [History Last Taken Unknown] dicyclomine 20 mg PO TIDAC #20 capsule 07/24/21 [Rx Last Taken Unknown] ondansetron 4 mg PO Q8H PRN PRN #10 tab 07/24/21 [Rx Last Taken Unknown] promethazine 12.5 mg PO Q6H PRN 07/24/21 [History Last Taken Unknown] promethazine 25 mg AK Q6H PRN 07/24/21 [History Last Taken Unknown] oxycodone-acetaminophen 1 tab PO Q6H PRN PRN 3 Days #12 tablet 11/23/21 [Rx Last Taken Unknown] Allergy/AdvReac Type Severity Reaction Status Date / Time amoxicillin Allergy Hives Verified 11/23/21 08:55 divalproex sodium Allergy Hives Verified 11/23/21 08:55 [From Depakote] levetiracetam [From Keppra] Allergy Hives Verified 11/23/21 08:55 metoclopramide [From Reglan] Allergy Hives Verified 11/23/21 08:55 tramadol Allergy Angioedema Verified 11/23/21 08:55 TAPE AdvReac Rash Uncoded 11/23/21 08:55 Surgical History History of appendectomy History of cholecystectomy History of hysterectomy History of tonsillectomy and adenoidectomy Social History household members: none Smoking Status: Current every day smoker tobacco type: cigarettes alcohol intake: never substance use type: amphetamines and other details: Had used medical marijuana prior, has not used for some time now. ROS ROS ED Constitutional Constitutional ED: Denies chills or weight loss Eyes Eyes: Denies change in vision or diplopia ENT ENT ED: Denies ear pain, rhinorrhea or sore throat Cardiovascular Cardiovascular: Denies chest pain, orthopnea, palpitations or racing heartbeat Respiratory/Chest Respiratory/Chest: Denies cough, dyspnea or orthopnea Gastrointestinal Gastrointestinal: Reports abdominal pain, vomiting and other Details: BRBPR ; Denies diarrhea or nausea Genitourinary Genitourinary ED: Denies dysuria, hematuria or urinary frequency Musculoskeletal Musculoskeletal: Denies arthralgias or myalgias Integumentary Denies abscess or rash Neurologic Neurologic: Denies headache(s) or weakness Psychiatric Psychiatric: Denies anxiety, depression, suicidal ideation or suicidal thoughts Endocrine Endocrinology: Denies polydipsia, polyphagia or polyuria Allergic/Immunologic Allergic/Immunologic ED: Denies mouth swelling, tongue swelling or urticaria EXAM Physical Exam Const Vital Signs: 11/23/21 08:52 11/23/21 11:07 Temperature 97.9 F Temperature Source Temporal Pulse Rate 93 Respiratory Rate 18 16 Blood Pressure 126/93 H Blood Pressure Mean 104 Pulse Ox 97 Oxygen Delivery Method Room Air Positive well nourished and well developed General Appearance ED: well developed HEENT Reports normocephalic, head/scalp atraumatic, TM's clear and moist mucous membranes Negative for trauma Tympanic Membrane ED: Yes TM's clear Eyes PERRL and EOMs intact bilaterally Neck no lymphadenopathy, supple and no JVD Resp normal respiratory effort and clear to auscultation bilaterally Cardio regular rate, regular rhythm and no murmurs GI GI Narrative: There is a ventral hernia much pronounced on Valsalva just inferior and lateral to the midline incision below the umbilicus. This area is tender. It is reducible. There are no skin changes. Normal bowel sounds. Palpation: soft Back/Spine no CVA tenderness and normal ROM Extremity normal to inspection General Extremety ED: Negative for edema General Extremity: Negative for edema Neuro oriented x3 and CN's II-XII intact bilaterally Sensorium / Orientation: alert Motor Exam: strength 5/5 throughout Psych Mood & Affect: depressed and tearful Skin no rashes or lesions noted and no wounds MDM MDM MDM Narrative Medical decision making narrative: Basic blood work is normal. Urinalysis is normal. CT the abdomen pelvis with oral and IV contrast shows a reducible hernia. Patient was informed that she needs to follow-up with her surgeon to talk about hernia surgery. She states that every time she calls them they tell her to go to the emergency room. She states that she needs me to make her an appointment she also does not know how she is going to get to her appointments because she has epilepsy and she does not drive. I informed her that most local surgeons will be reluctant to perform a repair on this and so she would be better off going to see her surgeon. However I can provide her with a local surgeon that is on-call today's name. Eventually I informed the patient that I cannot solve all of her societal difficulties in the emergency room. We have identified what the problem with and directed her and how that needs to be nonemergently fixed. Lab Data Attestation: I reviewed the patient's lab results. Labs: Laboratory Results - last 24 hr 11/23/21 11/23/21 11/23/21 09:30 09:30 09:30 WBC 6.3 RBC 4.87 Hgb 15.5 H Hct 44.5 MCV 91.4 MCH 31.8 MCHC 34.8 RDW Std Deviation 41.3 RDW Coeff of José Miguel 12.4 Plt Count 312 MPV 9.4 Immature Gran % (Auto) 0.500 Neut % (Auto) 63.6 Lymph % (Auto) 26.3 Brantley % (Auto) 7.8 Eos % (Auto) 1.0 Baso % (Auto) 0.8 Absolute Neuts (auto) 4.0 Absolute Lymphs (auto) 1.66 Nucleated RBC % 0 Sodium 138 Potassium 4.0 Chloride 106 Carbon Dioxide 24.0 Anion Gap 8 BUN 9 Creatinine 0.93 Estim Creat Clear Calc 63.97 Est GFR (MDRD) Af Amer 86 Est GFR (MDRD) Non-Af 71 BUN/Creatinine Ratio 9.7 L Glucose 80 Calcium 9.0 Total Bilirubin 0.50 AST 31 ALT 32 Alkaline Phosphatase 105 Total Protein 8.0 Albumin 4.2 Globulin 3.8 Albumin/Globulin Ratio 1.1 Lipase 89 Urine Color Yellow Urine Clarity Sl. Cloudy Urine pH 5.0 Ur Specific Castile 1.020 Urine Protein Negative Urine Glucose (UA) Normal Urine Ketones 15 H Urine Occult Blood 10 H Urine Nitrite Negative Urine Bilirubin Negative Urine Urobilinogen 1 H Ur Leukocyte Esterase 25 H Urine RBC 0-5 SEEN Urine WBC 0-5 SEEN Ur Squamous Epith Cells 0-5 SEEN Urine Bacteria 0 SEEN Urine Mucus 0 SEEN Radiography Diagnostic Testing: Clinical Impression(s) from Imaging Studies Abdomen/Pelvis CT 11/23/21 09:50 IMPRESSION: Normal enhanced CT of the abdomen and pelvis. Electronically Signed: Fazal Osorio MD at 13:12 EST , Service support , Discharge Plan Triage Chief Complaint: Abd Pain ED Provider: Carroll Negron Dx/Rx/DC Orders Clinical Impression: Abdominal pain, Ventral hernia Instructions: How a Hernia Develops, ED Hernia (Adult) Prescriptions: New oxycodone-acetaminophen [oxycodone-acetaminophen] 1 TABLET tablet 1 tab PO Q6H PRN PRN (Reason: Pain) 3 Days Qty: 12 RF: 0 No Action clonazepam 1 MG tablet 1 mg PO TID RF: 0 lamotrigine 200 MG tablet 200 mg PO BID RF: 0 albuterol sulfate 8.5 GM HFA aerosol inhaler 1 puff inhalation Q6H PRN (Reason: Wheezing) RF: 0 lamotrigine 200 mg tablet extended release 24hr 200 mg PO QHS RF: 0 zolpidem 10 mg tablet 10 mg PO QHS RF: 0 lorazepam [Ativan] 1 mg tablet 1 mg PO PRN PRN (Reason: Seizure Activity) RF: 0 promethazine 25 mg suppository 25 mg AK Q6H PRN (Reason: Nausea) RF: 0 promethazine 12.5 mg tablet 12.5 mg PO Q6H PRN (Reason: Nausea) RF: 0 ondansetron [ondansetron] 4 MG tablet 4 mg PO Q8H PRN PRN (Reason: Nausea) Qty: 10 RF: 0 dicyclomine 10 MG capsule 20 mg PO TIDAC Qty: 20 RF: 0 Primary Care Provider: Robb Jeffries NP Referrals: Carroll Knox MD [STAFF PHYSICIAN] - (for local surgery) Robb Jeffries NP, [facility] [Primary Care Provider] - Activity Restrictions/Additional Instructions: You need to call your surgeon and arrange a time where you can get a ride to [place] to discuss getting your hernia repaired. If you are unable to do this then you may wish to discuss this case with a local surgeon but given the extent of surgery that you had they may be hesitant to operate on you here. Disposition Disposition: Home, Self Care
[2021-11-23 10:00] LABS: Bacteria 0 SEEN /hpf (None Seen); Mucous, Urine 0 SEEN /hpf (<or=2+)
[2021-11-23] MEDS: Ondansetron 4 MG/2 ML Vial IV (10:07)
[2021-11-23] MEDS: Morphine 4 MG/ML Syringe IV (10:07)
[2021-11-23 10:11] LABS: Absolute Lymphocyte Count 1.66 X10^3/uL (0.83-4.51); Basophil# 0.05 X10^3/uL; Basophil% 0.8 % (0-1); Eosinophil# 0.06 X10^3/uL; Hematocrit 44.5 % (37-47); Hemoglobin 15.5 g/dL (12.0-15.0); Lymphocyte # 1.66 X10^3/ul (0.83-4.51); Lymphocyte % 26.3 % (19-41); Mean Corp Hgb Conc 34.8 g/dL (32-36); Mean Corpuscular Hgb 31.8 pg (27.0-32.0); Mean Corpuscular Volume 91.4 fL (81-99); Mean Platelet Vol. 9.4 fl (6.2-12.0); Monocyte# 0.49 X10^3/uL; Monocyte% 7.8 % (0-10); NRBC Flagged by Analyzer 0 % (0-5); Neutrophil # 4.02 X10^3/uL (2.7-7.7); Neutrophil % 63.6 % (47-70); Platelet Count 312 K/mm3 (150-450); RBC Distribution Width CV 12.4 % (11.6-14.6); RBC Distribution Width SD 41.3 fl (35.1-43.9); Red Blood Count 4.87 M/mm3 (4.2-5.4); White Blood Count 6.3 K/mm3 (4.4-11.0)
[2021-11-23 10:14] LABS: ALB/GLOB Ratio 1.1 RATIO (0.9-2.4); AST(SGOT) 31 U/L (15-37); Alanine Aminotransfer ALT/SGPT 32 U/L (13-56); Albumin, Serum 4.2 g/dL (3.2-5.0); Alkaline Phosphatase 105 U/L (45-117); Anion Gap 8 (5-15); BUN 9 mg/dL (7-18); BUN/Creat Ratio 9.7 RATIO (10-20); Chloride 106 mmol/L (98-107); Creatinine, Serum 0.93 mg/dL (0.55-1.02); EST Glomerular Filtration Rate 71 mL/min (>60); Est Glom Filt Rate - Afr Amer 86 mL/min (>60); Estimated Creatinine Clearance 63.97 ml/min; Globulin 3.8 g/dL (2.2-4.2); Glucose 80 mg/dL (74-106); Lipase 89 U/L (73-393); Sodium Level 138 mmol/L (136-145)
[2021-11-23 10:16] LABS: Color, Urine Yellow (Yellow); Glucose, Dipstick Normal (Normal); Ketone-Dipstick 15 mg/dl (Negative); Leukocyte Esterase-Dipstick 25 /ul (Negative); Nitrite-Dipstick Negative (Negative); Occult Blood-Urine 10 /ul (Negative); Protein-Dipstick Negative (Negative); Urine Bilirubin Dipstick Negative (Negative); Urine Clarity Sl. Cloudy (Clear); Urine Urobilinogen 1 mg/dl (Normal)
[2021-11-23 10:22] LABS: Red Blood Cells-Urine 0-5 SEEN /hpf (0-5); Squamous Epithelial Cells - UA 0-5 SEEN /hpf (5-10); White Blood Cells 0-5 SEEN /hpf (0-5)
[2021-11-23 11:07] VITALS: RESP 16
[2021-11-23] MEDS: LORazepam 2 MG/ML Syringe 1 MG IV (11:59)
--- NOTE | 2021-11-23 14:14 | ED.RN ---
pt upset with the way spoke to her. charge nurse went in to speak with pt. this nurse also talked with pt during discharge instructions. pt verbalized understanding.
== END 2021-11-23 14:15 | disposition home or self-care (01) ==
PROVIDERS: Emergency Provider Emergency Medicine; PCP Nurse Practitioner Primary Care; Visit Provider Emergency Medicine
DX: K43.9 Ventral hernia without obstruction or gangrene (principal); G40.909 Epilepsy, unspecified, not intractable, without status epilepticus; Z85.41 Personal history of malignant neoplasm of cervix uteri; Z87.19 Personal history of other diseases of the digestive system; Z79.899 Other long term (current) drug therapy; Z90.49 Acquired absence of other specified parts of digestive tract; F17.210 Nicotine dependence, cigarettes, uncomplicated
CPT/HCPCS: 74177; 80053; 81001; 83690; 85025; 96374; 96375; 99285; Q9967; A4216; J2405

== ENCOUNTER 2022-06-16 09:25 | Emergency (ER) | payer MEDICARE, MEDICAID, SELFPAY ==
[2022-06-16 09:26] VITALS: BP 99/77; PULSE 89; RESP 18; TEMP 36.7; O2SAT 100; BMI 18.1
[2022-06-16 09:29] VITALS: BP 99/77; PULSE 82; RESP 16; TEMP 36.7; O2SAT 100
--- NOTE | 2022-06-16 09:41 | CT_ITS ---
STUDY: CT ABDOMEN AND PELVIS WITH CONTRAST REASON FOR EXAM: Female, 42 years old. post op pain and fever. s/p hernia repairs RADIATION DOSAGE (If Supplied By Facility): CTDIvol = ( 14.06 ) mGy, DLP = ( 246.15 ) mGycm TECHNIQUE: Transaxial images were obtained from the dome of the diaphragm to the symphysis pubis without oral contrast. IV 100mL Isovue-370 was administered. Sagittal and coronal images were reconstructed. Individualized dose optimization techniques were used for this CT. COMPARISON: 11/23/2021 FINDINGS: The visualized lung bases are unremarkable. The visualized portions of the heart are within normal limits. Normal liver. There are surgical clips in the gallbladder fossa consistent with a prior cholecystectomy. Normal spleen. Normal pancreas. Normal bilateral adrenal glands. Multiple small nonobstructing stones in the right kidney. No hydronephrosis, ureteral stone, ureteral dilatation. Normal left kidney. Normal visualized stomach. Normal small intestine. Normal colon. There is non-visualization of the appendix. Normal abdominal aorta. Normal inferior vena cava. Normal retroperitoneum. Normal urinary bladder. Small amount of ascites in the pelvis. Some stranding of the fat in the midline of the anterior abdominal wall consistent with postoperative changes. No loculated fluid collection to to suggest postoperative seroma, hematoma, or abscess. Normal osseous structures. CT/Abdomen/Pelvis W IV Cont ONLY IMPRESSION: Postoperative changes with a small amount of ascites but no postoperative seroma, hematoma, or abscess. Electronically Signed: Jasvir Camacho MD at 10:57 EDT ,
--- NOTE | 2022-06-16 09:44 | EDS_ITS ---
HPI History of Present Illness Chief Complaint: Fever Informant: patient Onset/Context/Timing Onset: Days Context: Gradual Onset Timing: Intermittent Current Severity: Mild Maximum Severity: Mild Narrative Narrative: Female who has had multiple prior abdominal surgeries including cholecystectomy, hernia repairs, appendectomy and hysterectomy. She has had 3 prior bowel obstructions. On June 09 she had a large abdominal incision for multiple hernia repairs both ventral and inguinal done at the [facility]. She was hospitalized for 3 days. States she has had nausea and vomiting since the surgery. Decreased oral intake. Constipation. And started getting a low-grade temperature on Tuesday. Denies any dysuria. No cough. No shortness of breath. Prior similar symptoms: Yes Recent Illness/Hospitalization: Yes [facility] Medical History Abdominal abscess Bowel obstruction Cervical cancer Epilepsy Hx of sepsis Nicotine dependence Smoker Solitary pulmonary nodule Home Medications clonazepam 1 mg tablet 1 mg PO TID seizure 06/27/19 [History Last Taken 1] lamotrigine 200 mg tablet 200 mg PO BID seizure 07/30/19 [History Last Taken 04/26/21] albuterol sulfate 90 mcg/actuation aerosol inhaler 1 puff inhalation Q6H PRN Wheezing 11/21/19 [History Last Taken Unknown] lamotrigine 200 mg tablet,extended release 24 hr 200 mg PO QHS seizure 04/27/21 [History Last Taken 04/26/21] zolpidem 10 mg tablet 10 mg PO QHS sleep 04/27/21 [History Last Taken 04/26/21] lorazepam 1 mg tablet (Ativan) 1 mg PO PRN PRN Seizure Activity 04/29/21 [History Last Taken Unknown] Allergy/AdvReac Type Severity Reaction Status Date / Time amoxicillin Allergy Hives Verified 06/16/22 09:26 divalproex sodium Allergy Hives Verified 06/16/22 09:26 [From Depakote] levetiracetam [From Keppra] Allergy Hives Verified 06/16/22 09:26 metoclopramide [From Reglan] Allergy Hives Verified 06/16/22 09:26 tramadol Allergy Angioedema Verified 06/16/22 09:26 TAPE AdvReac Rash Uncoded 06/16/22 09:26 Surgical History History of appendectomy History of cholecystectomy History of hysterectomy History of tonsillectomy and adenoidectomy Social History household members: none Smoking Status: Current every day smoker tobacco type: cigarettes alcohol intake: never substance use type: amphetamines and other details: Had used medical marijuana prior, has not used for some time now. ROS ROS ED ROS Narrative Constipation. Nausea and vomiting. Low-grade fever. Review of Systems ROS Unobtainable: Denies due to encephalopathy Constitutional Constitutional ED: Reports fever(s); Denies chills Eyes Eyes: Denies blurry vision ENT ENT ED: Denies ear pain Cardiovascular Cardiovascular: Denies chest pain Respiratory/Chest Respiratory/Chest: Denies cough Gastrointestinal Gastrointestinal: Reports abdominal pain, constipation, nausea and vomiting; Denies diarrhea or melena Genitourinary Genitourinary ED: Denies dysuria or hematuria Musculoskeletal Musculoskeletal: Denies arthralgias Integumentary Denies abscess Neurologic Neurologic: Denies headache(s) Psychiatric Psychiatric: Denies anxiety Endocrine Endocrinology: Denies cold intolerance Hematologic/Lymphatic Hematologic/Lymphatic: Reports none Allergic/Immunologic Allergic/Immunologic ED: Denies mouth swelling or tongue swelling EXAM Physical Exam Narrative Exam Narrative: 6-year-old female no acute distress. Vital signs stable afebrile. Blood pressure 99/77. She is a small female that normally runs a low blood pressure. H EENT exam unremarkable. Moist Riis membranes. Neck nontender. No lymphadenopathy. Lungs clear to auscultation bilaterally. Heart regular rhythm rate about 90 no murmur. Abdomen soft nondistended. Normal bowel sounds. No peritoneal signs. She has a long midline vertical incision and goes from basically her epigastric region all the way down to her suprapubic region. The wound is clean and dry. No pus. No cellulitis. There is obvious abdominal tenderness. There is no signs of obstruction. She is laparoscopic incisions that are clean and dry on both the left lower and right lower quadrants. Moving all 4 extremities. Neurologically she is awake and alert with no focal motor deficits. Const Vital Signs: 06/16/22 09:26 06/16/22 09:29 06/16/22 09:30 Temperature 98.0 F 98.0 F Temperature Source Oral Oral Pulse Rate 89 82 Respiratory Rate 18 16 Respiratory Effort Normal Non-Labored Blood Pressure 99/77 99/77 Blood Pressure Mean 84 84 Pulse Ox 100 100 Oxygen Delivery Method Room Air Room Air 06/16/22 11:12 Temperature 98.2 F Temperature Source Oral Pulse Rate 79 Respiratory Rate 18 Respiratory Effort Blood Pressure 103/72 Blood Pressure Mean 82 Pulse Ox 98 Oxygen Delivery Method Room Air Positive well nourished and well developed; Negative for obese, cachectic, contractures or unkempt General Appearance ED: well developed and NAD; Negative for unkempt, cachectic, contractures, cyanotic, diaphoretic or pallor Nutritional Appearance: Negative for cachectic or obese HEENT Reports moist mucous membranes Negative for trauma Eyes PERRL and EOMs intact bilaterally General Eye ED: Negative for pale conjunctiva or scleral icterus Neck no lymphadenopathy, supple and no JVD General: Negative for tenderness Lymph Lymphatic: Negative for other Chest Wall inspection of chest normal and palpation of chest normal Resp normal respiratory effort and clear to auscultation bilaterally Effort and Inspection: Negative for retractions or pain with movement Auscultation: Negative for rales, rhonchi or wheezes Cardio regular rate, regular rhythm, S1 normal heart sound, S2 normal heart sound and no murmurs GI normal to inspection, nondistended, normoactive bowel sounds, non-distended and no masses; Negative for non-tender or hepatosplenomegaly Inspection: Negative for abdominal distention Auscultation: normoactive bowel sounds Palpation: soft and tender; Negative for guarding, splenomegaly, mass or rebound tenderness present Back/Spine no CVA tenderness General Back: Negative for CVA tenderness Cervical Spine: Negative for cervical spine tenderness Thoracic Spine / Upper Back: Negative for thoracic spinal tenderness Lumbar Spine / Lower Back: Negative for lumbar spinal tenderness Extremity normal to inspection General Extremety ED: Negative for edema or tenderness General Extremity: Negative for edema Neuro oriented x3 Sensorium / Orientation: alert; Negative for orientation impaired, lethargic or stuporous Motor Exam: strength 5/5 throughout Psych mental status grossly normal Appearance: Negative for unkempt Attitude: No agitated Mood & Affect: Negative for depressed or anxious Skin no rashes or lesions noted and no wounds General Skin Exam: Negative for jaundice or pallor Rashes: No rashes noted Trauma: Negative for abrasion MDM MDM MDM Narrative Medical decision making narrative: 42-year-old female with recent abdominal surgery for hernia repairs. Complaining of a low-grade fever. Today she is afebrile. Abdominal incision looks dry and clean without any signs of infection. CAT scan labs are pending. She will be hydrated with IV fluids. Treated with fentanyl for pain and Zofran for nausea. Repeat exam patient doing well at 12 PM. She is comfortable being discharged home. We discussed all of her test results and CAT scan. She is does not feel like she needs to urinate has not had any urinary symptoms so the urine will be canceled. She will be discharged home with magnesium citrate. Follow-up with her surgeon from the [facility] as scheduled. Lab Data Attestation: I reviewed the patient's lab results. Lab results narrative: CBC normal white count of 7. H&H 14 and 41. Platelets 332. CMP showed a gap of 7 normal BUN and creatinine. Normal liver enzymes. Normal lipase of 132. CT of the abdomen showed no abscess or other significant normality. Significant mount of stool. Labs: Laboratory Results - last 24 hr 06/16/22 06/16/22 10:05 10:05 WBC 7.5 RBC 4.35 Hgb 14.1 Hct 41.1 MCV 94.5 MCH 32.4 H MCHC 34.3 RDW Std Deviation 43.6 RDW Coeff of José Miguel 12.4 Plt Count 332 MPV 8.5 Immature Gran % (Auto) 0.400 Neut % (Auto) 74.9 H Lymph % (Auto) 13.2 L Howard % (Auto) 7.0 Eos % (Auto) 4.1 Baso % (Auto) 0.4 Absolute Neuts (auto) 5.6 Absolute Lymphs (auto) 0.99 Nucleated RBC % 0 Sodium 136 Potassium 3.9 Chloride 104 Carbon Dioxide 25.0 Anion Gap 7 BUN 8 Creatinine 0.68 Estim Creat Clear Calc 83.33 Est GFR (MDRD) Af Amer 123 Est GFR (MDRD) Non-Af 102 BUN/Creatinine Ratio 11.8 Glucose 84 Calcium 8.8 Total Bilirubin 0.40 AST 33 ALT 33 Alkaline Phosphatase 125 H Total Protein 7.0 Albumin 2.9 L Globulin 4.1 Albumin/Globulin Ratio 0.7 L Lipase 132 Radiography Diagnostic Testing: Clinical Impression(s) from Imaging Studies Abdomen/Pelvis CT 06/16/22 09:41 IMPRESSION: Postoperative changes with a small amount of ascites but no postoperative seroma, hematoma, or abscess. Electronically Signed: Jasvir Camacho MD at 10:57 EDT , Discharge Plan Triage Chief Complaint: Fever ED Provider: Ismael Castillo Dx/Rx/DC Orders Clinical Impression: Acute postoperative abdominal pain, History of hernia repair, Constipation Instructions: Abdominal Pain, ED Constipation (Adult) Prescriptions: No Action clonazepam 1 MG tablet 1 mg PO TID lamotrigine 200 MG tablet 200 mg PO BID albuterol sulfate 8.5 GM HFA aerosol inhaler 1 puff inhalation Q6H PRN (Reason: Wheezing) Label Comments: INHALE 1 PUFF EVERY SIX HOURS NEEDED FOR WHEEZING lamotrigine 200 mg tablet extended release 24hr 200 mg PO QHS Label Comments: TAKE One tablet in IN THE MORNING, one tablet at noon, and two tablets before bedtime zolpidem 10 mg tablet 10 mg PO QHS Label Comments: TAKE 1 TABLET BY MOUTH DAILY AT BEDTIME X60D. MAY TAKE 2ND TABLET IF NOT ASLEEP AFTER 30 MINUTES. lorazepam [Ativan] 1 mg tablet 1 mg PO PRN PRN (Reason: Seizure Activity) Label Comments: Take 1 tablet by mouth after prolonged seizures to prevent seizure cluster. Do not exceed more than 1 tablet per day. Primary Care Provider: Robb Jeffries NP Referrals: Robb Jeffries NP, [facility] [Primary Care Provider] - Activity Restrictions/Additional Instructions: Plan he of fluid and fiber to help with constipation. If unable to have a bowel movement drink the magnesium citrate. Drink the entire first bottle if no bowel movement in 4 to 6 hours drink the second. Follow-up with your hernia repair surgeon to [facility] with your scheduled appointment. Today your labs and CAT scan were unremarkable other than constipation. Your blood work was normal. Disposition Disposition: Home, Self Care
[2022-06-16] MEDS: 0.9% Normal Saline 1,000 ML 1000 ML IV (10:09)
[2022-06-16] MEDS: fentaNYL 100 MCG/2 ML Ampul 50 MCG IV (10:10)
[2022-06-16] MEDS: Ondansetron 4 MG/2 ML Vial IV ×2 (10:10→11:15)
[2022-06-16 10:12] LABS: Absolute Lymphocyte Count 0.99 X10^3/uL (0.83-4.51); Absolute Neutrophil Count 5.6 X10^3/uL (2.0-7.7); Basophil# 0.03 X10^3/uL; Basophil% 0.4 % (0-1); Eosinophil# 0.31 X10^3/uL; Eosinophils% 4.1 % (0-5); Hematocrit 41.1 % (37-47); Hemoglobin 14.1 g/dL (12.0-15.0); Lymphocyte # 0.99 X10^3/ul (0.83-4.51); Lymphocyte % 13.2 % (19-41); Mean Corp Hgb Conc 34.3 g/dL (32-36); Mean Corpuscular Hgb 32.4 pg (27.0-32.0); Mean Corpuscular Volume 94.5 fL (81-99); Mean Platelet Vol. 8.5 fl (6.2-12.0); Monocyte# 0.52 X10^3/uL; NRBC Flagged by Analyzer 0 % (0-5); Neutrophil % 74.9 % (47-70); Platelet Count 332 K/mm3 (150-450); RBC Distribution Width CV 12.4 % (11.6-14.6); RBC Distribution Width SD 43.6 fl (35.1-43.9); Red Blood Count 4.35 M/mm3 (4.2-5.4); White Blood Count 7.5 K/mm3 (4.4-11.0)
[2022-06-16 10:33] LABS: ALB/GLOB Ratio 0.7 RATIO (0.9-2.4); AST(SGOT) 33 U/L (15-37); Alanine Aminotransfer ALT/SGPT 33 U/L (13-56); Albumin, Serum 2.9 g/dL (3.2-5.0); Alkaline Phosphatase 125 U/L (45-117); Anion Gap 7 (5-15); BUN 8 mg/dL (7-18); BUN/Creat Ratio 11.8 RATIO (10-20); Calcium,Total 8.8 mg/dL (8.5-10.1); Chloride 104 mmol/L (98-107); Creatinine, Serum 0.68 mg/dL (0.55-1.02); EST Glomerular Filtration Rate 102 mL/min (>60); Est Glom Filt Rate - Afr Amer 123 mL/min (>60); Estimated Creatinine Clearance 83.33 ml/min; Globulin 4.1 g/dL (2.2-4.2); Glucose 84 mg/dL (74-106); Lipase 132 U/L (73-393); Potassium 3.9 mmol/L (3.5-5.1); Sodium Level 136 mmol/L (136-145)
[2022-06-16 11:12] VITALS: BP 103/72; PULSE 79; RESP 18; TEMP 36.8; O2SAT 98
[2022-06-16 12:12] VITALS: BP 106/88; PULSE 64; RESP 18; TEMP 37.2; O2SAT 99
== END 2022-06-16 12:18 | disposition home or self-care (01) ==
PROVIDERS: Emergency Provider Emergency Medicine; PCP Nurse Practitioner Primary Care; Visit Provider Emergency Medicine
DX: R10.9 Unspecified abdominal pain (principal); R11.0 Nausea; R50.9 Fever, unspecified; K59.00 Constipation, unspecified
CPT/HCPCS: 74177; 80053; 83690; 85025; 99284; J7030; Q9967; A4216; J2405

== ENCOUNTER 2022-09-15 14:26 | Emergency (ER) | payer MEDICARE, MEDICAID, SELFPAY ==
[2022-09-15 14:27] VITALS: BP 146/115; PULSE 95; RESP 18; TEMP 35.8; O2SAT 100; BMI 18.8
[2022-09-15 14:29] VITALS: BP 146/115; PULSE 95; RESP 18; TEMP 35.8; O2SAT 100
--- NOTE | 2022-09-15 15:11 | CT_ITS ---
STUDY: CT ABDOMEN AND PELVIS WITHOUT CONTRAST REASON FOR EXAM: Female, 42 years old. Right flank pain. Distention over the lower abdomen. History of Kaposi sarcoma. History of appendectomy, cholecystectomy, total hysterectomy, bowel obstruction surgeries and hernia repair. RADIATION DOSAGE (If Supplied By Facility): CTDIvol = ( 6.04 ) mGy, DLP = ( 268.77 ) mGycm TECHNIQUE: Transaxial images were obtained from the dome of the diaphragm to the symphysis pubis with oral contrast, and without intravenous contrast. Sagittal and coronal images were reconstructed. Individualized dose optimization techniques were used for this CT. COMPARISON: June 16, 2022. FINDINGS: The visualized lung bases are unremarkable. The visualized portions of the heart are within normal limits. Normal liver. Normal gallbladder and extrahepatic biliary system. Normal spleen. Normal pancreas. Normal bilateral adrenal glands. The right kidney is normal in size and contour. There are at least 3 nonobstructing renal calculi. The largest, in the lower pole calyx, measures 3 mm. Normal visualized right ureter. The left kidney is normal in size and cortical thickness. There is 2 mm nonobstructing lower pole renal calculus. No hydronephrosis. Normal visualized left ureter. Normal visualized stomach. Normal small intestine. Air and feces is seen throughout a nonobstructed colon. There is non-visualization of the appendix. Minimal atherosclerotic changes without aneurysm. Normal inferior vena cava. Normal retroperitoneum. Well distended urinary bladder without wall thickening filling defect or mass. Unremarkable vaginal cuff. No pelvic lymphadenopathy. No free air or free fluid is seen within the abdominal cavity. Midline abdominal surgical scar. Abdominal wall is otherwise unremarkable. Normal osseous structures. CT/Abdomen/Pel W ORAL Cont Only IMPRESSION: 1. Increased colonic feces. Question constipation. 2. Bilateral nonobstructing renal calculi. These appear stable. 3. Prominent urinary bladder without filling defect. 4. Resolution of soft tissue and some peritoneal fluid collections and stranding seen along the midline abdomen on the previous examination. Electronically Signed: Phu Bach DO at 18:19 EST Reading Location ID and State: [id number] Tel [phone], Service support ,
--- NOTE | 2022-09-15 15:17 | EDS_ITS ---
HPI HPI - GI History of Present Illness Chief Complaint: Abd Pain Informant: patient Abdominal Pain/Flank Pain Onset: Days (5) Context: Gradual Onset Timing: Continuous Quality: Aching Location: Right Flank (Initially, now less of there and more lower abdomen) Current Severity: Severe Maximum Severity: Severe Worsened by: Nothing Relieved by: Nothing Nausea/Vomiting/Emesis GI Symptom: Positive for Nausea; Negative for Vomiting Diarrhea/Melena/Hematochezia GI Symptom: Negative for Diarrhea, Melena or Hematochezia Associated Symptoms Associated Symptoms: Positive for Hematuria (Small amount several days ago but none since.); Negative for Dysuria, Frequency or Urgency Narrative Narrative: Patient started having pain in her right flank/low back 5 days ago or so, she states the pain has lessened there, and has come around to the lower abdomen w here it is more prominent now, and she has developed distention. She had a stone that was seen in her right kidney according to her back in the summer. She has seen urology with [facility] as well as general surgery with [facility] because she had a hernia repair along with a small bowel resection earlier this year as well. She has been having normal bowel movements her last 2 were today. Other than a small amount of hematuria 4 or 5 days ago, which has not repeated, she has had no urinary symptoms. No fevers or chills. She is very nauseated but has not vomited. She states her urologist was trying to get tests including a CT scan as an outpatient, but they were unable to in a timely fashion and she states that her symptoms are more severe/worse so she presents here for evaluation. [facility] Medical History Abdominal abscess Bowel obstruction Cervical cancer Epilepsy Hx of sepsis Nicotine dependence Smoker Solitary pulmonary nodule Home Medications clonazepam 1 mg tablet 1 mg PO TID seizure 06/27/19 [History Last Taken 04/26/21] lamotrigine 200 mg tablet 200 mg PO BID seizure 07/30/19 [History Last Taken 04/26/21] albuterol sulfate 90 mcg/actuation aerosol inhaler 1 puff inhalation Q6H PRN Wheezing 11/21/19 [History Last Taken Unknown] lamotrigine 200 mg tablet,extended release 24 hr 200 mg PO QHS seizure 04/27/21 [History Last Taken 04/26/21] zolpidem 10 mg tablet 10 mg PO QHS sleep 04/27/21 [History Last Taken 04/26/21] lorazepam 1 mg tablet (Ativan) 1 mg PO PRN PRN Seizure Activity 04/29/21 [History Last Taken Unknown] dicyclomine 10 mg capsule 20 mg PO Q4H PRN PRN abdominal discomfort #30 CAPSULES 09/15/22 [Rx Last Taken Unknown] Allergy/AdvReac Type Severity Reaction Status Date / Time amoxicillin Allergy Hives Verified 09/15/22 14:29 divalproex sodium Allergy Hives Verified 09/15/22 14:29 [From Depakote] levetiracetam [From Keppra] Allergy Hives Verified 09/15/22 14:29 metoclopramide [From Reglan] Allergy Hives Verified 09/15/22 14:29 tramadol Allergy Angioedema Verified 09/15/22 14:29 adhesive tape [tape] AdvReac Rash Verified 09/15/22 15:19 Surgical History History of appendectomy History of cholecystectomy History of hysterectomy History of tonsillectomy and adenoidectomy Social History household members: none Smoking Status: Current every day smoker tobacco type: cigarettes alcohol intake: never substance use type: amphetamines and other details: Had used medical marijuana prior, has not used for some time now. ROS ROS ED Constitutional Constitutional ED: Denies chills or fever(s) Eyes Eyes: Denies change in vision or diplopia ENT ENT ED: Denies rhinorrhea or sore throat Cardiovascular Cardiovascular: Denies chest pain or palpitations Respiratory/Chest Respiratory/Chest: Denies cough or dyspnea Gastrointestinal Gastrointestinal: Reports as per HPI, abdominal pain and nausea; Denies diarrhea or vomiting Genitourinary Genitourinary ED: Reports as per HPI, flank pain and hematuria; Denies dysuria Musculoskeletal Musculoskeletal: Reports back pain; Denies neck pain Integumentary Denies abscess or rash Neurologic Neurologic: Denies headache(s), paresthesias or weakness Psychiatric Psychiatric: Denies anxiety or suicidal thoughts EXAM Physical Exam Const Vital Signs: 09/15/22 14:27 09/15/22 14:29 09/15/22 16:47 Temperature 96.5 F L 96.5 F L Temperature Source Temporal Temporal Pulse Rate 95 95 Respiratory Rate 18 18 Blood Pressure 146/115 H 146/115 H 121/96 H Blood Pressure Mean 125 125 104 Pulse Ox 100 100 100 Oxygen Delivery Method Room Air Room Air Room Air 09/15/22 18:15 Temperature Temperature Source Pulse Rate Respiratory Rate Blood Pressure 179/81 H Blood Pressure Mean 113 Pulse Ox 97 Oxygen Delivery Method Room Air Positive well nourished and well developed General Appearance ED: well developed and NAD HEENT Reports moist mucous membranes normocephalic and atraumatic Eyes PERRL and EOMs intact bilaterally Neck full ROM and supple Resp normal respiratory effort and clear to auscultation bilaterally Cardio regular rate, regular rhythm and no murmurs GI GI Narrative: Diffusely tender throughout lower abdomen and distended more in the lower abdomen. Hypoactive bowel sounds. No guarding or rebound tenderness. Auscultation: hypoactive bowel sounds Palpation: soft Back/Spine Back/Spine Narrative: Mild right CVA tenderness, none on the left. No rash. Normal inspection. General Back: other FROM Extremity normal to inspection General Extremety ED: Negative for edema, pulses abnormal or tenderness General Extremity: Negative for edema or pulses abnormal Neuro oriented x3, CN's II-XII intact bilaterally and no sensory deficits noted Sensorium / Orientation: awake and alert Motor Exam: strength 5/5 throughout Skin no rashes or lesions noted and no wounds MDM MDM MDM Narrative Medical decision making narrative: Initially patient was treated with morphine, Zofran, IV fluids. I obtained a CT of the abdomen/pelvis with oral contrast only, given that she is thin and has a history of a bowel obstruction and herniorrhaphy, and lack of IV contrast may make looking for a stone easier. The results are noted. She has bilateral nephrolithiasis without any ureterolithiasis or hydronephrosis, or any other acute renal abnormality. Furthermore she has a predilection of stool in the colon. Patient states she does not know how that is possible since she has had 2 loose stools today and has been having loose stool off and on for a week since taking MiraLAX once daily. Patient probably has encopresis. She does not feel she needs to have a bowel movement right now so I do not think a rectal exam/disimpaction will necessarily be helpful. I offered an enema she declines. She was given dicyclomine as well as a prescription for it, and advised to wait until the morning since she is here in the late evening, and then take 1-2 cups of MiraLAX powder dissolved in liquid and drink plenty of fluids all day and may possibly get a good washout from that, or she may try enemas at home as well. Lab Data Attestation: I reviewed the patient's lab results. Labs: Laboratory Results - last 24 hr 09/15/22 09/15/22 09/15/22 15:50 15:50 17:15 WBC 6.3 RBC 4.28 Hgb 13.7 Hct 39.2 MCV 91.6 MCH 32.0 MCHC 34.9 RDW Std Deviation 41.9 RDW Coeff of José Miguel 12.6 Plt Count 264 MPV 8.6 Immature Gran % (Auto) 0.200 Neut % (Auto) 51.9 Lymph % (Auto) 37.5 Ray % (Auto) 8.2 Eos % (Auto) 1.6 Baso % (Auto) 0.6 Absolute Neuts (auto) 3.3 Absolute Lymphs (auto) 2.38 Nucleated RBC % 0 Sodium 138 Potassium 3.3 L Chloride 104 Carbon Dioxide 27.0 Anion Gap 7 BUN 11 Creatinine 0.88 Estim Creat Clear Calc 66.94 Est GFR (MDRD) Af Amer 92 Est GFR (MDRD) Non-Af 76 BUN/Creatinine Ratio 12.5 Glucose 79 Calcium 9.3 Total Bilirubin 0.70 AST 20 ALT 21 Alkaline Phosphatase 94 Total Protein 7.5 Albumin 3.9 Globulin 3.6 Albumin/Globulin Ratio 1.1 Lipase 255 Urine Color Yellow Urine Clarity Clear Urine pH 7.0 Ur Specific [place] 1.010 Urine Protein Negative Urine Glucose (UA) Normal Urine Ketones Negative Urine Occult Blood Negative Urine Nitrite Negative Urine Bilirubin Negative Urine Urobilinogen Normal Ur Leukocyte Esterase Negative Urine RBC 0 SEEN Urine WBC 0 SEEN Ur Squamous Epith Cells 0 SEEN Urine Bacteria 0 SEEN Urine Mucus 0 SEEN Radiography Diagnostic Testing: Clinical Impression(s) from Imaging Studies Abdomen CT 09/15/22 15:11 IMPRESSION: 1. Increased colonic feces. Question constipation. 2. Bilateral nonobstructing renal calculi. These appear stable. 3. Prominent urinary bladder without filling defect. 4. Resolution of soft tissue and some peritoneal fluid collections and stranding seen along the midline abdomen on the previous examination. Electronically Signed: Phu Bach DO at 18:19 EST Reading Location ID and State: [address] [place] [address] Tel [phone], Service support , Discharge Plan Triage Chief Complaint: Abd Pain ED Provider: Edi Otoole Dx/Rx/DC Orders Clinical Impression: Encopresis with constipation and overflow incontinence, Acute right flank pain, Abdominal distension Instructions: Abdominal Pain, Treating Constipation Prescriptions: New dicyclomine 10 MG capsule 20 mg PO Q4H PRN PRN (Reason: abdominal discomfort) Qty: 30 0RF No Action clonazepam 1 MG tablet 1 mg PO TID lamotrigine 200 MG tablet 200 mg PO BID albuterol sulfate 8.5 GM HFA aerosol inhaler 1 puff inhalation Q6H PRN (Reason: Wheezing) Label Comments: INHALE 1 PUFF EVERY SIX HOURS NEEDED FOR WHEEZING lamotrigine 200 mg tablet extended release 24hr 200 mg PO QHS Label Comments: TAKE One tablet in IN THE MORNING, one tablet at noon, and two tablets before bedtime zolpidem 10 mg tablet 10 mg PO QHS Label Comments: TAKE 1 TABLET BY MOUTH DAILY AT BEDTIME X60D. MAY TAKE 2ND TABLET IF NOT ASLEEP AFTER 30 MINUTES. lorazepam [Ativan] 1 mg tablet 1 mg PO PRN PRN (Reason: Seizure Activity) Label Comments: Take 1 tablet by mouth after prolonged seizures to prevent seizure cluster. Do not exceed more than 1 tablet per day. Primary Care Provider: Robb Jeffries NP Referrals: Robb Jeffries AVIATION MANAGER, AVIATION MANAGER-C [Primary Care Provider] - 3-5 Days if not improving Activity Restrictions/Additional Instructions: MiraLAX or equivalent 1-2 cups dissolved, followed by plenty of fluids for the rest of the day. May also try fleets enema. This will have more of a laxative effect rather than the regular dose of MiraLAX which has more of a stool softener effect. Disposition Disposition: Home, Self Care
[2022-09-15] MEDS: Morphine 4 MG/ML Syringe IV (15:58)
[2022-09-15] MEDS: 0.9% Normal Saline 1,000 ML 1000 ML IV (15:58)
[2022-09-15] MEDS: Ondansetron 4 MG/2 ML Vial IV (15:58)
[2022-09-15 16:04] LABS: Absolute Lymphocyte Count 2.38 X10^3/uL (0.83-4.51); Absolute Neutrophil Count 3.3 X10^3/uL (2.0-7.7); Basophil# 0.04 X10^3/uL; Basophil% 0.6 % (0-1); Eosinophils% 1.6 % (0-5); Hematocrit 39.2 % (37-47); Hemoglobin 13.7 g/dL (12.0-15.0); Lymphocyte # 2.38 X10^3/ul (0.83-4.51); Lymphocyte % 37.5 % (19-41); Mean Corp Hgb Conc 34.9 g/dL (32-36); Mean Corpuscular Volume 91.6 fL (81-99); Mean Platelet Vol. 8.6 fl (6.2-12.0); Monocyte# 0.52 X10^3/uL; Monocyte% 8.2 % (0-10); NRBC Flagged by Analyzer 0 % (0-5); Neutrophil # 3.29 X10^3/uL (2.7-7.7); Neutrophil % 51.9 % (47-70); Platelet Count 264 K/mm3 (150-450); RBC Distribution Width CV 12.6 % (11.6-14.6); RBC Distribution Width SD 41.9 fl (35.1-43.9); Red Blood Count 4.28 M/mm3 (4.2-5.4); White Blood Count 6.3 K/mm3 (4.4-11.0)
[2022-09-15 16:20] LABS: ALB/GLOB Ratio 1.1 RATIO (0.9-2.4); AST(SGOT) 20 U/L (15-37); Alanine Aminotransfer ALT/SGPT 21 U/L (13-56); Albumin, Serum 3.9 g/dL (3.2-5.0); Alkaline Phosphatase 94 U/L (45-117); Anion Gap 7 (5-15); BUN 11 mg/dL (7-18); BUN/Creat Ratio 12.5 RATIO (10-20); Calcium,Total 9.3 mg/dL (8.5-10.1); Chloride 104 mmol/L (98-107); Creatinine, Serum 0.88 mg/dL (0.55-1.02); EST Glomerular Filtration Rate 76 mL/min (>60); Est Glom Filt Rate - Afr Amer 92 mL/min (>60); Estimated Creatinine Clearance 66.94 ml/min; Globulin 3.6 g/dL (2.2-4.2); Glucose 79 mg/dL (74-106); Lipase 255 U/L (73-393); Potassium 3.3 mmol/L (3.5-5.1); Protein, Total 7.5 g/dL (6.4-8.2); Sodium Level 138 mmol/L (136-145)
[2022-09-15 16:47] VITALS: BP 121/96; O2SAT 100
[2022-09-15 17:18] LABS: Bacteria 0 SEEN /hpf (None Seen); Mucous, Urine 0 SEEN /hpf (<or=2+); Red Blood Cells-Urine 0 SEEN /hpf (0-5); Squamous Epithelial Cells - UA 0 SEEN /hpf (5-10); White Blood Cells 0 SEEN /hpf (0-5)
[2022-09-15 17:26] LABS: Color, Urine Yellow (Yellow); Glucose, Dipstick Normal (Normal); Ketone-Dipstick Negative (Negative); Leukocyte Esterase-Dipstick Negative /ul (Negative); Nitrite-Dipstick Negative (Negative); Occult Blood-Urine Negative /ul (Negative); Protein-Dipstick Negative (Negative); Urine Bilirubin Dipstick Negative (Negative); Urine Clarity Clear (Clear); Urine Urobilinogen Normal (Normal)
[2022-09-15] MEDS: Ketorolac 15 MG/ML Vial IV (17:47)
[2022-09-15 18:15] VITALS: BP 179/81; O2SAT 97
[2022-09-15] MEDS: Dicyclomine 10 MG Capsule 20 MG PO (18:56)
== END 2022-09-15 19:01 | disposition home or self-care (01) ==
PROVIDERS: Emergency Provider Emergency Medicine; PCP Nurse Practitioner Primary Care; Visit Provider Emergency Medicine
DX: R15.9 Full incontinence of feces (principal); K59.00 Constipation, unspecified; R14.0 Abdominal distension (gaseous); N39.490 Overflow incontinence; N20.0 Calculus of kidney; R11.2 Nausea with vomiting, unspecified; R10.9 Unspecified abdominal pain
CPT/HCPCS: 74176; 80053; 81001; 83690; 85025; 96361; 96374; 96375; 99283; J7030; A4216; J2405

== ENCOUNTER 2023-06-28 11:00 | Emergency (ER) | payer MEDICARE, MEDICAID, SELFPAY ==
[2023-06-28 11:01] VITALS: BP 138/111; PULSE 95; RESP 18; TEMP 35.9; O2SAT 100; BMI 17.4
--- NOTE | 2023-06-28 11:10 | CT_ITS ---
HISTORY: trauma. TECHNIQUE: Multiple axial images were obtained of the head without intravenous contrast. A radiation dose optimization technique was used for this scan. 238 images. COMPARISON: 06/27/2019. FINDINGS: BRAIN PARENCHYMA: No significant attenuation abnormality. No acute intra-axial hemorrhage. CSF SPACES: Cerebral ventricles, cortical sulci, and other extra-axial CSF spaces within normal limits in size for age. No midline shift or other significant mass effect. No acute extra-axial hemorrhage. OTHER: Intact calvarium. 1 x 2.6 cm right frontal scalp hematoma. No significant air fluid levels in the paranasal sinuses or mastoid air cells. Unremarkable orbits. CT/Brain/Head without Contrast IMPRESSION: No acute intracranial process identified. Right scalp contusion. Electronically Signed: Pam Phan MD at 12:07 EDT ,
--- NOTE | 2023-06-28 11:17 | EX.ED.DYSGE1 ---
HPI History of Present Illness Chief Complaint: Seizure Narrative Narrative: Patient had a seizure about 5 hours ago she was told to come to the ED since she did have a right forehead contusion. She has a history of seizures she takes Lamictal and Klonopin. She has no fevers or chills. She is under a lot of stress since her father is dying and she is getting decreased sleep she also has some nausea which she also attributes to stress. The past few days she believes she threw up her Lamictal and Klonopin. Otherwise no other symptoms. [facility] Medical History Abdominal abscess Bowel obstruction Cervical cancer Epilepsy Hx of sepsis Nicotine dependence Smoker Solitary pulmonary nodule Home Medications clonazepam 1 mg tablet 1 mg PO TID seizure 06/27/19 [History Last Taken 04/26/21] lamotrigine 200 mg tablet 200 mg PO BID seizure 07/30/19 [History Last Taken 04/26/21] albuterol sulfate 90 mcg/actuation aerosol inhaler 1 puff inhalation Q6H PRN Wheezing 11/21/19 [History Last Taken Unknown] lamotrigine 200 mg tablet,extended release 24 hr 200 mg PO QHS seizure 04/27/21 [History Last Taken 04/26/21] zolpidem 10 mg tablet 10 mg PO QHS sleep 04/27/21 [History Last Taken 04/26/21] lorazepam 1 mg tablet (Ativan) 1 mg PO PRN PRN Seizure Activity 04/29/21 [History Last Taken Unknown] dicyclomine 10 mg capsule 20 mg (2 x 10 mg) PO Q4H PRN PRN abdominal discomfort #30 CAPSULES 09/15/22 [Rx Last Taken Unknown] Allergy/AdvReac Type Severity Reaction Status Date / Time amoxicillin Allergy Hives Verified 06/28/23 11:01 divalproex sodium Allergy Hives Verified 06/28/23 11:01 [From Depakote] levetiracetam [From Keppra] Allergy Hives Verified 06/28/23 11:01 metoclopramide [From Reglan] Allergy Hives Verified 06/28/23 11:01 tramadol Allergy Angioedema Verified 06/28/23 11:01 adhesive tape [tape] AdvReac Rash Verified 06/28/23 11:01 Surgical History History of appendectomy History of cholecystectomy History of hysterectomy History of tonsillectomy and adenoidectomy Social History household members: none Smoking Status: Current every day smoker tobacco type: cigarettes alcohol intake: never substance use type: amphetamines and other details: Had used medical marijuana prior, has not used for some time now. ROS ROS ED ROS Narrative Past medical history: Reviewed Medications: Reviewed Social history: Noncontributory Review of systems: All systems negative except as indicated General: No fever Eyes: No visual changes Head: Right forehead contusion ENT: No upper airway congestion, normal voice Neck: No neck pain Cardiovascular: No chest pain Respiratory: No shortness of breath or cough Gastrointestinal: No abdominal pain, nausea vomiting or diarrhea Genitourinary: No dysuria Musculoskeletal: Denies myalgias no difficulty with ambulation Skin: No rash Neurological: No memory loss, confusion or any focal weakness. She is not postictal at this time. EXAM Physical Exam Narrative Exam Narrative: Physical exam General: Well nourished, Well developed, No Acute Distress Head: Normocephalic, Atraumatic Eyes: Conjunctiva not pale ENT: Slightly dry mucous membranes. Right forehead hematoma no laceration. Neck: Supple, Nontender, No lymphadenopathy Cardiovascular: Regular rate, Regular rhythm Respiratory: No distress, CTA bilaterally Abdomen: Soft, Nontender, Nondistended Back: Nontender, Normal Inspection. Negative for: CVA tenderness Extremities: Nontender, No edema Skin: Normal color, No rash Neurological: Alert, Normal Strength, Normal Sensation Const Vital Signs: 06/28/23 11:01 Temperature 96.7 F L Temperature Source Temporal Pulse Rate 95 Respiratory Rate 18 Blood Pressure 138/111 H Blood Pressure Mean 120 Pulse Ox 100 Oxygen Delivery Method Room Air MDM MDM MDM Narrative Medical decision making narrative: Patient's work-up is negative. She appears well. She was observed in the ED she has no recurrence. Her nausea is improved she is given IV fluids. She was told to take her antiseizure medication. Otherwise she does not drive anyway, she will be discharged in the care of family. Head CT does not show any intracranial bleed Lab Data Labs: Laboratory Results - last 24 hr 06/28/23 11:37 WBC 6.5 RBC 4.88 Hgb 15.9 H Hct 46.8 MCV 95.9 MCH 32.6 H MCHC 34.0 RDW Std Deviation 48.5 H RDW Coeff of José Miguel 13.7 Plt Count 294 MPV 8.7 Immature Gran % (Auto) 0.300 Neut % (Auto) 72.6 H Lymph % (Auto) 18.3 L [place] % (Auto) 7.7 Eos % (Auto) 0.3 Baso % (Auto) 0.8 Absolute Neuts (auto) 4.7 Absolute Lymphs (auto) 1.19 Nucleated RBC % 0 Sodium 139 Potassium 3.3 L Chloride 103 Carbon Dioxide 26.0 Anion Gap 10 BUN 6 L Creatinine 0.95 Estim Creat Clear Calc 56.58 Est GFR (MDRD) Af Amer 83 Est GFR (MDRD) Non-Af 69 BUN/Creatinine Ratio 6.3 L Glucose 82 Calcium 9.1 Total Bilirubin 0.50 AST 39 H ALT 31 Alkaline Phosphatase 117 Total Protein 8.1 Albumin 4.2 Globulin 3.9 Albumin/Globulin Ratio 1.1 Radiography Diagnostic Testing: Clinical Impression(s) from Imaging Studies Brain CT 06/28/23 11:10 IMPRESSION: No acute intracranial process identified. Right scalp contusion. Electronically Signed: Pam Phan MD at 12:07 EDT , Discharge Plan Triage Chief Complaint: Seizure ED Provider: Venkat Uribe Dx/Rx/DC Orders Clinical Impression: Seizure, Contusion of face, scalp, and neck, Fall Instructions: Epilepsy Seizure Affects on Body, ED Head Injury (Adult) Prescriptions: No Action clonazepam 1 MG tablet 1 mg PO TID lamotrigine 200 MG tablet 200 mg PO BID albuterol sulfate 8.5 GM HFA aerosol inhaler 1 puff inhalation Q6H PRN (Reason: Wheezing) Patient Comments: INHALE 1 PUFF EVERY SIX HOURS NEEDED FOR WHEEZING lamotrigine 200 mg tablet extended release 24hr 200 mg PO QHS Patient Comments: TAKE One tablet in IN THE MORNING, one tablet at noon, and two tablets before bedtime zolpidem 10 mg tablet 10 mg PO QHS Patient Comments: TAKE 1 TABLET BY MOUTH DAILY AT BEDTIME X60D. MAY TAKE 2ND TABLET IF NOT ASLEEP AFTER 30 MINUTES. lorazepam [Ativan] 1 mg tablet 1 mg PO PRN PRN (Reason: Seizure Activity) Patient Comments: Take 1 tablet by mouth after prolonged seizures to prevent seizure cluster. Do not exceed more than 1 tablet per day. dicyclomine 10 MG capsule 20 mg PO Q4H PRN PRN (Reason: abdominal discomfort) Qty: 30 0RF Primary Care Provider: Robb Jeffries NP Referrals: Robb Jeffries CERTIFIED REGISTERED DENTAL ASSISTANT, CERTIFIED REGISTERED DENTAL ASSISTANT-C [Primary Care Provider] - Disposition Disposition: Home, Self Care
[2023-06-28] MEDS: Ondansetron 4 MG/2 ML Vial IV (11:30)
[2023-06-28] MEDS: 0.9% Normal Saline 1,000 ML 1000 ML IV (11:30)
[2023-06-28 11:45] LABS: Absolute Lymphocyte Count 1.19 X10^3/uL (0.83-4.51); Absolute Neutrophil Count 4.7 X10^3/uL (2.0-7.7); Basophil# 0.05 X10^3/uL; Basophil% 0.8 % (0-1); Eosinophil# 0.02 X10^3/uL; Eosinophils% 0.3 % (0-5); Hematocrit 46.8 % (37-47); Hemoglobin 15.9 g/dL (12.0-15.0); Lymphocyte # 1.19 X10^3/ul (0.83-4.51); Lymphocyte % 18.3 % (19-41); Mean Corpuscular Hgb 32.6 pg (27.0-32.0); Mean Corpuscular Volume 95.9 fL (81-99); Mean Platelet Vol. 8.7 fl (6.2-12.0); Monocyte% 7.7 % (0-10); NRBC Flagged by Analyzer 0 % (0-5); Neutrophil # 4.72 X10^3/uL (2.7-7.7); Neutrophil % 72.6 % (47-70); Platelet Count 294 K/mm3 (150-450); RBC Distribution Width CV 13.7 % (11.6-14.6); RBC Distribution Width SD 48.5 fl (35.1-43.9); Red Blood Count 4.88 M/mm3 (4.2-5.4); White Blood Count 6.5 K/mm3 (4.4-11.0)
[2023-06-28 12:00] LABS: ALB/GLOB Ratio 1.1 RATIO (0.9-2.4); AST(SGOT) 39 U/L (15-37); Alanine Aminotransfer ALT/SGPT 31 U/L (13-56); Albumin, Serum 4.2 g/dL (3.2-5.0); Alkaline Phosphatase 117 U/L (45-117); Anion Gap 10 (5-15); BUN 6 mg/dL (7-18); BUN/Creat Ratio 6.3 RATIO (10-20); Calcium,Total 9.1 mg/dL (8.5-10.1); Chloride 103 mmol/L (98-107); Creatinine, Serum 0.95 mg/dL (0.55-1.02); EST Glomerular Filtration Rate 69 mL/min (>60); Est Glom Filt Rate - Afr Amer 83 mL/min (>60); Estimated Creatinine Clearance 56.58 ml/min; Globulin 3.9 g/dL (2.2-4.2); Glucose 82 mg/dL (74-106); Potassium 3.3 mmol/L (3.5-5.1); Protein, Total 8.1 g/dL (6.4-8.2); Sodium Level 139 mmol/L (136-145)
[2023-06-28] MEDS: Ketorolac 15 MG/ML Vial IV (12:27)
[2023-06-28 13:29] VITALS: BP 108/76; PULSE 76; RESP 14; TEMP 36.6; O2SAT 100
== END 2023-06-28 13:30 | disposition home or self-care (01) ==
PROVIDERS: Emergency Provider Emergency Medicine; PCP Nurse Practitioner Primary Care; Visit Provider Emergency Medicine
DX: R56.9 Unspecified convulsions (principal); S00.03XA Contusion of scalp, initial encounter; Z79.899 Other long term (current) drug therapy; Z85.41 Personal history of malignant neoplasm of cervix uteri; Z90.49 Acquired absence of other specified parts of digestive tract; Z90.710 Acquired absence of both cervix and uterus; F17.210 Nicotine dependence, cigarettes, uncomplicated; S00.83XA Contusion of other part of head, initial encounter; X58.XXXA Exposure to other specified factors, initial encounter; S10.93XA Contusion of unspecified part of neck, initial encounter
CPT/HCPCS: 70450; 80053; 85025; 99283; J7030; A4216; J2405

== ENCOUNTER 2023-12-24 12:03 | Emergency (ER) | payer MEDICARE, MEDICAID, SELFPAY ==
[2023-12-24 12:04] VITALS: BP 127/98; PULSE 96; RESP 18; TEMP 36.4; O2SAT 100; BMI 19.6
--- NOTE | 2023-12-24 12:19 | CT_ITS ---
STUDY: CT ABDOMEN AND PELVIS WITH CONTRAST REASON FOR EXAM: Female, 43 years old. abdominal pain RADIATION DOSAGE (If Supplied By Facility): CTDIvol = ( 14.41 ) mGy, DLP = ( 263.08 ) mGycm TECHNIQUE: Transaxial images were obtained from the dome of the diaphragm to the symphysis pubis without oral contrast. IV 75mL [id number]-[id number] was administered. Sagittal and coronal images were reconstructed. Individualized dose optimization techniques were used for this CT. COMPARISON: 09/15/2022 FINDINGS: The visualized lung bases are unremarkable. The visualized portions of the heart are within normal limits. Normal liver. There are surgical clips in the gallbladder fossa consistent with a prior cholecystectomy. Normal spleen. Normal pancreas. Normal bilateral adrenal glands. 2 small nonobstructing stones in the right kidney. No hydronephrosis, ureteral stone, ureteral dilatation. Normal left kidney. Normal visualized stomach. Moderate dilatation of the first and second portions of the duodenum. To Normal colon. The appendix is visualized and appears normal. Normal abdominal aorta. Normal inferior vena cava. Normal retroperitoneum. Normal urinary bladder. Normal abdominal wall. Normal osseous structures. CT/Abdomen/Pelvis W IV Cont ONLY IMPRESSION: Moderate dilatation of the proximal duodenum. Electronically Signed: Jasvir Camacho MD at 15:02 EST ,
--- NOTE | 2023-12-24 12:38 | EX.ED.DYSGE1 ---
HPI <EMILIA Amanda - Last Filed: 12/24/23 17:12> History of Present Illness Chief Complaint: General Illness Narrative Narrative: 43-year-old female with extensive abdominal surgeries states she has not had a bowel movement in 2 weeks. She has had 1 week of nausea/vomiting and abdominal cramping mainly in the right upper quadrant. About 1.5 years ago she had a ruptured appendix and then multiple subsequent surgeries due to infection. She developed an SBO and needed a colon resection and then subsequent hernia repair. Most of the surgeries were done at [facility] with Dr. Duke. She called her surgeon a week ago who recommended she come to the ER but she was too busy to come in. She states she has been vomiting more over the last 2 days and not passing gas. Today she felt weak and dehydrated in the shower and passed out. She was able to get out and does not have injuries. She is not on blood thinners. During the course of her multiple surgeries she has had her gallbladder removed and remote hysterectomy due to cervical cancer. [facility] <EMILIA Amanda - Last Filed: 12/24/23 17:12> [facility] Medical History Abdominal abscess Bowel obstruction Cervical cancer Epilepsy Hx of sepsis Nicotine dependence Smoker Solitary pulmonary nodule Home Medications clonazepam 1 mg tablet 1 mg PO TID seizure 06/27/19 [History Last Taken 04/26/21] lamotrigine 200 mg tablet 200 mg PO BID seizure 07/30/19 [History Last Taken 04/26/21] albuterol sulfate 90 mcg/actuation aerosol inhaler 1 puff inhalation Q6H PRN Wheezing 11/21/19 [History Last Taken Unknown] lamotrigine 200 mg tablet,extended release 24 hr 200 mg PO QHS seizure 04/27/21 [History Last Taken 04/26/21] zolpidem 10 mg tablet 10 mg PO QHS sleep 04/27/21 [History Last Taken 04/26/21] lorazepam 1 mg tablet (Ativan) 1 mg PO PRN PRN Seizure Activity 04/29/21 [History Last Taken Unknown] dicyclomine 10 mg capsule 20 mg (2 x 10 mg) PO Q4H PRN PRN abdominal discomfort #30 CAPSULES 09/15/22 [Rx Last Taken Unknown] ondansetron 4 mg disintegrating tablet 4 mg PO Q8H PRN PRN Nausea #10 tabs 06/28/23 [Rx Last Taken Unknown] ondansetron 4 mg disintegrating tablet 4 mg PO Q8H PRN PRN Nausea #10 tabs 12/24/23 [Rx Last Taken Unknown] potassium chloride 20 mEq tablet,extended release(part/cryst) (Klor-Con M) 20 meq PO DAILY 3 days #3 TABLETS 12/24/23 [Rx Last Taken Unknown] promethazine 25 mg rectal suppository 25 mg WV Q6H PRN nausea and vomiting #12 ea 12/24/23 [Rx Last Taken Unknown] Allergy/AdvReac Type Severity Reaction Status Date / Time amoxicillin Allergy Hives Verified 12/24/23 12:04 divalproex sodium Allergy Hives Verified 12/24/23 12:04 [From Depakote] levetiracetam [From Keppra] Allergy Hives Verified 12/24/23 12:04 metoclopramide [From Reglan] Allergy Hives Verified 12/24/23 12:04 tramadol Allergy Angioedema Verified 12/24/23 12:04 adhesive tape [tape] AdvReac Rash Verified 12/24/23 12:04 Surgical History History of appendectomy History of cholecystectomy History of hysterectomy History of tonsillectomy and adenoidectomy Social History household members: none Smoking Status: Current every day smoker tobacco type: cigarettes alcohol intake: never substance use type: amphetamines and other details: Had used medical marijuana prior, has not used for some time now. ROS <EMILIA Amanda - Last Filed: 12/24/23 17:12> ROS ED ROS Narrative Constitutional: Negative for fever, chills,. CVS: Negative for chest pain. Respiratory: Negative for shortness of breath. GI: Positive for abdominal pain, nausea, vomiting, constipation. : Negative for dysuria. EXAM <EMILIA Amanda - Last Filed: 12/24/23 17:12> Physical Exam Narrative Exam Narrative: CONST: Patient sitting in no acute distress. EYES: Normal inspection. NECK: Normal inspection. RESP: No respiratory distress, CTAB. CVS: Regular rate and rhythm, no murmur, no gallop. ABD: Soft with RUQ tenderness, no guarding or rebound, nondistended, decreased bowel sounds. Well-healed abdominal surgical scars. SKIN: Color normal, no rash, warm, dry, intact. EXTREMITIES: Normal appearance, no pedal edema. NEURO: Oriented x4. PSYCH: Normal affect. Const Vital Signs: 12/24/23 12:04 12/24/23 15:28 12/24/23 17:09 Temperature 97.6 F L 97.6 F L Temperature Source Temporal Pulse Rate 96 52 L 64 Respiratory Rate 18 16 116 H Blood Pressure 127/98 H 115/80 124/78 H Blood Pressure Mean 107 91 93 Pulse Ox 100 99 Oxygen Delivery Method Room Air <Shahab Caballero MD - Last Filed: 12/25/23 10:08> Physical Exam Const Vital Signs: 12/24/23 12:04 12/24/23 15:28 12/24/23 17:09 Temperature 97.6 F L 97.6 F L Temperature Source Temporal Pulse Rate 96 52 L 64 Respiratory Rate 18 16 116 H Blood Pressure 127/98 H 115/80 124/78 H Blood Pressure Mean 107 91 93 Pulse Ox 100 99 Oxygen Delivery Method Room Air [facility] <EMILIA Amanda - Last Filed: 12/24/23 17:12> [facility] Narrative Medical decision making narrative: Patient reports 1 week of vomiting and abdominal pain and 2 weeks of constipation. She has history of abdominal surgeries. She appears well and nontoxic with normal vital signs. Abdomen is soft with upper abdominal tenderness but no peritoneal signs. She has no distention or peritoneal signs. Bowel sounds are present in all 4 quadrants. She has normal white count of 5.3 and hemoglobin of 14.6. Potassium mildly low at 3.2, BUN 19, creatinine 1.05 which is at baseline. Total bilirubin is 1.5 with unremarkable LFTs and lipase. CT scan shows moderate dilation of the proximal duodenum but no evidence of obstruction. She states she did not feel better after IV fluids, Zofran, and morphine 8 mg. She has not vomited here and repeat serial exams are benign. She was ordered Dilaudid and Phenergan with plan to reassess and p.o. challenge. Patient kept down half a cup of water and did not want to drink anymore or try p.o. potassium in the ED. I prescribed Zofran, Phenergan suppositories, potassium and recommended she follow-up with her abdominal surgeon. Patient stated she did not feel any better and she would just go home and have a reoccurrence of the same problems. She was upset because someone who came in the room told her she had kidney stones. She states I lied to her. I explained the report notes nonobstructive stones that are not contributing to her symptoms. She was worried the prior mesh she has is causing symptoms and there is no evidence of that on the report. I offered to transfer her to a [facility] for admission and she declined. She was discharged in stable condition. Differential: Constipation, ileus, obstruction, diverticulitis Lab Data Attestation: I reviewed the patient's lab results. Labs: Laboratory Results - last 24 hr 12/24/23 12:19 WBC 5.3 RBC 4.50 Hgb 14.6 Hct 40.8 MCV 90.7 MCH 32.4 H MCHC 35.8 RDW Std Deviation 39.7 RDW Coeff of José Miguel 12.0 Plt Count 238 MPV 9.1 Immature Gran % (Auto) 0.200 Neut % (Auto) 52.2 Lymph % (Auto) 36.0 [place] % (Auto) 9.2 Eos % (Auto) 1.1 Baso % (Auto) 1.3 H Absolute Neuts (auto) 2.8 Absolute Lymphs (auto) 1.92 Nucleated RBC % 0 Sodium 138 Potassium 3.2 L Chloride 107 Carbon Dioxide 24.0 Anion Gap 7 BUN 19 H Creatinine 1.05 H Estim Creat Clear Calc 57.76 Est GFR (MDRD) Af Amer 74 Est GFR (MDRD) Non-Af 61 BUN/Creatinine Ratio 18.1 Glucose 86 Calcium 9.3 Total Bilirubin 1.50 H AST 42 H ALT 27 Alkaline Phosphatase 95 Total Protein 7.2 Albumin 3.9 Globulin 3.3 Albumin/Globulin Ratio 1.2 Lipase 29 Radiography Diagnostic Testing: Clinical Impression(s) from Imaging Studies Abdomen/Pelvis CT 12/24/23 12:19 IMPRESSION: Moderate dilatation of the proximal duodenum. Electronically Signed: Jasvir Camacho MD at 15:02 EST , <Shahab Caballero MD - Last Filed: 12/25/23 10:08> [facility] Narrative Medical decision making narrative: Patient reports 1 week of vomiting and abdominal pain and 2 weeks of constipation. She has history of abdominal surgeries. She appears well and nontoxic with normal vital signs. Abdomen is soft with upper abdominal tenderness but no peritoneal signs. She has no distention or peritoneal signs. Bowel sounds are present in all 4 quadrants. She has normal white count of 5.3 and hemoglobin of 14.6. Potassium mildly low at 3.2, BUN 19, creatinine 1.05 which is at baseline. Total bilirubin is 1.5 with unremarkable LFTs and lipase. CT scan shows moderate dilation of the proximal duodenum but no evidence of obstruction. She states she did not feel better after IV fluids, Zofran, and morphine 8 mg. She has not vomited here and repeat serial exams are benign. She was ordered Dilaudid and Phenergan with plan to reassess and p.o. challenge. Patient kept down half a cup of water and did not want to drink anymore or try p.o. potassium in the ED. I prescribed Zofran, Phenergan suppositories, potassium and recommended she follow-up with her abdominal surgeon. Patient stated she did not feel any better and she would just go home and have a reoccurrence of the same problems. She was upset because someone who came in the room told her she had kidney stones. She states I lied to her. I explained the report notes nonobstructive stones that are not contributing to her symptoms. She was worried the prior mesh she has is causing symptoms and there is no evidence of that on the report. I offered to transfer her to a [facility] facility for admission and she declined. She was discharged in stable condition. Differential: Constipation, ileus, obstruction, diverticulitis Dr. Caballero: I have personally performed a face to face assessment of the patient and have reviewed the ALVARADO Note. I performed a substantive portion of the visit including all aspects of the following. My delacruz findings include: History is right upper quadrant abdominal pain, history of multiple surgeries at [facility]. Reported pain x 2 weeks. Exam is afebrile. Vital signs noted. Regular rate and rhythm. Lungs clear to auscultation bilaterally. Abdomen soft with mild tenderness to palpation right upper quadrant, no rebound or guarding. Medical Decision Making: Check labs. Check CT. Patient administered morphine x 2. CT without evidence of obstruction or acute process. Patient will be given additional analgesia and antinausea medication. In review of her labs, no significant dehydration noted. Continued care through supervision of DAVID. Patient signed out to oncoming physician for final disposition after p.o. challenge and/or additional analgesia. Patient is in stable condition. Other additions or changes: [None] History & Record Review Discussion w/independent historian: Patient Lab Data Labs: Laboratory Results - last 24 hr 12/24/23 12:19 WBC 5.3 RBC 4.50 Hgb 14.6 Hct 40.8 MCV 90.7 MCH 32.4 H MCHC 35.8 RDW Std Deviation 39.7 RDW Coeff of [place] 12.0 Plt Count 238 MPV 9.1 Immature Gran % (Auto) 0.200 Neut % (Auto) 52.2 Lymph % (Auto) 36.0 [place] % (Auto) 9.2 Eos % (Auto) 1.1 Baso % (Auto) 1.3 H Absolute Neuts (auto) 2.8 Absolute Lymphs (auto) 1.92 Nucleated RBC % 0 Sodium 138 Potassium 3.2 L Chloride 107 Carbon Dioxide 24.0 Anion Gap 7 BUN 19 H Creatinine 1.05 H Estim Creat Clear Calc 57.76 Est GFR (MDRD) Af Amer 74 Est GFR (MDRD) Non-Af 61 BUN/Creatinine Ratio 18.1 Glucose 86 Calcium 9.3 Total Bilirubin 1.50 H AST 42 H ALT 27 Alkaline Phosphatase 95 Total Protein 7.2 Albumin 3.9 Globulin 3.3 Albumin/Globulin Ratio 1.2 Lipase 29 Radiography Diagnostic Testing: Clinical Impression(s) from Imaging Studies Abdomen/Pelvis CT 12/24/23 12:19 IMPRESSION: Moderate dilatation of the proximal duodenum. Electronically Signed: Jasvir Camacho MD at 15:02 EST , Discharge Plan Triage Chief Complaint: General Illness ED Midlevel Provider: Imani Wilson ED Provider: Shahab Caballero Dx/Rx/DC Orders Clinical Impression: Abdominal pain, Mild dehydration, Nausea and vomiting Instructions: Abdominal Pain, ED Vomiting (Adult) Prescriptions: New promethazine 25 mg suppository 25 mg WV Q6H PRN (Reason: nausea and vomiting) Qty: 12 0RF ondansetron 4 mg tablet,disintegrating 4 mg PO Q8H PRN PRN (Reason: Nausea) Qty: 10 0RF potassium chloride [Klor-Con M20] 20 mEq tablet,ER particles/crystals 20 meq PO DAILY 3 Days Qty: 3 0RF Continued ondansetron 4 mg tablet,disintegrating 4 mg PO Q8H PRN PRN (Reason: Nausea) Qty: 10 0RF No Action clonazepam 1 MG tablet 1 mg PO TID lamotrigine 200 MG tablet 200 mg PO BID albuterol sulfate 8.5 GM HFA aerosol inhaler 1 puff inhalation Q6H PRN (Reason: Wheezing) Patient Comments: INHALE 1 PUFF EVERY SIX HOURS NEEDED FOR WHEEZING lamotrigine 200 mg tablet extended release 24hr 200 mg PO QHS Patient Comments: TAKE One tablet in IN THE MORNING, one tablet at noon, and two tablets before bedtime zolpidem 10 mg tablet 10 mg PO QHS Patient Comments: TAKE 1 TABLET BY MOUTH DAILY AT BEDTIME X60D. MAY TAKE 2ND TABLET IF NOT ASLEEP AFTER 30 MINUTES. lorazepam [Ativan] 1 mg tablet 1 mg PO PRN PRN (Reason: Seizure Activity) Patient Comments: Take 1 tablet by mouth after prolonged seizures to prevent seizure cluster. Do not exceed more than 1 tablet per day. dicyclomine 10 MG capsule 20 mg PO Q4H PRN PRN (Reason: abdominal discomfort) Qty: 30 0RF Primary Care Provider: Robb Jeffries NP Referrals: Robb Jeffries NP, [employer] [Primary Care Provider] - Activity Restrictions/Additional Instructions: I prescribed 2 different nausea medicines including Zofran dissolvable tablets and Phenergan suppositories. If symptoms worsen I recommend you call your surgeon or return to the ER. Disposition Disposition: Home, Self Care Discharge Date/Time: 12/24/23 17:10
[2023-12-24] MEDS: Ondansetron 4 MG/2 ML Vial IV ×2 (12:51→13:57)
[2023-12-24] MEDS: Morphine 4 MG/ML Syringe IV ×2 (12:51→13:57)
[2023-12-24] MEDS: 0.9% Normal Saline (1000mL) 1,000 ML 1000 ML IV (12:51)
[2023-12-24 13:02] LABS: Absolute Lymphocyte Count 1.92 X10^3/uL (0.83-4.51); Absolute Neutrophil Count 2.8 X10^3/uL (2.0-7.7); Basophil# 0.07 X10^3/uL; Basophil% 1.3 % (0-1); Eosinophil# 0.06 X10^3/uL; Eosinophils% 1.1 % (0-5); Hematocrit 40.8 % (37-47); Hemoglobin 14.6 g/dL (12.0-15.0); Lymphocyte # 1.92 X10^3/ul (0.83-4.51); Mean Corp Hgb Conc 35.8 g/dL (32-36); Mean Corpuscular Hgb 32.4 pg (27.0-32.0); Mean Corpuscular Volume 90.7 fL (81-99); Mean Platelet Vol. 9.1 fl (6.2-12.0); Monocyte# 0.49 X10^3/uL; Monocyte% 9.2 % (0-10); NRBC Flagged by Analyzer 0 % (0-5); Neutrophil # 2.78 X10^3/uL (2.7-7.7); Neutrophil % 52.2 % (47-70); Platelet Count 238 K/mm3 (150-450); RBC Distribution Width SD 39.7 fl (35.1-43.9); White Blood Count 5.3 K/mm3 (4.4-11.0)
[2023-12-24 13:20] LABS: ALB/GLOB Ratio 1.2 RATIO (0.9-2.4); AST(SGOT) 42 U/L (15-37); Alanine Aminotransfer ALT/SGPT 27 U/L (13-56); Albumin, Serum 3.9 g/dL (3.2-5.0); Alkaline Phosphatase 95 U/L (45-117); Anion Gap 7 (5-15); BUN 19 mg/dL (7-18); BUN/Creat Ratio 18.1 RATIO (10-20); Calcium,Total 9.3 mg/dL (8.5-10.1); Chloride 107 mmol/L (98-107); Creatinine, Serum 1.05 mg/dL (0.55-1.02); EST Glomerular Filtration Rate 61 mL/min (>60); Est Glom Filt Rate - Afr Amer 74 mL/min (>60); Estimated Creatinine Clearance 57.76 ml/min; Globulin 3.3 g/dL (2.2-4.2); Glucose 86 mg/dL (74-106); Lipase 29 U/L (13-75); Potassium 3.2 mmol/L (3.5-5.1); Protein, Total 7.2 g/dL (6.4-8.2); Sodium Level 138 mmol/L (136-145)
--- NOTE | 2023-12-24 14:12 | ED.RN ---
This RN notified CT scan that patients PIV had infiltrated after CT scan dye had been infused. PIV removed and an ice pack placed on arm. notified.
[2023-12-24] MEDS: proMETHazine 25 MG/ML Syringe 12.5 MG IM (15:20)
[2023-12-24] MEDS: HYDROmorphone 1 MG/ML Syringe IV (15:21)
[2023-12-24] MEDS: 0.9% Normal Saline (500mL Bag) 500 ML 999 ML IV (15:25)
[2023-12-24 15:28] VITALS: BP 115/80; PULSE 52; RESP 16
--- NOTE | 2023-12-24 17:06 | ED.RN ---
PT. VERY UPSET UPON D/C, ASTYA NIETO INTO ROOM TO RE-EXPLAIN D/C INSTRUCTIONS AND CT FINDINGS. PT STILL NOT HAPPY. STATES SHE WILL BE BACK AT MIDNIGHT. PT WAS UPSET ABOUT SCRIPTS BEING SENT TO [facility] EVEN THOUGH SHE TOLD STAFF SHE WANTED THEM THERE, STATES I WANTED TO GET THEM FILLED [facility] EXPLAINED TO PT. AT THIS TIME RET[facility] IS CLOSED WE CAN DO MEDS TO BED, PT UNHAPPY ABOUT THIS ANSWER.
[2023-12-24 17:09] VITALS: BP 124/78; PULSE 64; RESP 116; TEMP 36.4; O2SAT 99
== END 2023-12-24 17:10 | disposition home or self-care (01) ==
PROVIDERS: Physician Assistant; Emergency Provider Emergency Medicine; PCP Nurse Practitioner Primary Care; Visit Provider Emergency Medicine
DX: R11.2 Nausea with vomiting, unspecified (principal); G40.909 Epilepsy, unspecified, not intractable, without status epilepticus; E86.0 Dehydration; Z90.49 Acquired absence of other specified parts of digestive tract; R10.11 Right upper quadrant pain; Z90.710 Acquired absence of both cervix and uterus; Z85.41 Personal history of malignant neoplasm of cervix uteri; Z79.899 Other long term (current) drug therapy
CPT/HCPCS: 74177; 80053; 83690; 85025; 96361; 96374; 96375; 96376; 99283; J7030; Q9967; A4216; J2405

== ENCOUNTER 2025-09-12 09:49 | Emergency (ER) | payer MEDICARE, MEDICAID, SELFPAY ==
[2025-09-12 09:50] VITALS: BP 114/81; PULSE 63; RESP 14; TEMP 36.6; O2SAT 100
--- NOTE | 2025-09-12 10:10 | RAD_ITS ---
PROCEDURE: FOOT MIN 3 VIEWS 09/12/2025 REASON FOR EXAM: PAIN Pain following a fall. TECHNIQUE: Procedure Code: RADFO Modality: DX Procedure: FOOT MIN 3 VIEWS Laterality: Right foot FINDINGS: Bones: No fracture seen. Joints: Alveolus valve deformity and degenerative changes at the 1st metatarsophalangeal joint. Soft tissues: Overlying soft tissue swelling. Other: RAD/Foot min 3 Views IMPRESSION: Hallux valgus deformity and degenerative changes at the 1st metatarsophalangeal joint with overlying soft tissue swelling. Reading Location: [place] [address]
--- NOTE | 2025-09-12 10:10 | RAD_ITS ---
PROCEDURE: ANKLE MIN 3 VIEWS 09/12/2025 REASON FOR EXAM: PAIN TECHNIQUE: Procedure Code: RADANK Modality: DX Procedure: ANKLE MIN 3 VIEWS Laterality: Right ankle COMPARISON: None FINDINGS: Bones: No fracture seen. Joints: Normal alignment. Mortise appears intact. No effusion. Soft tissues: Soft tissues are unremarkable. Other: RAD/Ankle min 3 Views IMPRESSION: NEGATIVE ANKLE SERIES Reading Location: [facility]-
--- NOTE | 2025-09-12 10:11 | EX.ED.DYSGE1 ---
HPI History of Present Illness Chief Complaint: Lower Extremity Injury Narrative Narrative: Chief complaint and HPI: 45-year-old female with past medical history of epilepsy presents for evaluation of right foot and ankle pain. Patient states she has a history of epilepsy in which she follows with a neurologist. States that she had a seizure yesterday due to a flashing light. States she injured her right foot and ankle during the seizure but denies hitting her head or other trauma such as neck or back pain. Patient states she followed up with her neurologist for the seizure. States she has been icing her foot with little improvement in pain. Has obvious bruising to the foot. Pain worse with ambulation. Review of systems: See HPI Medications: As listed on the chart Allergies: As listed on the chart PFSH: Per chart Vital signs: As listed on the chart. Reviewed. Physical exam: Gen: A&O x3, NAD Head: Normocephalic, atraumatic Eyes: Conjunctiva clear, pupils equal ENT: Moist mucous membranes Neck: Full range of motion CV: Regular rate Resp: Nonlabored respirations Musc: Full range of motion of all the extremities except limited in the right ankle and foot secondary to pain, intact dorsiflexion and plantarflexion of the foot, Achilles intact, Achilles nontender, no tenderness to palpation of the base of the fifth metatarsal or dorsum of the foot, patient has ecchymosis to the plantar surface of the foot pad that extends along the medial aspect of the foot to the ankle, ecchymosis tender to palpation, mild swelling, calcaneus nontender, compartments soft, sensation intact, good capillary refill, DP/PT pulses +2 bilaterally Skin: Warm, dry Psych: Cooperative, appropriate mood and affect [facility] Medical History Abdominal abscess Bowel obstruction Cervical cancer Epilepsy Hx of sepsis Nicotine dependence Smoker Solitary pulmonary nodule Home Medications Medication Instructions Recorded Last Taken Type clonazepam 1 mg tablet 1 mg PO TID seizure 06/27/19 09/12/25 History lamotrigine 200 mg tablet 200 mg PO BID seizure 07/30/19 09/12/25 History albuterol sulfate 90 mcg/actuation 1 puff inhalation Q6H PRN Wheezing 11/21/19 09/05/25 History aerosol inhaler zolpidem 10 mg tablet 20 mg PO QHS sleep 04/27/21 09/11/25 History lorazepam 1 mg tablet (Ativan) 1 mg PO PRN PRN Seizure Activity 04/29/21 Unknown History ondansetron 4 mg disintegrating 4 mg PO Q8H PRN PRN Nausea #10 tabs 12/24/23 Unknown Rx tablet albuterol sulfate 2.5 mg/3 mL 2.5 mg inhalation PRN 09/12/25 Unknown History (0.083 %) solution for nebulization diazepam (Valtoco) 15 mg intranasal PRN seizure 09/12/25 Unknown History lamotrigine 200 mg tablet 400 mg PO QHS 09/12/25 09/11/25 History (Lamictal) tizanidine 4 mg tablet 8 mg PO PRN 09/12/25 Unknown History Allergy/AdvReac Type Severity Reaction Status Date / Time Iodinated Contrast Media Allergy Unknown PT UNABLE Verified 09/12/25 09:52 TO RESPOND-NEEDS F/U amoxicillin Allergy Hives Verified 09/12/25 09:52 divalproex sodium (From Allergy Hives Verified 09/12/25 09:52 Depakote) levetiracetam (From Keppra) Allergy Hives Verified 09/12/25 09:52 metoclopramide (From Reglan) Allergy Hives Verified 09/12/25 09:52 tramadol Allergy Angioedema Verified 09/12/25 09:52 adhesive tape (tape) AdvReac Rash Verified 09/12/25 09:52 Surgical History History of appendectomy History of cholecystectomy History of hysterectomy History of tonsillectomy and adenoidectomy Social History household members: none Smoking Status: Current every day smoker tobacco type: cigarettes alcohol intake: never substance use type: amphetamines and other details: Had used medical marijuana prior, has not used for some time now. EXAM Physical Exam Const Vital Signs: 09/12/25 09:50 Temperature 97.8 F Temperature Source Oral Pulse Rate 63 Respiratory Rate 14 Blood Pressure 114/81 H Blood Pressure Mean 92 Pulse Ox 100 Oxygen Delivery Method Room Air MDM MDM MDM Narrative Medical decision making narrative: 45-year-old female with past medical history of epilepsy presents for evaluation of right foot and ankle pain. Patient states she has a history of epilepsy in which she follows with a neurologist. States she injured her right foot and ankle during the seizure but denies hitting her head or other trauma such as neck or back pain. See physical exam findings. Differential diagnosis includes but is not limited to contusion, sprain, fracture. Patient did not drive to the emergency department today therefore oxycodone ordered. Patient has angioedema listed as tramadol although she states that this is an accurate and she has no allergy to tramadol or angioedema that she knows of. X-ray of the foot and ankle ordered. X-ray of the foot and ankle were personally reviewed interpreted by me, ED physician. No obvious fracture or dislocation. Radiology in agreement. Per radiology hallux valgus deformity and degenerative changes at the first metatarsal phalangeal joint with overlying soft tissue swelling. Given patient has ecchymosis and is tender where the ecchymosis is located, suspect pain secondary to contusion. Patient given education on RICE therapy. Will give postop shoe as needed for comfort and Glenn bandage. Follow-up with primary care physician. Return precautions explained. Will give referral to podiatry as needed. She vermin understanding. Patient stable to discharge home. Impression: 1. Right foot contusion 2. Right ankle contusion Radiography Diagnostic Testing: Clinical Impression(s) from Imaging Studies Ankle X-Ray 09/12/25 10:10 IMPRESSION: NEGATIVE ANKLE SERIES Reading Location: [facility] Foot X-Ray 09/12/25 10:10 IMPRESSION: Hallux valgus deformity and degenerative changes at the 1st metatarsophalangeal joint with overlying soft tissue swelling. Reading Location: [facility] Discharge Plan Triage Chief Complaint: Lower Extremity Injury ED Provider: Andrzej Hill Dx/Rx/DC Orders Prescriptions: No Action clonazepam 1 MG tablet 1 mg PO TID lamotrigine 200 MG tablet 200 mg PO BID albuterol sulfate 8.5 GM HFA aerosol inhaler 1 puff inhalation Q6H PRN (Reason: Wheezing) Patient Comments: INHALE 1 PUFF EVERY SIX HOURS NEEDED FOR WHEEZING zolpidem 10 mg tablet 20 mg PO QHS Patient Comments: TAKE 1 TABLET BY MOUTH DAILY AT BEDTIME X60D. MAY TAKE 2ND TABLET IF NOT ASLEEP AFTER 30 MINUTES. lorazepam [Ativan] 1 mg tablet 1 mg PO PRN PRN (Reason: Seizure Activity) Patient Comments: Take 1 tablet by mouth after prolonged seizures to prevent seizure cluster. Do not exceed more than 1 tablet per day. albuterol sulfate 2.5 mg /3 mL (0.083 %) solution for nebulization 2.5 mg inhalation PRN Valtoco 15 mg/2 spray (7.5/0.1mL x 2) spray,non-aerosol 15 mg intranasal PRN lamotrigine [Lamictal] 200 mg tablet 400 mg PO QHS tizanidine 4 mg tablet 8 mg PO PRN ondansetron 4 mg tablet,disintegrating 4 mg PO Q8H PRN PRN (Reason: Nausea) Qty: 10 0RF Primary Care Provider: Robb Jeffries NP Referrals: Robb Jeffries MANAGER OF BUSINESS OPERATIONS, MANAGER OF BUSINESS OPERATIONS-C [Primary Care Provider, Medical] Print Language: [place]
[2025-09-12 11:38] VITALS: BP 130/68; PULSE 77; RESP 18; TEMP 36.6; O2SAT 99
== END 2025-09-12 11:39 | disposition home or self-care (01) ==
PROVIDERS: Emergency Provider Surgery; PCP Nurse Practitioner Primary Care; Visit Provider Surgery
DX: G40.909 Epilepsy, unspecified, not intractable, without status epilepticus (principal); S90.31XA Contusion of right foot, initial encounter; S90.01XA Contusion of right ankle, initial encounter; F17.210 Nicotine dependence, cigarettes, uncomplicated; Z79.899 Other long term (current) drug therapy; W19.XXXA Unspecified fall, initial encounter
CPT/HCPCS: 73610; 73630; 99284